=== PATIENT | female | born 1975 ===

== ENCOUNTER 2020-06-07 13:13 | Emergency (ER) | payer OTHER, SELFPAY ==
--- NOTE | ~2020-06-07 | XR_ITS ---
EXAMINATION: XR CHEST CLINICAL INFORMATION: High blood pressure COMPARISON: None TECHNIQUE: Frontal view of the chest was obtained. FINDINGS: No significant abnormality is noted involving the heart, lungs, mediastinum, bony thorax or soft tissues. XR/XR chest 1V IMPRESSION: Unremarkable chest examination.
[2020-06-07 13:16] VITALS: BP 192/94; PULSE 105; RESP 18; TEMP 36.7; O2SAT 98; BMI 33.3
--- NOTE | 2020-06-07 13:26 | ED_ITS ---
HPI - General Adult General Chief complaint: General Medical Stated complaint: HBP, chest pain Time Seen by Provider: 06/07/20 13:24 Source: patient Mode of arrival: ambulatory Limitations: no limitations History of Present Illness HPI narrative: 44-year-old female the past medical history of diabetes, HTN, depression and anxiety who is complaining of a lab while blood sugars and blood pressures with subsequent headache and dizziness x2 weeks. Patient states she takes glipizide, and metformin, Lantus and Humalog for her diabetes but has very quick changes in her blood sugar which make her feel terrible. She is often checking her blood sugars every 15 minutes. She also states her doctor has been changing her blood pressure medications, she takes losartan, HCTZ, and was just put on clonidine. She was on metoprolol but it made her feel tired so her doctor changed her meds. She states she took all of her normal diabetes and blood pressure medications this morning as usual. She denies chest pain, shor tness of breath. Patient states she was taking sertraline but only took a few times did not like how it made her feel so she stopped taking it. She states she takes no medications to manage her anxiety and does not see a therapist. Related Data Previous Rx's Medication Instructions Recorded hydroxyzine HCl 10 mg PO QID PRN #14 tab 06/07/20 Allergies Allergy/AdvReac Type Severity Reaction Status Date / Time ibuprofen [From MOTRIN] Allergy Unknown VOMIT Unverified 12/14/19 16:28 lisinopril [LISINOPRIL] Allergy Unknown SWELLING Unverified 12/14/19 16:28 OF FACE naproxen [NAPROXEN] Allergy Unknown VOMITING, Unverified 12/14/19 16:28 SWEATY MOTRIN Allergy Unknown Uncoded 05/04/13 00:00 Motrin Allergy Unknown Uncoded 05/16/19 00:00 Review of Systems Review of Systems: Yes all other systems are reviewed and are negative PMFSH Past Medical History Medical History HTN (hypertension) Social History Social History Advance Directives: No Advance Directives Information Provided: No Physical Exam 2 Vital Signs: Vital Signs: Last Vital Signs Temp 99.4 F 06/07/20 16:48 Pulse 80 06/07/20 16:48 Resp 14 06/07/20 16:48 BP 156/93 H 06/07/20 16:48 Pulse Ox 100 06/07/20 16:48 Body Mass Index 33.3 Const: General: cooperative, healthy appearing, comfortable, no acute distress, well developed and anxious Nutritional Appearance: obese Orientation/consciousness: patient oriented x3 Limitations: no limitations HENMT: Head: Yes normal to inspection Ears: hearing grossly normal bilaterally Eyes: General: appearance normal, both eyes and all related structures Visual Nur: normal visual nur by confrontation Pupils: Equal, round and reactive pupils present EOM: EOMs intact bilaterally Neck: Neck: Yes normal visual inspection and Yes full ROM Chest: Chest palpation & inspection: normal inspection of the chest Resp: Effort & Inspection: normal respiratory effort and able to speak in complete sentences Cardio: Rate: tachycardic Rhythm: regular rhythm Neuro: General: patient oriented x3 Cranial nerves: Yes CN's II-XII intact bilaterally and Yes Equal, round and reactive pupils present Course Course Course Narrative: 44-year-old female the past medical history of diabetes, HTN, depression and anxiety who is complaining of a lab while blood sugars and blood pressures with subsequent headache and dizziness x2 weeks. Patient is clearly very anxious which is probably what is contributing to her labile blood pressures. After my initial assessment, I left the room and the blood pressure recycled, the patient's BP is down to 156/86 map 102. Will get typical labs, troponin, EKG. Had an extensive discussion with patient and her daughter about patient's anxiety. Patient currently has no means to manage her anxiety. We discussed Atarax and after much discussion, the patient agreed to try 10 mg p.o.. Will reassess in a little while and monitor BP's. Reevaluation(s) Reevaluation #1: Patient states she is feeling a little more relaxed, blood pressure is down to 148/94, does not want another 10 mg of Atarax yet, will continue to monitor. Time: 15:00 Reevaluation #2: Patient states she is feeling less anxious however her blood pressure is using a little, last BP was 168/95 with a heart rate of 99. Since patient has 25 mg metoprolol at home, we will try a half a tablet here, 12.5 mg p.o. to see if that brings her blood pressure down a little bit but I think there is a large component of anxiety contributing to her labile and elevated blood pressures. Time: 15:48 Reevaluation #3: Patient states she takes oxycodone every 4 hours and she has not taken 1 since this morning and feels she might be withdrawing a little and that might be contributing to her blood pressure going up, after she had the metoprolol, the blood pressure did come down to the 150 systolic. She typically would take clonidine at this time and her oxycodone, she has both in her person will be taking both right now. She is comfortable getting discharged with adding at the 12.5 mg metoprolol daily. I did speak with our hospital pharmacist Ignacio, he said it was okay to cut the pill in half, I would not lose effectiveness, the pill cannot be crushed. Will discharge patient. Time: 17:12 Medical Decision Making Lab Data Result diagrams: 06/07/20 13:54 06/07/20 13:54 Labs: Lab Results 06/07/20 06/07/20 06/07/20 Range/Units 13:54 13:54 13:54 WBC 10.8 (4.8-10.8) X10*3/uL RBC 4.70 (4.20-5.50) X10*6/uL Hgb 10.8 L (12.0-16.0) g/dl Hct 35.3 L (37-47) % MCV 75.1 L (80-98) fL MCH 23.0 L (27.0-33.0) pg MCHC 30.6 L (31.0-35.0) g/dl RDW 17.5 H (11.0-16.0) % Plt Count 309 (160-400) X10*3/uL MPV 11.3 (9.4-12.3) fL Immature Gran % (Auto) 0.3 (0.0-0.4) % Neut % (Auto) 62.7 (45-73) % Lymph % (Auto) 26.0 (20-40) % [place] % (Auto) 8.9 (2-11) % Eos % (Auto) 1.8 (0-4) % Baso % (Auto) 0.3 (0-2) % Lymph # (Auto) 2.8 (1.2-4.9) X10*3/uL [place] # (Auto) 1.0 (0.1-1.2) X10*3/uL Eos # (Auto) 0.2 (0.0-0.4) X10*3/uL Baso # (Auto) 0.0 (0.0-0.2) X10*3/uL Abs Immat Gran (auto) 0.03 (0.00-0.03) X10*3/uL Absolute Neuts (auto) 6.8 (2.0-8.3) X10*3/uL Absolute Nucleated RBC 0.000 (0.0-0.012) X10*3/uL Nucleated RBC % (auto) 0.0 (0.0-0.2) /100WBC Hold Blue Top Cancelled POC Glucose (60-115) mg/dL Troponin I High Sens 3.5 (<3.5-17.0) ng/L B-Natriuretic Peptide 15 (<100) pg/mL 06/07/20 Range/Units 15:31 WBC (4.8-10.8) X10*3/uL RBC (4.20-5.50) X10*6/uL Hgb (12.0-16.0) g/dl Hct (37-47) % MCV (80-98) fL MCH (27.0-33.0) pg MCHC (31.0-35.0) g/dl RDW (11.0-16.0) % Plt Count (160-400) X10*3/uL MPV (9.4-12.3) fL Immature Gran % (Auto) (0.0-0.4) % Neut % (Auto) (45-73) % Lymph % (Auto) (20-40) % [place] % (Auto) (2-11) % Eos % (Auto) (0-4) % Baso % (Auto) (0-2) % Lymph # (Auto) (1.2-4.9) X10*3/uL [place] # (Auto) (0.1-1.2) X10*3/uL Eos # (Auto) (0.0-0.4) X10*3/uL Baso # (Auto) (0.0-0.2) X10*3/uL Abs Immat Gran (auto) (0.00-0.03) X10*3/uL Absolute Neuts (auto) (2.0-8.3) X10*3/uL Absolute Nucleated RBC (0.0-0.012) X10*3/uL Nucleated RBC % (auto) (0.0-0.2) /100WBC Hold Blue Top POC Glucose 150 H (60-115) mg/dL Troponin I High Sens (<3.5-17.0) ng/L B-Natriuretic Peptide (<100) pg/mL ECG Data Attestation: I personally reviewed and interpreted this ECG as follows: Prior ECG tracings: not available for review Interpretation: Sinus tach at 113BPM, no acute changes Discharge Plan Discharge Clinical Impression: Anxiety about health, Elevated blood pressure reading with diagnosis of hypertension Patient Disposition: Home, Self-Care Instructions: Anxiety (ED) Additional Instructions: As discussed, please cut your 25 mg metoprolol pill in half and start taking 1/2 pill daily, each morning. Please be sure to follow-up with your PCP regarding your anxiety. It would be worth trialing your SSRI but remember, as we discussed, you need to stay on the medication for least 6 weeks to feel the effects. In the meantime, see how the Atarax works for you, if it works well, your PCP should be willing to continue the prescription. I would also recommend some talk therapy to learn some coping mechanisms for when you are feeling anxious. Also, as we discussed, I would speak with your deputy program manager regarding a continuous glucose monitor such as the Dexcom G6. This could give you a clear picture of your current blood sugar and which direction it is heading in as well as how fast it is heading in that direction. Prescriptions: New hydroxyzine HCl 10 mg tablet 10 mg PO QID PRN (Reason: anxiety) Qty: 14 RF: 0 Referrals: Valentin Newton MD [Primary Care Provider] - 2 days (Follow-up for anxiety and medication changes, we added 12.5 mg metoprolol daily starting today.)
--- NOTE | 2020-06-07 13:27 | ECG_ITS ---
Test Reason : CP Blood Pressure : / mmHG Vent. Rate : 113 BPM Atrial Rate : 113 BPM P-R Int : 160 ms QRS Dur : 084 ms QT Int : 310 ms P-R-T Axes : 048 013 022 degrees QTc Int : 425 ms Sinus tachycardia Otherwise normal ECG When compared with ECG of 07-DEC-2013 13:52, No significant change was found Referred By: Bethany Hooper Electronically Signed By:DUTCH MANZO MD
[2020-06-07 13:58] LABS: MANUAL DIFF FLAG NO
[2020-06-07 14:02] LABS: Basophils Percent Auto 0.3 % (0-2); Eosinophils Absolute Auto 0.2 X10*3/uL (0.0-0.4); Eosinophils Percent Auto 1.8 % (0-4); Hematocrit 35.3 % (37-47); Hemoglobin 10.8 g/dl (12.0-16.0); Imm Gran Abs Auto 0.03 X10*3/uL (0.00-0.03); Imm Gran Pct Auto 0.3 % (0.0-0.4); Lymphocytes Absolute Auto 2.8 X10*3/uL (1.2-4.9); Mean Corpuscular HGB Conc 30.6 g/dl (31.0-35.0); Mean Corpuscular Volume 75.1 fL (80-98); Mean Platelet Volume 11.3 fL (9.4-12.3); Monocytes Percent Auto 8.9 % (2-11); Neutrophils Absolute Auto 6.8 X10*3/uL (2.0-8.3); Neutrophils Percent Auto 62.7 % (45-73); Platelet Count 309 X10*3/uL (160-400); Red Cell Distribution Width 17.5 % (11.0-16.0); White Blood Count 10.8 X10*3/uL (4.8-10.8)
[2020-06-07] MEDS: hydrOXYzine HCL 10 MG TABLET PO (14:21)
[2020-06-07 14:41] LABS: B Type Natriuretic Peptide 15 pg/mL (<100); Troponin-I High Sensitivity 3.5 ng/L (<3.5-17.0)
[2020-06-07 15:28] VITALS: BP 169/97; PULSE 82; RESP 22; TEMP 37.6; O2SAT 99
[2020-06-07 15:36] LABS: Glucose, Whole Blood 150 mg/dL (60-115)
[2020-06-07 16:03] VITALS: BP 171/118; PULSE 90
[2020-06-07] MEDS: Metoprolol Succinate ER 12.5 MG HALFTAB.ER.24H PO (16:03)
[2020-06-07 16:48] VITALS: BP 156/93; PULSE 80; RESP 14; TEMP 37.4; O2SAT 100
--- NOTE | 2020-06-07 17:27 | PC.NURSE ---
pt denies chest pain, denies dizziness or shortness of breath. She styates she will follow with her PCP as needed and take new meds as prescribed.
[2020-06-07 17:28] VITALS: BP 161/97; PULSE 87; RESP 16; O2SAT 98
== END 2020-06-07 17:28 | disposition home or self-care (01) ==
PROVIDERS: Physician Assistant; Emergency Provider Emergency Medicine Emergency Medical Services; PCP Internal Medicine
DX: F41.9 Anxiety disorder, unspecified (principal); I10 Essential (primary) hypertension; E11.9 Type 2 diabetes mellitus without complications; Z79.4 Long term (current) use of insulin; Z79.899 Other long term (current) drug therapy
CPT/HCPCS: 36415; 71045; 80048; 82947; 83880; 84484; 85025; 93005; 99284

== ENCOUNTER 2021-02-17 12:26 | Outpatient (REF) | payer OTHER, SELFPAY | END 2021-02-17 12:27 | disposition home or self-care (01) | LOC: HO.LAB 12:26 | PROVIDERS: PCP Internal Medicine; Visit Provider Internal Medicine | DX: Z20.822 Contact with and (suspected) exposure to COVID-19 (principal) | CPT/HCPCS: C9803; U0003; U0005 ==

== ENCOUNTER 2022-01-01 15:36 | Emergency (ER) | payer OTHER, SELFPAY ==
[2022-01-01 16:48] VITALS: BP 163/100; PULSE 103; RESP 20; TEMP 36.3; O2SAT 99; BMI 38.2
--- NOTE | 2022-01-01 16:53 | ECG_ITS ---
Test Reason : WEAKNESS Blood Pressure : / mmHG Vent. Rate : 094 BPM Atrial Rate : 094 BPM P-R Int : 174 ms QRS Dur : 086 ms QT Int : 326 ms P-R-T Axes : 026 -07 020 degrees QTc Int : 407 ms Normal sinus rhythm Moderate voltage criteria for LVH, may be normal variant ( R in aVL , Chema product ) Borderline ECG When compared with ECG of 07-JUN-2020 13:28, Heart rate has decreased Referred By: Generic ED Physician Electronically Signed By:LEROY DUEÑAS
[2022-01-01 17:29] LABS: MANUAL DIFF FLAG NO
[2022-01-01 17:33] LABS: Basophils Percent Auto 0.2 % (0-2); Eosinophils Absolute Auto 0.1 X10*3/uL (0.0-0.4); Eosinophils Percent Auto 0.6 % (0-4); Hematocrit 36.5 % (37.0-47.0); Hemoglobin 11.2 g/dl (12.0-16.0); Imm Gran Abs Auto 0.03 X10*3/uL (0.00-0.03); Imm Gran Pct Auto 0.3 % (0.0-0.4); Lymphocytes Absolute Auto 1.2 X10*3/uL (1.2-4.9); Lymphocytes Percent Auto 10.7 % (20-40); Mean Corpuscular HGB Conc 30.7 g/dl (31.0-35.0); Mean Corpuscular Hemoglobin 23.9 pg (27.0-33.0); Mean Corpuscular Volume 77.8 fL (80.0-98.0); Mean Platelet Volume 10.8 fL (9.4-12.3); Monocytes Absolute Auto 1.2 X10*3/uL (0.1-1.2); Monocytes Percent Auto 11.1 % (2-11); Neutrophils Absolute Auto 8.3 x10*3/uL (2.0-8.3); Neutrophils Percent Auto 77.1 % (45-73); Platelet Count 330 X10*3/uL (160-400); Red Blood Count 4.69 X10*6/uL (4.20-5.50); Red Cell Distribution Width 17.1 % (11.0-16.0); White Blood Count 10.8 X10*3/uL (4.8-10.8)
[2022-01-01 17:46] LABS: COVID-19 Test Negative (Negative)
[2022-01-01 17:50] LABS: Alanine Aminotransferase 13 U/L (0-31); Albumin Level 4.5 g/dL (3.5-5.0); Alkaline Phosphatase 43 U/L (39-117); Anion Gap 15 (12-20); Aspartate Amino Transferase 12 U/L (5-31); Bilirubin Direct 0.2 mg/dL (0.0-0.5); Bilirubin Total 0.5 mg/dL (0.0-1.0); Blood Urea Nitrogen 15 mg/dL (9-16); Calcium 9.8 mg/dL (8.4-10.2); Carbon Dioxide 22 mmol/L (22-29); Chloride 101 mmol/L (96-108); Creatinine Clr Calc Pharmacy 86.4; Estimated Glomerular Filt Rate > 60; Glucose Random 220 mg/dL (60-115); Lipase 5 U/L (8-78); Potassium 4.1 mmol/L (3.3-5.1); Sodium 134 mmol/L (135-145); Total Protein 7.8 g/dL (6.5-8.0)
[2022-01-01 18:04] LABS: Troponin-I High Sensitivity < 3.5 ng/L (<3.5-17.0)
== END 2022-01-01 21:02 | disposition left against medical advice (07) ==
PROVIDERS: Emergency Provider Emergency Medicine; PCP Internal Medicine
DX: R55 Syncope and collapse (principal); R11.10 Vomiting, unspecified; R19.7 Diarrhea, unspecified; I10 Essential (primary) hypertension; Z20.822 Contact with and (suspected) exposure to COVID-19
CPT/HCPCS: 36415; 80048; 80076; 83690; 84484; 85025; 87635; 93005; 99283

== ENCOUNTER 2022-09-19 18:15 | Emergency (ER) | payer OTHER, SELFPAY ==
[2022-09-19 18:23] VITALS: BP 195/97; PULSE 104; RESP 16; TEMP 36.4; O2SAT 98; BMI 38.3
[2022-09-19 18:53] LABS: Hematocrit 34.3 % (37.0-47.0); Hemoglobin 10.5 g/dl (12.0-16.0); Mean Corpuscular HGB Conc 30.6 g/dl (31.0-35.0); Mean Corpuscular Hemoglobin 23.6 pg (27.0-33.0); Mean Corpuscular Volume 77.3 fL (80.0-98.0); Mean Platelet Volume 10.7 fL (9.4-12.3); Platelet Count 299 X10*3/uL (160-400); Red Blood Count 4.44 X10*6/uL (4.20-5.50); Red Cell Distribution Width 18.6 % (11.0-16.0); White Blood Count 9.1 X10*3/uL (4.8-10.8)
[2022-09-19 18:58] LABS: Prothrombin Time 11.7 SEC (10.0-13.1)
[2022-09-19 19:05] LABS: Appearance Urine Cloudy; Color Urine PINK; Glucose Urine UA 500 mg/dL (Negative); Leukocyte Esterase Urine Negative (Negative); Nitrite Urine Negative (Negative); Specific Gravity - Urine 1.025 (1.005-1.025); UMIC TRIGGER UACC YES; Urine Blood Large (3+) (Negative); Urine Ketones Negative (Negative); Urine Protein Negative (Neg-Trace)
[2022-09-19 19:07] LABS: Alanine Aminotransferase 17 U/L (0-31); Albumin Level 4.3 g/dL (3.5-5.0); Alkaline Phosphatase 53 U/L (39-117); Anion Gap 12 (12-20); Aspartate Amino Transferase 14 U/L (5-31); Bilirubin Total 0.3 mg/dL (0.0-1.0); Blood Urea Nitrogen 13 mg/dL (9-16); Calcium 9.7 mg/dL (8.4-10.2); Carbon Dioxide 27 mmol/L (22-29); Chloride 100 mmol/L (96-108); Creatinine Clr Calc Pharmacy 97.8; Estimated Glomerular Filt Rate > 60; Glucose Random 232 mg/dL (60-115); Potassium 3.4 mmol/L (3.3-5.1); Sodium 136 mmol/L (135-145); Total Protein 7.7 g/dL (6.5-8.0)
[2022-09-19 19:07] LABS: Bacteria Urine None Seen (None Seen); Hyaline Casts Urine 0-2 /LPF (0-2); RBC Urine >20 /HPF (0-2); Squamous Epithelial Cell Urine 0-2 /HPF (0-2); WBC Urine 0-5 /HPF (0-5)
[2022-09-19 21:56] LABS: UPreg QC Valid YES
[2022-09-19 21:57] LABS: Urine Pregnancy NEGATIVE (NEGATIVE)
--- NOTE | 2022-09-19 22:39 | PM.GYNCN ---
NON DESTRUCTIVE TESTER - CN: HPI Data of Consult Consult date: 09/19/22 Primary Care Provider: Valentin Newton III, MD Consult Narrative Narrative: I was consulted Kell Looney who is a 46 year old female presented emergency room complaining of few weeks history of vaginal bleeding associated with pelvic cramping and passage of blood clots. In the emergency room urine test negative, H&H is 10.5/34.3 cc:: CC: OB [facility] Past Medical History Medical History HTN (hypertension) Social History Social History Alcohol intake: never Advance Directives: No Advance Directives Information Provided: Yes Meds Allergies Allergy/AdvReac Type Severity Reaction Status Date / Time amoxicillin Allergy Unknown Verified 09/19/22 18:29 doxycycline Allergy Unknown Verified 09/19/22 18:29 ibuprofen Allergy Unknown Verified 09/19/22 18:28 NON DESTRUCTIVE TESTER Physical Exam Vitals Vital signs: Temp Pulse Resp BP Pulse Ox O2 Del Method 97.5 F 104 H 16 195/97 H 98 Room Air 09/19/22 18:23 09/19/22 18:23 09/19/22 18:23 09/19/22 18:23 09/19/22 18:23 09/19/22 18:23 BMI result Body Mass Index 38.3 Additional Comments: Reported by Dr. Irvin in benign abdominal exam pelvic exam no evidence of active vaginal bleeding NON DESTRUCTIVE TESTER - Results Labs 09/19/22 18:44 09/19/22 18:44 Labs: Short CBC 09/19/22 Range/Units 18:44 WBC 9.1 (4.8-10.8) X10*3/uL Hgb 10.5 L (12.0-16.0) g/dl Hct 34.3 L (37.0-47.0) % Plt Count 299 (160-400) X10*3/uL BMP 09/19/22 18:44 Sodium 136 Potassium 3.4 Chloride 100 Carbon Dioxide 27 BUN 13 Creatinine 0.84 Calcium 9.7 Liver Function 09/19/22 Range/Units 18:44 Total Bilirubin 0.3 (0.0-1.0) mg/dL AST 14 (5-31) U/L ALT 17 (0-31) U/L Alkaline Phosphatase 53 (39-117) U/L Albumin 4.3 (3.5-5.0) g/dL Urine 09/19/22 09/19/22 Range/Units 18:39 18:39 Urine Color PINK Urine Appearance Cloudy Urine pH 6.0 (5.0-9.0) Ur Specific [place] 1.025 (1.005-1.025) Urine Protein Negative (Neg-Trace) mg/dL Urine Glucose (UA) 500 H (Negative) mg/dL Urine Test NEGATIVE (NEGATIVE) Assessment and Plan (1) Abnormal uterine bleeding (AUB): Status: Acute Plan Differential diagnosis of abnormal uterine bleeding includes but not limited to : thyroid disorders, prolactin disorders, uterine, ovarian pathology, endometrial pathology including endometrial hyperplasia and/or malignancy, infections, and others. The workup includes TSH, prolactin, in addition to CBC, hCG and a pelvic ultrasound with endometrial biopsy to rule out endometrial pathology. Recommended the Dr. Irvin to instructed the patient to follow-up in an outpatient electron beam welder setter office over [place] , for DUB workup and treatment. In addition, instructions to be given to patient to come back to emergency room in case of heavy vaginal bleeding. I spent a total of 20 minutes reviewing the chart, communicating to the emergency room provider and documenting in the medical record Time Spent With Patient Time: Total time managing care of this patient today ____ minutes.
--- NOTE | 2022-09-19 22:40 | ED.FEMALEGU ---
HPI - Female Genitourinary General Chief complaint: Vaginal Bleeding Stated complaint: vaginal bleeding since 09/02 Time Seen by Provider: 09/19/22 21:49 History of Present Illness HPI Narrative: Patient is a 46-year-old female presents today for having vaginal bleeding for the last month. Getting more severe in the last week. Patient claims she is soaking a pad every hour. No fever no chills no chest pain no nausea no vomiting. Slight dizziness. No rectal bleeding. Not on blood thinners. Patient is sexually active with 1 partner. Had not had any Pap smear. Has an OBGYN with [email or web address] Data Previous Rx's Medication Instructions Recorded hydroxyzine HCl 10 mg tablet 10 mg PO QID PRN anxiety #14 tabs 06/07/20 Allergies Allergy/AdvReac Type Severity Reaction Status Date / Time amoxicillin Allergy Unknown Verified 09/19/22 18:29 doxycycline Allergy Unknown Verified 09/19/22 18:29 ibuprofen Allergy Unknown Verified 09/19/22 18:28 Review of Systems Review of Systems: Positive vaginal bleeding. Positive generalized malaise Yes all other systems are reviewed and are negative [facility] Past Medical History Attestation statement: The following information was validated with the patient. Medical History HTN (hypertension) Social History Social History Alcohol intake: never Advance Directives: No Advance Directives Information Provided: Yes Physical Exam Vital Signs: Vital Signs: Last Vital Signs Temp 97.5 F 09/19/22 18:23 Pulse 104 H 09/19/22 18:23 Resp 16 09/19/22 18:23 BP 195/97 H 09/19/22 18:23 Pulse Ox 98 09/19/22 18:23 O2 Del Method Room Air 09/19/22 18:23 BMI result Body Mass Index 38.3 Appearance: Alert. Oriented X3. No acute distress. Eyes: Pupils equal, round and reactive to light. ENT: Pharynx normal. Neck: Normal inspection. Neck supple. No lymph nodes noted. No crepitus CVS: Normal heart rate and rhythm. Pulses normal. Normal S1 and S2 Respiratory: No respiratory distress. Breath sounds normal. No Wheezing. No rales Abdomen: Soft and nontender. No rigidity. No distention. good BS x4 Pelvic exam done with christina Rogers present. There is minimal blood in the vaginal vault. The cervical os is closed. There is no adnexal tenderness elicited on palpation. Skin: Skin warm and dry. Normal skin color. Normal skin turgor. Extremities: No lower extremity edema. Neurovascular intact to all extremities. No Lacerations. No Rash Neuro: Oriented X 3. No motor deficit. No sensory deficit. Moving all extermities. No slurred speech Medical Decision Making Medical Decision Making [facility] Narrative: Positive vaginal bleeding however patient's hemoglobin she is around 11 which is baseline. MCV is low suggestive of iron deficiency anemia. Patient's urine showed no signs of infection. Pelvic exam done cervical os was closed there is blood in the vault. Findings discussed with OBGYN. Will see patient on an outpatient basis. Phone number given. Patient told worsening condition return. At this time see no need for transfusion. Patient hemoglobin baseline she is well-appearing bleeding is not active. Will discharge patient home. Differential Diagnosis Differential Diagnoses: The differential diagnosis associated with the presentation includes Uterine cancer, vaginal bleed Consult Healthcare Provider Management of the patient was discussed with: Nursing Education Consultant OBGYN Lab Data [facility] Lab Attestation statement: I reviewed the patient's lab results. 09/19/22 18:44 09/19/22 18:44 Labs: Lab Results 09/19/22 09/19/22 09/19/22 Range/Units 18:39 18:39 18:44 WBC 9.1 (4.8-10.8) X10*3/uL RBC 4.44 (4.20-5.50) X10*6/uL Hgb 10.5 L (12.0-16.0) g/dl Hct 34.3 L (37.0-47.0) % MCV 77.3 L (80.0-98.0) fL MCH 23.6 L (27.0-33.0) pg MCHC 30.6 L (31.0-35.0) g/dl RDW 18.6 H (11.0-16.0) % Plt Count 299 (160-400) X10*3/uL MPV 10.7 (9.4-12.3) fL Absolute Nucleated RBC 0.000 (0.0-0.012) X10*3/uL Nucleated RBC % (auto) 0.0 (0.0-0.2) /100WBC PT (10.0-13.1) SEC INR (0.9-1.1) Sodium (135-145) mmol/L Potassium (3.3-5.1) mmol/L Chloride (96-108) mmol/L Carbon Dioxide (22-29) mmol/L Anion Gap (12-20) BUN (9-16) mg/dL Creatinine (0.5-1.4) mg/dL Estim Creat Clear Calc Estimated GFR Random Glucose (60-115) mg/dL Calcium (8.4-10.2) mg/dL Total Bilirubin (0.0-1.0) mg/dL AST (5-31) U/L ALT (0-31) U/L Alkaline Phosphatase (39-117) U/L Total Protein (6.5-8.0) g/dL Albumin (3.5-5.0) g/dL Urine Color PINK Urine Appearance Cloudy Urine pH 6.0 (5.0-9.0) Ur Specific [place] 1.025 (1.005-1.025) Urine Protein Negative (Neg-Trace) mg/dL Urine Glucose (UA) 500 H (Negative) mg/dL Urine Ketones Negative (Negative) mg/dL Urine Blood Large (3+) H (Negative) Urine Nitrite Negative (Negative) Ur Leukocyte Esterase Negative (Negative) Urine RBC >20 H (0-2) /HPF Urine WBC 0-5 (0-5) /HPF Ur Squamous Epith Cells 0-2 (0-2) /HPF Urine Bacteria None Seen (None Seen) Hyaline Casts 0-2 (0-2) /LPF Urine Test NEGATIVE (NEGATIVE) 09/19/22 09/19/22 Range/Units 18:44 18:46 WBC (4.8-10.8) X10*3/uL RBC (4.20-5.50) X10*6/uL Hgb (12.0-16.0) g/dl Hct (37.0-47.0) % MCV (80.0-98.0) fL MCH (27.0-33.0) pg MCHC (31.0-35.0) g/dl RDW (11.0-16.0) % Plt Count (160-400) X10*3/uL MPV (9.4-12.3) fL Absolute Nucleated RBC (0.0-0.012) X10*3/uL Nucleated RBC % (auto) (0.0-0.2) /100WBC PT 11.7 (10.0-13.1) SEC INR 1.0 (0.9-1.1) Sodium 136 (135-145) mmol/L Potassium 3.4 (3.3-5.1) mmol/L Chloride 100 (96-108) mmol/L Carbon Dioxide 27 (22-29) mmol/L Anion Gap 12 (12-20) BUN 13 (9-16) mg/dL Creatinine 0.84 (0.5-1.4) mg/dL Estim Creat Clear Calc 97.8 Estimated GFR > 60 Random Glucose 232 H (60-115) mg/dL Calcium 9.7 (8.4-10.2) mg/dL Total Bilirubin 0.3 (0.0-1.0) mg/dL AST 14 (5-31) U/L ALT 17 (0-31) U/L Alkaline Phosphatase 53 (39-117) U/L Total Protein 7.7 (6.5-8.0) g/dL Albumin 4.3 (3.5-5.0) g/dL Urine Color Urine Appearance Urine pH (5.0-9.0) Ur Specific [place] (1.005-1.025) Urine Protein (Neg-Trace) mg/dL Urine Glucose (UA) (Negative) mg/dL Urine Ketones (Negative) mg/dL Urine Blood (Negative) Urine Nitrite (Negative) Ur Leukocyte Esterase (Negative) Urine RBC (0-2) /HPF Urine WBC (0-5) /HPF Ur Squamous Epith Cells (0-2) /HPF Urine Bacteria (None Seen) Hyaline Casts (0-2) /LPF Urine Test (NEGATIVE) Discharge Plan Discharge Clinical Impression: Abnormal uterine bleeding (AUB) Patient Disposition: Home, Self-Care Instructions: Dysfunctional Uterine Bleeding (ED) Prescriptions: No Action hydroxyzine HCl 10 mg tablet 10 mg PO QID PRN (Reason: anxiety) Qty: 14 0RF Rx Instructions: Can take 1-3 tablets as needed for anxiety Referrals: Elia Cruz MD [Physician] - 09/21/22
== END 2022-09-19 23:37 | disposition home or self-care (01) ==
PROVIDERS: Emergency Provider Emergency Medicine Emergency Medical Services; PCP Internal Medicine
DX: N93.9 Abnormal uterine and vaginal bleeding, unspecified (principal); I10 Essential (primary) hypertension; Z79.899 Other long term (current) drug therapy
CPT/HCPCS: 36415; 80053; 81001; 81003; 81025; 85027; 85610; 99283; 99284

== ENCOUNTER 2022-09-23 13:01 | Outpatient (REF) | payer OTHER, SELFPAY ==
[2022-09-23 14:34] LABS: Hematocrit 34.6 % (37.0-47.0); Hemoglobin 10.4 g/dl (12.0-16.0); Mean Corpuscular HGB Conc 30.1 g/dl (31.0-35.0); Mean Corpuscular Hemoglobin 23.4 pg (27.0-33.0); Mean Corpuscular Volume 77.9 fL (80.0-98.0); Platelet Count 288 X10*3/uL (160-400); Red Blood Count 4.44 X10*6/uL (4.20-5.50); White Blood Count 10.2 X10*3/uL (4.8-10.8)
[2022-09-23 15:21] LABS: TSH reflex Free T4 0.86 uIU/mL (0.32-4.0)
[2022-09-23 15:23] LABS: HCG Quantitative < 2 mIU/mL
[2022-09-25 07:29] LABS: Prolactin 11.5 ng/mL
== END 2022-09-23 13:02 | disposition home or self-care (01) ==
LOC: HO.LAB 13:01
PROVIDERS: PCP Internal Medicine; Visit Provider Obstetrics & Gynecology
DX: N93.9 Abnormal uterine and vaginal bleeding, unspecified (principal)
CPT/HCPCS: 36415; 58100; 84146; 84443; 84702; 85027; 99212

== ENCOUNTER 2022-09-23 13:57 | Outpatient (REF) | payer OTHER, SELFPAY ==
[2022-09-23 16:07] LABS: CT PCR NOT DETECTED (Not Detect.); NG PCR NOT DETECTED (Not Detect.)
[2022-09-29 10:23] LABS: HPV mRNA E6/E7 rflx Not Detected (Not Detected)
== END 2022-09-23 13:58 | disposition home or self-care (01) ==
LOC: HO.LNP 13:57
PROVIDERS: Visit Provider Obstetrics & Gynecology
DX: N93.9 Abnormal uterine and vaginal bleeding, unspecified (principal); Z20.2 Contact with and (suspected) exposure to infections with a predominantly sexual mode of transmission
CPT/HCPCS: 0353U; 87624; 88142; 88305

== ENCOUNTER 2022-09-25 12:34 | Outpatient (REF) | payer OTHER, SELFPAY | END 2022-09-25 12:35 | disposition home or self-care (01) | LOC: HO.US 12:34 | PROVIDERS: PCP Internal Medicine; Visit Provider Obstetrics & Gynecology | DX: N93.9 Abnormal uterine and vaginal bleeding, unspecified (principal) | CPT/HCPCS: 76830; 76856 ==

== ENCOUNTER → 2022-09-30 12:20 | Outpatient (BNVA) | payer OTHER, SELFPAY | PROVIDERS: PCP Internal Medicine; Visit Provider Obstetrics & Gynecology | DX: N93.9 Abnormal uterine and vaginal bleeding, unspecified (principal); D25.9 Leiomyoma of uterus, unspecified | CPT/HCPCS: 99212 ==

== ENCOUNTER 2022-10-23 06:55 | Day surgery (SDC) | payer OTHER, SELFPAY ==
[2022-10-20 11:05] VITALS: BMI 36.9
--- NOTE | 2022-10-22 09:00 | P.CONAN_ITS ---
Documented by User: Liana Motta NP 10/22/22 09:02 HPI - Anesthesia Eval Consult details Narrative: 46yo F for D&C Hysteroscopy,poss myomectomy/polypectomy PMFSH Active Problems Active Problems: All Active Problems (Updated 09/30/22 @ 12:29 by Elia Cruz MD) Uterine myoma (Acute) Abnormal uterine bleeding (AUB) (Acute) Past Medical History Medical History (Updated 10/23/22 @ 08:17 by Catalina Ayala MD) Diabetes Hernia HTN (hypertension) Hyperlipidemia Family History Family History Father Diabetes Mother Diabetes Breast cancer Ovarian cancer Maternal Aunt Ovarian cancer Paternal Aunt Ovarian cancer Surgical History Surgical History (Updated 10/23/22 @ 08:20 by Catalina Ayala MD) H/O hernia repair H/O tubal ligation Hx laparoscopic cholecystectomy Social History Social History (Updated 10/23/22 @ 08:20 by Catalina Ayala MD) Household Members: None Alcohol intake: never Patient Tobacco Use Status: Current someday Tobacco user Cigarettes Per Day: 1 Years Smoked: 5 Current occupational status: disabled Sexual orientation: Straight/Heterosexual Gender identity: Female Meds Allergies Allergy/AdvReac Type Severity Reaction Status Date / Time amoxicillin Allergy Unknown Verified 09/30/22 12:27 doxycycline Allergy Unknown Verified 09/30/22 12:27 ibuprofen Allergy Unknown Verified 09/30/22 12:27 lisinopril Allergy Angioedema Verified 10/23/22 07:59 naproxen AdvReac Unknown Verified 10/23/22 07:59 Home Medications Medication Instructions Recorded Confirmed Last Taken Type ammonium lactate 12 % topical cream appl topical BID 09/23/22 Unknown History clindamycin 1.2 %-benzoyl 5 % pkg topical 09/23/22 Unknown History topical gel with emollient cream no.94 cyanocobalamin (vitamin B-12) 5,000 mcg sublingual DAILY 09/23/22 Unknown History 5,000 mcg sublingual tablet (Vitamin B-12) dulaglutide 3 mg/0.5 mL mg subcut 09/23/22 Unknown History subcutaneous pen injector (Trulicity) ferrous sulfate 325 mg (65 mg 325 mg PO DAILY 09/23/22 Unknown History iron) tablet hydrochlorothiazide 25 mg tablet 25 mg PO DAILY 09/23/22 Unknown History insulin glargine 100 unit/mL (3 86 unit subcut DAILY 09/23/22 Unknown History mL) subcutaneous pen (Lantus Solostar U-100 Insulin) losartan 100 mg tablet 100 mg PO DAILY 09/23/22 Unknown History metformin 1,000 mg tablet 1,000 mg PO BID 09/23/22 Unknown History metoprolol succinate 25 mg 12.5 mg PO DAILY 09/23/22 10/23/22 History tablet,extended release 24 hr nystatin 100,000 unit/gram topical 1 appl topical BID 09/23/22 Unknown History cream oxycodone-acetaminophen 5 mg-325 1 tab PO QID 09/23/22 Unknown History mg tablet rosuvastatin 5 mg tablet 5 mg PO DAILY 09/23/22 Unknown History zolpidem 10 mg tablet 10 mg PO BEDTIME 09/23/22 Unknown History Exam Exam Date and Time: October 22, 2022 0900 Height,Weight and Vital Signs: Height 5 ft 4 in Weight 97.522 kg Pertinent Lab Results Pertinent Lab Results: Laboratory Tests 09/19/22 09/23/22 18:44 13:59 WBC 10.2 Hgb 10.4 L Hct 34.6 L Plt Count 288 Sodium 136 Potassium 3.4 Chloride 100 Carbon Dioxide 27 BUN 13 Creatinine 0.84 Assessment and Plan Assessment Anesthesia Assessment: Chart Reviewed Documented by User: Catalina Ayala MD 10/23/22 08:26 [facility] Active Problems Active Problems: All Active Problems (Updated 10/23/22 @ 07:45 by Catalina Ayala MD) Uterine myoma (Acute) Abnormal uterine bleeding (AUB) (Acute) MICHELLE. Uses CPAP Asthma. Inhaler prn. Not recently Increased BMI 36.9 Anxiety - gets ativan for dental visits Last dose of trulicity 4 days ago 10/19/22 Past Medical History Medical History (Updated 10/23/22 @ 08:17 by Catalina Ayala MD) Diabetes Hernia HTN (hypertension) Hyperlipidemia Family History Family History Father Diabetes Mother Diabetes Breast cancer Ovarian cancer Maternal Aunt Ovarian cancer Paternal Aunt Ovarian cancer Family history of problems with anesthesia: No Surgical History Surgical History (Updated 10/23/22 @ 08:20 by Catalina Ayala MD) H/O hernia repair H/O tubal ligation Hx laparoscopic cholecystectomy History of Problems with Anesthesia: No Social History Social History (Updated 10/23/22 @ 08:20 by Catalina Ayala MD) Household Members: None Alcohol intake: never Patient Tobacco Use Status: Current someday Tobacco user Cigarettes Per Day: 1 Years Smoked: 5 Current occupational status: disabled Sexual orientation: Straight/Heterosexual Gender identity: Female Meds Allergies Allergy/AdvReac Type Severity Reaction Status Date / Time amoxicillin Allergy Unknown Verified 09/30/22 12:27 doxycycline Allergy Unknown Verified 09/30/22 12:27 ibuprofen Allergy Unknown Verified 09/30/22 12:27 lisinopril Allergy Angioedema Verified 10/23/22 07:59 naproxen AdvReac Unknown Verified 10/23/22 07:59 Home Medications Medication Instructions Recorded Confirmed Last Taken Type ammonium lactate 12 % topical cream appl topical BID 09/23/22 Unknown History clindamycin 1.2 %-benzoyl 5 % pkg topical 09/23/22 Unknown History topical gel with emollient cream no.94 cyanocobalamin (vitamin B-12) 5,000 mcg sublingual DAILY 09/23/22 Unknown History 5,000 mcg sublingual tablet (Vitamin B-12) dulaglutide 3 mg/0.5 mL mg subcut 09/23/22 Unknown History subcutaneous pen injector (Trulicity) ferrous sulfate 325 mg (65 mg 325 mg PO DAILY 09/23/22 Unknown History iron) tablet hydrochlorothiazide 25 mg tablet 25 mg PO DAILY 09/23/22 Unknown History insulin glargine 100 unit/mL (3 86 unit subcut DAILY 09/23/22 Unknown History mL) subcutaneous pen (Lantus Solostar U-100 Insulin) losartan 100 mg tablet 100 mg PO DAILY 09/23/22 Unknown History metformin 1,000 mg tablet 1,000 mg PO BID 09/23/22 Unknown History metoprolol succinate 25 mg 12.5 mg PO DAILY 09/23/22 10/23/22 History tablet,extended release 24 hr nystatin 100,000 unit/gram topical 1 appl topical BID 09/23/22 Unknown History cream oxycodone-acetaminophen 5 mg-325 1 tab PO QID 09/23/22 Unknown History mg tablet rosuvastatin 5 mg tablet 5 mg PO DAILY 09/23/22 Unknown History zolpidem 10 mg tablet 10 mg PO BEDTIME 09/23/22 Unknown History Exam Height,Weight and Vital Signs: Height 5 ft 4 in Weight 97.522 kg Vital Signs Temp Pulse Resp BP Pulse Ox O2 Del Method 10/23/22 08:00 166/84 H 10/23/22 07:51 98 F 105 H 20 189/105 H 99 Room Air Pertinent Lab Results Pertinent Lab Results: Laboratory Tests 09/19/22 09/23/22 18:44 13:59 WBC 10.2 Hgb 10.4 L Hct 34.6 L Plt Count 288 Sodium 136 Potassium 3.4 Chloride 100 Carbon Dioxide 27 BUN 13 Creatinine 0.84 Lab Results 10/23/22 Range/Units 07:10 Urine Test NEGATIVE (NEGATIVE) POC 138mg/dL Airway Mallampati Class: III TM Dist: >3cm Neck ROM: Full Loose/Missing/Broken Teeth: Yes (Missing molars. Denies broken or loose teeth) Heart: RRR Lungs: CTAB Assessment and Plan Assessment Anesthesia Assessment: Anesthesia Plan Discussed Final Anesthetic Review Family History of Problems with Anesthesia: No History of Problems with Anesthesia: No NPO: Yes ASA Class: III Final Preanesthetic Review: No Changes in Pt Med Stat, Meds/Allgs Chart Reviewed, Consent Obtained/Reviewed and Anes Risks/Benef Reviewed Patient Risk: Intermediate Procedure Risk: Low Assessment/Block/Sedation in SS: Assess/Block/Sedation-SS Anesthetic Plan Anesthetic Plan: GA Disposition: Standard PACU
[2022-10-23] VITALS (8 sets, daily range): BP systolic 132–189; BP diastolic 72–105; PULSE 95–105; RESP 16–20; TEMP 36.6–36.7; O2SAT 96–100
[2022-10-23 08:10] LABS: UPreg QC Valid YES; Urine Pregnancy NEGATIVE (NEGATIVE)
[2022-10-23] MEDS: Lactated Ringers 1,000 ML 100 ML IVCONT (08:12)
[2022-10-23] MEDS: Metoclopramide HCl 10 MG/2 ML VIAL IVPUSH (08:30)
--- NOTE | 2022-10-23 08:56 | MHC.SHP ---
Pre-Procedural Eval Section A Date of Service: 10/23/22 The patient is an INPATIENT: No Changes since office visit: No Cold of Flu in the past 2 weeks, No New Medical Problems, No Changes in Medication and No Patient answered all questions The History & Physical has been completed within 30 days and I have reviewed it.: Yes Section B Chief Complaint: Abnormal uterine and vaginal bleeding, unspecified Allergies: Allergies Allergy/AdvReac Type Severity Reaction Status Date / Time amoxicillin Allergy Unknown Verified 09/30/22 12:27 doxycycline Allergy Unknown Verified 09/30/22 12:27 ibuprofen Allergy Unknown Verified 09/30/22 12:27 lisinopril Allergy Angioedema Verified 10/23/22 07:59 naproxen AdvReac Unknown Verified 10/23/22 07:59 Plan Diagnosis/Plan: Unchanged I have reviewed the history and physical and performed a pertinent physical examination on my patient. No changes have occurred unless specified. Time Spent With Patient Time: Total time managing care of this patient today ____ minutes.
--- NOTE | 2022-10-23 09:43 | PM.OP ---
Brief Operative Note Date of Service: 10/23/22 Pre-op diagnosis: Abnormal uterine bleeding, polyp on EMB pathology Post-op diagnosis: same (Normal endometrial cavity , no evidence of pathology) Procedure: Hysteroscopy D&C Surgeon: Elia Cruz MD Anesthesia: GLMA Was an Project Management Specialist used for this Procedure?: No Estimated blood loss (mL): 0 Pathology: other (Endometrial Scrapping. ) Condition: stable Disposition: PACU
--- NOTE | 2022-10-23 09:44 | W.PM.OPN ---
Operative Note Operative Note Date of Service: 10/23/22 Narrative: Preop Diagnosis: Abnormal uterine bleeding, endometrial polyp on EMB pathology Operation: Diagnostic Hysteroscopy, Dilataion & Curettage Post Op Diagnosis: Normal endometrial and endocervical cavity, no evidence of pathology QBL: Minimal Anesthesia: GLMA Surgeon: Elia Cruz MD Director Global Strategic Publisher Sales: None Complication: None Pathology: Endometrial Scrapings Procedure: The patient was put in the dorsal lithotomy position, scrubbed, and draped in the usual manner. A sterile speculum was inserted in the patient's vagina. The anterior lip of the cervix was grasped with a single tooth tenaculum. The cervix was dilated up to 5 mm, then the scope was inserted in the patient's uterus. Inspection revealed normal endocervical & endometrial cavity with no evidence of pathology. The scope was taken out of the uterine cavity , then sharp curetting was carried on with no complications. At the end of the procedure, all instruments were taken out of the patient uterine and vaginal cavity. The single tooth tenaculum was removed and homeostasis was assured using pressure. The patient tolerated the procedure well and was transferred to the PACU in a stable condition.
[2022-10-23] MEDS: Acetaminophen 325 MG TABLET 650 MG PO (10:04)
[2022-10-23] MEDS: oxyCODONE HCl Immed Release 5 MG TABLET PO (10:04)
== END 2022-10-23 11:05 | disposition home or self-care (01) ==
PROVIDERS: PCP Internal Medicine; Visit Provider Obstetrics & Gynecology
PROC: 0UDB8ZZ Extraction of Endometrium, Via Natural or Artificial Opening Endoscopic (ICD-10-PCS; CPT 58558; principal; 2022-10-23 09:20)
DX: N93.9 Abnormal uterine and vaginal bleeding, unspecified (principal); D25.9 Leiomyoma of uterus, unspecified; Z98.51 Tubal ligation status; E11.9 Type 2 diabetes mellitus without complications; I10 Essential (primary) hypertension; Z88.1 Allergy status to other antibiotic agents; Z88.8 Allergy status to other drugs, medicaments and biological substances; F17.210 Nicotine dependence, cigarettes, uncomplicated
CPT/HCPCS: 58558; 81025; 88305; J1100; J2250; J2405; J2765

== ENCOUNTER → 2022-10-23 06:55 | Outpatient (BNV) | payer OTHER, SELFPAY | PROVIDERS: PCP Internal Medicine; Visit Provider Obstetrics & Gynecology | DX: N93.9 Abnormal uterine and vaginal bleeding, unspecified (principal) | CPT/HCPCS: 58558 ==

== ENCOUNTER 2022-11-05 13:10 | Outpatient (REF) | payer OTHER, SELFPAY | END 2022-11-05 13:11 | disposition home or self-care (01) | LOC: HO.LNP 13:10 | PROVIDERS: PCP Internal Medicine; Visit Provider Obstetrics & Gynecology | DX: N93.9 Abnormal uterine and vaginal bleeding, unspecified (principal); D25.9 Leiomyoma of uterus, unspecified; R87.615 Unsatisfactory cytologic smear of cervix | CPT/HCPCS: 88142; 99212 ==

== ENCOUNTER 2022-11-05 13:10 | Outpatient (AMB) | payer OTHER, SELFPAY ==
[2022-11-05 13:16] VITALS: BP 132/80; BMI 36.7
--- NOTE | 2022-11-05 13:16 | A.OFFVIS_ITS ---
Intake Vital Signs 11/05/22 13:16 Height 5 ft 4 in Weight 214 lb BMI 36.7 BP 132/80 Intake Visit Reasons: post op Java Swing Developer Required: No Allergies amoxicillin Allergy (Verified 11/05/22 13:17) Unknown doxycycline Allergy (Verified 11/05/22 13:17) Unknown ibuprofen Allergy (Verified 11/05/22 13:17) Unknown lisinopril Allergy (Verified 11/05/22 13:17) Angioedema naproxen Adverse Reaction (Verified 11/05/22 13:17) Unknown Is last menstrual period known: No HPI HPI Comments History of Present Illness Details The patient is presenting post hysteroscopy D&C no complaints minimal vaginal bleeding no feverishness chills or abdominal pain. The pathology showed the following: Endometrium, curettage:? Benign disordered proliferative endometrium with focal stromal collapse, ectatic stromal vessels, and focal thrombi, suggesting anovulatory cycles; no atypia or carcinoma. The following workup was done.: H&H= 10.4/34.6 TSH, prolactin, hCG, GC and chlamydia were negative. Co testing was done , Pap smear was unsatisfactory /obscured by blood , HPV negative Mammogram was BI-RADS 1. Pelvic ultrasound showed the following: Uterus: The uterus is anteverted and measures 11.9 x 5.5 x 6.9 cm.? The double wall endometrial thickness is 0.8 mm.? There are multiple fibroids. 2.9 x 3.3 x 3.1 cm partially calcified fibroid on the right impinges on the endometrial stripe and may have a submucosal component. 3.6 x 3.6 x 2.8 cm subserosal fibroid is seen on the left. A 2.3 cm fibroid is seen posteriorly Adnexa: Both ovaries are visualized. There is normal color flow to the adnexa. There is no ovarian torsion.? There is no pelvic ascites or fluid collection. Right ovary measures 1.8 x 2.0 x 2.9 cm. Volume is 8.3 mL Left ovary measures 4.5 x 3.4 x 4.5 cm. Volume is 35.9 mL. 3.5 x 2.5 x 2.4 cm cyst is most likely physiologic in origin. No imaging follow-up is recommended. [facility] Medical History (Updated 11/05/22 @ 13:41 by Elia Cruz MD) Diabetes Hernia HTN (hypertension) Hyperlipidemia Surgical History (Updated 10/23/22 @ 08:20 by Catalina Ayala MD) H/O hernia repair H/O tubal ligation Hx laparoscopic cholecystectomy Family History Father Diabetes Mother Diabetes Breast cancer Ovarian cancer Maternal Aunt Ovarian cancer Paternal Aunt Ovarian cancer Social History (Updated 10/23/22 @ 08:20 by Catalina Ayala MD) Household Members: None Alcohol intake: never Patient Tobacco Use Status: Current someday Tobacco user Cigarettes Per Day: 1 Years Smoked: 5 Current occupational status: disabled Sexual orientation: Straight/Heterosexual Gender identity: Female Female Reproductive History Menstrual control method: permanent sterilization Date of last pap smear: 09/24/22 (unsatisfactory) Review of Systems Const All systems reviewed & are unremarkable except as noted in HPI and below Reports as per HPI and Reports no additional complaints GI Reports no additional complaints Reports no additional complaints Physical Exam Vital Signs: Last Vital Signs BP 132/80 11/05/22 13:16 BMI result Body Mass Index 36.7 Assessment & Plan Assessment & Plan (1) Abnormal uterine bleeding (AUB): Code(s): N93.9 - Abnormal uterine and vaginal bleeding, unspecified Plan: Discussed with the patient the results of the work up done and options of treatment including Lysteda, control pills, Mirena IUD, endometrial ablation and hysterectomy. All pros, cons, risks and benefits if each option was discussed with the patient and the patient decided to go ahead with Mirena IUD so a more detailed discussion about it was conducted including mechanism of action, risks (uterine perforation, infection, injury to bladder, bowel, displacement, and others) benefits (hypo menorrhea, amenorrhea, ...). GC/CT were taken and the patient was instructed to The patient was instructed to schedule Mirena IUD insertion on day 1-5 of next cycle . (2) Uterine myoma: Code(s): D25.9 - Leiomyoma of uterus, unspecified Plan: Discussed with the patient the findings on pelvic ultrasound & the risk of myosarcoma; discussed with the patient the options of treatment including expectant management versus hysterectomy; the pros and cons, risks benefits of each approach were discussed with the patient including the fact that in cases of myosarcoma, surgical treatment can lead to early diagnosis and positively affects the prognosis; after further discussion, the patient decided to proceed with expectant management. Will repeat pelvic ultrasound in 6 my. Instructions given to patient to call in case any of the following occurs: pressure symptoms, abnormal uterine bleeding, pelvic pain; and to schedule a 6 my follow-up appointment regarding the follow-up ultrasound . All questions answered, the patient verbalized understanding and agreed with the plan . (3) Unsatisfactory cervical Papanicolaou smear: Code(s): R87.615 - Unsatisfactory cytologic smear of cervix Plan: Pap repeated P Orders: Orders US pelvic and transvaginal 6 Months D25.9 - Leiomyoma of uterus, unspecified Coding Level of Care Code Est Pt Level 3 (93555) Diagnoses Abnormal uterine bleeding (AUB) N93.9 Uterine myoma D25.9 Unsatisfactory cervical Papanicolaou smear R87.615
== END 2022-11-05 13:46 | disposition home or self-care (01) ==
LOC: HO.HWS 13:10
PROVIDERS: PCP Internal Medicine; Visit Provider Obstetrics & Gynecology
DX: N93.9 Abnormal uterine and vaginal bleeding, unspecified (principal); D25.9 Leiomyoma of uterus, unspecified; R87.615 Unsatisfactory cytologic smear of cervix
CPT/HCPCS: 99213

== ENCOUNTER 2023-02-15 10:00 | Outpatient (AMB) | payer OTHER, SELFPAY ==
--- NOTE | 2023-02-15 10:14 | MHC.OFFVIS ---
Intake Vital Signs 02/15/23 10:22 Height 5 ft 4 in Weight 215 lb BMI 36.9 BP 144/96 H Intake Visit Reasons: mirena insertion Automotive Exhaust Emissions Technician: Automotive Exhaust Emissions Technician Present (Yaneli) Allergies amoxicillin Allergy (Verified 02/15/23 10:15) Unknown doxycycline Allergy (Verified 02/15/23 10:15) Unknown ibuprofen Allergy (Verified 02/15/23 10:15) Unknown lisinopril Allergy (Verified 02/15/23 10:15) Angioedema naproxen Adverse Reaction (Verified 02/15/23 10:15) Unknown Is last menstrual period known: Yes Last menstrual period: 12/21/22 [facility] Medical History Diabetes Hernia HTN (hypertension) Hyperlipidemia Surgical History H/O hernia repair H/O tubal ligation Hx laparoscopic cholecystectomy Family History Father Diabetes Mother Diabetes Breast cancer Ovarian cancer Maternal Aunt Ovarian cancer Paternal Aunt Ovarian cancer Social History Household Members: None Alcohol intake: never Patient Tobacco Use Status: Current someday Tobacco user Cigarettes Per Day: 1 Years Smoked: 5 Current occupational status: disabled Sexual orientation: Straight/Heterosexual Gender identity: Female Female Reproductive History Menstrual Date of last menstrual period: 12/21/22 Physical Exam Vital Signs: Last Vital Signs BP 144/96 H 02/15/23 10:22 BMI result Body Mass Index 36.9 Office Procedures IUD Insert/Removal Details Details: The patient is presenting for Mirena IUD insertion Urine test was done in the office and was negative; All the contraindications were excluded. The following possible complications were discussed with the patient: Intrauterine , Ectopic , Sepsis, Pelvic Infection, Irregular Bleeding and Amenorrhea, Perforation, Expulsion, Ovarian Cysts, Breast Cancer, The following adverse effects were discussed with the patient: alteration of menstrual bleeding pattern, including: unscheduled uterine bleeding decreased uterine bleeding increased scheduled uterine bleeding female genital tract bleeding ,amenorrhea , genital discharge , vulvovaginitis , breast pain , benign ovarian cyst and associated complications , dysmenorrhea , Gastrointestinal disorders abdominal/pelvic pain, headache/migraine , back pain , acne , depression Alternative options were discussed with the patient including but not limited: control pills, patch, NuvaRing, Depo-medroxyprogesterone acetate, Nexplanon, copper IUD, sterilization, vasectomy, others The procedure was explained in detail to patient , at the end patient signed the informed consent obtained. A no touch technique was used throughout the procedure. A speculum was placed into vagina and cervix was cleaned with betadine). A tenaculum was placed. A plastic sound was advanced through the external and internal os until it reached the fundus of the uterus, the depth was 8 cm. The sound was then withdrawn. The IUD was loaded in a sterile manner and advanced into position. The string was visualized and cut to 3 cm. Tenaculum site hemostatic. All instruments removed from vagina. Patient tolerated the procedure well. NO complications were noted. Patient was instructed to call for fever over 100.4, significant pain unrelieved by Motrin, IUD expulsion, heavy bleeding, or abnormal discharge. In addition, the following clinical considerations were discussed with the patient to call for removal: A stroke or heart attack ,Very severe or migraine headaches ,Unexplained fever ,Yellowing of the skin or whites of the eyes, as these may be signs of serious liver problems , or suspected , Pelvic pain or pain during sex ,HIV positive seroconversion in herself or her partner , Possible exposure to sexually transmitted infections Unusual vaginal discharge or genital sores , severe vaginal bleeding or bleeding that lasts a long time, or if she misses a menstrual period, Inability to feel Mirena's threads Counseled the patient that the IUD does not protect against STI's, recommended use of condoms for the first 7 days post insertion and explained to the patient that condoms are recommended for patients at risk for sexually transmitted infections. In for the patient that Mirena IUD is FDA approved for 8 years for contraception for 5 years for the treatment of heavy menses Instructed the patient to schedule a Follow up appointment in 4 to 6 weeks following insertion. This note was generated with a voice recognition program. Some errors may have been overlooked during the review of this note. Sometimes these errors may affect the content or meaning of a given sentence. [id number]-UBU Insertion Procedure code (CPT) selection complete Office Meds Mirena 21 mcg/24 hours (8 yrs) 52 mg intrauterine device Performing Provider: Elia Cruz MD [place] [facility] Documented (not given) by: Elia Cruz MD on 02/15/23 10:33 Dose Route Admin Location Dispensed Lot Number Expiration Date NDC Piston Maker 1 device intrauterine ea Results AMB Test Urine AMB Test Urine Negative Last Edit by CIERRA Pinzon on 02/15/23 10:23 Results Reviewed Results Reviewed: Laboratory Last Values [facility] Negative 02/15/23 10:23 Assessment & Plan Assessment & Plan (1) Encounter for IUD insertion: Code(s): Z30.430 - Encounter for insertion of intrauterine contraceptive device Plan: IUD insertion done, see procedure note Orders: Orders AMB HCG Urine Test Today Z32.02 - Encounter for test, result negative AMB IUD Insertion/Removal - Practice Supplied Today Z30.430 - Encounter for insertion of intrauterine contraceptive device Medications: New Mirena (levonorgestrel) 1 device intrauterine ONCE 1 ea 0RF IUD insertion NS Z30.430 - Encounter for insertion of intrauterine contraceptive device Coding Level of Care Code Procedure Only Diagnoses Encounter for IUD insertion Z30.430 CPT Codes Details - CPT: 57734-DXS Insertion ([id number])
[2023-02-15 10:22] VITALS: BP 144/96; BMI 36.9
== END 2023-02-15 10:34 | disposition home or self-care (01) ==
LOC: HO.HWS 10:00
PROVIDERS: PCP Internal Medicine; Visit Provider Obstetrics & Gynecology
DX: Z30.430 Encounter for insertion of intrauterine contraceptive device (principal); Z32.02 Encounter for pregnancy test, result negative
CPT/HCPCS: 58300

== ENCOUNTER → 2023-02-15 10:00 | Outpatient (BNVA) | payer OTHER, SELFPAY | PROVIDERS: PCP Internal Medicine; Visit Provider Obstetrics & Gynecology | DX: Z30.430 Encounter for insertion of intrauterine contraceptive device (principal); Z32.02 Encounter for pregnancy test, result negative | CPT/HCPCS: 81025; J7298 ==

== ENCOUNTER 2023-05-10 | Outpatient (REF) | payer OTHER, SELFPAY | END 2023-05-10 00:01 | disposition home or self-care (01) | LOC: CF | PROVIDERS: PCP Internal Medicine; Visit Provider Obstetrics & Gynecology | DX: Z30.431 Encounter for routine checking of intrauterine contraceptive device (principal); Z98.51 Tubal ligation status | CPT/HCPCS: 81025; 99212 ==

== ENCOUNTER 2023-05-10 12:44 | Outpatient (AMB) | payer OTHER, SELFPAY ==
--- NOTE | 2023-05-10 12:48 | MHC.OFFVIS ---
Intake Vital Signs 05/10/23 12:49 Height 5 ft 4 in BP 134/84 Intake Visit Reasons: IUD check Allergies amoxicillin Allergy (Verified 02/15/23 10:15) Unknown doxycycline Allergy (Verified 02/15/23 10:15) Unknown ibuprofen Allergy (Verified 02/15/23 10:15) Unknown lisinopril Allergy (Verified 02/15/23 10:15) Angioedema naproxen Adverse Reaction (Verified 02/15/23 10:15) Unknown Is last menstrual period known: Yes Last menstrual period: 05/01/23 HPI HPI Comments History of Present Illness Details The patient is presenting for IUD check after 1 st period following IUD insertion. The patient has no complaints periods are not painful, and flow is normal. [facility] Medical History Diabetes Hyperlipidemia Hernia HTN (hypertension) Surgical History H/O hernia repair Hx laparoscopic cholecystectomy H/O tubal ligation Family History Father Diabetes Mother Diabetes Breast cancer Ovarian cancer Maternal Aunt Ovarian cancer Paternal Aunt Ovarian cancer Social History Household Members: None Alcohol intake: never Patient Tobacco Use Status: Current someday Tobacco user Cigarettes Per Day: 1 Years Smoked: 5 Current occupational status: disabled Sexual orientation: Straight/Heterosexual Gender identity: Female Female Reproductive History Menstrual Date of last menstrual period: 05/01/23 control method: progestin IUCD (Mirena 02/15/23) Review of Systems Const All systems reviewed & are unremarkable except as noted in HPI and below Reports as per HPI and Reports no additional complaints GI Reports no additional complaints Reports no additional complaints Physical Exam Vital Signs: Last Vital Signs BP 134/84 05/10/23 12:49 Assessment & Plan Assessment & Plan (1) IUD check up: Code(s): Z30.431 - Encounter for routine checking of intrauterine contraceptive device Plan: UPT done in the office was negative. Discussed with the patient the finding on physical exam, IUD string in place, the patient was reassured. Instructions given to patient to call in case of temperature above 100.4, severe cramping/pelvic pain, abnormal discharge or abnormal uterine bleeding or if she misses her. Otherwise follow-up at her annual exam appointment. All questions answered, the patient verbalized understanding. Coding Level of Care Code Est Pt Level 3 (98987) Diagnoses IUD check up Z30.431
[2023-05-10 12:49] VITALS: BP 134/84
== END 2023-05-10 14:17 | disposition home or self-care (01) ==
PROVIDERS: PCP Internal Medicine; Visit Provider Obstetrics & Gynecology
DX: Z30.431 Encounter for routine checking of intrauterine contraceptive device (principal); Z32.02 Encounter for pregnancy test, result negative
CPT/HCPCS: 99213

== ENCOUNTER 2023-05-21 12:53 | Outpatient (REF) | payer OTHER, SELFPAY ==
--- NOTE | ~2023-05-21 | US_ITS ---
EXAMINATION: US PELVIS CLINICAL INFORMATION: Leiomyoma of uterus. COMPARISON: Pelvic ultrasound of 09/25/2022. TECHNIQUE: Ultrasound of the pelvis is performed using both transabdominal and transvaginal transducers along with Doppler. Transvaginal imaging is performed due to inadequate visualization transabdominally. FINDINGS: The uterus measures 10.1 x 5.8 x 7.3 cm. The double wall endometrial thickness is 1.0 cm. No significant free fluid. IUD appears to be located at lower uterine segment upside down position and gynecologic consultation recommended to determine further management. Multiple uterine fibroids, largest 3.3 x 3.2 x 2.9 cm, previously 3.6 x 3.6 x 2.8 cm. A 1.3 x 1.0 x 1.2 cm and 0.8 x 0.4 x 0.8 cm fibroids were not previously imaged. A 2.0 x 1.7 x 1.8 cm fibroid, previously 2.9 x 3.3 x 3.1 cm. A 1.8 x 2.1 x 2.1 cm was measured as 2.3 cm previously. Right ovary measures 3.0 x 1.9 x 2.2 cm, volume 6.6 mL. Left ovary measures 4.0 x 2.8 x 4.0 cm, volume 23.5 mL. Left ovarian 2.6 x 2.3 x 2.0 cm cyst is likely physiologic, characteristic of a follicle. There is no indication for follow-up imaging at this time. US/US pelvic and transvaginal IMPRESSION: 1. IUD appears to be located at lower uterine segment upside down position and gynecologic consultation recommended to determine further management. 2. Multiple uterine fibroids, largest 3.3 cm. 3. Endometrial thickness is 10 mm. This study was presented today 05/24/2023 for interpretation. PSA staff will provide results to referring provider at this time.
== END 2023-05-21 12:54 | disposition home or self-care (01) ==
LOC: HO.US 12:53
PROVIDERS: PCP Internal Medicine; Visit Provider Obstetrics & Gynecology
DX: D25.9 Leiomyoma of uterus, unspecified (principal)
CPT/HCPCS: 76830; 76856

== ENCOUNTER 2023-05-25 13:09 | Outpatient (REF) | payer OTHER, SELFPAY ==
[2023-05-25 17:58] LABS: CT PCR NOT DETECTED (Not Detect.); NG PCR NOT DETECTED (Not Detect.)
== END 2023-05-25 13:10 | disposition home or self-care (01) ==
LOC: HO.LNP 13:09
PROVIDERS: PCP Internal Medicine; Visit Provider Obstetrics & Gynecology
DX: Z30.433 Encounter for removal and reinsertion of intrauterine contraceptive device (principal); T83.32XA Displacement of intrauterine contraceptive device, initial encounter; D25.9 Leiomyoma of uterus, unspecified; Z20.2 Contact with and (suspected) exposure to infections with a predominantly sexual mode of transmission
CPT/HCPCS: 0353U; 58300; 58301; 81025; 99212; J7298

== ENCOUNTER 2023-05-25 13:09 | Outpatient (AMB) | payer OTHER, SELFPAY ==
[2023-05-25 13:27] VITALS: BP 190/98; BMI 36.7
--- NOTE | 2023-05-25 13:27 | A.OFFVIS_ITS ---
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 The double wall endometrial thickness is 1.0 cm. No significant free fluid. IUD appears to be located at lower uterine segment upside down position and gynecologic consultation recommended to determine further management. Multiple uterine fibroids, largest 3.3 x 3.2 x 2.9 cm, previously 3.6 x 3.6 x 2.8 cm. A 1.3 x 1.0 x 1.2 cm and 0 .8 x 0.4 x 0.8 cm fibroids were not previously imaged. A 2.0 x 1.7 x 1.8 cm fibroid, previously 2.9 x 3.3 x 3.1 cm. A 1.8 x 2.1 x 2.1 cm was m easured as 2.3 cm previously. Right ovary measures 3.0 x 1.9 x 2.2 cm, volume 6.6 mL. Left ovary measures 4.0 x 2.8 x 4.0 cm, volume 23.5 mL. Left ovarian 2.6 x 2.3 x 2.0 cm cyst is likely physio logic, characteristic of a follicle. There is no indication for follow-up imaging at this time. [facility] Medical History Diabetes Hyperlipidemia Hernia HTN (hypertension) Surgical History H/O hernia repair Hx laparoscopic cholecystectomy H/O tubal ligation Family History Father Diabetes Mother Diabetes Breast cancer Ovarian cancer Maternal Aunt Ovarian cancer Paternal Aunt Ovarian cancer Social History Household Members: None Alcohol intake: never Patient Tobacco Use Status: Current someday Tobacco user Cigarettes Per Day: 1 Years Smoked: 5 Current occupational status: disabled Sexual orientation: Straight/Heterosexual Gender identity: Female Female Reproductive History Menstrual control method: permanent sterilization Review of Systems Const All systems reviewed & are unremarkable except as noted in HPI and below Reports as per HPI and Reports no additional complaints GI Reports no additional complaints Reports no additional complaints Physical Exam Vital Signs: Last Vital Signs BP 190/98 H 05/25/23 13:27 BMI result Body Mass Index 36.7 Office Procedures IUD Insert/Removal Details Details: The patient is presenting for IUD removal and IUD reinsertion. Her last menstrual period was within the last 5 days, Urine test was done in the office and was negative; All the contraindications were excluded. The following possible complications were discussed with the patient: Intrauterine , Ectopic , Sepsis, Pelvic Infection, Irregular Bleeding and Amenorrhea, Perforation, Expulsion, Ovarian Cysts, Breast Cancer. The following adverse effects were discussed with the patient: alteration of menstrual bleeding pattern, including: unscheduled uterine bleeding decreased uterine bleeding increased scheduled uterine bleeding female genital tract bleeding ,amenorrhea , genital discharge , vulvovaginitis , breast pain , benign ovarian cyst and associated complications , dysmenorrhea , Gastrointestinal disorders abdominal/pelvic pain, headache/migraine , back pain , acne , depression Alternative options were discussed with the patient including but not limited: control pills, patch, NuvaRing, Depo-medroxyprogesterone acetate, Nexplanon, copper IUD, sterilization, vasectomy, others The procedure was explained in detail to patient , at the end patient signed the informed consent obtained. Alternative options were discussed with the patient The patient signed the consent and agreed with the plan; all questions answered. Urine test was done in the office and was negative Preop dx: IUD in the lower uterine segment for removal and Reinsertion Op: IUD removal and Mirena insertion Post op dx: same EBL= 10 cc Procedure: The patient was put in the dorsal lithotomy position a speculum was inserted in the vagina the IUD thread identified. Using a Lissette clamp the thread was grasped and the IUD pulled out with no complications. A no touch technique was used throughout the procedure. A speculum was placed into vagina and cervix was cleaned with betadine). A tenaculum was placed. A plastic sound was advanced through the external and internal os until it reached the fundus of the uterus, the depth was 8 cm. The sound was then withdrawn. The IUD was loaded in a sterile manner and advanced into position. The string was visualized and cut to 3 cm. Tenaculum site hemostatic. All instruments removed from vagina. Patient tolerated the procedure well. NO complications were noted. Patient was instructed to call for fever over 100.4, significant pain unrelieved by Motrin, IUD expulsion, heavy bleeding, or abnormal discharge. In addition, the following clinical considerations were discussed with the patient to call for removal: A stroke or heart attack ,Very severe or migraine headaches ,Unexplained fever ,Yellowing of the skin or whites of the eyes, as these may be signs of serious liver problems , or suspected , Pelvic pain or pain during sex ,HIV positive seroconversion in herself or her partner , Possible exposure to sexually transmitted infections Unusual vaginal discharge or genital sores , severe vaginal bleeding or bleeding that lasts a long time, or if she misses a menstrual period, Inability to feel Mirena's threads Counseled the patient that the IUD does not protect against STI's, recommended use of condoms for the first 7 days post insertion and explained to the patient that condoms are recommended for patients at risk for sexually transmitted infections. Follow up appointment made for 4 weeks following insertion. Date of removal in no more than five years for DUB treatment and 8 years for contraception from today?s date was d/w patient. This note was generated with a voice recognition program. Some errors may have been overlooked during the review of this note. Sometimes these errors may affect the content or meaning of a given sentence. 15577-JTD Insertion 96748-YPM Removal Procedure code (CPT) selection complete Office Meds Mirena 21 mcg/24 hours (8 yrs) 52 mg intrauterine device Performing Provider: Elia Cruz MD Performing Location: [facility] [place] Women's Services-Main Hosp Documented (not given) by: Elia Cruz MD on 05/25/23 13:51 Dose Route Admin Location Dispensed Lot Number Expiration Date [facility] Budget Examiner 1 device intrauterine ea Results AMB Test Urine AMB Test Urine Negative Last Edit by CIERRA Casiano on 05/25/23 13:30 Results Reviewed Results Reviewed: Laboratory Last Values [facility]st Clinic Negative 05/25/23 13:29 Assessment & Plan Assessment & Plan (1) IUD migration: Code(s): T83.32XA - Displacement of intrauterine contraceptive device, initial encounter Plan: Discussed with the patient the finding on IUD in the lower uterine segment recommended IUD removal, and reinsertion. The patient agreed, see procedure note (2) Uterine myoma: Code(s): D25.9 - Leiomyoma of uterus, unspecified Plan: Discussed with the patient the findings on pelvic ultrasound & the risk of myosarcoma; discussed with the patient the options of treatment including expectant management versus hysterectomy; the pros and cons, risks benefits of each approach were discussed with the patient including the fact that in cases of myosarcoma, surgical treatment can lead to early diagnosis and positively affects the prognosis; after further discussion, the patient decided to proceed with expectant management. Will repeat pelvic ultrasound periodically. Instructions given to patient to call in case any of the following occurs: pressure symptoms, abnormal uterine bleeding, pelvic pain; and to schedule a future office follow-up appointment for reassessment and to order a repeat ultrasound . All questions answered, the patient verbalized understanding and agreed with the plan . Orders: Orders AMB HCG Urine Test Today Z32.02 - Encounter for test, result negative AMB IUD Insertion/Removal - Practice Supplied Today Z30.433 - Encounter for removal and reinsertion of intrauterine contraceptive device Medications: New Mirena (levonorgestrel) 1 device intrauterine ONCE 1 ea 0RF IUD removal and insertion NS Z30.433 - Encounter for removal and reinsertion of intrauterine contraceptive device Coding Level of Care Code Est Pt Level 3 (67217) Procedure Only Diagnoses IUD migration T83.32XA Uterine myoma D25.9 CPT Codes Details - CPT: 77403-TKC Insertion ([id number]) Details - CPT: 70117-UNG Removal ([id number])
== END 2023-05-25 14:02 | disposition home or self-care (01) ==
LOC: HO.HWS 13:10
PROVIDERS: PCP Internal Medicine; Visit Provider Obstetrics & Gynecology
DX: Z30.430 Encounter for insertion of intrauterine contraceptive device (principal); Z32.02 Encounter for pregnancy test, result negative; D25.9 Leiomyoma of uterus, unspecified
CPT/HCPCS: 58300; 58301; 99213

== ENCOUNTER 2023-08-09 14:37 | Outpatient (AMB) | payer OTHER, SELFPAY ==
--- NOTE | 2023-08-09 14:47 | A.OFFVIS_ITS ---
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 No complaints. Last Pap/HPV was negative in 11/18 Last Mammogram was BI-RADS 1 in 09/18 No previous screening colonoscopy Last pelvic ultrasound done in 05/22 showed multiple myomas PFSH Medical History Diabetes Hyperlipidemia Hernia HTN (hypertension) Surgical History H/O hernia repair Hx laparoscopic cholecystectomy H/O tubal ligation Family History Father Diabetes Mother Diabetes Breast cancer Ovarian cancer Maternal Aunt Ovarian cancer Paternal Aunt Ovarian cancer Social History Household Members: None Alcohol intake: never Patient Tobacco Use Status: Current someday Tobacco user Cigarettes Per Day: 1 Years Smoked: 5 Current occupational status: disabled Sexual orientation: Straight/Heterosexual Gender identity: Female Female Reproductive History Menstrual control method: progestin IUCD Date of last pap smear: 11/06/22 Date of Mammogram: 09/18/22 Review of Systems Const All systems reviewed & are unremarkable except as noted in HPI and below Card Reports as per HPI Resp Reports as per HPI GI Reports as per HPI and Reports no additional complaints Reports as per HPI Physical Exam Vital Signs: Last Vital Signs BP 142/96 H 08/09/23 14:48 BMI result Body Mass Index 36.9 Const General: cooperative, healthy appearing and comfortable Chest Chest palpation & inspection: normal inspection of the chest and normal palpation of entire chest wall Breast/axilla inspection: normal inspection of the breasts and normal inspection of the axillae Breast/axilla palpation: normal palpation of the breasts, normal palpation of the axillae and no axillary lymphadenopathy Resp Effort & Inspection: normal respiratory effort Auscultation: clear to auscultation bilaterally Percussion: percussion normal Cardio Palpation: normal PMI Rate: regular rate Rhythm: regular rhythm Heart sounds: no murmurs and no rubs Peripheral pulses: Peripheral pulses 2+ throughout GI Inspection: Yes normal to inspection Palpation (GI): Soft to palpation, nontender, no guarding, not rigid and No hepatosplenomegaly present Percussion: Yes normal to percussion Auscultation: normal bowel sounds Rectal Exam - Female: deferred General: Yes bladder normal to palpation External Female Exam: No lesion Speculum Exam - Vagina: normal appearance of the vagina, normal palpation, normal vaginal discharge and not erythematous Speculum Exam - Cervix: normal appearance of the cervix and normal palpation Bimanual exam- vagina & uterus: normal bimanual exam, normal palpation, bladder normal to palpation, consistency normal, normal palpation and enlarged Bimanual Exam- Adnexa, other: normal adnexae, no masses and no tenderness Assessment & Plan Assessment & Plan (1) Well woman exam: Code(s): Z01.419 - Encounter for gynecological examination (general) (routine) without abnormal findings Category: Medical Plan: Cotesting not indicated this year. Instructions given the patient to schedule next screening Mammogram in 09/19. Referred to GI for screening colonoscopy Counseled the patient about the recommended dietary allowance of 1000 mg of Calcium & 600 IU of vitamin D. The patient was instructed to perform monthly self-breast exams and to schedule an annual exam in a year; All questions answered and the patient verbalized understanding. Instructed the patient to schedule annual exam in a year (2) Uterine myoma: Code(s): D25.9 - Leiomyoma of uterus, unspecified Category: Medical Plan: Will order ultrasound to monitor the size of the myomas. Instructions given the patient to schedule a pelvic ultrasound and a follow-up appointment afterwards. Orders: Orders US pelvic and transvaginal 3 Months D25.9 - Leiomyoma of uterus, unspecified Referrals Gastroenterology Referral Z12.11 - Encounter for screening for malignant neoplasm of colon Coding Level of Care Code Est Pt Prev Care 40-64y(51845) Diagnoses Well woman exam Z01.419 Uterine myoma D25.9
[2023-08-09 14:48] VITALS: BP 142/96; BMI 36.9
== END 2023-08-09 15:03 | disposition home or self-care (01) ==
PROVIDERS: PCP Internal Medicine; Visit Provider Obstetrics & Gynecology
DX: Z01.419 Encounter for gynecological examination (general) (routine) without abnormal findings (principal); D25.9 Leiomyoma of uterus, unspecified
CPT/HCPCS: 99396

== ENCOUNTER → 2023-08-09 14:37 | Outpatient (BNVA) | payer OTHER, SELFPAY | PROVIDERS: PCP Internal Medicine; Visit Provider Obstetrics & Gynecology ==

== ENCOUNTER 2023-11-19 14:35 | Outpatient (REF) | payer OTHER, SELFPAY ==
--- NOTE | ~2023-11-19 | US_ITS ---
EXAMINATION: US PELVIS CLINICAL INFORMATION: Leiomyoma of uterus COMPARISON: Pelvic ultrasound 05/21/2023. TECHNIQUE: Ultrasound of the pelvis is performed using both transabdominal and transvaginal transducers along with Doppler. Transvaginal imaging is performed due to inadequate visualization transabdominally. FINDINGS: Uterus: Multi fibroid uterus measuring 8.4 x 5.1 x 7.0 cm, 160 mL. There are at least 5 fibroids seen measuring 1.1-2.8 cm in maximum dimension which is not significantly changed from prior. Endometrial stripe does not appear thickened. There is an IUD in place which appears low lying and upside down. Adnexa: The right ovary measures 3.1 x 2.0 x 2.4 cm, 7.8 mL. Normal follicle is seen. The left ovary measures 4.6 x 2.1 x 3.4 cm, volume 14.7 mL. There is a 2.0 cm physiologic cyst in the left ovary. US/US pelvic and transvaginal IMPRESSION: The IUD appears low lying and upside down. Stable fibroid uterus. Electronically signed by: Jesus Manuel Kyle MD 12/01/2023 03:25 PM EDT
== END 2023-11-19 14:36 | disposition home or self-care (01) ==
LOC: HO.US 14:35
PROVIDERS: PCP Internal Medicine; Visit Provider Obstetrics & Gynecology
DX: D25.9 Leiomyoma of uterus, unspecified (principal)
CPT/HCPCS: 76830; 76856

== ENCOUNTER 2023-12-02 14:09 | Outpatient (AMB) | payer OTHER, SELFPAY ==
--- NOTE | 2023-12-02 14:20 | MHC.OFFVIS ---
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 Pelvic ultrasound done recently showed the following: Uterus: Multi fibroid uterus measuring 8.4 x 5.1 x 7.0 cm, 160 mL. There are at least 5 fibroids seen measuring 1.1-2.8 cm in maximum dimension which is not significantly changed from prior. Endometrial stripe does not appear thickened. There is an IUD in place which appears low lying and upside down. Adnexa: The right ovary measures 3.1 x 2.0 x 2.4 cm, 7.8 mL. Normal follicle is seen. The left ovary measures 4.6 x 2.1 x 3.4 cm, volume 14.7 mL. There is a 2.0 cm physiologic cyst in the left ovary. Last screening mammogram was in 09/18 [facility] Medical History Diabetes Hyperlipidemia Hernia HTN (hypertension) Surgical History H/O hernia repair Hx laparoscopic cholecystectomy H/O tubal ligation Family History Father Diabetes Mother Diabetes Breast cancer Ovarian cancer Maternal Aunt Ovarian cancer Paternal Aunt Ovarian cancer Social History Household Members: None Alcohol intake: never Patient Tobacco Use Status: Current someday Tobacco user Cigarettes Per Day: 1 Years Smoked: 5 Current occupational status: disabled Sexual orientation: Straight/Heterosexual Gender identity: Female Review of Systems Const All systems reviewed & are unremarkable except as noted in HPI and below Physical Exam General: Yes no CVA tenderness External Female Exam: normal external appearance and normal appearance of the urethra Speculum Exam - Vagina: normal appearance of the vagina, normal palpation, no lesions and no masses Speculum Exam - Cervix: normal appearance of the cervix, normal palpation, no lesions, no masses, nontender and Other cervical findings present (IUD string in place) Bimanual exam- vagina & uterus: normal bimanual exam, normal palpation, uterine size normal, normal palpation, uterine shape normal, No Cervical tenderness present and non-tender Bimanual Exam- Adnexa, other: normal adnexae Back/Spine/Pelvis Back: no CVA tenderness Office Procedures IUD Insert/Removal Details Details: Counseling/Consent: After discussing with the patient the risks of the procedure including bleeding, infection, scar tissue formation, , possible injury to blood vessels or nerves, chronic arm pain, blood transfusion, and irregular unpredictable bleeding Alternative options were discussed with the patient including but not limited: Do nothing. The patient signed the consent and agreed with the plan; all questions answered. Urine test was done in the office and was negative Preop dx: Abnormal IUD position for IUD removal Op: IUD removal Post op dx: same EBL= 10 cc Procedure: The patient was put in the dorsal lithotomy position a speculum was inserted in the vagina the IUD thread identified. Using a Lissette clamp the thread was grasped and the IUD pulled out with no complications. The patient tolerated the procedure well and was advised to use a different method for contraception. Discharge instructions: Instructions were given to the pt to call if temp>100.4, abdominal pain heavy vaginal bleeding, n/v occur. The patient verbalized understanding and all questions answered. This note was generated with a voice recognition program. Some errors may have been overlooked during the review of this note. Sometimes these errors may affect the content or meaning of a given sentence. 10773-WFD Removal Procedure code (CPT) selection complete Results AMB Test Urine AMB Test Urine Negative Last Edit by CIERRA Pinzon on 12/02/23 14:22 Assessment & Plan Assessment & Plan (1) Malpositioned IUD: Code(s): T83.32XA - Displacement of intrauterine contraceptive device, initial encounter Category: Medical Plan: Discussed with the patient the results of the ultrasound showing abnormal IUD position, recommended IUD removed, IUD removal done, see procedure note (2) Abnormal uterine bleeding (AUB): Code(s): N93.9 - Abnormal uterine and vaginal bleeding, unspecified Category: Medical Plan: Screening mammogram ordered. Discussed with the patient the results of the work up done and options of treatment including but not limited to BCP's, cyclic Progesterone, Mirena IUD, endometrial ablation and hysterectomy. All pros, cons, risks and benefits of each option were discussed with the patient and the patient decided to go ahead with cyclic Provera, so a more detailed discussion re: Progesterone treatment including mechanism of action, benefits (regular menses, endometrial protection form unopposed estrogen and reduction in the risk of endometrial hyperplasia and/or cancer ...), risks (Thrombosis, mood changes, weight gain, breast soreness, ? increased breast ca, others). Instructions were given to use a back- up method for contraception since this is not a method control, take the medication 1 tablet daily starting day 15-24 and to schedule a 3 months follow-up appointment; patient verbalized understanding and agreed with the plan. Orders: Orders AMB HCG Urine Test Today Z32.02 - Encounter for test, result negative MM tomosynthesis screening BI Today Z12.31 - Encounter for screening mammogram for malignant neoplasm of breast Coding Level of Care Code Est Pt Level 3 (99545) Procedure Only Diagnoses Malpositioned IUD T83.32XA Abnormal uterine bleeding (AUB) N93.9 CPT Codes Details - CPT: 93586-QAP Removal ([id number])
== END 2023-12-02 14:34 | disposition home or self-care (01) ==
PROVIDERS: PCP Internal Medicine; Visit Provider Obstetrics & Gynecology
DX: N93.9 Abnormal uterine and vaginal bleeding, unspecified (principal); T83.32XA Displacement of intrauterine contraceptive device, initial encounter; Z32.02 Encounter for pregnancy test, result negative
CPT/HCPCS: 58301; 99213

== ENCOUNTER → 2023-12-02 14:09 | Outpatient (BNVA) | payer OTHER, SELFPAY | PROVIDERS: PCP Internal Medicine; Visit Provider Obstetrics & Gynecology | DX: T83.32XA Displacement of intrauterine contraceptive device, initial encounter (principal); N93.9 Abnormal uterine and vaginal bleeding, unspecified; X58.XXXA Exposure to other specified factors, initial encounter; Z30.432 Encounter for removal of intrauterine contraceptive device | CPT/HCPCS: 58301; 81025; 99212 ==

== ENCOUNTER 2024-03-06 13:48 | Outpatient (AMB) | payer OTHER, SELFPAY ==
[2024-03-06 13:54] VITALS: BP 118/74; BMI 36.9
--- NOTE | 2024-03-06 13:54 | MHC.OFFVIS ---
Vital Signs 03/06/24 13:54 Height 5 ft 4 in Weight 215 lb BMI 36.9 BP 118/74 Intake Visit Reasons: 3 month follow up Allergies amoxicillin Allergy (Verified 12/02/23 14:21) Unknown doxycycline Allergy (Verified 12/02/23 14:21) Unknown ibuprofen Allergy (Verified 12/02/23 14:21) Unknown lisinopril Allergy (Verified 12/02/23 14:21) Angioedema naproxen Adverse Reaction (Verified 12/02/23 14:21) Unknown HPI Comments Details: Presenting for three-month follow-up after starting Provera. The patient had Provera the 1st 2 months and her menstrual cycles were regular, last Provera was early December was taken 10 mg daily for 10 days and since then the patient did not have any menstrual cycle. No other associated symptom PFSH Medical History Diabetes Hyperlipidemia Hernia HTN (hypertension) Surgical History H/O hernia repair Hx laparoscopic cholecystectomy H/O tubal ligation Family History Father Diabetes Mother Diabetes Breast cancer Ovarian cancer Maternal Aunt Ovarian cancer Paternal Aunt Ovarian cancer Social History Household Members: None Alcohol intake: never Patient Tobacco Use Status: Current someday Tobacco user Cigarettes Per Day: 1 Years Smoked: 5 Current occupational status: disabled Sexual orientation: Straight/Heterosexual Gender identity: Female Review of Systems Const All systems reviewed & are unremarkable except as noted in HPI and below Reports as per HPI and Reports no additional complaints GI Reports no additional complaints Reports no additional complaints Assessment & Plan Assessment & Plan (1) Uterine myoma: Code(s): D25.9 - Leiomyoma of uterus, unspecified Category: Medical Plan: Last pelvic ultrasound in 11/19 showed multiple myomas stable in size compared to previous pelvic ultrasound done 3 months before, will repeat pelvic ultrasound in 08/20 to monitor the size of the myoma, order placed. Instructions given to patient to call in case of pelvic pain, pressure or abnormal vaginal bleeding. All questions answered, the patient verbalized understanding (2) Amenorrhea: Code(s): N91.2 - Amenorrhea, unspecified Category: Medical Plan: UPT was negative. Will order FSH/LH with TSH and prolactin. Instructions given the patient to schedule a 2 week follow-up appointment. All questions answered, the patient verbalized understanding Orders: Orders TSH reflex Free T4 Today N91.2 - Amenorrhea, unspecified Follicle Stimulating Hormone Today N91.2 - Amenorrhea, unspecified Prolactin Today N91.2 - Amenorrhea, unspecified US pelvic and transvaginal 5 Months D25.9 - Leiomyoma of uterus, unspecified HCG Quantitative Today N91.2 - Amenorrhea, unspecified Lutenizing Hormone Today N91.2 - Amenorrhea, unspecified Coding Level of Care Code Est Pt Level 3 (27259) Diagnoses Uterine myoma D25.9 Amenorrhea N91.2
== END 2024-03-06 14:11 | disposition home or self-care (01) ==
LOC: HO.HWS 13:48
PROVIDERS: PCP Internal Medicine; Visit Provider Obstetrics & Gynecology
DX: D25.9 Leiomyoma of uterus, unspecified (principal); N91.2 Amenorrhea, unspecified
CPT/HCPCS: 99213

== ENCOUNTER 2024-03-30 11:18 | Outpatient (AMB) | payer OTHER, SELFPAY ==
--- NOTE | 2024-03-30 11:18 | MHC.OFFVIS ---
Intake Visit Reasons: follow up Allergies amoxicillin Allergy (Verified 12/02/23 14:21) Unknown doxycycline Allergy (Verified 12/02/23 14:21) Unknown ibuprofen Allergy (Verified 12/02/23 14:21) Unknown lisinopril Allergy (Verified 12/02/23 14:21) Angioedema naproxen Adverse Reaction (Verified 12/02/23 14:21) Unknown HPI Comments Details: The patient is scheduled a telehealth visit for follow-up . The patient had her menstrual cycle today. The following workup was done: TSH, prolactin, hCG were negative FSH/LH were 6.8/9.7 Mammo at [place], the results not available yet [facility] Medical History Diabetes Hyperlipidemia Hernia HTN (hypertension) Surgical History H/O hernia repair Hx laparoscopic cholecystectomy H/O tubal ligation Family History Father Diabetes Mother Diabetes Breast cancer Ovarian cancer Maternal Aunt Ovarian cancer Paternal Aunt Ovarian cancer Social History Household Members: None Alcohol intake: never Patient Tobacco Use Status: Current someday Tobacco user Cigarettes Per Day: 1 Years Smoked: 5 Current occupational status: disabled Sexual orientation: Straight/Heterosexual Gender identity: Female Review of Systems Const All systems reviewed & are unremarkable except as noted in HPI and below Reports as per HPI and Reports no additional complaints GI Reports no additional complaints Reports no additional complaints Telehealth Telehealth Telehealth Platform: Telephone Location of provider rendering services: practice address Location of patient: address on file Patient Identification confirmed using: Name, : Yes Telehealth method: video Patient verbally consented to treatment: Yes Patient verbally consented to billing insurance company: Yes Patient informed of any privacy concerns related to visit: Yes Assessment & Plan Assessment & Plan (1) Amenorrhea: Code(s): N91.2 - Amenorrhea, unspecified Category: Medical Plan: Discussed with the patient the results of her workup including TSH, prolactin, hCG and premenopausal FSH/LH. Since the patient had spontaneous menstrual cycle with negative workup, the diagnosis anovulatory amenorrhea, recommended cyclic Provera. Will wait for the results of mammogram was confirmed it was negative will order cyclic Provera 10 mg p.o. q.d. day 15-24. Discussed with the patient the results of the work up done and options of treatment including but not limited to BCP's, cyclic Progesterone. All pros, cons, risks and benefits of each option were discussed with the patient and the patient decided to go ahead with cyclic Provera, so a more detailed discussion re: Progesterone treatment including mechanism of action, benefits (regular menses, endometrial protection form unopposed estrogen and reduction in the risk of endometrial hyperplasia and/or cancer ...), risks (Thrombosis, mood changes, weight gain, breast soreness, ? increased breast ca, others). Once mammogram results is confirmed negative, will send prescription for cycle Provera. Instructions were given to use a back- up method for contraception since this is not a method control, and to take the medication 1 tablet daily starting day 15-24 and to schedule a 3 months follow-up appointment; the patient verbalized understanding and agreed with the plan. I spent a total of 20 minutes reviewing the chart, talking to the patient via video and documenting in the medical record. Coding Level of Care Code Tele Est Pt Level 3 (84791) Diagnoses Amenorrhea N91.2
== END 2024-03-30 11:45 | disposition home or self-care (01) ==
LOC: HO.HWS 11:18
PROVIDERS: PCP Internal Medicine; Visit Provider Obstetrics & Gynecology
DX: N91.2 Amenorrhea, unspecified (principal)
CPT/HCPCS: 99213

== ENCOUNTER → 2024-03-30 11:18 | Outpatient (BNVA) | payer OTHER, SELFPAY | PROVIDERS: PCP Internal Medicine; Visit Provider Obstetrics & Gynecology ==

== ENCOUNTER 2024-07-31 14:54 | Outpatient (REF) | payer OTHER, SELFPAY ==
--- NOTE | ~2024-07-31 | US_ITS ---
EXAMINATION: US PELVIS TRANSABDOMINAL AND TRANSVAGINAL HISTORY: D25.9 - Leiomyoma of uterus, unspecified COMPARISON: Comparison is made with the prior examination dated 11/19/2023. TECHNIQUE: Transabdominal and endovaginal real-time 2D darling-scale ultrasound was performed. FINDINGS: Uterus: The uterus is normal in size, measuring 8.9 x 7.1 x 7.4 cm. Myometrium has a normal echotexture. Multiple fibroids are again noted as described below: Right uterine body fibroid measuring 2.5 x 1.8 x 2.1 cm (previously 1.6 x 1.4 x 1.4 cm). Right uterine body fibroid measuring 2.7 x 3.2 x 2.6 cm (previously 2.8 x 2.3 x 2.4 cm). Left uterine body fibroid measuring 2.3 x 2.6 x 2.0 cm (previously 2.8 x 2.2 x 2.1 cm). Left uterine body fibroid measuring 1.1 x 0.8 x 1.1 cm (previously 1.1 x 1.1 x 1.0 cm). Fundal fibroid measuring 1.9 x 0.9 x 1.3 cm (previously 1.2 x 1.0 x 0.1 cm). Endometrium: The endometrial stripe measures 6 mm in thickness. Right ovary: The right ovary measures 5.4 x 4.1 x 3.4 cm. There is a cyst measuring 3.3 x 2.6 x 2.9 cm. There may be an additional separate cyst versus an adjacent septated portion. Left ovary: The left ovary is not identified. Pelvic fluid: none. US/US pelvic and transvaginal IMPRESSION: 1. Fibroid uterus as described. 2. Right ovarian cyst as described. A follow-up examination in 6 weeks, at a different time in the patient's menstrual cycle, is recommended. Electronically signed by: Leonid Elkins MD 08/01/2024 07:06 AM EDT
--- OUTSIDE RECORDS SUMMARY | 2024-07-31 16:28 | XMS_ITS | Encounter Summary ---
Author Organization [facility] Address [address] [place] [address] Care Team Providers Care Refrigeration Technician Name Role Phone Valentin Newton MD Primary Care Provider [phone] Singh Lott MD Unavailable Encounter Details Date Type Department Care Team Description 04/17/2016 [facility] Medical Records [address] [place] [id number] Abstract, Provider Social History Tobacco Use Types Packs/Day Years Used Date Smoking Tobacco: Former Alcohol Use Standard Drinks/Week Comments No 0 (1 standard drink = 0.6 oz pur e alcohol) Sex Assigned at Date Recorded Not on file Job Start Date Occupation Industry Not on file Not on file Not on file documented as of this encounter Plan of Treatment Not on file documented as of this encounter Visit Diagnoses Not on filedocumented in this encounter Care Teams Refrigeration Technician Relationship Specialty Start Date End Date Valentin Newton MD [address] [place] [phone] PCP - General Internal Medicine 05/01/14 Singh Lott MD [address] [place] [phone] Applied Research Director Cardiovascular Disease 01/21/21 documented as of this encounter
--- OUTSIDE RECORDS SUMMARY | 2024-07-31 16:28 | XMS_ITS | Encounter Summary ---
Author Organization [facility] Address [address] [place] [address] Care Team Providers Care Marketing Lead Name Role Phone Valentin Newton MD Primary Care Provider Singh Lott MD Unavailable Encounter Details Date Type Department Care Team Description 06/17/2023 Refill Endocrinology - [address] [phone] Aidee Tamayo PA-C [address] [place] [address] [phone] Social History Tobacco Use Types Packs/Day Years Used Date Smoking Tobacco: Every Day Cigarettes 0.3 Smokeless Tobacco: Never Comments:Started @ age 29 Alcohol Use Standard Drinks/Week Comments No 0 (1 standard drink = 0.6 oz pur e alcohol) Sex Assigned at Date Recorded Not on file Job Start Date Occupation Industry Not on file Not on file Not on file documented as of this encounter Plan of Treatment Not on file documented as of this encounter Visit Diagnoses Diagnosis Type 2 diabetes mellitus without complication, with long-term current use of insulin (HCC) documented in this encounter Care Teams Marketing Lead Relationship Specialty Start Date End Date Valentin Newton MD [address] [place] [address] [phone] PCP - General Internal Medicine 05/01/14 Singh Lott MD [address] [place] [phone] Hay Stacker Operator Cardiovascular Disease 01/21/21 documented as of this encounter
--- OUTSIDE RECORDS SUMMARY | 2024-07-31 16:28 | XMS_ITS | Encounter Summary ---
Author Organization [facility] Address [address] [place] [address] Care Team Providers Care Geotechnical Operating Engineer Name Role Phone Valentin Newton MD Primary Care Provider [phone] Singh Lott MD Unavailable Encounter Details Date Type Department Care Team Description 08/27/2016 Refill Adult Medicine [address] [phone] Valentin Newton MD [address] [place] [address] [id number] Social History Tobacco Use Types Packs/Day Years Used Date Smoking Tobacco: Every Day Cigarettes 0.1 Alcohol Use Standard Drinks/Week Comments No 0 (1 standard drink = 0.6 oz pur e alcohol) Sex Assigned at Date Recorded Not on file Job Start Date Occupation Industry Not on file Not on file Not on file documented as of this encounter Miscellaneous Notes * Telephone Encounter - Carol Ann Lizarraga M.A. - 08/28/2016 9:08 AM EDT Not contracted last refill 07.29.2016 * Telephone Encounter - Carol Ann Lizarraga M.A. - 08/28/2016 9:08 AM EDTFrom: Kell Looney To: Valentin Newton MD Sent: 08/27/2016 9:39 PM EDT Subject: Medication Renewal Request Original authorizing provider: MD Kell Sanchez would like a refill of the following medications: Zolpidem Tartrate (AMBIEN) 5 MG Tab [Valentin Newton MD] Preferred pharmacy: [id number] [place] [address] Comment: documented in this encounter Plan of Treatment Not on file documented as of this encounter Visit Diagnoses Not on filedocumented in this encounter Care Teams Geotechnical Operating Engineer Relationship Specialty Start Date End Date Valentin Newton MD [address] [place] [address] [phone] PCP - General Internal Medicine 05/01/14 Singh Lott MD [address] [place] [address] [phone] Backpackers Manager Cardiovascular Disease 01/21/21 documented as of this encounter
--- OUTSIDE RECORDS SUMMARY | 2024-07-31 16:28 | XMS_ITS | Clinical Summary ---
Author Organization [facility] [address] [facility] Address [address] [place] [address] Phone Care Team Providers Care Lithopone Charger Name Role Phone Valentin Newton MD Primary Care Provider [phone] Allergies Active Allergy Reactions Criticality Noted Date Comments Amoxicillin Nausea And Vomiting 12/04/2020 Elevated blood pressure Doxycycline 05/22/2019 Skin desquamation Ibuprofen Nausea And Vomiting Medium 06/26/2014 Lisinopril Swelling 08/11/2012 Naproxen 05/31/2014 Medications blood-glucose meter (FREESTYLE LITE METER MISC) Test fasting glucose daily 021 Active flash glucose sensor (FreeStyle Sally 2 Sensor) kit 1 Each by Does not apply route every 14 days. 023 Active blood sugar diagnostic (FreeStyle Lite Strips) test strip Use to test blood sugar three times daily 024 Active pen needle, diabetic (BD Ultra-Fine Short Pen Needle) 31 gauge x 5/16 needle USE FOUR TIMES DAILY TO INJECT INSULIN. 024 Active insulin syringe-needle U-100 1 mL 30 gauge x 1/2 syringe Inject 1 Each as directed 4 times daily. 021 Active albuterol HFA (PROAIR HFA ; PROVENTIL HFA ; VENTOLIN HFA) 90 mcg/actuation inhaler Inhale 2 Puffs into the lungs 4 times daily as needed for Cough, Wheezing or Shortness of Breath. 023 Active aspirin-acetamino phen-caffeine (EXCEDRIN MIGRAINE) 250-250-65 mg per tablet 024 Active clindamycin-benzo yl peroxide (BENZACLIN) gel Apply twice daily topically during the week prior to menses Active cloNIDine (CATAPRES) 0.2 mg tablet Take 0.5 Tablets by mouth daily. Active clotrimazole (LOTRIMIN) 1 % cream Apply to skin and toenails daily for 12 weeks Active cyanocobalamin, vitamin B-12, 5,000 mcg tablet,disintegra ting PLACE 1 TABLET UNDER THE TONGUE DAILY. Active diclofenac (VOLTAREN) 1 % topical gel Apply 4 g or less of 1% gel to affected area 4 times daily, not to exceed 16g in 24 hour period Active docusate sodium (COLACE) 100 mg capsule Take 1 Capsule by mouth daily. Active escitalopram (LEXAPRO) 5 mg tablet TAKE 1 TABLET BY MOUTH EVERY MORNING FOR DEPRESSION, WORRY Active hydroCHLOROthiazi de (HYDRODIURIL) 50 mg tablet Take 1 Tablet by mouth daily for 180 days. Active medroxyPROGESTERo ne (PROVERA) 10 mg tablet START 1 TABLET DAILY X 10 DAYS FROM DAY 15-24 CYCLICALLY EVERY MONTH, DAY 1 BEING 1ST DAY OF MENSES Active metoprolol succinate (TOPROL-XL) 25 mg 24 hr tablet Take 1 Tablet by mouth daily. Active miconazole nitrate 2 % aerosol,spray Apply 1 Applicator topically daily. Active nystatin (MYCOSTATIN) cream Apply a thin layer twice a day to affected area. Active zolpidem (AMBIEN) 10 mg tablet Take 1 tablet by mouth at bedtime as needed. Active urea (CARMOL) 40 % cream Active hydrOXYzine HCL (ATARAX) 10 mg tablet 1 TABLET BY MOUTH TWICE A DAY NEEDED FOR ANXIETY (OK TO USE DAILY) Active insulin glargine (Lantus Solostar U-100 Insulin) 100 unit/mL (3 mL) injection pen INJECT 76 UNITS INTO THE SKIN DAILY 45 mL 5 Active metoprolol succinate (TOPROL-XL) 50 mg 24 hr tablet TOME 1 TABLETA POR VIA ORAL [place] 90 tablet 1 024 Active ammonium lactate (AMLACTIN) 12 % cream APPLY TO FEET DOS VECES AL HOWARD 420 g 5 024 Active Vitamin B-12 5,000 mcg tablet, sublingual PLACE 1 TABLET UNDER THE TONGUE DAILY. 90 tablet 1 025 Active losartan (COZAAR) 100 mg tablet Take 1 tablet (100 mg total) by mouth 1 (one) time each day. 90 tablet 1 025 Active rosuvastatin (CRESTOR) 5 mg tablet TAKE 1 TABLET BY MOUTH 1 TIME EACH DAY. 90 tablet 1 025 Active ferrous sulfate 325 mg (65 mg elemental iron) tablet Take 1 tablet (325 mg total) by mouth 1 (one) time each day. 90 tablet 1 025 Active semaglutide (Ozempic) 2 mg/dose (8 mg/3 mL) injection penIndications:Ty pe 2 diabetes mellitus without complication, unspecified whether intermediate insulin use ([facility] V24, [facility] V28) Inject 2 mg under the skin every 7 (seven) days. 3 mL 025 Active insulin aspart (NovoLOG Flexpen U-100 Insulin) 100 unit/mL (3 mL) injection penIndications:Ty pe 2 diabetes mellitus without complication, unspecified whether exterminator helper termite insulin use ([facility] V24, [facility] V28) FOLLOW SLIDING SCALE PER MD 3 TIMES A DAY WITH MEALS: 100-149: 16 Units 150-200:18 units 201-250: 20 units 251-300: 22 units 301-350: 24 units 350-400: 26 units >400: call me. 28 units 45 mL 5 025 Active loratadine (CLARITIN) 10 mg tablet Take 1 tablet (10 mg total) by mouth 1 (one) time each day. 90 tablet 1 025 2024 Active metFORMIN (GLUCOPHAGE) 1,000 mg tablet TOME YASMIN TABLETA 2 VECES AL HOWARD CON LAS COMIDAS 180 tablet 1 025 Active ketoconazole (NIZORAL) 2 % cream Apply topically 1 (one) time each day for 25 days. 15 g 2 025 2024 Active oxyCODONE-acetami nophen (PERCOCET) 5-325 mg per tablet Take 1 tablet by mouth 4 (four) times a day. Max Daily Amount: 4 tablets 112 tablet 025 Active metFORMIN (GLUCOPHAGE) 1,000 mg tablet KAYCEE YASMIN TABLETA DOS VECES AL HOWARD CON ALIMENTO 024 2024 Discontinued lidocaine (LIDODERM) 5 % patchIndications: Diabetic mononeuropathy simplex ([facility] V24, [facility] V28) Apply 1 patch topically 1 (one) time each day. Remove & discard patch within 12 hours or as directed by MD. 30 each 2 025 2024 oxyCODONE-acetami nophen (PERCOCET) 5-325 mg per tablet Take 1 tablet by mouth 4 (four) times a day. Max Daily Amount: 4 tablets 112 tablet 025 2024 Discontinued(R eorder) oxyCODONE-acetami nophen (PERCOCET) 5-325 mg per tablet Take 1 tablet by mouth 4 (four) times a day. 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 No active disease. Areas especially in mid trunk where panus folds are especially suspicious. Given Benzaclin to use week prior to menses twice daily and will follow up with Derm. Could take menstrual suppression if necessary in future. Sleep disturbance 10/15/2016 Overview (01/24/2024): 09/2016 Polysomnogram with MSLT - no sleep apnea or narcolepsy. Skin infection 09/06/2014 GERD (gastroesophageal reflux disease) 5 Onychomycosis 07/09/2014 Obesity 06/28/2014 Essential hypertension 06/26/2014 Lumbar disc disease 06/18/2014 Encounters Date Type Department Care Team Description 07/10/2024 3:00 PM EDT Office Visit Orthopedic Surgery - [address] [phone] Glenn Munoz, DPM Left foot soft tissue tumor (Primary Dx); Dermatophytosis of nail; Type II diabetes mellitus with peripheral circulatory disorder ([facility] V24, [facility] V28); Type 2 diabetes mellitus without complication, unspecified whether exterminator helper termite insulin use ([facility] V24, [facility] V28); Diabetic mononeuropathy simplex ([facility] V24, [facility] V28); Pain in toe of left foot; Pain in toe of right foot 07/04/2024 Telephone Adult Medicine [address] [phone] Valentin Newton MD Fitting for DME 06/23/2024 2:00 PM EDT Office Visit Adult Medicine [address] [phone] Valentin Newton MD Type 2 diabetes mellitus without complication, unspecified whether exterminator helper termite insulin use ([facility] V24, [facility] V28) (Primary Dx); High cholesterol; Encounter for long-term (current) use of medications; Lumbar disc disease; Essential hypertension; Primary insomnia 06/16/2024 2:45 PM EDT Telemedicine Endocrinology - [address] [phone] Aidee Tamayo PA Type 2 diabetes mellitus without complication, unspecified whether exterminator helper termite insulin use ([facility] V24, [facility] V28) (Primary Dx); Essential hypertension; High cholesterol from Last 3 Months Immunizations Name Administration Dates Next Due Pneumococcal polysaccharide 23 valent (Pneumovax 23) 2yo and older 02/13/2011 Td Tetanus diptheria (Tdvax) 7yo and older 11/06,08/28/2005 Tdap Tetanus diptheria acell ular pertussis (Boostrix; Adacel) 7yo and older 02/13/2011 Surgical History Surgery Date Site/Laterality Comments OTHER SURGICAL HISTORY PROCEDURE: OR DRAINAGE PERITON ABSCESS/LOCAL PERITONITIS OPEN CHOLECYSTECTOMY PROCEDURE: HISTORICAL CHOLECYSTECTOMY HERNIA REPAIR PROCEDURE: HISTORICAL HERNIA REPAIR/ING LIPOMA RESECTION Right PROCEDURE: SKIN TISSUE EXCISION(LIPOMA); COMMENT: flank OTHER SURGICAL HISTORY 01/24/14 PROCEDURE: MAMMOGRAM TUBAL LIGATION PROCEDURE: HISTORICAL TUBAL LIGATION Medical History Medical History Date Comments Type II or unspecified type diabetes mellitus without mention of complication, uncontrolled DX:Type II or unspecified t ype diabetes mellitus without mention of complication, uncontrolled High cholesterol DX:High cholest trina Thalassanemia DX:Thalassanemia Anemia DX:Anemia Anxiety DX:Anxiety Depression DX:Depression HTN (hypertension) 06/26/2014 DX:HTN (hyper tension) Obesity 06/28/2014 DX:Obesity GERD (gastroesophageal reflux disease) 07/09/2014 DX:GERD (gastroesophageal reflux disease) History of MRSA infection 07/09/2014 DX:His tory of MRSA infection; COMMENT: Seen by ID [id number] Onychomycosis 07/09/2014 DX:Onychomycosis Family History Medical History Relation Name Comments Breast cancer Aunt 1 m ? age Breast cancer Aunt 2 p ? age Diabetes Father Breast cancer Maternal Grandmother 50s Heart attack Maternal Grandmother 50s Breast cancer Mother 50 Hypertension Mother 50 Colon cancer Other uncle father's side Diabetes Paternal Grandmother Ovarian cancer Neg Hx Pancreatic cancer Neg Hx Prostate cancer Neg Hx Uterine cancer Neg Hx Relation Name Status Comments Aunt 1 m ? age Alive Aunt 2 p ? age Alive Father Maternal Grandmother 50s Mother 50 Alive Other uncle father's side Alive Paternal Grandmother Social History Tobacco Use Types Packs/Day Years Used Date Smoking Tobacco: Every Day Cigarettes Smokeless Tobacco: Never Alcohol Use Standard Drinks/Week Comments No 0 (1 standard drink = 0.6 oz pur e alcohol) Comments No Sex and Gender Information Value Date Recorded Sex Assigned at Female 03/02/2024 3:13 PM EST Legal Sex Female 1:55 PM EST Gender Identity Female 03/02/2024 3:13 PM EST Sexual Orientation Choose not to disclose 2023 3:13 PM EST Obstetrics History Para Term AB IAB SAB Ectopic Multiple Livin g Live Births 2 2 2 2 Date Outcome GA Total Labor Labor/2nd/3rd Weight Sex Type Anes PTL Irina A1 A5 Name Clin Term Term Last Filed Vital Signs Vital Sign Reading Time Taken Comments Blood Pressure 145/90 06/23/2024 3:22 PM EDT Pulse 87 03/03/2024 3:03 PM EST Temperature 36.7 ??C (98 ??F) 06/23/2024 3:22 PM EDT Respiratory Rate 16 06/23/2024 3:22 PM EDT Oxygen Saturation 99% 03/03/2024 3:03 PM EST Inhaled Oxygen Concentration - - Weight 95.3 kg (210 lb) 07/10/2024 3:15 PM EDT Height 165.1 cm (5' 5 ) 07/10/2024 3:15 PM EDT Body Mass Index 34.95 07/10/2024 3:15 PM EDT Plan of Treatment Upcoming Encounters Date Type Department Care Team (Late st Contact Info) Description 09/07/2024 2:00 PM EDT Office Visit Urogynecology [address] [phone] Aliza Rm MD [address] [place] [address] [place] [address] 09/26/2024 3:00 PM EDT Office Visit Adult Medicine [address] [phone] Kourtney Cooper PA [address] [place] [address] 10/09/2024 2:45 PM EDT Office Visit Orthopedic Surgery - [place] [address] [phone] Glenn Munoz DPM [address] [address] 10/13/2024 2:45 PM EDT Office Visit Endocrinology - [place] [address] [place] [phone] Aidee Tamayo PA [address] [place] [address] Health Maintenance Due Date Last Done Comments Diabetes: Annual Foot Exam 1986 Pneumococcal Vaccine: Pediatrics (0 to 5 Years) and At-Risk Patients (6 to 64 Years) (2 of 2 - PCV) 02/14/2012 02/13/2011 Hepatitis B Vaccines (2 of 3 - 19+ 3-dose series) 09/20/2013 08/23/2013 Cervical Cancer Screening: Pap Smear 06/04/2019 06/03/2016, 06/03/2016 Colorectal Cancer Screening: Colonoscopy 03/07/2022 HIV Screening 03/07/2022 Hepatitis C Screening 03/07/2022 Medicare Annual Wellness Visit 03/07/2022 Social Influencers of Health Screening 03/07/2022 DTaP,Tdap,and Td Vaccines (4 - Td or Tdap) 11/06/2022 11/06/2012, 02/13/2011, 08/28/2005 COVID-19 Vaccine ( season) 2023 Influenza Vaccine (Season Ended) 2024 12/18/2013, 12/18/2011, 12/18/2010, Additional history exists Diabetes: Blood Sugar Control Test (HGBA1C) 12/24/2024 06/23/2024, 03/03/2024, 11/12/2023, Additional history exists Diabetes: Annual Retina Eye Exam 02/08/2025 02/09/2024 Depression Screening 06/23/2025 06/23/2024 Diabetes: Annual Urine Albumin-Creatinine Ratio (uACR) 06/23/2025 06/23/2024, 11/12/2023 Diabetes: Annual GFR (Glomerular Filtration Rate) 06/23/2025 06/23/2024, 09/13/2023, 09/13/2023 Hypertension/CHF/CAD Annual BMP Blood Test 06/23/2025 06/23/2024, 09/13/2023, 09/13/2023 Breast Cancer Screening 03/24/2026 03/24/20 24, 09/08/2022, 09/02/2021, Additional history exists Cholesterol Screening (Lipid Panel) 06/23/2029 06/23/2024, 07/16/2023 HIB Vaccines Aged Out No longer eligi ble based on patient's age to complete this topic HPV Vaccines Aged Out No longer eligi ble based on patient's age to complete this topic Hepatitis A Vaccines Aged Out No long er eligible based on patient's age to complete this topic IPV Vaccines Aged Out No longer eligi ble based on patient's age to complete this topic MMR Vaccines Aged Out No longer eligi ble based on patient's age to complete this topic Meningococcal ACWY Vaccine Aged Out N o longer eligible based on patient's age to complete this topic Meningococcal B Vaccine Aged Out No l onger eligible based on patient's age to complete this topic RSV Immunization Patients Under 20 months Aged Out No longer eligible based on patient's age to complete this topic Varicella Vaccines Aged Out No longer eligible based on patient's age to complete this topic Procedures Procedure Name Priority Date/Time Associated Diagnosis Comments THYROID STIMULATING HORMONE WITH REFLEX TO FREE T4 AND FREE T3 Routine 06/23/2024 4:09 PM EDT Type 2 diabetes mellitus without complication, unspecified whether intermediate insulin use ([facility] V24, [facility] V28) HEMOGLOBIN A1C Routine 06/23/2024 4:09 PM EDT Type 2 diabetes mellitus without complication, unspecified whether exterminator helper termite insulin use ([facility] V24, [facility] V28) LIPID PANEL WITH REFLEX TO DIRECT LDL Routine 06/23/2024 4:09 PM EDT High cholesterol COMPREHENSIVE METABOLIC PANEL Routine 06/23/2024 4:09 PM EDT Type 2 diabetes mellitus without complication, unspecified whether exterminator helper termite insulin use ([facility] V24, [facility] V28) Encounter for long-term (current) use of medications Essential hypertension MICROALBUMIN CREATININE URINE RATIO Routine 06/23/2024 4:09 PM EDT Type 2 diabetes mellitus without complication, unspecified whether intermediate insulin use ([facility] V24, [facility] V28) MG MAMMO DIGITAL SCREENING W FLAVIO BILAT Routine 03/24/2024 3:51 PM EST Encounter for screening mammogram for breast cancer HM HPV Routine 06/03/2016 from Last 3 Months or Most Recently Relevant to Health Maintenance Results * Thyroid stimulating hormone with reflex to free t4 and free t3 (06/23/2024 4:09 PM EDT) [facility] TSH 1.10 0.40 - 4.00 mcIU/mL LAB CHEMISTRY METHOD 06/23/2024 7:[address] [facility] Blood Venous blood specimen / Unknown Venipuncture / Unknown 06/23/2024 4:09 PM EDT 06/23/2024 4:09 PM EDT us Aidee MICHAEL LAB BLOOD ORDERABLES Final Result [facility] [address] [place] [address], [place] [phone] * Lipid panel with reflex to direct LDL (06/23/2024 4:09 PM EDT) [facility] Cholesterol 136 0 - 200 mg/dL LAB CHEMISTRY METHOD 06/23/2024 6:[address] [facility] Triglycerides 79 0 - 150 mg/dL LAB CHEMISTRY METHOD 06/23/2024 6:[address] [facility] HDL 47 >=40 mg/dL LAB CHEMISTRY METHOD 06/23/2024 6:[address] [facility] LDL Calculated 73 0 - 100 mg/dL LAB CHEMISTRY METHOD 06/23/2024 6:[address] [facility] VLDL Cholesterol Sachin 15.8 mg/dL LAB CHEMISTRY METHOD 06/23/2024 6:[address] [facility] Non HDL Chol. (LDL+VLDL) 89 <145 mg/dL LAB CHEMISTRY METHOD 06/23/2024 6:[address] [facility] Chol/HDL Ratio 2.9 0.0 - 4.4 LAB CHEMISTRY METHOD 06/23/2024 6:[address] [facility] Blood Venous blood specimen / Unknown Venipuncture / Unknown 06/23/2024 4:09 PM EDT 06/23/2024 4:09 PM EDT us Valentin Newton MD LAB BLOOD ORDERABLES Final Resu lt Performing Organization Address City/[facility]/ZIP Co de Phone Number [facility] [address] [place] [address], [place] [phone] * (ABNORMAL) Microalbumin creatinine urine ratio (06/23/2024 4:09 PM EDT) Creatinine, Urine 160.0 mg/dL LAB CHEMISTRY METHOD 06/23/2024 7:[address] [facility] Microalb, Ur 32.5(H) 0.0 - 29.0 mg/L LAB CHEMISTRY METHOD 06/23/2024 7:[address] [facility] Microalb/Crea t Ratio 20 <30 mg/g creat LAB CHEMISTRY METHOD 06/23/2024 7:[address] [facility] Urine Urine specimen obtained by clean catch procedure / Unknown Non-blood Collection / Unknown 06/23/2024 4:09 PM EDT 06/23/2024 4:09 PM EDT us Valentin Newton MD LAB URINE ORDERABLES Final Resu lt [facility] [address] [place] [address], [place] [phone] * (ABNORMAL) Hemoglobin A1c (06/23/2024 4:09 PM EDT) Hemoglobin A1C 8.7(H) <6.5 % LAB CHEMISTRY METHOD 06/23/2024 8:[address] [facility] Mean Bld Glu Estim. 203 mg/dL LAB CHEMISTRY METHOD 06/23/2024 8:20 PM [facility] Blood Venous blood specimen / Unknown Venipuncture / Unknown 06/23/2024 4:09 PM EDT 06/23/2024 4:09 PM EDT us Valentin Newton MD LAB BLOOD ORDERABLES Final Resu lt [facility] [address] [place] [address], * (ABNORMAL) Comprehensive metabolic panel (06/23/2024 4:09 PM EDT) Sodium 135 133 - 145 mmol/L LAB CHEMISTRY METHOD 06/23/2024 6:32 PM [facility] Potassium 3.9 3.5 - 5.5 mmol/L LAB CHEMISTRY METHOD 06/23/2024 6:32 PM [facility] Chloride 99 96 - 110 mmol/L LAB CHEMISTRY METHOD 06/23/2024 6:32 PM [facility] CO2 30 21 - 32 mmol/L LAB CHEMISTRY METHOD 06/23/2024 6:32 PM [facility] Anion Gap 6 3 - 11 LAB CHEMISTRY METHOD 06/23/2024 6:32 PM [facility] Glucose 226(H) 70 - 100 mg/dL LAB CHEMISTRY METHOD 06/23/2024 6:32 PM [facility] BUN 11 5 - 25 mg/dL LAB CHEMISTRY METHOD 06/23/2024 6:32 PM [facility] Creatinine 0.79 0.50 - 1.10 mg/dL LAB CHEMISTRY METHOD 06/23/2024 6:32 PM [facility] eGFR 93 >=60 mL/min/1. 73m2 LAB CHEMISTRY METHOD 06/23/2024 6:[address] [facility] Comment:Calculation based on the??Chronic Kidney Disease Epidemiology Collaboration (CKD-EPI) equation refit??without adjustment for race. BUN/Creatinine Ratio 13.9 LAB CHEMISTRY METHOD 06/23/2024 6:[address] [facility] Calcium 10.0 8.5 - 10.5 mg/dL LAB CHEMISTRY METHOD 06/23/2024 6:[address] [facility] AST (SGOT) 13 10 - 42 unit/L LAB CHEMISTRY METHOD 06/23/2024 6:[address] [facility] ALT (SGPT) 26 10 - 60 unit/L LAB CHEMISTRY METHOD 06/23/2024 6:[address] [facility] Alkaline Phosphatase 58 42 - 121 unit/L LAB CHEMISTRY METHOD 06/23/2024 6:[address] [facility] Total Protein 7.9 6.0 - 8.0 g/dL LAB CHEMISTRY METHOD 06/23/2024 6:[address] [facility] Albumin 3.8 3.2 - 5.0 g/dL LAB CHEMISTRY METHOD 06/23/2024 6:[address] [facility] Total Bilirubin 0.3 0.0 - 1.4 mg/dL LAB CHEMISTRY METHOD 06/23/2024 6:[address] [facility] Blood Venous blood specimen / Unknown Venipuncture / Unknown 06/23/2024 4:09 PM EDT 06/23/2024 4:09 PM EDT us Valentin Newton MD LAB BLOOD ORDERABLES Final Resu lt [facility] [address] [place] [address], [place] [phone] * MG Mammo Digital Screening w Flavio bilat (03/24/2024 3:51 PM EST) Anatomical Region Laterality Modality Breast Bilateral Mammography 03/27/2024 6:41 PM EST Impressions 03/27/2024 6:42 PM EST No mammographic evidence of malignancy. BREAST DENSITY: B - There are scattered areas of fibroglandular density. BI-RADS CATEGORY: 1 - NEGATIVE RECOMMENDATION: Screening bilateral mammogram is recommended in 1 year. MAMMO LOCATION: [facility], [address] [place] [address], [id number], . -------- FINAL REPORT -------- Dictated By: Noa Hwang Dictated Date: 03/27/2024 18:41 ET Assigned Physician: Noa Hwang Reviewed and Electronically Signed By: Noa Hwang Signed Date: 03/27/2024 18:42 ET Workstation ID: [id number] Transcribed By: Self Edit Transcribed Date: 03/27/2024 18:41 ET Narrative 03/27/2024 6:42 PM EST EXAM: Screening Mammogram CLINICAL: 48 years old, Female, routine annual exam. COMPARISON: 09/08/2022 and 09/02/2021 TECHNIQUE: Bilateral MLO and CC views were obtained digitally with 3-D mammogram (digital breast tomosynthesis). Computer-aided detection was utilized in evaluation of this exam (CAD). ??Limitations in patient positioning due to body habitus. ??Images obtained are the best possible. FINDINGS: No new suspicious mass, architectural distortion, or suspicious calcifications. Procedure Note Noa Hwang MD - 03/27/2024 EXAM: Screening Mammogram CLINICAL: 48 years old, Female, routine annual exam. COMPARISON: 09/08/2022 and 09/02/2021 TECHNIQUE: Bilateral MLO and CC views were obtained digitally with 3-Dmammogram (digital breast tomosynthesis). Computer-aided detection wasutilized in evaluation of this exam (CAD). Limitations in patientpositioning due to body habitus. Images obtained are the best possible. FINDINGS: No new suspicious mass, architectural distortion, or suspiciouscalcifications. IMPRESSION: No mammographic evidence of malignancy. BREAST DENSITY: B - There are scattered areas of fibroglandular density. BI-RADS CATEGORY: 1 - NEGATIVE RECOMMENDATION: Screening bilateral mammogram is recommended in 1 year. MAMMO LOCATION: [facility], [address] [place] [address], [id number], . -------- FINAL REPORT -------- Dictated By: Noa Hwang Dictated Date: 03/27/2024 18:41 ET Assigned Physician: Noa Hwang Reviewed and Electronically Signed By: Noa Hwang Signed Date: 03/27/2024 18:42 ET Workstation ID: [id number] Transcribed By: Self Edit Transcribed Date: 03/27/2024 18:41 ET Valentin Newton MD IMG BI PROCEDURES Final Result * Cervical Cancer Screening: HPV (06/03/2016) Cervical Cancer Screening: HPV Negative, Abstracted Historical Provider HEALTH MAINTENANCE Final Result from Last 3 Months or Most Recently Relevant to Health Maintenance Insurance [facility] MEDICARE Member Subscriber Plan / Payer (Ef fective 2018-Present) Name:Kell Looney Relation to Subscriber:Self Name:Kell Looney Payer ID:[id number] Group ID:[id number] Type:Not on file Address: [facility] [place] [address] Care Teams Lithopone Charger Relationship Specialty Start Date End Date Valentin Newton MD [address] [place] [address] PCP - General Internal Medicine 03/02/24
--- OUTSIDE RECORDS SUMMARY | 2024-07-31 16:28 | XMS_ITS | Encounter Summary ---
Author Organization [facility] Address [address] [place] [address] Care Team Providers Care Grinder Set Up Operator Universal Name Role Phone Valentin Newton MD Primary Care Provider [phone] Singh Lott MD Unavailable Encounter Details Date Type Department Care Team Description 09/01/2016 Refill Adult Medicine [address] [phone] Valentin Newton MD [address] [place] [address] [phone] Social History Tobacco Use Types Packs/Day Years [...] Encounter - Carol Ann Lizarraga M.A. - 09/02/2016 8:48 AM EDTFrom: Kell Looney To: Valentin Newton MD Sent: 09/01/2016 9:35 PM EDT Subject: Medication Renewal Request Original authorizing provider: MD Kell Sanchez would like a refill of the following medications: insulin glargine (LANTUS) 100 UNIT/ML injection [Valentin Newton MD] Preferred pharmacy: [id number] [place], [place] - [address] [place] [address] Comment: documented in this encounter Plan of Treatment Not on file documented as of this encounter Visit Diagnoses Not on filedocumented in this encounter Care Teams Grinder Set Up Operator Universal Relationship Specialty Start Date End Date Valentin Newton MD [address] [place] [address] PCP - General Internal Medicine 05/01/14 Singh Lott MD [address] [place] [address]20 Aed Trainer Cardiovascular Disease 01/21/21 documented as of this encounter
--- OUTSIDE RECORDS SUMMARY | 2024-07-31 16:28 | XMS_ITS | Encounter Summary ---
Author Organization [facility] [facility] Address [address] [place] [address] Care Team Providers Care Electronic Imaging System Operator Name Role Phone Valentin Newton MD Primary Care Provider [phone] Singh Lott MD Unavailable Encounter Details Date Type Department Care Team Description 05/16/2019 Walk In Clinic Visit Medical Records [address] [place] [address] [facility] Walk-In [facility] [place], [place] [phone] Social History Tobacco Use Types Packs/Day Years Used Date Smoking Tobacco: Every Day Cigarettes 0.1 Smokeless Tobacco: Never Alcohol Use Standard Drinks/Week [...] on filedocumented in this encounter Care Teams Electronic Imaging System Operator Relationship Specialty Start Date End Date Valentin Newton MD [address] [place] [address] [phone] PCP - General Internal Medicine 05/01/14 Singh Lott MD [address] [place] [address] [phone] Direct Support Staff Member Cardiovascular Disease 01/21/21 documented as of this encounter
--- OUTSIDE RECORDS SUMMARY | 2024-07-31 16:28 | XMS_ITS | Encounter Summary ---
Author Organization [facility] Address [address] [place] [address] Care Team Providers Care Social Services Aide Name Role Phone Valentin Newton MD Primary Care Provider [phone] Singh Lott MD Unavailable Encounter Details Date Type Department Care Team Description 05/12/2019 Hospital Medical Records [address] [place] [address] Linda Acosta MD Social History Tobacco Use Types Packs/Day Years [...] on filedocumented in this encounter Care Teams Social Services Aide Relationship Specialty Start Date End Date Valentin Newton MD [address] [place] [address] [phone] PCP - General Internal Medicine 05/01/14 Singh Lott MD [address] [place] [address] [phone] Greens Cutter Cardiovascular Disease 01/21/21 documented as of this encounter
--- OUTSIDE RECORDS SUMMARY | 2024-07-31 16:28 | XMS_ITS | Encounter Summary ---
Author Organization [facility] Address [address] [place] [address] Care Team Providers Care Cylinder Worker Name Role Phone Valentin Newton MD Primary Care Provider [phone] Singh Lott MD Unavailable Encounter Details Date Type Department Care Team Description 06/25/2016 Release of Information Medical Records [address] [place] [address] Abstract, Provider Social History Tobacco Use Types Packs/Day Years Used Date Smoking Tobacco: Smoker, Current Status Unknown Cigarettes 0.1 Alcohol Use Standard Drinks/Week Comments [...] on filedocumented in this encounter Care Teams Cylinder Worker Relationship Specialty Start Date End Date Valentin Newton MD [address] [place] [address] PCP - General Internal Medicine 05/01/14 Singh Lott MD [address] [place] [address] 0[address]20 Behavioral Analyst Cardiovascular Disease 01/21/21 documented as of this encounter
--- OUTSIDE RECORDS SUMMARY | 2024-07-31 16:28 | XMS_ITS | Encounter Summary ---
Author Organization [facility] Address [address] [place] [address] Care Team Providers Care Dry Cleaning Attendant Name Role Phone Valentin Newton MD Primary Care Provider [phone] Singh Lott MD Unavailable Reason for Visit * Reason Comments E-prescribe Rx Request Encounter Details Date Type Department Care Team Description 01/08/2024 Refill Adult Medicine [address] [phone] Kourtney Cooper PA-C [address] [place] [address] [phone] E-prescribe Rx Request Social History Tobacco Use Types Packs/Day Years [...] encounter Miscellaneous Notes * Telephone Encounter - Prisca Enamorado M.A. - 01/11/2024 9:10 AM EDT Lab Results Component Value Date NA 137 09/13/2023 K 3.9 09/13/2023 CO2 28 09/13/2023 CL 103 09/13/2023 BUN 17 09/13/2023 CREAT 0.82 09/13/2023 GLU 159 09/13/2023 CA 9.5 09/13/2023 GFR 89 09/13/2023 Pending appt 03/17/24 Last appt 12/17/23 * Telephone Encounter - Allison Thacker - 01/10/2024 3:10 PM EDT Patient would like script to be: E-PRESCRIBED/FAXED TO PHARMACY WHEN WAS THE PATIENT'S LAST APPOINTMENT IN ADULT MEDICINE? 12/17/2023 WHEN WAS THE LAST TIME THE PATIENT SAW THEIR PCP? 09/13/2023 Does patient have an upcoming appointment? Yes 03/17/2024 (THE MEDICATION REQUESTED IS ON THE MED LIST ABOVE) All of the medications requested were on the CURRENT MEDS list Did you check the Pharmacy information above?: YES Patient wants: 90 -day supply Is this a mail order prescription request ? NO If the refill is from a FAXED refill request what is the RX # listed on the fax? N/A Patients current insurance carrier is: Payor: [employer] M[employer] / Plan: [facility] [employer] / Product Type: HMO [id number] documented in this encounter Plan of Treatment Not on file documented as of this encounter Visit Diagnoses Not on filedocumented in this encounter Care Teams Dry Cleaning Attendant Relationship Specialty Start Date End Date Valentin Newton MD [address] [place] [address] PCP - General Internal Medicine 05/01/14 Singh Lott MD [address] [place] [address] 39679 Cupola Hoist Operator Cardiovascular Disease 01/21/21 documented as of this encounter
--- OUTSIDE RECORDS SUMMARY | 2024-07-31 16:28 | XMS_ITS | Encounter Summary ---
Author Organization [facility] Address [address] [place] [address] Care Team Providers Care Energy Conservation Engineer Name Role Phone Valentin Newton MD Primary Care Provider Singh Lott MD Unavailable Encounter Details Date Type Department Care Team Description 01/22/2021 SCAN Medical Records [address] [place] [address] [facility] Social History Tobacco Use Types Packs/Day Years [...] on filedocumented in this encounter Care Teams Energy Conservation Engineer Relationship Specialty Start Date End Date Valentin Newton MD [address] [place] [address] [phone] PCP - General Internal Medicine 05/01/14 Singh Lott MD [address] [place] [address] [phone] Chips Screen Tender Cardiovascular Disease 01/21/21 documented as of this encounter
--- OUTSIDE RECORDS SUMMARY | 2024-07-31 16:28 | XMS_ITS | Encounter Summary ---
Author Organization [facility] Address [address] [place] [address] Care Team Providers Care Water Treatment Plant Operator Name Role Phone Valentin Newton MD Primary Care Provider [phone] Singh Lott MD Unavailable Encounter Details Date Type Department Care Team Description 05/24/2023 Orders Only Medical Records [address] [place] [address] Elia Cruz Social History Tobacco Use Types Packs/Day Years [...] on file documented as of this encounter Procedures Procedure Name Priority Date/Time Associated Diagnosis Comments OUTSIDE ULTRASOUND Routine 05/21/2023 documented in this encounter Results * OUTSIDE ULTRASOUND (05/21/2023) Elia Cruz RADIOLOGY documented in this encounter Visit Diagnoses Not on filedocumented in this encounter Care Teams Water Treatment Plant Operator Relationship Specialty Start Date End Date Valentin Newton MD [address] [place] [address] 347[address] PCP - General Internal Medicine 2/3/15 Singh Lott MD [address] [place] [address] Car Jockey Cardiovascular Disease 01/21/21 documented as of this encounter
--- OUTSIDE RECORDS SUMMARY | 2024-07-31 16:28 | XMS_ITS | Encounter Summary ---
Author Organization [facility] Address [address] [place] [address] Care Team Providers Care Film Reader Name Role Phone Valentin Newton MD Primary Care Provider [phone] Singh Lott MD Unavailable Encounter Details Date Type Department Care Team Description 07/16/2023 Refill Endocrinology - [address] [phone] Boyd Sanchez MD [address] [place] [address] Social History Tobacco Use Types Packs/Day Years [...] (HCC) documented in this encounter Care Teams Film Reader Relationship Specialty Start Date End Date Valentin Newton MD [address] [place] [address] [phone] PCP - General Internal Medicine 05/01/14 Singh Lott MD [address] [place] [address] 79[address] Telephone Operators Supervisor Cardiovascular Disease 01/21/21 documented as of this encounter
--- OUTSIDE RECORDS SUMMARY | 2024-07-31 16:28 | XMS_ITS | Encounter Summary ---
Author Organization [facility] Address [address] [place] [address] Care Team Providers Care Flood Control Engineer Name Role Phone Valentin Newton MD Primary Care Provider [phone] Singh Lott MD Unavailable Encounter Details Date Type Department Care Team Description 05/28/2023 [facility] Medical Records [address] [place] [address]841 Abstract, Provider Social History Tobacco Use Types [...] on filedocumented in this encounter Care Teams Flood Control Engineer Relationship Specialty Start Date End Date Valentin Newton MD [address] [place] [address] [phone] PCP - General Internal Medicine 05/01/14 Singh Lott MD [address] [place] [address] [phone] Parking Lot Manager Cardiovascular Disease 01/21/21 documented as of this encounter
--- OUTSIDE RECORDS SUMMARY | 2024-07-31 16:28 | XMS_ITS | Encounter Summary ---
Author Organization [facility] Address [address] [place] [address] Care Team Providers Care Hyperbaric Technologist Name Role Phone Valentin Newton MD Primary Care Provider [phone] Singh Lott MD Unavailable Encounter Details Date Type Department Care Team Description 05/10/2023 Branch Maker Report Medical Records [address] [place] [address] Elia Cruz Social History Tobacco Use Types [...] on filedocumented in this encounter Care Teams Hyperbaric Technologist Relationship Specialty Start Date End Date Valentin Newton MD [address] [place] [address] [phone] PCP - General Internal Medicine 05/01/14 Singh Lott MD [address] [place] [address] [phone] Stringing Machine Tender Cardiovascular Disease 01/21/21 documented as of this encounter
--- OUTSIDE RECORDS SUMMARY | 2024-07-31 16:28 | XMS_ITS | Encounter Summary ---
Author Organization [facility] Address [address] [place] [address] Care Team Providers Care Bingo Manager Name Role Phone Valentin Newton MD Primary Care Provider [phone] Singh Lott MD Unavailable Encounter Details Date Type Department Care Team Description 03/05/2021 [facility] Report Medical Records [address] [place] [address]42 Abstract, Provider Social History Tobacco Use Types [...] on filedocumented in this encounter Care Teams Bingo Manager Relationship Specialty Start Date End Date Valentin Newton MD [address] [place] [address] [phone] PCP - General Internal Medicine 05/01/14 Singh Lott MD [address] [place] [address] [phone] Client Care Representative Cardiovascular Disease 01/21/21 documented as of this encounter
--- OUTSIDE RECORDS SUMMARY | 2024-07-31 16:28 | XMS_ITS | Encounter Summary ---
Author Organization [facility] Address [address] [place] [address] Care Team Providers Care Shook Splicer Name Role Phone Valentin Newton MD Primary Care Provider [phone] Singh Lott MD Unavailable Encounter Details Date Type Department Care Team Description 08/26/2021 [facility] Report Medical Records [address] [place] [address]99[address] Abstract, Provider Social History Tobacco Use Types Packs/Day Years Used Date Smoking Tobacco: Every Day Cigarettes 0.3 Smokeless Tobacco: Never Comments:Started @ age 29 Alcohol Use Standard Drinks/Week Comments No 0 (1 standard drink = 0.6 oz pur e alcohol) Sex Assigned at Date Recorded Not on file Job Start Date Occupation Industry Not on file Not on file Not on file COVID-19 Exposure Response Date Recorded In the last 10 days, have dick u been in contact with someone who was confirmed or suspected to have Coronavirus/COVID-19? No / Unsure 08/21/2021 2:06 PM EDT documented as of this encounter Plan of Treatment Not on file documented as of this encounter Visit Diagnoses Not on filedocumented in this encounter Care Teams Shook Splicer Relationship Specialty Start Date End Date Valentin Newton MD [address] [place] [address] 01020 PCP - General Internal Medicine 05/01/14 Singh Lott MD [address] [place] [address] 03559 Computer Systems Analyst Cardiovascular Disease 01/21/21 documented as of this encounter
--- OUTSIDE RECORDS SUMMARY | 2024-07-31 16:28 | XMS_ITS | Encounter Summary ---
Author Organization [facility] Address [address] [place] [address] Care Team Providers Care Research Staff Member Name Role Phone Valentin Newton MD Primary Care Provider [phone] Singh Lott MD Unavailable Encounter Details Date Type Department Care Team Description 06/27/2023 Refill Endocrinology - [address] [phone] Aidee Tamayo PA-C [address] [place] [address] [phone] Social History Tobacco Use Types Packs/Day Years [...] (HCC) documented in this encounter Care Teams Research Staff Member Relationship Specialty Start Date End Date Valentin Newton MD [address] [place] [address] [phone] PCP - General Internal Medicine 05/01/14 Singh Lott MD [address] [place] [address] 40737 Industrial Specialist Cardiovascular Disease 01/21/21 documented as of this encounter
--- OUTSIDE RECORDS SUMMARY | 2024-07-31 16:28 | XMS_ITS | Encounter Summary ---
Author Organization [facility] Address [address] [place] [address] Care Team Providers Care Data Support Analyst Name Role Phone Valentin Newton MD Primary Care Provider [phone] Singh Lott MD Unavailable Encounter Details Date Type Department Care Team Description 03/19/2017 [facility] Medical Records [address] [place] [address] 9[address] Abstract, Provider Social History Tobacco Use Types [...] on filedocumented in this encounter Care Teams Data Support Analyst Relationship Specialty Start Date End Date Valentin Newton MD [address] [place] [address] 01020 PCP - General Internal Medicine 05/01/14 Singh Lott MD [address] [place] [address] 01020 Fire Control Technician B Cardiovascular Disease 01/21/21 documented as of this encounter
--- OUTSIDE RECORDS SUMMARY | 2024-07-31 16:28 | XMS_ITS | Encounter Summary ---
Author Organization [facility] Address [address] [place] [address] Care Team Providers Care Maths Tutor Name Role Phone Valentin Newton MD Primary Care Provider [phone] Singh Lott MD Unavailable Encounter Details Date Type Department Care Team Description 12/02/2023 Delinquent Account Clerk Report Medical Records [address] [place] [address] Elia Cruz Social History Tobacco Use Types [...] on filedocumented in this encounter Care Teams Maths Tutor Relationship Specialty Start Date End Date Valentin Newton MD [address] [place] [address] [phone] PCP - General Internal Medicine 05/01/14 Singh Lott MD [address] [place] [address] [phone] Package Delivery Room Service Runner Cardiovascular Disease 01/21/21 documented as of this encounter
--- OUTSIDE RECORDS SUMMARY | 2024-07-31 16:28 | XMS_ITS | Encounter Summary ---
Author Organization [facility] Address [address] [place] [address] Care Team Providers Care Merchant Miller Name Role Phone Valentin Newton MD Primary Care Provider [phone] Singh Lott MD Unavailable Encounter Details Date Type Department Care Team Description 12/26/2018 [facility] Medical Records [address] [place] [address] 18595 Abstract, Provider Social History Tobacco Use Types [...] on filedocumented in this encounter Care Teams Merchant Miller Relationship Specialty Start Date End Date Valentin Newton MD [address] [place] [address] [phone] PCP - General Internal Medicine 05/01/14 Singh Lott MD [address] [place] [address] [phone] Polisher Hand Cardiovascular Disease 01/21/21 documented as of this encounter
--- OUTSIDE RECORDS SUMMARY | 2024-07-31 16:28 | XMS_ITS | Encounter Summary ---
Author Organization [facility] Address [address] [place] [address] Care Team Providers Care Storage Center Manager Name Role Phone Valentin Newton MD Primary Care Provider Singh Lott MD Unavailable Reason for Referral * Non ANALILIA (Routine) - Authorized/Booked Specialty Diagnoses / Procedures Referred By Fabricio ann Referred To Contact Podiatry Procedures REFERRAL TO PODIATRY (IN NETWORK) Valentin Newton MD [address] [place] [address] [address] [address] Referral ID Status Reason Start Date Expiration Date V isits Requested Visits Authorized [id number] Authorized/B ooked 11/11/2018 11/11/2019 1 1 Encounter Details Date Type Department Care Team Description 11/11/2018 Orders Only Adult Medicine [address] [address] Valentin Newton MD [address] [place] [address] 79088 Calcaneal spur of left foot (Primary Dx) Social History Tobacco Use Types Packs/Day Years [...] as of this encounter Visit Diagnoses Diagnosis Calcaneal spur of left foot- Primary Calcaneal spur documented in this encounter Care Teams Storage Center Manager Relationship Specialty Start Date End Date Valentin Newton MD [address] [place] [address] 8[address]43 PCP - General Internal Medicine 05/01/14 Singh Lott MD [address] [place] [address] 01020 Ore Dryer Cardiovascular Disease 01/21/21 documented as of this encounter
--- OUTSIDE RECORDS SUMMARY | 2024-07-31 16:28 | XMS_ITS | Encounter Summary ---
Author Organization [facility] Address [address] [place] [address] Care Team Providers Care Lavender Farm Worker Name Role Phone Valentin Newton MD Primary Care Provider Singh Lott MD Unavailable Encounter Details Date Type Department Care Team Description 09/01/2023 Refill Endocrinology - [address] [phone] Aidee Tamayo PA-C [address] [place] [address] [phone] Social History Tobacco Use Types Packs/Day Years [...] (HCC) documented in this encounter Care Teams Lavender Farm Worker Relationship Specialty Start Date End Date Valentin Newton MD [address] [place] [address] [phone] PCP - General Internal Medicine 05/01/14 Singh Lott MD [address] [place] [address] 95599 Theater Teacher Cardiovascular Disease 01/21/21 documented as of this encounter
--- OUTSIDE RECORDS SUMMARY | 2024-07-31 16:28 | XMS_ITS | Encounter Summary ---
Author Organization [facility] Address [address] [place] [address] Care Team Providers Care Dry Cleaning Machine Operator Name Role Phone Valentin Newton MD Primary Care Provider Singh Lott MD Unavailable Encounter Details Date Type Department Care Team Description 10/15/2016 Orders Only Medical Records [address] [place] [address] Carmella Barney FNP [address] [place], [place] [phone] Social History Tobacco Use Types Packs/Day Years [...] Name Priority Date/Time Associated Diagnosis Comments OUTSIDE SLEEP STUDY Routine 10/09/2016 documented in this encounter Results * OUTSIDE SLEEP STUDY (10/09/2016) Carmella ESCALERA PULMONOLOGY documented in this encounter Visit Diagnoses Not on filedocumented in this encounter Care Teams Dry Cleaning Machine Operator Relationship Specialty Start Date End Date Valentin Newton MD [address] [place] [address] [phone] PCP - General Internal Medicine 05/01/14 Singh Lott MD [address] [place] [address] [phone] Food Products Tester Cardiovascular Disease 01/21/21 documented as of this encounter
--- OUTSIDE RECORDS SUMMARY | 2024-07-31 16:28 | XMS_ITS | Encounter Summary ---
Author Organization [facility] Address [address] [place] [address] Care Team Providers Care Centrifugal Drier Operator Name Role Phone Valentin Newton MD Primary Care Provider Singh Lott MD Unavailable Encounter Details Date Type Department Care Team Description 06/09/2023 Refill Adult Medicine [address] [phone] Valentin Newton MD [address] [place] [address] [phone] Social History Tobacco Use Types Packs/Day Years [...] encounter Miscellaneous Notes * Telephone Encounter - Tamanna Lima M.A. - 06/09/2023 11:52 AM EDT ZEHRA 03/10/2023 F/U appt 06/11/2023 Lab Results Component Value Date URBENZO NONE DETECTED 11/25/2022 UROPIATES POSITIVE 11/25/2022 UROXYCODONE POSITIVE 11/25/2022 URBARBITUATE NONE DETECTED 11/25/2022 PAINAMPHETAM NONE DETECTED 11/25/2022 PAINCOCAINE NONE DETECTED 11/25/2022 PAINCANNABIN NONE DETECTED 11/25/2022 Pt due for refill [facility] below 06/03/2023 02/25/2023 1 ZOLPIDEM TARTRATE 10 MG TABLET 30 30 Mo Par [id number] [facility] 2/5 0.50 [facility] [place] 05/12/2023 05/12/2023 2 OXYCODONE-ACETAMINOPHEN 5-325 112 28 An Cru [id number] [facility] ([facility] 0/0 30.00 MME Medicare [place] 05/04/2023 02/25/2023 1 ZOLPIDEM TARTRATE 10 MG TABLET 30 30 Mo Par [id number] [facility] 1/5 0.50 [facility] [place] 05/04/2023 02/25/2023 1 LORAZEPAM 0.5 MG TABLET 15 30 Mo Par [id number] [facility] ([facility]) 1/5 0.25 LME [place] 04/14/2023 04/14/2023 2 OXYCODONE-ACETAMINOPHEN 5-325 112 28 An Cru [id number] [facility] ([facility]) 0/0 30.00 M[place] 03/31/2023 02/25/2023 1 ZOLPIDEM TARTRATE 10 MG TABLET 30 30 Mo Par [id number] [facility] ([facility] 0/5 0.50 [facility] [place] 03/30/2023 02/25/2023 1 LORAZEPAM 0.5 MG TABLET 15 30 Mo Par [id number] [facility] (3[facility]) 0/5 0.25 LME [place] 03/17/2023 03/17/2023 2 OXYCODONE-ACETAMINOPHEN 5-325 112 28 An Cru [id number] [facility] (3323) 0/0 30.00 [place] 03/01/2023 12/31/2022 1 LORAZEPAM 0.5 MG TABLET 15 30 Mo Par [id number] [facility] (3323) 0/0 0.25 LME Medicare M documented in this encounter Plan of Treatment Not on file documented as of this encounter Visit Diagnoses Not on filedocumented in this encounter Care Teams Centrifugal Drier Operator Relationship Specialty Start Date End Date Valentin Nweton MD [address] [place] [address] [phone] PCP - General Internal Medicine 05/01/14 Singh Lott MD [address] [place] [address] [phone] Lead Portfolio Manager Cardiovascular Disease 01/21/21 documented as of this encounter
--- OUTSIDE RECORDS SUMMARY | 2024-07-31 16:28 | XMS_ITS | Encounter Summary ---
Author Organization [facility] Address [address] [place] [address] Care Team Providers Care Tax Economist Name Role Phone Valentin Newton MD Primary Care Provider [phone] Singh Lott MD Unavailable Encounter Details Date Type Department Care Team Description 03/24/2021 [facility] Report Medical Records [address] [place] [address] Abstract, Provider Social History Tobacco Use Types [...] Exposure Response Date Recorded In the last month, have you been in contact with someone who was confirmed or suspected to have Coronavirus / COVID-19? No / Unsure 03/18/2021 11:15 AM EST documented as of this encounter Plan of Treatment Not on file documented as of this encounter Visit Diagnoses Not on filedocumented in this encounter Care Teams Tax Economist Relationship Specialty Start Date End Date Valentin Newton MD [address] [place] [address] PCP - General Internal Medicine 05/01/14 Singh Lott MD [address] [place] [address] 70445 Bit Bender Cardiovascular Disease 01/21/21 documented as of this encounter
--- OUTSIDE RECORDS SUMMARY | 2024-07-31 16:28 | XMS_ITS | Encounter Summary ---
Author Organization [facility] Address [address] [place] [address] Care Team Providers Care Cream Beater Name Role Phone Valentin Newton MD Primary Care Provider [phone] Singh Lott MD Unavailable Encounter Details Date Type Department Care Team Description 12/09/2016 Business Doc Medical Records [address] [place] [address] 70199 Abstract, Provider Social History Tobacco Use Types [...] on filedocumented in this encounter Care Teams Cream Beater Relationship Specialty Start Date End Date Valentin Newton MD [address] [place] [address] PCP - General Internal Medicine 05/01/14 Singh Lott MD [address] [place] [address] Stewardesses Teacher Cardiovascular Disease 01/21/21 documented as of this encounter
--- OUTSIDE RECORDS SUMMARY | 2024-07-31 16:28 | XMS_ITS | Encounter Summary ---
Author Organization [facility] Address [address] [place] [address] Care Team Providers Care Dairy Nutrition Specialist Name Role Phone Valentin Newton MD Primary Care Provider [phone] Singh Lott MD Unavailable Encounter Details Date Type Department Care Team Description 10/12/2016 [facility] Controlled Substance Contract Medical Records [address] [place] [address] 46[address] Abstract, Provider Social History Tobacco Use Types [...] on filedocumented in this encounter Care Teams Dairy Nutrition Specialist Relationship Specialty Start Date End Date Valentin Newton MD [address] [place] [address] PCP - General Internal Medicine 05/01/14 Singh Lott MD [address] [place] [address]20 Assembly Repairer Cardiovascular Disease 01/21/21 documented as of this encounter
--- OUTSIDE RECORDS SUMMARY | 2024-07-31 16:28 | XMS_ITS | Encounter Summary ---
Author Organization [facility] Address [address] [place] [address] Care Team Providers Care Funnel Setter Name Role Phone Valentin Newton MD Primary Care Provider Singh Lott MD Unavailable Reason for Visit * Reason Onset Date Comments APPOINTMENT 06/11/2021 Encounter Details Date Type Department Care Team Description 06/11/2021 Telephone Nephrology - [address] [phone] Tru Pak MD [address] [place] [address] [phone] APPOINTMENT Social History Tobacco Use Types Packs/Day Years [...] have Coronavirus / COVID-19? No / Unsure 05/22/2021 2:04 PM EST documented as of this encounter Miscellaneous Notes * Telephone Encounter - Mireya Black - 06/16/2021 10:08 AM EDT Please book pt * Telephone Encounter - Veena Rian Fernándezs - 06/11/2021 11:59 AM EDT Called patient to reschedule her appointment on 07/30 provider will be out of the office. Patient is upset she has already been r/s multiple times. The [place] office is too far for her and she hastransportation issues. Can this patient please be accommodated on 's schedule. Thank you documented in this encounter Plan of Treatment Not on file documented as of this encounter Visit Diagnoses Not on filedocumented in this encounter Care Teams Funnel Setter Relationship Specialty Start Date End Date Valentin Newton MD [address] [place] [address] 279[address] PCP - General Internal Medicine 05/01/14 Singh Lott MD [address] [place] [address] [phone] Floral Design Teacher Cardiovascular Disease 01/21/21 documented as of this encounter
--- OUTSIDE RECORDS SUMMARY | 2024-07-31 16:28 | XMS_ITS | Encounter Summary ---
Author Organization [facility] Address [address] [place] [address] Care Team Providers Care Reaming Machine Tender Name Role Phone Valentin Newton MD Primary Care Provider [phone] Singh Lott MD Unavailable Encounter Details Date Type Department Care Team Description 02/09/2017 Release of Information Medical Records [address] [place] [address] Abstract, Provider Social History Tobacco Use Types [...] on filedocumented in this encounter Care Teams Reaming Machine Tender Relationship Specialty Start Date End Date Valentin Newton MD [address] [place] [address] PCP - General Internal Medicine 05/01/14 Singh Lott MD [address] [place] [address] Dental Receptionist Cardiovascular Disease 01/21/21 documented as of this encounter
--- OUTSIDE RECORDS SUMMARY | 2024-07-31 16:29 | XMS_ITS | Encounter Summary ---
Author Organization [facility] Address [address] [place] [address] Care Team Providers Care Dispensing And Measuring Optician Name Role Phone Valentin Newton MD Primary Care Provider [phone] Singh Lott MD Unavailable Encounter Details Date Type Department Care Team Description 08/19/2020 Telephone Adult Medicine [address] [address] Natalie Chung PA-C Social History Tobacco Use Types Packs/Day Years [...] have Coronavirus / COVID-19? No / Unsure 08/19/2020 3:27 PM EDT documented as of this encounter Plan of Treatment Not on file documented as of this encounter Visit Diagnoses Not on filedocumented in this encounter Care Teams Dispensing And Measuring Optician Relationship Specialty Start Date End Date Valentin Newton MD [address] [place] [address] PCP - General Internal Medicine 05/01/14 Singh Lott MD [address] [place] [address] Guest Experience Manager Cardiovascular Disease 01/21/21 documented as of this encounter
--- OUTSIDE RECORDS SUMMARY | 2024-07-31 16:29 | XMS_ITS | Encounter Summary ---
Author Organization [facility] Address [address] [place] [address] Care Team Providers Care Research Laboratory Specialist Name Role Phone Valentin Newton MD Primary Care Provider [phone] Singh Lott MD Unavailable Encounter Details Date Type Department Care Team Description 02/23/2018 [facility] Medical Records [address] [place] [address] Abstract, Provider Social History Tobacco Use Types [...] on filedocumented in this encounter Care Teams Research Laboratory Specialist Relationship Specialty Start Date End Date Valentin Newton MD [address] [place] [address] [phone] PCP - General Internal Medicine 05/01/14 Singh Lott MD [address] [place] [address] [phone] Needle Polisher Cardiovascular Disease 01/21/21 documented as of this encounter
--- OUTSIDE RECORDS SUMMARY | 2024-07-31 16:29 | XMS_ITS | Encounter Summary ---
Author Organization [facility] Address [address] [place] [address] Care Team Providers Care Veterinarian Epidemiologist Name Role Phone Valentin Newton MD Primary Care Provider [phone] Singh Lott MD Unavailable Encounter Details Date Type Department Care Team Description 09/24/2017 Release of Information Medical Records [address] [place] [address] Abstract, Provider Social History Tobacco Use Types [...] on filedocumented in this encounter Care Teams Veterinarian Epidemiologist Relationship Specialty Start Date End Date Valentin Newton MD [address] [place] [address] [phone] PCP - General Internal Medicine 05/01/14 Singh Lott MD [address] [place] [address] Kiln Placer Cardiovascular Disease 01/21/21 documented as of this encounter
--- OUTSIDE RECORDS SUMMARY | 2024-07-31 16:29 | XMS_ITS | Encounter Summary ---
Author Organization [facility] Address [address] [place] [address] Care Team Providers Care Outsole Scheduler Name Role Phone Valentin Newton MD Primary Care Provider [phone] Singh Lott MD Unavailable Encounter Details Date Type Department Care Team Description 01/12/2024 [facility] Medical Records [address] [place] [address] Abstract, Provider Social History Tobacco Use Types [...] on filedocumented in this encounter Care Teams Outsole Scheduler Relationship Specialty Start Date End Date Valentin Newton MD [address] [place] [address] [phone] PCP - General Internal Medicine 05/01/14 Singh Lott MD [address] [place] [address] [phone] Horticulture Professor Cardiovascular Disease 01/21/21 documented as of this encounter
--- OUTSIDE RECORDS SUMMARY | 2024-07-31 16:29 | XMS_ITS | Encounter Summary ---
Author Organization [facility] Address [address] [place] [address] Care Team Providers Care Commissions Specialist Name Role Phone Valentin Newton MD Primary Care Provider [phone] Singh Lott MD Unavailable Encounter Details Date Type Department Care Team Description 01/23/2020 [facility] Medical Records [address] [place] [address] Abstract, Provider Social History Tobacco Use Types [...] have Coronavirus / COVID-19? No / Unsure 01/25/2020 8:39 AM EDT documented as of this encounter Plan of Treatment Not on file documented as of this encounter Visit Diagnoses Not on filedocumented in this encounter Care Teams Commissions Specialist Relationship Specialty Start Date End Date Valentin Newton MD [address] [place] [address] PCP - General Internal Medicine 05/01/14 Singh Lott MD [address] [place] [address] Ladle Handler Cardiovascular Disease 01/21/21 documented as of this encounter
--- OUTSIDE RECORDS SUMMARY | 2024-07-31 16:29 | XMS_ITS | Encounter Summary ---
Author Organization [facility] Address [address] [place] [address] Care Team Providers Care Geography Faculty Member Name Role Phone Valentin Newton MD Primary Care Provider [phone] Singh Lott MD Unavailable Encounter Details Date Type Department Care Team Description 06/09/2017 Business Doc Medical Records [address] [place] [address] Abstract, Provider Social History Tobacco Use Types [...] on filedocumented in this encounter Care Teams Geography Faculty Member Relationship Specialty Start Date End Date Valentin Newton MD [address] [place] [address] PCP - General Internal Medicine 05/01/14 Singh Lott MD [address] [place] [address] [phone] Tin Roller Hot Mill Cardiovascular Disease 01/21/21 documented as of this encounter
--- OUTSIDE RECORDS SUMMARY | 2024-07-31 16:29 | XMS_ITS | Encounter Summary ---
Author Organization [facility] Address [address] [place] [address] Care Team Providers Care Spreading Machine Operator Name Role Phone Valentin Newton MD Primary Care Provider [phone] Singh Lott MD Unavailable Reason for Visit * Reason Comments E-prescribe Rx Request Encounter Details Date Type Department Care Team Description 10/27/2023 Refill Endocrinology - [address] [place] [address] Aidee Tamayo PA-C [address] [place], [place] [phone] E-prescribe Rx Request Social History Tobacco Use [...] encounter Miscellaneous Notes * Telephone Encounter - Addie Spencer - 10/27/2023 4:53 PM EDT Lab Results Component Value Date HGBA1C 8.1 07/16/2023 MALBUR 22.2 07/02/2022 MALBCR 12.8 07/02/2022 CHOL 122 07/16/2023 LDL 57 07/16/2023 HDL 44 07/16/2023 TRIG 105 07/16/2023 GLU 159 09/13/2023 CREAT 0.82 09/13/2023 documented in this encounter Plan of Treatment Not on file documented as of this encounter Visit Diagnoses Not on filedocumented in this encounter Care Teams Spreading Machine Operator Relationship Specialty Start Date End Date Valentin Newton MD [address] [place] [address] PCP - General Internal Medicine 05/01/14 Singh Lott MD [address] [place] [address] [phone] Wellness Director Cardiovascular Disease 01/21/21 documented as of this encounter
--- OUTSIDE RECORDS SUMMARY | 2024-07-31 16:29 | XMS_ITS | Encounter Summary ---
Author Organization [facility] Address [address] [place] [address] Care Team Providers Care Log Deckman Name Role Phone Valentin Newton MD Primary Care Provider [phone] Singh Lott MD Unavailable Reason for Visit * Reason Onset Date Comments refill request 2015 Encounter Details Date Type Department Care Team Description 2015 Refill Adult Medicine [address] [phone] Valentin Newton MD [address] [place] [address] [phone] refill request Social History Tobacco Use Types Packs/Day Years Used Date Smoking Tobacco: Former Alcohol Use Standard Drinks/Week Comments No 0 (1 standard drink = 0.6 oz pur e alcohol) Sex Assigned at Date Recorded Not on file Job Start Date Occupation Industry Not on file Not on file Not on file documented as of this encounter Miscellaneous Notes * Telephone Encounter - Radha Steiner - 11/26/2015 9:59 AM EDT Error * Telephone Encounter - Roxane Denise M.A. - 2015 10:29 AM EDT Date of last office visit was 11/14/15. Component Value Date HGBA1C 9.0 11/11/2015 MALBUR 33.2 11/14/2015 MALBCR 15.3 11/14/2015 CHOL 188 06/25/2015 LDL 117 06/25/2015 HDL 45 06/25/2015 TRIG 130 06/25/2015 GLU 327 07/24/2014 CREAT 0.7 05/31/2014 * Telephone Encounter - Juanita Diaz - 2015 10:26 AM EDT No more left. If possible can she get refill today. Patient would like script to be: E-PRESCRIBED/FAXED TO PHARMACY WHEN WAS THE PATIENT'S LAST APPOINTMENT IN ADULT MEDICINE? 11/14/15 WHEN WAS THE LAST TIME THE PATIENT SAW THEIR PCP? Same as above Does patient have an upcoming appointment? Yes 03/17/16 (THE MEDICATION REQUESTED IS ON THE MED LIST ABOVE) All of the medications requested were on the CURRENT MEDS list Did you check the Pharmacy information above?: YES Patient wants: 90 -day supply Is this a mail order prescription request ? NO Patients current insurance carrier is: [place] / [place] / Product Type: MEDICARE [id number] documented in this encounter Plan of Treatment Not on file documented as of this encounter Visit Diagnoses Not on filedocumented in this encounter Care Teams Log Deckman Relationship Specialty Start Date End Date Valentin Newton MD [address] [place] [address] PCP - General Internal Medicine 05/01/14 Singh Lott MD [address] [place] [address] [phone] Guide Escort Cardiovascular Disease 01/21/21 documented as of this encounter
--- OUTSIDE RECORDS SUMMARY | 2024-07-31 16:29 | XMS_ITS | Encounter Summary ---
Author Organization [facility] Address [address] [place] [address] Care Team Providers Care Conductor/Brakeman Name Role Phone Valentin Newton MD Primary Care Provider [phone] Singh Lott MD Unavailable Encounter Details Date Type Department Care Team Description 10/23/2022 Hospital Medical Records [address] [place] [address] Elia Cruz Social History Tobacco Use Types [...] suspected to have Coronavirus/COVID-19? No / Unsure 10/19/2022 1:20 PM EDT documented as of this encounter Plan of Treatment Not on file documented as of this encounter Visit Diagnoses Not on filedocumented in this encounter Care Teams Conductor/Brakeman Relationship Specialty Start Date End Date Valentin Newton MD [address] [place] [address] PCP - General Internal Medicine 05/01/14 Singh Lott MD [address] [place] [address] Family Practice Physician Cardiovascular Disease 01/21/21 documented as of this encounter
--- OUTSIDE RECORDS SUMMARY | 2024-07-31 16:29 | XMS_ITS | Encounter Summary ---
Author Organization [facility] Address [address] [place] [address] Care Team Providers Care Cabin Equipment Supervisor Name Role Phone Valentin Newton MD Primary Care Provider Singh Lott MD Unavailable Reason for Visit * Reason Comments E-prescribe Rx Request Encounter Details Date Type Department Care Team Description 07/20/2015 Refill Adult Medicine [address] [phone] Valentin Newton MD [address] [place] [address] [phone] E-prescribe Rx Request Social History Tobacco Use [...] encounter Miscellaneous Notes * Telephone Encounter - Cele Peters L.P.N. - 07/22/2015 12:40 PM EDT Component Value Date HGBA1C 8.3 06/25/2015 MALBUR 10.8 06/25/2015 MALBCR 6.8 06/25/2015 CHOL 188 06/25/2015 LDL 117 06/25/2015 HDL 45 06/25/2015 TRIG 130 06/25/2015 GLU 327 07/24/2014 CREAT 0.7 05/31/2014 * Telephone Encounter - Chasity Ludwig - 07/22/2015 12:02 PM EDT Patient would like script to be: E-PRESCRIBED/FAXED TO PHARMACY WHEN WAS THE PATIENT'S LAST APPOINTMENT IN ADULT MEDICINE? 06/25/15 WHEN WAS THE LAST TIME THE PATIENT SAW THEIR PCP? Same as above Does patient have an upcoming appointment? Yes 11/14/15 (THE MEDICATION REQUESTED IS ON THE MED LIST ABOVE) All of the medications requested were on the CURRENT MEDS list Did you check the Pharmacy information above?: YES Patient wants: 30 -day supply Is this a mail order prescription request ? NO Patients current insurance carrier is: [place] / [place] / Product Type: MEDICARE [id number] documented in this encounter Plan of Treatment Not on file documented as of this encounter Visit Diagnoses Not on filedocumented in this encounter Care Teams Cabin Equipment Supervisor Relationship Specialty Start Date End Date Valentin Newton MD [address] [place] [address] PCP - General Internal Medicine 05/01/14 Singh Lott MD [address] [place] [address] Crew Manager Cardiovascular Disease 01/21/21 documented as of this encounter
--- OUTSIDE RECORDS SUMMARY | 2024-07-31 16:29 | XMS_ITS | Encounter Summary ---
Author Organization [facility] Address [address] [place] [address] Care Team Providers Care Movement Therapist Name Role Phone Valentin Newton MD Primary Care Provider [phone] Singh Lott MD Unavailable Encounter Details Date Type Department Care Team Description 03/14/2018 Refill Adult Medicine [address] [phone] Valentin Newton MD [address] [place] [address] [phone] Social History Tobacco Use Types Packs/Day Years [...] on filedocumented in this encounter Care Teams Movement Therapist Relationship Specialty Start Date End Date Valentin Newton MD [address] [place] [address] [phone] PCP - General Internal Medicine 05/01/14 Singh Lott MD [address] [place] [address] [phone] Grey Roll Worker Cardiovascular Disease 01/21/21 documented as of this encounter
--- OUTSIDE RECORDS SUMMARY | 2024-07-31 16:29 | XMS_ITS | Encounter Summary ---
Author Organization [facility] Address [address] [place] [address] Care Team Providers Care Metal Loader Name Role Phone Valentin Newton MD Primary Care Provider [phone] Singh Lott MD Unavailable Encounter Details Date Type Department Care Team Description 08/27/2020 Telephone Adult Medicine [address] [address] Natalie Chung PA-C Social History [...] on filedocumented in this encounter Care Teams Metal Loader Relationship Specialty Start Date End Date Valentin Newton MD [address] [place] [address] PCP - General Internal Medicine 05/01/14 Singh Lott MD [address] [place] [address] Source Water Protection Specialist Cardiovascular Disease 01/21/21 documented as of this encounter
--- OUTSIDE RECORDS SUMMARY | 2024-07-31 16:29 | XMS_ITS | Encounter Summary ---
Author Organization [facility] Address [address] [place] [address] Care Team Providers Care Dye House Helper Name Role Phone Valentin Newton MD Primary Care Provider [phone] Singh Lott MD Unavailable Encounter Details Date Type Department Care Team Description 09/23/2022 Stopper Grinder Report Medical Records [address] [place] [address] Elia Cruz Social History Tobacco Use Types [...] suspected to have Coronavirus/COVID-19? No / Unsure 09/08/2022 1:01 PM EDT documented as of this encounter Plan of Treatment Not on file documented as of this encounter Visit Diagnoses Not on filedocumented in this encounter Care Teams Dye House Helper Relationship Specialty Start Date End Date Valentin Newton MD [address] [place] [address] PCP - General Internal Medicine 05/01/14 Singh Lott MD [address] [place] [address] Service Engineer Cardiovascular Disease 01/21/21 documented as of this encounter
--- OUTSIDE RECORDS SUMMARY | 2024-07-31 16:29 | XMS_ITS | Encounter Summary ---
Author Organization [facility] Address [address] [place] [address] Care Team Providers Care Fish And Game Warden Name Role Phone Valentin Newton MD Primary Care Provider [phone] Singh Lott MD Unavailable Encounter Details Date Type Department Care Team Description 06/17/2015 CREDIT REPORTER/[place] Report Medical Records [address] [place] [address]2847 Abstract, Provider Social History Tobacco Use Types [...] on filedocumented in this encounter Care Teams Fish And Game Warden Relationship Specialty Start Date End Date Valentin Newton MD [address] [place] [address] PCP - General Internal Medicine 05/01/14 Singh Lott MD [address] [place] [address]20 Card Fixer Cardiovascular Disease 01/21/21 documented as of this encounter
--- OUTSIDE RECORDS SUMMARY | 2024-07-31 16:29 | XMS_ITS | Encounter Summary ---
Author Organization [facility] Address [address] [place] [address] Care Team Providers Care Black Puller Name Role Phone Valentin Newton MD Primary Care Provider Singh Lott MD Unavailable Reason for Visit * Reason Onset Date Comments Mychart Rx Refill 10/23/2021 Encounter Details Date Type Department Care Team Description 10/23/2021 Refill Adult Medicine [address] [phone] Valentin Newton MD [address] [place] [address] [phone] Mychart Rx Refill Social History Tobacco Use Types Packs/Day Years [...] Recorded In the last 10 days, have yo u been in contact with someone who was confirmed or suspected to have Coronavirus/COVID-19? No / Unsure 10/22/2021 4:18 PM EDT documented as of this encounter Miscellaneous Notes * Telephone Encounter - Jessica Trevino M.A. - 10/23/2021 8:47 AM EDT Pt's CSC is contracted for [employer] , not [employer] Silverio Weber. Lab Results Component Value Date URBENZO NONE DETECTED 10/22/2021 UROPIATES POSITIVE 10/22/2021 UROXYCODONE POSITIVE 10/22/2021 URBARBITUATE NONE DETECTED 10/22/2021 PAINAMPHETAM NONE DETECTED 10/22/2021 PAINCOCAINE NONE DETECTED 10/22/2021 PAINCANNABIN NONE DETECTED 10/22/2021 ZEHRA was telemed w/Natalie Oviedoinski 10/17/2021 ZEHRA w/PCP was telemed 09/2020 Next OV 02/04/2022 w/PCP 10/09/2021 10/09/2021 1 Lorazepam 0.5 Mg Tablet 15 30 Mo Par [id number] [facility] 0/0 0.25 LME [place] 10/09/2021 10/09/2021 1 Zolpidem Tartrate 10 Mg Tablet 3 3 Mo Par [id number] [facility] ([facility] 0/0 0.50 LME Private Pay [place] 10/09/2021 10/09/2021 1 Zolpidem Tartrate 10 Mg Tablet 27 27 Mo Par [id number] [facility] ([facility] 0/0 0.50 [place] 09/25/2021 09/25/2021 1 Oxycodone-Acetaminophen 5-325 112 28 An Cru [id number] [facility] ([facility] 0/0 30.00 [place] 09/11/2021 09/11/2021 1 Zolpidem Tartrate 10 Mg Tablet 30 30 Mo Par [id number] [facility] ([facility] 0/0 0.50 [place] 09/11/2021 09/11/2021 1 Lorazepam 0.5 Mg Tablet 15 30 Mo Par [id number] [facility] ([facility] 0/0 0.25 [place] 08/28/2021 08/28/2021 1 Oxycodone-Acetaminophen 5-325 112 28 An Cru [id number] [facility] ([facility] 0/0 30.00 [place] 08/03/2021 07/17/2021 1 Zolpidem Tartrate 10 Mg Tablet 30 30 Mo Par [id number] [facility] ([facility] 0/0 0.50 [place] 07/31/2021 07/31/2021 1 Oxycodone-Acetaminophen 5-325 112 28 An Cru [id number] [facility] ([facility] 0/0 30.00 [place] 07/17/2021 07/17/2021 1 Lorazepam 0.5 Mg Tablet 15 30 Mo Par [id number] [facility] ([facility] 0/0 0.25 [place] 07/06/2021 05/22/2021 1 Zolpidem Tartrate 10 Mg Tablet 30 30 Mo Par [id number] [facility] ([facility] 1/1 0.50 [place] 07/03/2021 07/03/2021 1 Oxycodone-Acetaminophen 5-325 112 28 As Kos [id number] [facility] ([facility] 0/0 30.00 [place] 06/18/2021 05/22/2021 1 Lorazepam 0.5 Mg Tablet 15 30 Mo Par [id number] [facility] ([facility] 0/1 0.25 [place] 06/05/2021 06/05/2021 1 Oxycodone-Acetaminophen 5-325 112 28 An Cru [id number] [facility] ([facility] 0/0 30.00 [place] 06/03/2021 05/22/2021 1 Zolpidem Tartrate 10 Mg Tablet 30 30 Mo Par [id number] [facility] ([facility] 0/1 0.50 LME [place] documented in this encounter Plan of Treatment Not on file documented as of this encounter Visit Diagnoses Not on filedocumented in this encounter Care Teams Black Puller Relationship Specialty Start Date End Date Valentin Newton MD [address] [place] [address] 35801 PCP - General Internal Medicine 05/01/14 Singh Lott MD [address] [place] [address] 89645 Handbook Writer Cardiovascular Disease 01/21/21 documented as of this encounter
--- OUTSIDE RECORDS SUMMARY | 2024-07-31 16:29 | XMS_ITS | Encounter Summary ---
Author Organization [facility] Address [address] [place] [address] Care Team Providers Care Associate Program Manager Name Role Phone Valentin Newton MD Primary Care Provider Singh Lott MD Unavailable Reason for Visit * Reason Comments E-prescribe Rx Request Encounter Details Date Type Department Care Team Description 11/26/2015 Refill Adult Medicine [address] [phone] Valentin Newton MD [address] [place] [address] [phone] E-prescribe Rx Request Social History Tobacco Use [...] Telephone Encounter - Cele Peters L.P.N. - 11/26/2015 12:44 PM EDT Component Value Date HGBA1C 9.0 11/11/2015 MALBUR 33.2 11/14/2015 MALBCR 15.3 11/14/2015 CHOL 188 06/25/2015 LDL 117 06/25/2015 HDL 45 06/25/2015 TRIG 130 06/25/2015 GLU 327 07/24/2014 CREAT 0.7 05/31/2014 * Telephone Encounter - Sarina Monge - 11/26/2015 11:19 AM EDT Patient would like script to be: E-PRESCRIBED/FAXED TO PHARMACY WHEN WAS THE PATIENT'S LAST APPOINTMENT IN ADULT MEDICINE? [id number] WHEN WAS THE LAST TIME THE PATIENT SAW THEIR PCP? Same as above Does patient have an upcoming appointment? Yes [id number] (THE MEDICATION REQUESTED IS ON THE MED LIST ABOVE) All of the medications requested were on the CURRENT MEDS list Did you check the Pharmacy information above?: YES Patient wants: 30 -day supply Is this a mail order prescription request ? NO Patients current insurance carrier is: [place] / [place] / Product Type: MEDICARE [id number] documented in this encounter Plan of Treatment Not on file documented as of this encounter Visit Diagnoses Not on filedocumented in this encounter Care Teams Associate Program Manager Relationship Specialty Start Date End Date Valentin Newton MD [address] [place] [address] 01020 PCP - General Internal Medicine 05/01/14 Singh Lott MD [address] [place] [address] 01020 County Home Demonstrator Cardiovascular Disease 01/21/21 documented as of this encounter
--- OUTSIDE RECORDS SUMMARY | 2024-07-31 16:29 | XMS_ITS | Encounter Summary ---
Author Organization [facility] [employer] [facility] Address [address] [place] [address] Care Team Providers Care Cancer Program Coordinator Name Role Phone Unavailable Primary Care Provider Unavailabl e Encounter Details Date Type Department Care Team (Latest Contact Info) Description 01/29/2021 Abstract [facility] CONVERSIONS Dental, Provider, DDS Social History Tobacco Use Types Packs/Day Years Used Date Smoking Tobacco: Never Assessed Comments Unknown Sex and Gender Information Value Date Recorded Sex Assigned at Female 01/26/2022 10:16 AM EDT Legal Sex Female 10:16 AM EDT Gender Identity Female 01/26/2022 10:16 AM EDT Sexual Orientation Choose not to disclose 2021 10:16 AM EDT documented as of this encounter Plan of Treatment Not on file documented as of this encounter Visit Diagnoses Not on filedocumented in this encounter
--- OUTSIDE RECORDS SUMMARY | 2024-07-31 16:29 | XMS_ITS | Clinical Summary ---
Author Organization [facility] Address [address] [place] [address] Care Team Providers Care Caving Guide Name Role Phone Unavailable Primary Care Provider Unavailabl e Social History Tobacco Use Types Packs/Day Years Used Date Smoking Tobacco: Never Assessed Comments Unknown Sex and Gender Information Value Date Recorded Sex Assigned at Female 01/26/2022 10:16 AM EDT Legal Sex Female 10:16 AM EDT Gender Identity Female 01/26/2022 10:16 AM EDT Sexual Orientation Choose not to disclose 2021 10:16 AM EDT Plan of Treatment Health Maintenance Due Date Last Done Comments CT Colonography 1976 Colonoscopy 1976 Colorectal Cancer Screening 1976 Depression Screening 1976 FIT DNA/Cologuard 1976 FIT 1976 FOBT 1976 Sigmoidoscopy 1976 Alcohol/Substance Use Screening 1988 Tobacco Screening 1988 Family Planning (PISQ) 11/24/1991 Pap Smear 1997 Cervical Cancer Screening 2006 HPV/Cotest 2006 Hepatitis B Vaccines (2 of 3 - 19+ 3-dose series) 09/20/2013 08/23/2013 Mammogram 2016 DTaP/Tdap/Td Vaccines (2 - Td or Tdap) 02/13/2021 02/13/2011, 08/28/2005 COVID-19 Vaccine ( - 2023- season) 2023 Influenza Vaccine (#1) 2023 4, 12/18/2011, 12/18/2010, Additional history exists Zoster Vaccines (1 of 2) 2026 RSV Patients and Patients Aged 60 years or older (1 - 1-dose 75+ series) 11/24/2051 Pneumococcal Vaccine: Pediatrics (0 to 5 Years) and At-Risk Patients (6 to 49) Years) Aged Out 02/13/2011 No longer eligible based on patient's age to complete this topic HIB Vaccines Aged Out No longer eligi [...] patient's age to complete this topic Meningococcal Vaccine Aged Out No ayanna caroline eligible based on patient's age to complete this topic RSV under 20 months Aged Out No longe r eligible based on patient's age to complete this topic Rotavirus Vaccines Aged Out No longer eligible based on patient's age to complete this topic
--- OUTSIDE RECORDS SUMMARY | 2024-07-31 16:29 | XMS_ITS | Encounter Summary ---
Author Organization [facility] Address [address] [place] [address] Care Team Providers Care Box Loader Name Role Phone Valentin Newton MD Primary Care Provider [phone] Singh Lott MD Unavailable Encounter Details Date Type Department Care Team Description 08/01/2020 Refill Adult Medicine [address] [phone] Valentin Newton MD [address] [place] [address] [phone] Social History Tobacco Use Types Packs/Day Years [...] have Coronavirus / COVID-19? No / Unsure 07/23/2020 10:02 AM EDT documented as of this encounter Plan of Treatment Not on file documented as of this encounter Visit Diagnoses Not on filedocumented in this encounter Care Teams Box Loader Relationship Specialty Start Date End Date Valentin Newton MD [address] [place] [address] 84749 PCP - General Internal Medicine 05/01/14 Singh Lott MD [address] [place] [address] [phone] Kennel Manager Cardiovascular Disease 01/21/21 documented as of this encounter
--- OUTSIDE RECORDS SUMMARY | 2024-07-31 16:29 | XMS_ITS | Encounter Summary ---
Author Organization [facility] Address [address] [place] [address] Care Team Providers Care Headlight Assembler Name Role Phone Valentin Newton MD Primary Care Provider Singh Lott MD Unavailable Encounter Details Date Type Department Care Team Description 06/10/2020 [facility] Medical Records [address] [place] [address] 26663 Abstract, Provider Social History Tobacco Use Types [...] have Coronavirus / COVID-19? No / Unsure 06/12/2020 9:59 AM EDT documented as of this encounter Plan of Treatment Not on file documented as of this encounter Visit Diagnoses Not on filedocumented in this encounter Care Teams Headlight Assembler Relationship Specialty Start Date End Date Valentin Newton MD [address] [place] [address]20 PCP - General Internal Medicine 05/01/14 Singh Lott MD [address] [place] [address] 92866 Cell Builder Cardiovascular Disease 01/21/21 documented as of this encounter
--- OUTSIDE RECORDS SUMMARY | 2024-07-31 16:29 | XMS_ITS | Encounter Summary ---
Author Organization [facility] Address [address] [place] [address] Care Team Providers Care Edi Programmer Analyst Name Role Phone Valentin Newton MD Primary Care Provider Singh Lott MD Unavailable Encounter Details Date Type Department Care Team Description 12/04/2019 Refill OBGYN - [place] [address] [place] [address] Nadege Swain MD [address] [place] [address] [phone] Social History Tobacco Use Types Packs/Day Years [...] have Coronavirus / COVID-19? No / Unsure 12/05/2019 1:57 PM EDT documented as of this encounter Plan of Treatment Not on file documented as of this encounter Visit Diagnoses Not on filedocumented in this encounter Care Teams Edi Programmer Analyst Relationship Specialty Start Date End Date Valentin Newton MD [address] [place] [address] 41864 PCP - General Internal Medicine 05/01/14 Singh Lott MD [address] [place] [address] [phone] Key Cutter Cardiovascular Disease 01/21/21 documented as of this encounter
--- OUTSIDE RECORDS SUMMARY | 2024-07-31 16:29 | XMS_ITS | Encounter Summary ---
Author Organization [facility] Address [address] [place] [address] Care Team Providers Care Compliance Monitor Name Role Phone Valentin Newton MD Primary Care Provider [phone] Singh Lott MD Unavailable Reason for Visit * Reason Comments E-prescribe Rx Request Encounter Details Date Type Department Care Team Description 02/04/2020 Refill OBGYN - [place] [address] [place] [address] Nadege Swain MD [address] [place] [address] [phone] E-prescribe Rx Request Social History Tobacco Use [...] AM EDT documented as of this encounter Miscellaneous Notes * Telephone Encounter - Valencia Hopkins - 02/05/2020 3:51 PM EST Pt states does not need right now. Please close. Thank you documented in this encounter Plan of Treatment Not on file documented as of this encounter Visit Diagnoses Not on filedocumented in this encounter Care Teams Compliance Monitor Relationship Specialty Start Date End Date Valentin Newton MD [address] [place] [address] 23217 PCP - General Internal Medicine 05/01/14 Singh Lott MD [address] [place] [address] 82855 Deputy Sheriff Bailiff Cardiovascular Disease 01/21/21 documented as of this encounter
--- OUTSIDE RECORDS SUMMARY | 2024-07-31 16:29 | XMS_ITS | Encounter Summary ---
Author Organization [facility] Address [address] [place] [address] Care Team Providers Care Informatics Physician Name Role Phone Alnea Choudhary Primary Care Provider Valentin Lewis MD Primary Care Provider [phone] Singh Lott MD Unavailable Encounter Details Date Type Department Care Team Description 07/14/2012 Heavy Coil Winder Report Medical Records [address] [place] [address] Alena Choudhary Social History Tobacco Use Types Packs/Day Years Used Date Smoking Tobacco: Never Assessed Sex Assigned at Date Recorded Not on file Job Start Date Occupation Industry Not on file Not on file Not on file documented as of this encounter Plan of Treatment Not on file documented as of this encounter Visit Diagnoses Not on filedocumented in this encounter Care Teams Informatics Physician Relationship Specialty Start Date End Date Alena Choudhary PCP - General Family Practice 07/22/12 04/30/14 Valentin Newton MD [address] [place] [address] 01020 PCP - General Internal Medicine 05/01/14 Singh Lott MD [address] [place] [address] 01020 Aws Software Development Engineer Cardiovascular Disease 01/21/21 documented as of this encounter
--- OUTSIDE RECORDS SUMMARY | 2024-07-31 16:29 | XMS_ITS | Encounter Summary ---
Author Organization [facility] Address [address] [place] [address] Care Team Providers Care Applied Researcher Name Role Phone Valentin Newton MD Primary Care Provider [phone] Singh Lott MD Unavailable Encounter Details Date Type Department Care Team Description 01/17/2024 Refill Endocrinology - [address] [phone] Aidee Tamayo PA-C [address] [place] [address] 13986 Social History Tobacco Use Types Packs/Day Years [...] on filedocumented in this encounter Care Teams Applied Researcher Relationship Specialty Start Date End Date Valentin Newton MD [address] [place] [address] [phone] PCP - General Internal Medicine 05/01/14 Singh Lott MD [address] [place] [address] 80446 Photoflash Powder Mixer Cardiovascular Disease 01/21/21 documented as of this encounter
--- OUTSIDE RECORDS SUMMARY | 2024-07-31 16:29 | XMS_ITS | Encounter Summary ---
Author Organization [facility] Address [address] [place] [address] Care Team Providers Care Bathing Suit Maker Name Role Phone Valentin Newton MD Primary Care Provider [phone] Singh Lott MD Unavailable Encounter Details Date Type Department Care Team Description 03/26/2015 Director Of Critical Care Report Medical Records [address] [place] [address] 02207 Albin Wu MD Social History Tobacco Use Types Packs/Day [...] on filedocumented in this encounter Care Teams Bathing Suit Maker Relationship Specialty Start Date End Date Valentin Newton MD [address] [place] [address]20 PCP - General Internal Medicine 05/01/14 Singh Lott MD [address] [place] [address] 01020 Floor Worker Transfer Bay Cardiovascular Disease 01/21/21 documented as of this encounter
--- OUTSIDE RECORDS SUMMARY | 2024-07-31 16:30 | XMS_ITS | Encounter Summary ---
Author Organization [facility] Address [address] [place] [address] Care Team Providers Care Reforestation Worker Name Role Phone Valentin Newton MD Primary Care Provider [phone] Singh Lott MD Unavailable Encounter Details Date Type Department Care Team Description 11/04/2022 [facility] Medical Records [address] [place] [address] 00241 Abstract, Provider Social History Tobacco Use Types [...] on filedocumented in this encounter Care Teams Reforestation Worker Relationship Specialty Start Date End Date Valentin Newton MD [address] [place] [address] 01020 PCP - General Internal Medicine 05/01/14 Singh Lott MD [address] [place] [address] 24341 Taxation Accountant Cardiovascular Disease 01/21/21 documented as of this encounter
--- OUTSIDE RECORDS SUMMARY | 2024-07-31 16:30 | XMS_ITS | Encounter Summary ---
Author Organization [facility] Address [address] [place] [address] Care Team Providers Care Technical Writer Name Role Phone Valentin Newton MD Primary Care Provider [phone] Singh Lott MD Unavailable Encounter Details Date Type Department Care Team Description 10/15/2020 Telephone Adult Medicine [facility] [address] [place] [address] [phone] Valentin Newton MD [address] [place] [address] [phone] Social History Tobacco Use Types Packs/Day Years [...] have Coronavirus / COVID-19? No / Unsure 09/19/2020 1:30 PM EDT documented as of this encounter Plan of Treatment Not on file documented as of this encounter Visit Diagnoses Not on filedocumented in this encounter Care Teams Technical Writer Relationship Specialty Start Date End Date Valentin Newton MD [address] [place] [address] 81456 PCP - General Internal Medicine 05/01/14 Singh Lott MD [address] [place] [address] [phone] Adjunct Professor Of Voice Cardiovascular Disease 01/21/21 documented as of this encounter
--- OUTSIDE RECORDS SUMMARY | 2024-07-31 16:30 | XMS_ITS | Encounter Summary ---
Author Organization [facility] Address [address] [place] [address] Care Team Providers Care Restaurant Crew Person Name Role Phone Valentin Newton MD Primary Care Provider Singh Lott MD Unavailable Encounter Details Date Type Department Care Team Description 12/30/2022 Refill Endocrinology - [place] [address] [place] [address] Aidee Tamayo PA-C [address] [place], [place] [phone] Social History Tobacco Use Types Packs/Day Years [...] suspected to have Coronavirus/COVID-19? No / Unsure 12/02/2022 2:41 PM EDT documented as of this encounter Miscellaneous Notes * Telephone Encounter - Cabrera Ramirez - 12/30/2022 1:31 PM EDT Freya 12/02/22 Ov 01/15/23 Lab Results Component Value Date HGBA1C 8.4 11/25/2022 MALBUR 22.2 07/02/2022 MALBCR 12.8 07/02/2022 CHOL 151 07/01/2022 LDL 88 07/01/2022 HDL 42 07/01/2022 TRIG 108 07/01/2022 GLU 269 12/02/2022 CREAT 0.93 12/02/2022 documented in this encounter Plan of Treatment Not on file documented as of this encounter Visit Diagnoses Not on filedocumented in this encounter Care Teams Restaurant Crew Person Relationship Specialty Start Date End Date Valentin Newton MD [address] [place] [address] 41033 PCP - General Internal Medicine 05/01/14 Singh Lott MD [address] [place] [address] 79836 Roller Gold Leaf Cardiovascular Disease 01/21/21 documented as of this encounter
--- OUTSIDE RECORDS SUMMARY | 2024-07-31 16:30 | XMS_ITS | Encounter Summary ---
Author Organization [facility] Address [address] [place] [address] Care Team Providers Care Network Support Administrator Name Role Phone Valentin Newton MD Primary Care Provider [phone] Singh Lott MD Unavailable Encounter Details Date Type Department Care Team Description 11/05/2022 Blanket Weaver Report Medical Records [address] [place] [address]2732 Elia Cruz Social History Tobacco Use Types [...] on filedocumented in this encounter Care Teams Network Support Administrator Relationship Specialty Start Date End Date Valentin Newton MD [address] [place] [address] 01020 PCP - General Internal Medicine 05/01/14 Singh Lott MD [address] [place] [address] 33172 Pull Up Hand Cardiovascular Disease 01/21/21 documented as of this encounter
--- OUTSIDE RECORDS SUMMARY | 2024-07-31 16:30 | XMS_ITS | Encounter Summary ---
Author Organization [facility] Address [address] [place] [address] Care Team Providers Care Sand Technologist Name Role Phone Valentin Newton MD Primary Care Provider [phone] Singh Lott MD Unavailable Reason for Visit * Reason Onset Date Comments Mychart Rx Refill 02/01/2023 Encounter Details Date Type Department Care Team Description 02/01/2023 Refill Adult Medicine [address] [phone] Elisa Arias, KARLA [address] [place] [address] [phone] Mychart Rx Refill Social History Tobacco Use [...] was confirmed or suspected to have Coronavirus/COVID-19? Unable to assess 01/15/2023 8:17 AM EDT documented as of this encounter Miscellaneous Notes * Telephone Encounter - Jessica Trevino M.A. - 02/02/2023 9:50 AM EST Lab Results Component Value Date NA 135 12/02/2022 K 3.6 12/02/2022 CO2 30 12/02/2022 CL 99 12/02/2022 BUN 14 12/02/2022 CREAT 0.93 12/02/2022 GLU 269 12/02/2022 CA 9.2 12/02/2022 GFR 77 12/02/2022 ZEHRA w/Eleanora Nemchinskaya 11/25/2022 ZEHRA w/PCP 07/01/2022 Next OV w/Eleanora Nemchinskaya 03/10/2023 Next OV w/PCP 04/22/2023 documented in this encounter Plan of Treatment Not on file documented as of this encounter Visit Diagnoses Not on filedocumented in this encounter Care Teams Sand Technologist Relationship Specialty Start Date End Date Valentin Newton MD [address] [place] [address] 85761 PCP - General Internal Medicine 05/01/14 Singh Lott MD [address] [place] [address] 88075 Cocoa Powder Mixer Operator Cardiovascular Disease 01/21/21 documented as of this encounter
--- OUTSIDE RECORDS SUMMARY | 2024-07-31 16:30 | XMS_ITS | Encounter Summary ---
Author Organization [facility] Address [address] [place] [address] Care Team Providers Care Slitting Machine Feeder Name Role Phone Valentin Newton MD Primary Care Provider Singh Lott MD Unavailable Encounter Details Date Type Department Care Team Description 11/19/2022 [facility] Report Medical Records [address] [place] [address] 97293 Abstract, Provider Social History Tobacco Use Types [...] on filedocumented in this encounter Care Teams Slitting Machine Feeder Relationship Specialty Start Date End Date Valentin Newton MD [address] [place] [address] [phone] PCP - General Internal Medicine 05/01/14 Singh Lott MD [address] [place] [address] [phone] Basketball Commentator Cardiovascular Disease 01/21/21 documented as of this encounter
== END 2024-07-31 14:55 | disposition home or self-care (01) ==
LOC: HO.US 14:54
PROVIDERS: PCP Internal Medicine; Visit Provider Obstetrics & Gynecology
DX: D25.9 Leiomyoma of uterus, unspecified (principal)
CPT/HCPCS: 76830; 76856

== ENCOUNTER → 2024-07-31 14:56 | Outpatient (BNV) | payer OTHER, SELFPAY | PROVIDERS: PCP Internal Medicine; Visit Provider Radiology Diagnostic Radiology | DX: D25.9 Leiomyoma of uterus, unspecified (principal); N83.291 Other ovarian cyst, right side | CPT/HCPCS: 76830; 76856 ==

== ENCOUNTER 2024-11-01 11:21 | Outpatient (AMB) | payer OTHER, SELFPAY ==
--- NOTE | 2024-11-01 11:21 | A.OFFVIS_ITS ---
Intake Visit Reasons: u/s follow up Allergies amoxicillin Allergy (Verified 12/02/23 14:21) Unknown doxycycline Allergy (Verified 12/02/23 14:21) Unknown ibuprofen Allergy (Verified 12/02/23 14:21) Unknown lisinopril Allergy (Verified 12/02/23 14:21) Angioedema naproxen Adverse Reaction (Verified 12/02/23 14:21) Unknown HPI Comments Details: The patient is schedule telehealth visit for follow-up regarding myomas. Ultrasound done in 08/20 showed the following: Uterus: The uterus is normal in size, measuring 8.9 x 7.1 x 7.4 cm. Myometrium has a normal echotexture. Multiple fibroids are again noted as described below: Right uterine body fibroid measuring 2.5 x 1.8 x 2.1 cm (previously 1.6 x 1.4 x 1.4 cm). Right uterine body fibroid measuring 2.7 x 3.2 x 2.6 cm (previously 2.8 x 2.3 x 2.4 cm). Left uterine body fibroid measuring 2.3 x 2.6 x 2.0 cm (previously 2.8 x 2.2 x 2.1 cm). Left uterine body fibroid measuring 1.1 x 0.8 x 1.1 cm (previously 1.1 x 1.1 x 1.0 cm). Fundal fibroid measuring 1.9 x 0.9 x 1.3 cm (previously 1.2 x 1.0 x 0.1 cm). Endometrium: The endometrial stripe measures 6 mm in thickness. Right ovary: The right ovary measures 5.4 x 4.1 x 3.4 cm. There is a cyst measuring 3.3 x 2.6 x 2.9 cm. There may be an additional separate cyst versus an adjacent septated portion. Left ovary: The left ovary is not identified. Pelvic fluid: none. [facility] Medical History Diabetes Hyperlipidemia Hernia HTN (hypertension) Surgical History H/O hernia repair Hx laparoscopic cholecystectomy H/O tubal ligation Family History Father Diabetes Mother Diabetes Breast cancer Ovarian cancer Maternal Aunt Ovarian cancer Paternal Aunt Ovarian cancer Social History Household Members: None Alcohol intake: never Patient Tobacco Use Status: Current someday Tobacco user Cigarettes Per Day: 1 Years Smoked: 5 Current occupational status: disabled Sexual orientation: Straight/Heterosexual Gender identity: Female Review of Systems Const All systems reviewed & are unremarkable except as noted in HPI and below Reports as per HPI and Reports no additional complaints GI Reports no additional complaints Reports no additional complaints Telehealth Telehealth Telehealth Platform: Telephone Location of provider rendering services: practice address Location of patient: address on file Patient Identification confirmed using: Name, : Yes Telehealth method: voice only Patient verbally consented to treatment: Yes Patient verbally consented to billing insurance company: Yes Patient informed of any privacy concerns related to visit: Yes Minutes spent on Phone/Video with Pt.: 7 Assessment & Plan Assessment & Plan (1) Uterine myoma: Code(s): D25.9 - Leiomyoma of uterus, unspecified Category: Medical Plan: Discussed with the patient the findings on pelvic ultrasound & the risk of myosarcoma; in addition reviewed with the patient that malignancy and pre malignancy cannot be ruled out without hysterectomy for pathological evaluation ; furthermore, explained to the patient the limitation of pelvic ultrasound and endometrial biopsy in the setting. Discussed with the patient the options of treatment including expectant management versus hysterectomy; the pros and cons, risks benefits of each approach were discussed with the patient including the fact that in cases of myosarcoma, surgical treatment can lead to early diagnosis and positively affects the prognosis; after further discussion, the patient decided to proceed with expectant management. Will repeat pelvic ultrasound periodically. Instructions given to patient to call in case any of the following occurs: pressure symptoms, abnormal uterine bleeding, pelvic pain; and to schedule a 12 months pelvic ultrasound (order placed) and a follow-up appointment . All questions answered, the patient verbalized understanding and agreed with the plan . (2) Complex ovarian cyst: Code(s): N83.299 - Other ovarian cyst, unspecified side Category: Medical Plan: Discussed with the patient the complex ovarian cyst by ultrasound. Discussed with the patient the Ultrasound findings, the main limitation of transvaginal ultrasonography alone as a diagnostic tool to distinguish benign from malignant masses relates to its lack of specificity and low positive predictive value for cancer. The differential diagnosis discussed with the patient includes the following but not limited to: benign and malignant gynecological and non-gynecological causes. Will repeat pelvic ultrasound within 1-2 weeks. Instructions given the patient to schedule ultrasound follow-up appointment within 2 weeks. All questions answered, the patient verbalized understanding. I spent a total of 20 minutes reviewing the chart, talking to the patient via phone and documenting in the medical record. Orders: Orders US pelvic and transvaginal Today N83.299 - Other ovarian cyst, unspecified side US pelvic and transvaginal 12 Months D25.9 - Leiomyoma of uterus, unspecified Coding Level of Care Code Tele Est Pt Level 3 (86784) Diagnoses Uterine myoma D25.9 Complex ovarian cyst N83.299
--- OUTSIDE RECORDS SUMMARY | 2024-11-01 12:07 | XMS_ITS | Encounter Summary ---
Author Organization [facility] Address [address] [place] [address] Care Team Providers Care Sap Pi Architect Name Role Phone Valentin Newton MD Primary Care Provider [phone] Singh Lott MD Unavailable Encounter Details Date Type Department Care Team Description 01/30/2021 SCAN Medical Records [address] [place] [id number] Franklin Santo MD Social History Tobacco Use Types Packs/Day [...] Name Priority Date/Time Associated Diagnosis Comments OUTSIDE LAB Routine 01/30/2021 OUTSIDE LAB Routine 01/30/2021 documented in this encounter Results * OUTSIDE LAB (01/30/2021) Provider Abstract LAB * OUTSIDE LAB (01/30/2021) Provider Abstract LAB documented in this encounter Visit Diagnoses Not on filedocumented in this encounter Care Teams Sap Pi Architect Relationship Specialty Start Date End Date Valentin Newton MD [address] [place] [address] [id number] PCP - General Internal Medicine 05/01/14 Singh Lott MD [address] [place] [address] [phone] Education Sales Consultant Cardiovascular Disease 01/21/21 documented as of this encounter
--- OUTSIDE RECORDS SUMMARY | 2024-11-01 12:08 | XMS_ITS | Clinical Summary ---
Author Organization [address] Address [address] [place] [phone] Phone Care Team Providers Care Bull Driver Name Role Phone Valentin Newton MD Primary Care Provider [phone] Allergies Active Allergy Reactions Criticality Noted Date Comments Amoxicillin Nausea And Vomiting 12/04/2020 Elevated blood pressure Doxycycline 05/22/2019 Skin desquamation Ibuprofen Nausea And Vomiting Medium 06/26/2014 Lisinopril Swelling 08/11/2012 Naproxen 05/31/2014 Medications blood-glucose meter (FREESTYLE LITE METER MISC) Test fasting glucose daily 06/13/19 21 Active flash glucose sensor (FreeStyle Sally 2 Sensor) kit 1 Each by Does not apply route every 14 days. 03/17/20 23 Active pen needle, diabetic (BD Ultra-Fine Short Pen Needle) 31 gauge x 5/16 needle USE FOUR TIMES DAILY TO INJECT INSULIN. 08/24/19 24 Active insulin syringe-needle U-100 1 mL 30 gauge x 1/2 syringe Inject 1 Each as directed 4 times daily. 05/14/19 21 Active albuterol HFA (PROAIR HFA ; PROVENTIL HFA ; VENTOLIN HFA) 90 mcg/actuation inhaler Inhale 2 Puffs into the lungs 4 times daily as needed for Cough, Wheezing or Shortness of Breath. 11/26/19 23 Active clindamycin-lisa oyl peroxide (BENZACLIN) gel Apply twice daily topically during the week prior to menses 11/23/19 24 Active clotrimazole (LOTRIMIN) 1 % cream Apply to skin and toenails daily for 12 weeks 10/14/19 23 Active cyanocobalamin, vitamin B-12, 5,000 mcg tablet,disintegr ating PLACE 1 TABLET UNDER THE TONGUE DAILY. 10/29/19 24 Active diclofenac (VOLTAREN) 1 % topical gel Apply 4 g or less of 1% gel to affected area 4 times daily, not to exceed 16g in 24 hour period 06/24/19 22 Active docusate sodium (COLACE) 100 mg capsule Take 1 Capsule by mouth daily. 12/21/19 24 Active escitalopram (LEXAPRO) 5 mg tablet TAKE 1 TABLET BY MOUTH EVERY MORNING FOR DEPRESSION, WORRY 11/11/19 24 Active medroxyPROGESTER one (PROVERA) 10 mg tablet START 1 TABLET DAILY X 10 DAYS FROM DAY 15-24 CYCLICALLY EVERY MONTH, DAY 1 BEING 1ST DAY OF MENSES 12/09/19 24 Active nystatin (MYCOSTATIN) cream Apply a thin layer twice a day to affected area. 08/22/19 23 Active zolpidem (AMBIEN) 10 mg tablet Take 1 tablet by mouth at bedtime as needed. 09/09/19 21 Active urea (CARMOL) 40 % cream 03/03/20 22 Active hydrOXYzine HCL (ATARAX) 10 mg tablet 1 TABLET BY MOUTH TWICE A DAY NEEDED FOR ANXIETY (OK TO USE DAILY) 09/09/19 24 Active ammonium lactate (AMLACTIN) 12 % cream APPLY TO FEET DOS VECES AL HOWARD 420 g 5 03/16/20 24 Active Vitamin B-12 5,000 mcg tablet, sublingual PLACE 1 TABLET UNDER THE TONGUE DAILY. 90 tablet 1 05/04/19 25 Active losartan (COZAAR) 100 mg tablet Take 1 tablet (100 mg total) by mouth 1 (one) time each day. 90 tablet 1 06/03/19 25 Active rosuvastatin (CRESTOR) 5 mg tablet TAKE 1 TABLET BY MOUTH 1 TIME EACH DAY. 90 tablet 1 06/03/19 25 Active ferrous sulfate 325 mg (65 mg elemental iron) tablet Take 1 tablet (325 mg total) by mouth 1 (one) time each day. 90 tablet 1 06/07/19 25 Active semaglutide (Ozempic) 2 mg/dose (8 mg/3 mL) injection penIndications:T ype 2 diabetes mellitus without complication, unspecified whether terminal operations supervisor insulin use ([facility] V24, [facility] V28) Inject 2 mg under the skin every 7 (seven) days. 3 mL 11 06/17/19 25 Active loratadine (CLARITIN) 10 mg tablet Take 1 tablet (10 mg total) by mouth 1 (one) time each day. 90 tablet 1 06/24/19 25 025 Active metoprolol succinate (TOPROL-XL) 50 mg 24 hr tablet Take 1 tablet (50 mg total) by mouth 1 (one) time each day. 90 tablet 1 08/31/19 25 Active hydroCHLOROthiaz stefani (HYDRODIURIL) 50 mg tabletIndication s:Essential hypertension Take 1 tablet (50 mg total) by mouth 1 (one) time each day. 90 each 1 10/11/19 25 026 Active blood sugar diagnostic (FreeStyle Lite Strips) test strip Use to test blood sugar three times daily 300 each 3 10/14/19 25 Active insulin glargine (Lantus Solostar U-100 Insulin) 100 unit/mL (3 mL) injection pen INJECT 78 UNITS INTO THE SKIN DAILY 45 mL 5 10/14/19 25 Active metFORMIN (GLUCOPHAGE) 1,000 mg tablet TOME YASMIN TABLETA 2 VECES AL HOWARD CON LAS COMIDAS 180 tablet 1 10/14/19 25 Active insulin aspart (NovoLOG Flexpen U-100 Insulin) 100 unit/mL (3 mL) injection penIndications:T ype 2 diabetes mellitus without complication, unspecified whether terminal operations supervisor insulin use ([facility] V24, [facility] V28) FOLLOW SLIDING SCALE PER MD 3 TIMES A DAY WITH MEALS: 100-149: 16 Units 150-200:18 units 201-250: 20 units 251-300: 22 units 301-350: 24 units 350-400: 26 units >400: call me. 28 units, plus 2 extra units at dinner. Max daily dose 90 units 45 mL 5 10/19/19 25 Active oxyCODONE-acetam inophen (PERCOCET) 5-325 mg per tabletIndication s:Lumbar disc disease Take 1 tablet by mouth 4 (four) times a day. Max Daily Amount: 4 tablets 112 tablet 10/25/19 25 Active blood sugar diagnostic (FreeStyle Lite Strips) test strip Use to test blood sugar three times daily 12/07/19 24 Discontinu ed(Reorder ) aspirin-acetamin ophen-caffeine (EXCEDRIN MIGRAINE) 250-250-65 mg per tablet 12/17/19 24 Discontinu ed(Formula ry change) cloNIDine (CATAPRES) 0.2 mg tablet Take 0.5 Tablets by mouth daily. Discontinu ed(Discont inued by another clinician) hydroCHLOROthiaz stefani (HYDRODIURIL) 50 mg tablet Take 1 Tablet by mouth daily for 180 days. 08/20/19 24 Discontinu ed(Reorder ) metoprolol succinate (TOPROL-XL) 25 mg 24 hr tablet Take 1 Tablet by mouth daily. 02/03/20 Discontinu ed(Discont inued by another clinician) miconazole nitrate 2 % aerosol,spray Apply 1 Applicator topically daily. 06/03/19 Discontinu ed(Entered in Error) insulin glargine (Lantus Solostar U-100 Insulin) 100 unit/mL (3 mL) injection pen INJECT 76 UNITS INTO THE SKIN DAILY 45 mL 5 03/03/20 24 Discontinu ed(Reorder ) insulin aspart (NovoLOG Flexpen U-100 Insulin) 100 unit/mL (3 mL) injection penIndications:T ype 2 diabetes mellitus without complication, unspecified whether halfway insulin use ([facility] V24, [facility] V28) FOLLOW SLIDING SCALE PER MD 3 TIMES A DAY WITH MEALS: 100-149: 16 Units 150-200:18 units 201-250: 20 units 251-300: 22 units 301-350: 24 units 350-400: 26 units >400: call me. 28 units 45 mL 5 06/17/19 25 Discontinu ed(Reorder ) metFORMIN (GLUCOPHAGE) 1,000 mg tablet TOME YASMIN TABLETA 2 VECES AL HOWARD CON LAS COMIDAS 180 tablet 1 07/04/19 25 Discontinu ed(Reorder ) dulaglutide (Trulicity) 0.75 mg/0.5 mL pen injector injection Inject 0.5 mL (0.75 mg total) under the skin every 7 (seven) days. 07/18/2 025 Discontinu ed(Alterna te therapy) oxyCODONE-acetam inophen (PERCOCET) 5-325 mg per tablet Take 1 tablet by mouth 4 (four) times a day. Max Daily Amount: 4 tablets 112 tablet 09/26/19 25 025 Discontinu ed(Reorder ) insulin aspart (NovoLOG Flexpen U-100 Insulin) 100 unit/mL (3 mL) injection penIndications:T ype 2 diabetes mellitus without complication, unspecified whether halfway insulin use ([facility] V24, [facility] V28) FOLLOW SLIDING SCALE PER MD 3 TIMES A DAY WITH MEALS: 100-149: 16 Units 150-200:18 units 201-250: 20 units 251-300: 22 units 301-350: 24 units 350-400: 26 units >400: call me. 28 units, plus 2 extra units at dinner 45 mL 5 10/14/19 25 025 Discontinu ed(Reorder ) oxyCODONE-acetam inophen (PERCOCET) 5-325 mg per tablet Take 1 tablet by mouth 4 (four) times a day. Max Daily Amount: 4 tablets 112 tablet 10/24/19 25 025 Discontinu ed(Reorder ) Active Problems Problem Noted Date Diagnosed Date Microalbuminuria 10/13/2024 Obstructive sleep apnea 08/29/2024 Nocturnal hypoxia 08/29/2024 Anemia 01/24/2024 Anxiety 01/24/2024 Depression 01/24/2024 Diabetes mellitus type 2, un complicated ([facility] V24, [facility] V28) 01/24/2024 High cholesterol 01/24/2024 Thalassanemia 01/24/2024 [...] Encounters Date Type Department Care Team Description 10/18/[address] [phone] Aidee Tamayo PA Medication Problem 10/17/[address] [phone] Aidee Tamayo PA 10/13/2024 2:45 PM EDT Office Visit [address] [phone] Aidee Tamayo PA Type 2 diabetes mellitus without complication, unspecified whether terminal operations supervisor insulin use ([facility] V24, [facility] V28) (Primary Dx); High cholesterol; Essential hypertension; Microalbuminuria; Hair loss 10/10/2024 5:00 PM EDT Office Visit Adult Medicine [address] [phone] Elisa Arias, [employer] Type 2 diabetes mellitus without complication, unspecified whether terminal operations supervisor insulin use ([facility] V24, [facility] V28) (Primary Dx); Essential hypertension; High cholesterol; Lumbar disc disease; Mass of right breast, unspecified quadrant 10/09/2024 2:45 PM EDT Office Visit Orthopedic Surgery [address] [phone] Glenn Munoz DPM Left foot soft tissue tumor (Primary Dx); Dermatophytosis of nail; Type 2 diabetes mellitus without complication, unspecified whether terminal operations supervisor insulin use ([facility] V24, [facility] V28); Diabetic mononeuropathy simplex ([facility] V24, [facility] V28); Type II diabetes mellitus with peripheral circulatory disorder ([facility] V24, [facility] V28); Pain in toe of right foot; Pain in toe of left foot; Acquired hammer toe of right foot; Hammer toe of left foot; Metatarsalgia of both feet; Corns and callosities 09/25/2024 Telephone [facility] [address] [phone] Stefan Miller MD 08/29/2024 2:45 PM EDT Office Visit [facility] [address] [phone] Stefan Miller MD Obstructive sleep apnea (Primary Dx); Nocturnal hypoxia; Chronic fatigue; Obesity (BMI 30-39.9) from Last 3 Months Immunizations Name Administration Dates Next Due Pneumococcal polysaccharide 23 valent (Pneumovax 23) 2yo and older 02/13/2011 Td Tetanus diptheria (Tdvax) 7yo and older 11/06,08/28/2005 Tdap Tetanus diptheria acell ular pertussis (Boostrix; Adacel) 7yo and older 02/13/2011 Surgical History Surgery Date Site/Laterality Comments OTHER SURGICAL HISTORY PROCEDURE: NM DRAINAGE PERITON ABSCESS/LOCAL PERITONITIS OPEN CHOLECYSTECTOMY PROCEDURE: [...] tory of MRSA infection; COMMENT: Seen by SIMON 2014 Onychomycosis 07/09/2014 DX:Onychomycosis Family History Medical [...] Tobacco: Every Day Cigarettes Smokeless Tobacco: Never Tobacco Cessation:Ready to Q uit: Not Asked; Counseling Given: Not Answered Alcohol Use Standard Drinks/Week Comments No 0 (1 standard drink = 0.6 oz pur e alcohol) Dependent Care Answer Date Recorded Do you need help finding or paying for care for your loved ones. For example, child psychiatrist or elderly care for an older adult? No 10/03/2024 Employment and Income Answer Date Recor ded During the last four weeks, have you been actively looking for work? No 10/03/2024 Living Situation Answer Date Recorded What is your living situation? 0 10/03/2024 Comments No Sex and Gender Information Value [...] Sign Reading Time Taken Comments Blood Pressure 128/86 10/13/2024 2:55 PM EDT C Pulse 88 10/13/2024 2:55 PM EDT Temperature 35.8 C (96.4 F) 10/13/2024 2:55 PM EDT Respiratory Rate 16 10/10/2024 12:57 PM EDT Oxygen Saturation 99% 08/29/2024 2:30 PM EDT Inhaled Oxygen Concentration - - Weight 90.8 kg (200 lb 3.2 oz) 10/13/2024 2:55 P M EDT Height 162.6 cm (5' 4 ) 10/13/2024 2:55 PM EDT Body Mass Index 34.36 10/13/2024 2:55 PM EDT Plan of Treatment Upcoming Encounters Date Type Department Care Team (Late st Contact Info) Description 11/02/2024 3:00 PM EDT Appointment Radiology Department - [address] [phone] 11/02/2024 3:20 PM EDT Appointment Radiology Department - [address] [phone] 11/08/2024 5:00 PM EDT Office Visit Adult Medicine [address] [phone] Elisa Arias NP [address] [place], [place] 11/16/2024 1:45 PM EDT Office Visit Pulmonolgy - [place] [address] [phone] Stefan Miller MD [address] [phone] 01/09/2025 3:00 PM EDT Office Visit Orthopedic Surgery - [place] [address] [phone] Glenn Munoz DPM [address] [phone] 01/16/2025 3:45 PM EDT Office Visit Endocrinology - [address] [phone] Aidee Tamayo PA [address] [place] [address] Health Maintenance Due Date Last Done Comments Diabetes: Annual Foot Exam 1986 Pneumococcal Vaccine: Pediatrics (0 to 5 Years) and At-Risk Patients (6 to 49 Years) (2 of 2 - PCV) 02/14/2012 02/13/2011 Hepatitis B Vaccines (2 of 3 - 19+ 3-dose series) 09/20/2013 08/23/2013 Cervical Cancer Screening: Pap Smear 06/04/2019 06/03/2016, 06/03/2016 Colorectal Cancer Screening: Colonoscopy 03/07/2022 HIV Screening 03/07/2022 Hepatitis C Screening 03/07/2022 Medicare Annual Wellness Visit 03/07/2022 DTaP,Tdap,and Td Vaccines (4 - Td or Tdap) 11/06/2022 11/06/2012, 02/13/2011, 08/28/2005 COVID-19 Vaccine ( season) 2023 Influenza Vaccine (#1) 2024 4, 12/18/2011, 12/18/2010, Additional history exists Diabetes: Annual Retina Eye Exam 02/08/2025 02/09/2024 Diabetes: Blood Sugar Control Test (HGBA1C) 04/12/2025 10/10/2024, 06/23/2024, 03/03/2024, Additional history exists Diabetes: Annual Urine Albumin-Creatinine Ratio (uACR) 06/23/2025 06/23/2024, 11/12/2023 Diabetes: Annual GFR (Glomerular Filtration Rate) 06/23/2025 06/23/2024, 09/13/2023, 09/13/2023 Hypertension/CHF/CAD Annual BMP Blood Test 06/23/2025 06/23/2024, 09/13/2023, 09/13/2023 Social Influencers of Health Screening 10/03/2025 10/03/2024 Breast Cancer Screening 03/24/2026 03/24/20 24, 09/08/2022, 09/02/2021, Additional history exists Cholesterol Screening (Lipid Panel) 06/23/2029 06/23/2024, 07/16/2023 Depression Screening Completed 06/23/2024 HIB Vaccines Aged Out No longer eligi [...] Procedure Name Priority Date/Time Associated Diagnosis Comments HEMOGLOBIN A1C Routine 10/10/2024 1:49 PM EDT Type 2 diabetes mellitus without complication, unspecified whether halfway insulin use ([facility] V24, [facility] V28) DRUG ABUSE SCREEN 8A PANEL, URINE Routine 10/10/2024 1:49 PM EDT Lumbar disc disease MICROALBUMIN CREATININE URINE RATIO Routine 06/23/2024 4:09 PM EDT Type 2 diabetes mellitus without complication, unspecified whether halfway insulin use ([facility] V24, [facility] V28) COMPREHENSIVE METABOLIC PANEL Routine 06/23/2024 4:09 PM EDT Type 2 diabetes mellitus without complication, unspecified whether terminal operations supervisor insulin use ([facility] V24, [facility] V28) Encounter for long-term (current) use of medications Essential hypertension LIPID PANEL WITH REFLEX TO DIRECT LDL Routine 06/23/2024 4:09 PM EDT High cholesterol MG MAMMO DIGITAL SCREENING W FLAVIO BILAT Routine 03/24/2024 3:51 PM EST Encounter for screening mammogram for breast cancer HM HPV Routine 06/03/2016 from Last 3 Months or Most Recently Relevant to Health Maintenance Results * (ABNORMAL) Drug abuse screen 8a panel, urine (10/10/2024 1:49 PM EDT) Amphetamine Screen, Ur Negative Negative LAB CHEMISTRY METHOD 07/15/202 5 6:35 PM EDT [facility] Comment:Certain OTC medicati ons containing ephedrine, phenylephrine, pseudoephedrine and phenylpropanolamine can cause false positive results. Barbiturate Screen, Ur Negative Negative LAB CHEMISTRY METHOD 5 6:35 PM EDT [facility] Benzodiazepine Screen, Ur Negative Negative LAB CHEMISTRY METHOD 5 6:35 PM EDT [facility] Cocaine Screen, Ur Negative Negative LAB CHEMISTRY METHOD 5 6:35 PM EDT [facility] Opiate Screen, Ur Positive(A ) Negative LAB CHEMISTRY METHOD 5 6:35 PM [facility] Cannabinoid (THC) Screen, Ur Negative Negative LAB CHEMISTRY METHOD 5 6:35 PM T [facility] Comment:Specimens from patie nts taking pantoprazole sodium (Protonix) have been shown to produce false positive results. Oxycodone Screen, Ur Positive(A ) Negative LAB CHEMISTRY METHOD 5 6:35 PM [facility] Fentanyl, Ur Negative Negative LAB CHEMISTRY METHOD 5 6:35 PM [facility] Urine Urine specimen obtained by clean catch procedure / Unknown Non-blood Collection / Unknown 10/10/2024 1:49 PM EDT 10/10/2024 1:49 PM EDT Narrative [facility] - 10/10/2024 6:35 PM EDT Assay cutoffs: Amphetamines 1000 ng/mL Barbiturates 200 ng/mL Benzodiazepines 200 ng/mL Cocaine 300 ng/mL Fentanyl 1 ng/mL Opiates 300 ng/mL Oxycodone 100 ng/mL THC 50 ng/mL Semi-quantitative assay for screening purposes only. Unconfirmed screening result should not be used for non-medical purposes. *ALTERNATE METHOD CONFIRMATION DONE UPON REQUEST ONLY* us Elisa Arias [employer] LAB URINE ORDERABLES Final Re sult [facility] [address] [place] [address], [place] [phone] * (ABNORMAL) Hemoglobin A1c (10/10/2024 1:49 PM EDT) Pathologist [facility] Hemoglobin A1C 8.6(H) <6.5 % LAB CHEMISTRY METHOD 10/10/2024 10:17 PM EDT [facility] Mean Bld Glu Estim. 200 mg/dL LAB CHEMISTRY METHOD 10/10/2024 10:17 PM EDT [facility] Blood Venous blood specimen / Unknown Venipuncture / Unknown 10/10/2024 1:49 PM EDT 10/10/2024 1:49 PM EDT Elisa Arias [employer] LAB BLOOD ORDERABLES Final Re sult Performing Organization Address [facility]/ZIP Co de Phone Number [facility] [address] [place] [address], [place] [phone] * Lipid panel with reflex to direct LDL (06/23/2024 4:09 PM EDT) [facility] Cholesterol 136 0 - 200 mg/dL LAB CHEMISTRY METHOD 06/23/2024 6:32 PM EDT [facility] Triglycerides 79 0 - 150 mg/dL LAB CHEMISTRY METHOD 06/23/2024 6:32 PM EDT [facility] HDL 47 >=40 mg/dL LAB CHEMISTRY METHOD 06/23/2024 6:32 PM EDT [facility] LDL Calculated 73 0 - 100 mg/dL LAB CHEMISTRY METHOD 06/23/2024 6:32 PM EDT [facility] VLDL Cholesterol Sachin 15.8 mg/dL LAB CHEMISTRY METHOD 06/23/2024 6:32 PM EDT [facility] Non HDL Chol. (LDL+VLDL) 89 <145 mg/dL LAB CHEMISTRY METHOD 06/23/2024 6:32 PM EDT [facility] Chol/HDL Ratio 2.9 0.0 - 4.4 LAB CHEMISTRY METHOD 06/23/2024 6:32 PM EDT [facility] Blood Venous blood specimen / Unknown Venipuncture / Unknown 06/23/2024 4:09 PM EDT 06/23/2024 4:09 PM EDT us Valentin Newton MD LAB BLOOD ORDERABLES Final Resu lt Performing Organization Address City/[facility]/ZIP Co de Phone Number [facility] [address] [place] [address], [place] [phone] * (ABNORMAL) Microalbumin creatinine urine ratio (06/23/2024 4:09 PM EDT) Creatinine, Urine 160.0 mg/dL LAB CHEMISTRY METHOD 06/23/2024 7:07 PM EDT [facility] Microalb, Ur 32.5(H) 0.0 - 29.0 mg/L LAB CHEMISTRY METHOD 06/23/2024 7:07 PM EDT [facility] Microalb/Crea t Ratio 20 <30 mg/g creat LAB CHEMISTRY METHOD 06/23/2024 7:07 PM EDT [facility] Urine Urine specimen obtained by clean catch procedure / Unknown Non-blood Collection / Unknown 06/23/2024 4:09 PM EDT 06/23/2024 4:09 PM EDT us Valentin Newton MD LAB URINE ORDERABLES Final Resu lt [facility] [address] [place] [address], [place] [phone] * (ABNORMAL) Comprehensive metabolic panel (06/23/2024 4:09 PM EDT) Sodium 135 133 - 145 mmol/L LAB CHEMISTRY METHOD 06/23/2024 6:32 PM [facility] Potassium 3.9 3.5 - 5.5 mmol/L LAB CHEMISTRY METHOD 06/23/2024 6:32 PM [facility] Chloride 99 96 - 110 mmol/L LAB CHEMISTRY METHOD 06/23/2024 6:32 PM [facility] CO2 30 21 - 32 mmol/L LAB CHEMISTRY METHOD 06/23/2024 6:32 PM [facility] Anion Gap 6 3 - 11 LAB CHEMISTRY METHOD 06/23/2024 6:32 PM [facility] Glucose 226(H) 70 - 100 mg/dL LAB CHEMISTRY METHOD 06/23/2024 6:32 PM [facility] BUN 11 5 - 25 mg/dL LAB CHEMISTRY METHOD 06/23/2024 6:32 PM [facility] Creatinine 0.79 0.50 - 1.10 mg/dL LAB CHEMISTRY METHOD 06/23/2024 6:32 PM [facility] eGFR 93 >=60 mL/min/1. 73m2 LAB CHEMISTRY METHOD 06/23/2024 6:32 PM [facility] Comment:Calculation based on the Chronic Kidney Disease Epidemiology Collaboration (CKD-EPI) equation refit without adjustment for race. BUN/Creatinine Ratio 13.9 LAB CHEMISTRY METHOD 06/23/2024 6:32 PM [facility] Calcium 10.0 8.5 - 10.5 mg/dL LAB CHEMISTRY METHOD 06/23/2024 6:32 PM [facility] AST (SGOT) 13 10 - 42 unit/L LAB CHEMISTRY METHOD 06/23/2024 6:32 PM [facility] ALT (SGPT) 26 10 - 60 unit/L LAB CHEMISTRY METHOD 06/23/2024 6:32 PM [facility] Alkaline Phosphatase 58 42 - 121 unit/L LAB CHEMISTRY METHOD 06/23/2024 6:32 PM EDT [facility] Total Protein 7.9 6.0 - 8.0 g/dL LAB CHEMISTRY METHOD 06/23/2024 6:32 PM EDT [facility] Albumin 3.8 3.2 - 5.0 g/dL LAB CHEMISTRY METHOD 06/23/2024 6:32 PM EDT [facility] Total Bilirubin 0.3 0.0 - 1.4 mg/dL LAB CHEMISTRY METHOD 06/23/2024 6:32 PM EDT [facility] Blood Venous blood specimen / Unknown Venipuncture / Unknown 06/23/2024 4:09 PM EDT 06/23/2024 4:09 PM EDT us Valentin Newton MD LAB BLOOD ORDERABLES Final Resu lt [facility] [address] [place] [address], * MG Mammo Digital Screening w Flavio bilat (03/24/2024 3:51 PM EST) Anatomical Region Laterality Modality Breast Bilateral Mammography 03/27/2024 6:41 PM EST Impressions 03/27/2024 6:42 PM EST No mammographic evidence of malignancy. BREAST DENSITY: B - There are scattered areas of fibroglandular density. BI-RADS CATEGORY: 1 - NEGATIVE RECOMMENDATION: Screening bilateral mammogram is recommended in 1 year. MAMMO LOCATION: [facility], [address] [place] [address], [id number], . -------- FINAL REPORT -------- Dictated By: Noa Hwang Dictated Date: 03/27/2024 18:41 ET Assigned Physician: Noa Hwang Reviewed and Electronically Signed By: Noa Hwang Signed Date: 03/27/2024 18:42 ET Workstation ID: [id number] Transcribed By: Self Edit Transcribed Date: 03/27/2024 18:41 ET Narrative 03/27/2024 6:42 PM EST EXAM: Screening Mammogram CLINICAL: 48 years old, Female, routine annual exam. COMPARISON: 09/08/2022 and 09/02/2021 TECHNIQUE: Bilateral MLO and CC views were obtained digitally with 3-D mammogram (digital breast tomosynthesis). Computer-aided detection was utilized in evaluation of this exam (CAD). Limitations in patient positioning due to body habitus. Images obtained are [...] is recommended in 1 year. MAMMO LOCATION: [facility], [address] [place] [address], [id number], . -------- FINAL REPORT -------- Dictated By: Noa Hwang Dictated Date: 03/27/2024 18:41 ET Assigned Physician: Noa Hwang Reviewed and Electronically Signed By: Noa Hwang Signed Date: 03/27/2024 18:42 ET Workstation ID: [id number] Transcribed By: Self Edit Transcribed Date: 03/27/2024 18:41 ET Valentin Newton MD IM BI PROCEDURES Final Result * Cervical Cancer Screening: HPV (06/03/2016) Cervical Cancer Screening: HPV Negative, Abstracted Historical Provider HEALTH MAINTENANCE Final Result from Last 3 Months or Most Recently Relevant to Health Maintenance Insurance [employer] Member Subscriber Plan / Payer (Ef fective 2018-Present) Name:LASHELL MCMANUS Relation to Subscriber:Self Name:Lashell Mcmanus Payer ID:[id number] Group ID:[id number] Type:Not on file Address: [place] [address] [address] [id number] Care Teams Bull Driver Relationship Specialty Start Date End Date Valentin Newton MD [address] [place] [id number] PCP - General Internal Medicine 03/02/24
--- OUTSIDE RECORDS SUMMARY | 2024-11-01 12:08 | XMS_ITS | Patient Health Record ---
Author Organization [facility] Address [address] [place] [id number] Care Team Providers Care Nurse Ob Name Role Phone Sam Mendoza Jr Reason For Referral No Information Plan Of Treatment No Information
--- OUTSIDE RECORDS SUMMARY | 2024-11-01 12:08 | XMS_ITS | Clinical Summary ---
Author Organization [facility] Address [address] [place] [address] Care Team Providers Care Immigration Investigator Name Role Phone Valentin Newton MD Primary Care Provider [phone] Allergies No known active allergies Medications Medication Sig Dispensed Refills Start Date End Date Status losartan (COZAAR) 100 MG tablet Take 100 mg by mouth daily. 0 Active hydroCHLOROthiazide (HYDRODIURIL) tablet 25 mg Take 25 mg by mouth daily. 0 Active cloNIDine (CATAPRES) 0.2 MG tablet Take 0.2 mg by mouth 2 (two) times a day. 0 Active metoprolol tartrate (LOPRESSOR) 25 MG tablet Take 25 mg by mouth 2 (two) times a day. 0 Active glipiZIDE (GLUCOTROL XL) ER 24 hr tablet 10 mg Take 10 mg by mouth daily. 0 Active metFORMIN (GLUCOPHAGE) tablet 1000 mg Take 1,000 mg by mouth 2 (two) times a day with meals. 0 Active rosuvastatin (CRESTOR) tablet 5 mg Take 5 mg by mouth daily. 0 Active insulin lispro (HumaLOG) injection 100 units/mL Inject under the skin 3 (three) times a day before meals. 0 Active insulin glargine (LANTUS) injection 100 units/mL Inject under the skin every night at bedtime. 0 Active oxyCODONE-acetaminophe n (PERCOCET) 5-325 MG per tablet Take 1 tablet by mouth every 4 (four) hours as needed for pain. 0 Active Active Problems No known active problems Social History Tobacco Use Types Packs/Day Years Used Date Smoking Tobacco: Never Assessed Sex and Gender Information Value Date Recorded Sex Assigned at Not on file Gender Identity Not on file Sexual Orientation Not on file Last Filed Vital Signs Vital Sign Reading Time Taken Comments Blood Pressure 186/98 01/30/2021 2:18 PM EDT Pulse 104 01/30/2021 2:18 PM EDT Temperature 36.9 C (98.4 F) 01/30/2021 2:18 PM EDT Respiratory Rate - - Oxygen Saturation 100% 01/30/2021 2:18 PM EDT Inhaled Oxygen Concentration - - Weight 104.3 kg (230 lb) 01/30/2021 2:18 PM EDT Height 166.6 cm (5' 5.6 ) 01/30/2021 2:18 PM EDT Body Mass Index 37.58 01/30/2021 2:18 PM EDT Plan of Treatment Health Maintenance Due Date Last Done Comments Hepatitis B Vaccines (1 of 3 - 3-dose series) 1976 Hepatitis C Screening 1976 COVID-19 Vaccine (#1) 05/26/1977 Depression Screening 1988 Preventative Health Evaluation 1994 DTap / Tdap / Td (1 - Tdap) 11/24/1995 Cervical Cancer Screening (P ap Smear) 1997 Colon Cancer Screening (Colonoscopy) 2021 Influenza Vaccine (#1) 2024 Pneumococcal Vaccine Aged Out No long er eligible based on patient's age to complete this topic RSV Ped < 20 months Aged Out No longe r eligible based on patient's age to complete this topic Care Teams Immigration Investigator Relationship Specialty Start Date End Date Valentin Newton MD PCP - General Internal Medicine 12/31/20
--- OUTSIDE RECORDS SUMMARY | 2024-11-01 12:08 | XMS_ITS | Clinical Summary ---
Author Organization [employer] [facility] Address [address] [place] [address] [address] [place] [address] Care Team Providers Care Political Science Faculty Member Name Role Phone Unavailable Primary Care Provider [...] 1976 FIT 1976 FOBT 1976 Sigmoidoscopy 1976 Disability Screening 1976 Alcohol/Substance Use Screening 1988 Tobacco Screening 1988 Family Planning (PISQ) 11/24/1991 Pap Smear 1997 Cervical Cancer Screening 2006 HPV/Cotest 2006 Hepatitis B Vaccines (2 of 3 - 19+ 3-dose series) 09/20/2013 08/23/2013 Mammogram 2016 DTaP/Tdap/Td Vaccines (2 - Td or Tdap) 02/13/2021 02/13/2011, 08/28/2005 COVID-19 Vaccine ( - season) 2023 Influenza Vaccine (#1) 2024 4, 12/18/2011, 12/18/2010, Additional history exists Zoster Vaccines (1 of 2) 2026 RSV Patients and Patients Aged 60 years or older (1 - 1-dose 75+ series) 11/24/2051 Pneumococcal Vaccine: Pediatrics (0 to 5 Years) and At-Risk Patients (6 to 49) Years Aged Out 02/13/2011 No longer eligible based [...]
== END 2024-11-01 12:05 | disposition home or self-care (01) ==
LOC: HO.HWS 11:21
PROVIDERS: PCP Internal Medicine; Visit Provider Obstetrics & Gynecology
DX: D25.9 Leiomyoma of uterus, unspecified (principal); N83.299 Other ovarian cyst, unspecified side
CPT/HCPCS: 99213

== ENCOUNTER 2025-02-02 14:45 | Outpatient (REF) | payer OTHER, SELFPAY ==
--- NOTE | ~2025-02-02 | US_ITS ---
EXAMINATION: US PELVIS CLINICAL INFORMATION: N83.299 - Other ovarian cyst, unspecified side. Follow up uterine leiomyoma COMPARISON: July 31, 2024 TECHNIQUE: Ultrasound of the pelvis is performed using both transabdominal and transvaginal transducers along with Doppler. Transvaginal imaging is performed due to inadequate visualization transabdominally. FINDINGS: Uterus: The uterus is anteverted and measures 8.3 x 6.0 x 6.9 cm. The double wall endometrial thickness is 7 mm. The uterus is heterogeneous with multiple leiomyomas. Right lower uterine body: 2.6 x 1.5 x 2.0 previously 2.5 x 1.8 x 2.1. Right uterine body: 2.9 x 1.7 x 2.4 previously 2.7 x 3.2 x 2.6. Upper left uterine body: 2.5 x 2.0 x 2.3 previously 2.3 x 2.6 x 2.0. Lower left uterine body 2.7 x 1.3 x 2.3 previously 1.1 x 0.8 x 1.1. Fundus: 2.5 x 2.4 x 2.2 previously 1.9 x 0.9 x 1.3. Adnexa: Both ovaries are visualized. There is normal color flow to the adnexa. There is no ovarian torsion. There is no pelvic ascites or fluid collection. Right ovary measures 4.2 x 1.8 x 2.7 cm. Left ovary measures 4.6 x 2.1 x 3.1 cm. US/US pelvic and transvaginal IMPRESSION: Multiple uterine leiomyomas with evidence of enlargement of fibroids in the lower left uterine body and fundus. Electronically signed by: Urbano Mi MD 02/02/2025 03:56 PM EST
--- OUTSIDE RECORDS SUMMARY | 2025-02-02 16:12 | XMS_ITS | Clinical Summary ---
Author Organization [employer] [facility] Address [address] [place] [address] [address] [place] [address] Care Team Providers Care Middle Card Tender Name Role Phone Unavailable Primary Care Provider [...] or Tdap) 02/13/2021 02/13/2011, 08/28/2005 COVID-19 Vaccine (1 - season) 2024 Influenza Vaccine (#1) 2024 4, 12/18/2011, 12/18/2010, [...]
--- OUTSIDE RECORDS SUMMARY | 2025-02-02 16:12 | XMS_ITS | Clinical Summary ---
Author Organization [facility] Address [address] [place] [address] Care Team Providers Care Cane Furniture Maker Name Role Phone Valentin Newton MD Primary Care Provider [phone] Allergies No known active allergies Medications Medication [...] age to complete this topic Care Teams Cane Furniture Maker Relationship Specialty Start Date End Date Valentin Newton MD PCP - General Internal Medicine 12/31/20
--- OUTSIDE RECORDS SUMMARY | 2025-02-02 16:12 | XMS_ITS | Encounter Summary ---
Author Organization [email or web address] [facility] Address [address] [place] [address] Care Team Providers Care Computer Repair Instructor Name Role Phone Unavailable Primary Care Provider Unavailabl e Encounter Details Date Type Department Care Team (Latest Contact Info) Description 01/29/2021 Abstract [facility] CONVERSIONS Dental, Provider, DDS Social History [...]
== END 2025-02-02 14:46 | disposition home or self-care (01) ==
LOC: HO.US 14:45
PROVIDERS: PCP Internal Medicine; Visit Provider Obstetrics & Gynecology
DX: N83.299 Other ovarian cyst, unspecified side (principal)
CPT/HCPCS: 76830; 76856

== ENCOUNTER → 2025-02-02 14:47 | Outpatient (BNV) | payer OTHER, SELFPAY | PROVIDERS: PCP Internal Medicine; Visit Provider Radiology Diagnostic Radiology | DX: D25.9 Leiomyoma of uterus, unspecified (principal) | CPT/HCPCS: 76830; 76856 ==

== ENCOUNTER 2025-02-07 14:50 | Outpatient (AMB) | payer OTHER, SELFPAY ==
[2025-02-07 15:09] VITALS: BP 142/100; BMI 32.6
--- NOTE | 2025-02-07 15:09 | A.OFFVIS_ITS ---
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 Complaining of intermenstrual spotting on cyclic Provera last 2 months Last Pap/HPV was negative in 11/18 Last Mammogram was BI-RADS 1 in 09/18, the patient had recently in mammogram at [place] according to her the results was negative, no records available No previous screening colonoscopy Last pelvic ultrasound was done 02/02/25 which showed the following: Uterus: The uterus is anteverted and measures 8.3 x 6.0 x 6.9 cm. The double wall endometrial thickness is 7 mm. The uterus is heterogeneous with multiple leiomyomas. Right lower uterine body: 2.6 x 1.5 x 2.0 previously 2.5 x 1.8 x 2.1. Right uterine body: 2.9 x 1.7 x 2.4 previously 2.7 x 3.2 x 2.6. Upper left uterine body: 2.5 x 2.0 x 2.3 previously 2.3 x 2.6 x 2.0. Lower left uterine body 2.7 x 1.3 x 2.3 previously 1.1 x 0.8 x 1.1. Fundus: 2.5 x 2.4 x 2.2 previously 1.9 x 0.9 x 1.3. Adnexa: Both ovaries are visualized. There is normal color flow to the adnexa. There is no ovarian torsion. There is no pelvic ascites or fluid collection. Right ovary measures 4.2 x 1.8 x 2.7 cm. Left ovary measures 4.6 x 2.1 x 3.1 cm. [facility] Medical History Diabetes Hyperlipidemia Hernia HTN (hypertension) Surgical History H/O hernia repair Hx laparoscopic cholecystectomy H/O tubal ligation Family History Father Diabetes Mother Diabetes Breast cancer Ovarian cancer Maternal Aunt Ovarian cancer Paternal Aunt Ovarian cancer Social History Household Members: None Alcohol intake: never Patient Tobacco Use Status: Current someday Tobacco user Cigarettes Per Day: 1 Years Smoked: 5 Current occupational status: disabled Sexual orientation: Straight/Heterosexual Gender identity: Female Female Reproductive History Menstrual Date of last pap smear: 11/06/22 Review of Systems Const All systems reviewed & are unremarkable except as noted in HPI and below Card Reports as per HPI Resp Reports as per HPI GI Reports as per HPI and Reports no additional complaints Reports as per HPI Physical Exam Vital Signs: Last Vital Signs BP 152/92 H 02/07/25 15:39 BMI result Body Mass Index 32.6 Const General: cooperative, healthy appearing and comfortable Chest Chest palpation & inspection: normal inspection of the chest and normal palpation of entire chest wall Breast/axilla inspection: normal inspection of the breasts and normal inspection of the axillae Breast/axilla palpation: normal palpation of the breasts, normal palpation of the axillae and no axillary lymphadenopathy Resp Effort & Inspection: normal respiratory effort Auscultation: clear to auscultation bilaterally Percussion: percussion normal Cardio Palpation: normal PMI Rate: regular rate Rhythm: regular rhythm Heart sounds: no murmurs and no rubs Peripheral pulses: Peripheral pulses 2+ throughout GI Inspection: Yes normal to inspection Palpation (GI): Soft to palpation, nontender, no guarding, not rigid and No hepatosplenomegaly present Percussion: Yes normal to percussion Auscultation: normal bowel sounds Rectal Exam - Female: deferred General: Yes bladder normal to palpation External Female Exam: No lesion Speculum Exam - Vagina: normal appearance of the vagina, normal palpation, normal vaginal discharge and not erythematous Speculum Exam - Cervix: normal appearance of the cervix and normal palpation Bimanual exam- vagina & uterus: normal bimanual exam, normal palpation, uterine size normal, bladder normal to palpation, consistency normal and normal palpation Bimanual Exam- Adnexa, other: normal adnexae, no masses and no tenderness Assessment & Plan Assessment & Plan (1) Well woman exam: Code(s): Z01.419 - Encounter for gynecological examination (general) (routine) without abnormal findings Category: Medical Plan: Cotesting not indicated this year. Counseled the patient about the recommended dietary allowance of 1000 mg of Calcium & 600 IU of vitamin D. Referral to GI for Screening colonoscopy placed The patient was instructed to perform monthly self-breast exams and to schedule an annual exam in a year; All questions answered and the patient verbalized understanding. Instructed the patient to schedule annual exam in a year (2) Complex ovarian cyst: Comment: Resolved Code(s): N83.299 - Other ovarian cyst, unspecified side Category: Medical Plan: Discussed with the patient ultrasound findings showing the previously identified complex cyst has resolved. The patient was instructed to call if symptoms recur. All questions were answered the patient verbalized understanding. (3) Uterine myoma: Code(s): D25.9 - Leiomyoma of uterus, unspecified Category: Medical Plan: Discussed with the patient the findings on pelvic ultrasound & the risk of myosarcoma; in addition reviewed with the patient that malignancy and pre malignancy cannot be ruled out without hysterectomy for pathological evaluation ; furthermore, explained to the patient the limitation of pelvic ultrasound and endometrial biopsy in the setting. Discussed with the patient the options of treatment including expectant manag ement versus hysterectomy; the pros and cons, risks benefits of each approach were discussed with the patient including the fact that in cases of myosarcoma, surgical treatment can lead to early diagnosis and positively affects the prognosis; after further discussion, the patient decided to proceed with expectant management. Will repeat pelvic ultrasound periodically. Instructions given to patient to call in case any of the following occurs: pressure symptoms, abnormal uterine bleeding, pelvic pain; and to schedule a 12-months pelvic ultrasound (order placed) and a follow-up appointment . All questions answered, the patient verbalized understanding and agreed with the plan . (4) Abnormal uterine bleeding (AUB): Comment: On cyclic Provera Code(s): N93.9 - Abnormal uterine and vaginal bleeding, unspecified Category: Medical Plan: GC and chlamydia taken CBC, TSH, HCG, FSH/LH and pelvic ultrasound recently done. Discussed with the patient the different causes of abnormal bleeding including thyroid disorders, uterine and ovarian pathology, endometrial hyperplasia, carcinoma and other potential causes. Discussed with the patient the work up including CBC (to r/o anemia), TSH, FSH/LH pelvic Ultrasound, endometrial biopsy to r/o endometrial pathology. All questions answered and the patient verbalized understanding. Instructed the patient to schedule an appointment for an endometrial biopsy in 2 weeks. Orders: Orders TSH reflex Free T4 Today N93.9 - Abnormal uterine and vaginal bleeding, unspecified HCG Quantitative Today N93.9 - Abnormal uterine and vaginal bleeding, unspecified Lutenizing Hormone Today N93.9 - Abnormal uterine and vaginal bleeding, unspecified Follicle Stimulating Hormone Today N93.9 - Abnormal uterine and vaginal bleeding, unspecified Complete Blood Count no Diff Today N93.9 - Abnormal uterine and vaginal bleeding, unspecified CT NG by PCR Vag/Cerv Today N93.9 - Abnormal uterine and vaginal bleeding, unspecified Referrals Gastroenterology Referral Z12.11 - Encounter for screening for malignant neoplasm of colon Coding Level of Care Code Est Pt Level 3 (60430) Est Pt Prev Care 40-64y(59499) Diagnoses Well woman exam Z01.419 Complex ovarian cyst N83.299 Uterine myoma D25.9 Abnormal uterine bleeding (AUB) N93.9
[2025-02-07 15:39] VITALS: BP 152/92
--- OUTSIDE RECORDS SUMMARY | 2025-02-07 18:14 | XMS_ITS | Patient Health Record ---
Author Organization [facility] Address [address] [place] [id number] Care Team Providers Care Tank Truck Driver Name Role Phone Sam Mendoza Jr [phone] Reason For Referral No Information Plan Of Treatment No Information
--- OUTSIDE RECORDS SUMMARY | 2025-02-07 18:14 | XMS_ITS | Clinical Summary ---
Author Organization [facility] Address [address] [place] [address] Care Team Providers Care Rn Social Services Name Role Phone Valentin Newton MD Primary Care Provider [phone] Allergies No known active allergies Medications Medication [...] age to complete this topic Care Teams Rn Social Services Relationship Specialty Start Date End Date Valentin Newton MD PCP - General Internal Medicine 12/31/20
--- OUTSIDE RECORDS SUMMARY | 2025-02-07 18:14 | XMS_ITS | Clinical Summary ---
Author Organization [employer] [facility] Address [address] [place] [address] [address] [place] [address] Care Team Providers Care Airbrush Painter Name Role Phone Unavailable Primary Care Provider [...]
--- OUTSIDE RECORDS SUMMARY | 2025-02-07 18:14 | XMS_ITS | Encounter Summary ---
Author Organization [employer] [facility] Address [address] 7 [place] [address] Care Team Providers Care Windrower Operator Name Role Phone Unavailable Primary Care Provider Unavailabl e Encounter Details Date Type Department Care Team (Latest Contact Info) Description 01/29/[address] [facility] CONVERSIONS Dental, Provider, DDS Social History [...]
== END 2025-02-07 16:05 | disposition home or self-care (01) ==
LOC: HO.HWS 14:51
PROVIDERS: PCP Internal Medicine; Visit Provider Obstetrics & Gynecology
DX: Z01.419 Encounter for gynecological examination (general) (routine) without abnormal findings (principal); N83.299 Other ovarian cyst, unspecified side; D25.9 Leiomyoma of uterus, unspecified; N93.9 Abnormal uterine and vaginal bleeding, unspecified
CPT/HCPCS: 99213; 99396; 99459

== ENCOUNTER 2025-02-07 14:50 | Outpatient (REF) | payer OTHER, SELFPAY ==
--- OUTSIDE RECORDS SUMMARY | 2025-02-07 18:49 | XMS_ITS | Clinical Summary ---
Author Organization [address] Address [address] [place] [phone] Phone Care Team Providers Care Port Drier Name Role Phone Valentin Newton MD Primary Care Provider [phone] Allergies Active Allergy Reactions Criticality Noted Date [...] route every 14 days. 03/17/20 23 Active insulin syringe-needle U-100 1 mL 30 gauge x 1/2 syringe Inject 1 Each as directed 4 times daily. 05/14/19 21 Active albuterol HFA (PROAIR HFA ; PROVENTIL HFA ; VENTOLIN HFA) 90 mcg/actuation inhaler Inhale 2 Puffs into the lungs 4 times daily as needed for Cough, Wheezing or Shortness of Breath. 11/26/19 23 Active clindamycin-gerard zoyl peroxide (BENZACLIN) gel Apply twice daily topically during the week prior to menses 11/23/19 24 Active clotrimazole (LOTRIMIN) 1 % cream Apply to skin and toenails daily for 12 weeks 10/14/19 23 Active cyanocobalamin, vitamin B-12, 5,000 mcg tablet,disinteg rating PLACE 1 TABLET UNDER THE TONGUE DAILY. [...] MORNING FOR DEPRESSION, WORRY 11/11/19 24 Active medroxyPROGESTE Jeremy (PROVERA) 10 mg tablet START 1 TABLET [...] DAILY. 90 tablet 1 05/04/19 25 Active semaglutide (Ozempic) 2 mg/dose (8 mg/3 mL) injection penIndications: Type 2 diabetes mellitus without complication, unspecified whether handkerchief cutter insulin use Inject 2 mg under the skin every 7 (seven) days. 3 mL 11 06/17/19 25 Active metoprolol succinate (TOPROL-XL) 50 mg 24 hr tablet Take 1 tablet (50 mg total) by mouth 1 (one) time each day. 90 tablet 1 08/31/19 25 Active hydroCHLOROthia zide (HYDRODIURIL) 50 mg tabletIndicatio ns:Essential hypertension Take 1 tablet (50 mg total) by mouth 1 (one) time each day. 90 each 1 10/11/19 25 2025 Active blood sugar diagnostic (FreeStyle Lite Strips) test strip Use to test blood sugar three times daily 300 each 3 10/14/19 25 Active metFORMIN (GLUCOPHAGE) 1,000 mg tablet TOME YASMIN TABLETA 2 VECES AL HOWARD CON LAS COMIDAS 180 tablet 1 10/14/19 25 Active ketoconazole (NIZORAL) 2 % cream Apply 1 Application topically 1 (one) time each day. 10/31/19 25 Active losartan (COZAAR) 100 mg tablet TAKE 1 TABLET BY MOUTH 1 TIME EACH DAY. 90 tablet 11/24/19 25 Active rosuvastatin (CRESTOR) 5 mg tablet TAKE 1 TABLET BY MOUTH 1 TIME EACH DAY. 90 tablet 1 11/30/19 25 Active ferrous sulfate 325 mg (65 mg elemental iron) tablet TAKE 1 TABLET BY MOUTH 1 TIME EACH DAY. 90 tablet 1 11/30/19 25 Active loratadine (CLARITIN) 10 mg tablet TAKE 1 TABLET BY MOUTH 1 TIME EACH DAY. 90 tablet 1 12/14/19 25 Active BD Ultra-Fine Short Pen Needle 31 gauge x 5/16 needleIndicatio ns:Type 2 diabetes mellitus without complication, with long-term current use of insulin ([facility] V24, [facility] V28) USE FOUR TIMES DAILY TO INJECT INSULIN. 400 each 3 01/17/20 25 Active oxyCODONE-aceta minophen (PERCOCET) 5-325 mg per tabletIndicatio ns:Lumbar disc disease Take 1 tablet by mouth 4 (four) times a day. Max Daily Amount: 4 tablets 112 tablet 01/16/20 25 Active insulin glargine (Lantus Solostar U-100 Insulin) 100 unit/mL (3 mL) injection pen INJECT 84 UNITS INTO THE SKIN DAILY 45 mL 5 01/17/20 25 Active insulin aspart (NovoLOG Flexpen U-100 Insulin) 100 unit/mL (3 mL) injection pen Inject 3 TIMES A DAY WITH MEALS: 100-149: 20 Units 150-200: 22 units 201-250: 24 units 251-300: 26 units 301-350: 28 units 350-400: 30 units >400: call mes, plus 2 extra units at dinner. Max daily dose 90 units 45 mL 5 01/17/20 25 Active pen needle, diabetic (BD Ultra-Fine Short Pen Needle) 31 gauge x 5/16 needle USE FOUR TIMES DAILY TO INJECT INSULIN. 08/24/19 24 2024 Discontinued insulin glargine (Lantus Solostar U-100 Insulin) 100 unit/mL (3 mL) injection pen INJECT 78 UNITS INTO THE SKIN DAILY 45 mL 5 10/14/19 25 2024 Discontinued(R eorder) insulin aspart (NovoLOG Flexpen U-100 Insulin) 100 unit/mL (3 mL) injection penIndications: Type 2 diabetes mellitus without complication, unspecified whether mcc insulin use FOLLOW SLIDING SCALE PER MD 3 TIMES A DAY WITH MEALS: 100-149: 16 Units 150-200:18 units 201-250: 20 units 251-300: 22 units 301-350: 24 units 350-400: 26 units >400: call me. 28 units, plus 2 extra units at dinner. Max daily dose 90 units 45 mL 5 10/19/19 25 2024 Discontinued(R eorder) oxyCODONE-aceta minophen (PERCOCET) 5-325 mg per tabletIndicatio ns:Lumbar disc disease Take 1 tablet by mouth 4 (four) times a day. Max Daily Amount: 4 tablets 112 tablet 12/19/19 25 2024 Discontinued(R eorder) Active Problems Problem Noted Date Diagnosed Date Microalbuminuria 10/13/2024 Obstructive sleep apnea 08/29/2024 Nocturnal hypoxia 08/29/2024 Anemia 01/24/2024 Anxiety 01/24/2024 Depression 01/24/2024 Diabetes mellitus type 2, un complicated (CMS/HCC V24, CMS/HCC V28) 01/24/2024 High cholesterol 01/24/2024 Thalassanemia 01/24/2024 Overview (12/27/2024): 12/27/24 Regulatory IMO Update COVID-19 12/10/2021 Vitamin B12 deficiency 07/18/2021 Palpitations [...] Encounters Date Type Department Care Team Description 01/23/2025 Telephone Pulmonology [facility] [address] [phone] Ramonita Hale MA 01/23/2025 Results Follow-Up [address] [phone] Aidee Tamayo PA 01/18/2025 Telephone Pulmonology [facility] [address] [phone] Stefan Miller MD 01/16/2025 3:45 PM EDT Office Visit [address] [phone] Aidee Tamayo, PA Diabetic nephropathy associated with type 2 diabetes mellitus ([facility] V24, [facility] V28) (Primary Dx); Microalbuminuria; Essential hypertension 01/09/2025 3:00 PM EDT Office Visit Orthopedic Surgery [facility] [address] [facility] [address] [place] [phone] Glenn Munoz, DPM Left foot soft tissue tumor (Primary Dx); Dermatophytosis of nail; Diabetic mononeuropathy simplex (CMS/HCC V24, CMS/HCC V28); Acquired hammer toe of right foot; Type II diabetes mellitus with peripheral circulatory disorder (CMS/HCC V24, CMS/HCC V28); Hammer toe of left foot; Metatarsalgia of both feet; Pain in toe of left foot; Pain in toe of right foot; Corns and callosities 12/05/2024 3:00 PM EDT Office Visit Adult Medicine [address] [phone] Elisa Arias NP Essential hypertension (Primary Dx); MICHELLE on CPAP 11/17/2024 Telephone Pulmonology [facility] [address] [facility] 200 [place] [phone] Ramonita Hale MS 11/16/2024 1:45 PM EDT [facility] [address] [place] [phone] Stefan Miller MD Obstructive sleep apnea (Primary Dx); Obesity (BMI 30-39.9); Essential hypertension 11/08/2024 1:30 PM EDT Office Visit Adult [address] [phone] Elisa Arias NP Essential hypertension (Primary Dx) from Last 3 Months Immunizations Immunization Administration Dates Next Due Pneumococcal polysaccharide 23 valent (Pneumovax 23) 2yo and older 02/13/2011 Td Tetanus diptheria (Tdvax) 7yo and older 11/06,08/28/2005 Tdap Tetanus diptheria acell ular pertussis (Boostrix; Adacel) 7yo and older 02/13/2011 Surgical History Surgery Date Site/Laterality Comments OTHER SURGICAL HISTORY PROCEDURE: TX DRAINAGE PERITON ABSCESS/LOCAL PERITONITIS OPEN CHOLECYSTECTOMY PROCEDURE: [...] care for your loved ones. For example, children's lunchroom supervisor or elderly care for an older adult? No 10/03/2024 Employment and Income Answer Date Recor ded During the last four weeks, have you been actively looking for work? No 10/03/2024 Living Situation Answer Date Recorded What is your living situation? Unrecognized valu e 10/03/2024 Comments No Sex and Gender Information [...] Sign Reading Time Taken Comments Blood Pressure 138/90 01/16/2025 3:53 PM EDT Pulse 86 01/16/2025 3:53 PM EDT Temperature 36.2 C (97.1 F) 01/16/2025 3:42 PM EDT Respiratory Rate 16 12/05/2024 2:44 PM EDT Oxygen Saturation 98% 12/05/2024 2:44 PM EDT Inhaled Oxygen Concentration - - Weight 88.1 kg (194 lb 3.2 oz) 01/16/2025 3:42 P M EDT Height 165.1 cm (5' 5 ) 01/16/2025 3:42 PM EDT Body Mass Index 32.32 01/16/2025 3:42 PM EDT Plan of Treatment Upcoming Encounters Date Type Department Care Team (Late st Contact Info) Description 02/27/2025 4:00 PM EST Office Visit Endocrinology [address] [phone] Aidee Tamayo PA [address] [place] [address] 04/09/2025 3:00 PM EST Office Visit Adult Medicine [place] [address] [phone] Elisa Arias BAKERY DECORATOR [address] [place], [place] 04/11/2025 3:30 PM EST Office Visit Orthopedic Surgery [facility] [address] [phone] Glenn Munoz, DPM [address] [phone] Health Maintenance Due Date Last Done Comments Colorectal Cancer Screening: Colonoscopy 1976 Diabetes: Annual Foot Exam 1986 Pneumococcal Vaccine: Pediatrics (0 to 5 Years) and At-Risk Patients (6 to 49 Years) (2 of 2 - PCV) 02/14/2012 02/13/2011 Hepatitis B Vaccines (2 of 3 - 19+ 3-dose series) 09/20/2013 08/23/2013 Cervical Cancer Screening: Pap Smear 06/04/2019 06/03/2016, 06/03/2016 HIV Screening 03/07/2022 Hepatitis C Screening 03/07/2022 Medicare Annual Wellness Visit 03/07/2022 DTaP,Tdap,and Td Vaccines (4 - Td or Tdap) 11/06/2022 11/06/2012, 02/13/2011, 08/28/2005 COVID-19 Vaccine ( season) 2024 Influenza Vaccine (#1) 2024 4, 12/18/2011, 12/18/2010, Additional history exists Diabetes: Annual Retina Eye Exam 02/08/2025 02/09/2024 Diabetes: Annual Urine Albumin-Creatinine Ratio (uACR) 06/23/2025 06/23/2024, 11/12/2023 Diabetes: Annual GFR (Glomerular Filtration Rate) 06/23/2025 06/23/2024, 09/13/2023, 09/13/2023 Hypertension/CHF/CAD Annual BMP Blood Test 06/23/2025 06/23/2024, 09/13/2023, 09/13/2023 Diabetes: Blood Sugar Control Test (HGBA1C) 07/20/2025 01/19/2025, 10/10/2024, 06/23/2024, Additional history exists Social Influencers of Health Screening 10/03/2025 10/03/2024 Breast Cancer Screening 11/02/2026 11/03/19, 03/24/2024, 09/08/2022, Additional history exists Cholesterol Screening (Lipid Panel) 06/23/2029 06/23/2024, 07/16/2023 RSV Immunization Adult Patients (1 - 1-dose 75+ series) 11/24/2051 Depression Screening Completed 06/23/2024 HIB Vaccines Aged [...] Date/Time Associated Diagnosis Comments HEMOGLOBIN A1C Routine 01/19/2025 3:50 PM EDT Diabetic nephropathy associated with type 2 diabetes mellitus ([facility] V24, [facility] V28) MG MAMMO DIGITAL DIAGNOSTIC W FLAVIO RIGHT Routine 11/02/2024 2:52 PM EDT Mass of right breast, unspecified quadrant MICROALBUMIN CREATININE URINE RATIO Routine 06/23/2024 4:09 PM EDT Type 2 diabetes mellitus without complication, unspecified whether handkerchief cutter insulin use ([facility] V24, [facility] V28) COMPREHENSIVE METABOLIC PANEL Routine 06/23/2024 4:09 PM EDT Type 2 diabetes mellitus without complication, unspecified whether handkerchief cutter insulin use ([facility] V24, [facility] V28) Encounter for long-term (current) use of medications Essential hypertension LIPID PANEL WITH REFLEX TO DIRECT LDL Routine 06/23/2024 4:09 PM EDT High cholesterol HM HPV Routine 06/03/2016 from Last 3 Months or Most Recently Relevant to Health Maintenance Results * (ABNORMAL) Hemoglobin A1c (01/19/2025 3:50 PM EDT) Hemoglobin A1C 9.3(H) <6.5 % LAB CHEMISTRY METHOD 01/19/2025 9:02 PM EDT [facility] Mean Bld Glu Estim. 220 mg/dL LAB CHEMISTRY METHOD 01/19/2025 9:02 PM EDT [facility] Blood Venous blood specimen / Unknown Venipuncture / Unknown 01/19/2025 3:50 PM EDT 01/19/2025 3:50 PM EDT us Aidee MICHAEL LAB BLOOD ORDERABLES Final Result [facility] [address] [place] [address], [place] [phone] * MG Mammo Digital Diagnostic w Flavio Right (11/02/2024 2:52 PM EDT) Anatomical Region Laterality Modality Breast Right Mammography 11/02/2024 4:05 PM EDT Impressions 11/02/2024 4:10 PM EDT No mammographic evidence of malignancy. No mammographic or sonographic correlate for right breast pain. Further management of symptoms should be clinically based. BREAST DENSITY: B - There are scattered areas of fibroglandular density. BI-RADS CATEGORY: 2 - BENIGN RECOMMENDATION: Clinical management of right breast is recommended. MAMMO LOCATION: [facility], [address] [place] [address], [phone], . -------- FINAL REPORT -------- Dictated By: Noa Hwang Dictated Date: 11/02/2024 16:05 ET Assigned Physician: Noa Hwang Reviewed and Electronically Signed By: Noa Hwang Signed Date: 11/02/2024 16:10 ET Workstation ID: [id number] Transcribed By: Self Edit Transcribed Date: 11/02/2024 16:05 ET Narrative 11/02/2024 4:10 PM EDT EXAM: MG MAMMO DIGITAL DIAGNOSTIC W FLAVIO RIGHT, US BREAST LIMITED RIGHT HISTORY: Intermittent right breast pain. Previous palpable right breast lump which the patient can no longer feel. COMPARISON: Mammography as recent as 03/24/2024 and as far back as 12/07/2016 TECHNIQUE: Unilateral right mediolateral oblique and craniocaudal views were obtained digitally with 3-D mammogram (digital breast tomosynthesis). Computer-aided detection was utilized in evaluation of this exam (CAD). FINDINGS: No suspicious mass, architectural distortion, or suspicious calcifications. Patient delineated the area of pain and previous palpable lump in the lower outer quadrant. Targeted sonography performed in the area of concern shows a 1.0 x 0.6 x 0.4 cm cyst at the 8 o'clock position, 9 cm from the nipple, which is probably incidental. No suspicious lesion identified. Procedure Note Noa Hwang MD - 08/07/2025 EXAM: MG MAMMO DIGITAL DIAGNOSTIC W FLAVIO RIGHT, US BREAST LIMITED RIGHT HISTORY: Intermittent right breast pain. Previous palpable right breastlump which the patient can no longer feel. COMPARISON: Mammography as recent as 03/24/2024 and as far back as12/07/2016 TECHNIQUE: Unilateral right mediolateral oblique and craniocaudal viewswere obtained digitally with 3-D mammogram (digital breast tomosynthesis).Computer-aided detection was utilized in evaluation of this exam (CAD). FINDINGS: No suspicious mass, architectural distortion, or suspiciouscalcifications. Patient delineated the area of pain and previous palpable lump in thelower outer quadrant. Targeted sonography performed in the area ofconcern shows a 1.0 x 0.6 x 0.4 cm cyst at the 8 o'clock position, 9 cmfrom the nipple, which is probably incidental. No suspicious lesionidentified. IMPRESSION: No mammographic evidence of malignancy. No mammographic or sonographiccorrelate for right breast pain. Further management of symptoms should beclinically based. BREAST DENSITY: B - There are scattered areas of fibroglandular density. BI-RADS CATEGORY: 2 - BENIGN RECOMMENDATION: Clinical management of right breast is recommended. MAMMO LOCATION: [facility], [address] [place] [address], [phone], . -------- FINAL REPORT -------- Dictated By: Noa Hwang Dictated Date: 11/02/2024 16:05 ET Assigned Physician: Noa Hwang Reviewed and Electronically Signed By: Noa Hwang Signed Date: 11/02/2024 16:10 ET Workstation ID: [id number] Transcribed By: Self Edit Transcribed Date: 11/02/2024 16:05 ET us Elisa Arias BAKERY DECORATOR IMG BI PROCEDURES Final Resul t * Lipid panel with reflex to direct LDL (06/23/2024 4:09 PM EDT) Cholesterol 136 0 - 200 mg/dL LAB CHEMISTRY METHOD 06/23/2024 6:32 PM EDT [facility] Triglycerides 79 0 - 150 mg/dL LAB CHEMISTRY METHOD 06/23/2024 6:32 PM EDT [facility] HDL 47 >=40 mg/dL LAB CHEMISTRY METHOD 06/23/2024 6:32 PM EDT [facility] LDL Calculated 73 0 - 100 mg/dL LAB CHEMISTRY METHOD 06/23/2024 6:32 PM EDT [facility] VLDL Cholesterol Sachin 15.8 mg/dL LAB CHEMISTRY METHOD 06/23/2024 6:32 PM EDT [facility] Non HDL Chol. (LDL+VLDL) 89 <145 mg/dL LAB CHEMISTRY METHOD 06/23/2024 6:32 PM EDT [facility] Chol/HDL Ratio 2.9 0.0 - 4.4 LAB CHEMISTRY METHOD 06/23/2024 6:32 PM EDT [facility] Blood Venous blood specimen / Unknown Venipuncture / Unknown 06/23/2024 4:09 PM EDT 06/23/2024 4:09 PM EDT us Valentin Newton MD LAB BLOOD ORDERABLES Final Resu lt [facility] [address] [place] [address], [place] [phone] * (ABNORMAL) Microalbumin creatinine urine ratio (06/23/2024 4:09 PM EDT) Creatinine, Urine 160.0 mg/dL LAB CHEMISTRY METHOD 06/23/2024 7:07 PM EDT [facility] Microalb, Ur 32.5(H) 0.0 - 29.0 mg/L LAB CHEMISTRY METHOD 06/23/2024 7:07 PM EDT [facility] Microalb/Crea t Ratio 20 <30 mg/g creat LAB CHEMISTRY METHOD 06/23/2024 7:07 PM EDT [facility] Urine Urine specimen obtained by clean catch procedure / Unknown Non-blood Collection / Unknown 06/23/2024 4:09 PM EDT 06/23/2024 4:09 PM EDT us Valentin Newton MD LAB URINE ORDERABLES Final Resu lt [facility] [address] [place] [address], [place] [phone] * (ABNORMAL) Comprehensive metabolic panel (06/23/2024 4:09 PM EDT) Sodium 135 133 - 145 mmol/L LAB CHEMISTRY METHOD 06/23/2024 6:32 PM [facility] Potassium 3.9 3.5 - 5.5 mmol/L LAB CHEMISTRY METHOD 06/23/2024 6:32 PM [facility] Chloride 99 96 - 110 mmol/L LAB CHEMISTRY METHOD 06/23/2024 6:32 PM [facility] CO2 30 21 - 32 mmol/L LAB CHEMISTRY METHOD 06/23/2024 6:32 PM [facility] Anion Gap 6 3 - 11 LAB CHEMISTRY METHOD 06/23/2024 6:32 PM [facility] Glucose 226(H) 70 - 100 mg/dL LAB CHEMISTRY METHOD 06/23/2024 6:32 PM [facility] BUN 11 5 - 25 mg/dL LAB CHEMISTRY METHOD 06/23/2024 6:32 PM T [facility] Creatinine 0.79 0.50 - 1.10 mg/dL LAB CHEMISTRY METHOD 06/23/2024 6:32 PM [facility] eGFR 93 >=60 mL/min/1. 73m2 LAB CHEMISTRY METHOD 06/23/2024 6:32 PM [facility] Comment:Calculation based on the Chronic Kidney Disease Epidemiology Collaboration (CKD-EPI) equation refit without adjustment for race. BUN/Creatinine Ratio 13.9 LAB CHEMISTRY METHOD 06/23/2024 6:32 PM EDT [facility] Calcium 10.0 8.5 - 10.5 mg/dL LAB CHEMISTRY METHOD 06/23/2024 6:32 PM EDT [facility] AST (SGOT) 13 10 - 42 unit/L LAB CHEMISTRY METHOD 06/23/2024 6:32 PM EDT [facility] ALT (SGPT) 26 10 - 60 unit/L LAB CHEMISTRY METHOD 06/23/2024 6:32 PM EDT [facility] Alkaline Phosphatase 58 42 - 121 unit/L LAB CHEMISTRY METHOD 06/23/2024 6:32 PM EDT [facility] Total Protein 7.9 6.0 - 8.0 g/dL LAB CHEMISTRY METHOD 06/23/2024 6:32 PM EDT [facility] Albumin 3.8 3.2 - 5.0 g/dL LAB CHEMISTRY METHOD 06/23/2024 6:32 PM EDT [facility] Total Bilirubin 0.3 0.0 - 1.4 mg/dL LAB CHEMISTRY METHOD 06/23/2024 6:32 PM T [facility] Blood Venous blood specimen / Unknown Venipuncture / Unknown 06/23/2024 4:09 PM EDT 06/23/2024 4:09 PM EDT Valentin Newton MD LAB BLOOD ORDERABLES Final Resu lt [facility] [address] [place] [address], [place] [phone] * Cervical Cancer Screening: HPV (06/03/2016) Pathologist [facility] Cervical Cancer Screening: HPV Negative, Abstracted Historical Provider HEALTH MAINTENANCE Final Result from Last 3 Months or Most Recently Relevant to Health Maintenance Insurance [facility] MEDICARE Member Subscriber Plan / Payer (Ef fective 2018-Present) Name:LASHELL MCMANUS Relation to Subscriber:Self Name:Lashell Mcmanus Payer ID:[id number] Group ID:[id number] Type:Not on file Address: [place] [address] [address] [address] Care Teams [place] Relationship Specialty Start Date End Date Valentin Newton MD [address] [place] [phone] PCP - General Internal Medicine 03/02/24
--- OUTSIDE RECORDS SUMMARY | 2025-02-07 18:49 | XMS_ITS | Encounter Summary ---
Author Organization [facility] Address [address] [place] [address] Care Team Providers Care Dye And Chemical Coordinator Name Role Phone Valentin Newton MD Primary Care Provider [phone] Encounter Details Date Type Department Care Team (Late Contact Info) Description 01/23/2025 Results Follow-Up Endocrinology - [address] [phone] Aidee Tamayo PA [address] [place] [address] Social History Tobacco Use Types Packs/Day Years Used Date Smoking Tobacco: Every Day Cigarettes Smokeless Tobacco: Never Alcohol Use Standard Drinks/Week Comments No 0 (1 standard drink = 0.6 oz pur e alcohol) Dependent Care Answer Date Recorded Do you need help finding or paying for care for your loved ones. For example, child health associate or elderly care for an older adult? [...] not to disclose 2023 3:13 PM EST documented as of this encounter Plan of Treatment Upcoming Encounters Date Type Department Care Team (Late st Contact Info) Description 02/27/2025 4:00 PM EST Office Visit Endocrinology [address] [phone] Aidee Tamayo PA [address] [place] [address] 04/09/2025 3:00 PM EST Office Visit Adult Medicine [address] [phone] Elisa Arias NP [address] [place], [place] 04/11/2025 3:30 PM EST Office Visit Orthopedic Surgery [facility] [address] [phone] Glenn Munoz, DPM [address] [phone] documented as of this encounter Visit Diagnoses Not on filedocumented in this encounter Additional Health Concerns Assessment Noted Time PHQ-9 Depression Total Score: 8 06/24/19 25 7:29 AM EDT documented as of this encounter Care Teams Dye And Chemical Coordinator Relationship Specialty Start Date End Date Valentin Newton MD [address] [place] [address] PCP - General Internal Medicine 03/02/24 documented as of this encounter
== END 2025-02-07 14:51 | disposition home or self-care (01) ==
LOC: HO.LAB 14:50
PROVIDERS: PCP Internal Medicine; Visit Provider Obstetrics & Gynecology
DX: Z01.419 Encounter for gynecological examination (general) (routine) without abnormal findings (principal); N83.299 Other ovarian cyst, unspecified side; D25.9 Leiomyoma of uterus, unspecified; N93.9 Abnormal uterine and vaginal bleeding, unspecified; Z98.51 Tubal ligation status; Z13.29 Encounter for screening for other suspected endocrine disorder
CPT/HCPCS: 83001; 83002; 84443; 84702; 85027; 99212; 99396

== ENCOUNTER 2025-02-07 15:50 | Outpatient (REF) | payer OTHER, SELFPAY ==
[2025-02-07 16:36] LABS: Hematocrit 40.6 % (37.0-47.0); Hemoglobin 12.5 g/dl (12.0-16.0); Mean Corpuscular HGB Conc 30.8 g/dl (31.0-35.0); Mean Corpuscular Hemoglobin 26.0 pg (27.0-33.0); Mean Corpuscular Volume 84.4 fL (80.0-98.0); NRBC Abs Auto 0.000 X10*3/uL (0.0-0.012); NRBC Pct Auto 0.0 /100WBC (0.0-0.2); Platelet Count 332 X10*3/uL (160-400); Red Blood Count 4.81 X10*6/uL (4.20-5.50); White Blood Count 7.1 X10*3/uL (4.8-10.8)
[2025-02-08 04:38] LABS: Follicle Stimulating Hormone 45.1 mIU/mL
== END 2025-02-07 15:51 | disposition home or self-care (01) ==
LOC: HO.LNP 15:50
PROVIDERS: Visit Provider Obstetrics & Gynecology
DX: Z13.89 Encounter for screening for other disorder (principal)
CPT/HCPCS: 83001; 83002; 84443; 84702; 85027

== ENCOUNTER 2025-02-08 12:53 | Outpatient (REF) | payer OTHER, SELFPAY ==
[2025-02-08 15:42] LABS: CT PCR NOT DETECTED (Not Detect.); NG PCR NOT DETECTED (Not Detect.)
--- OUTSIDE RECORDS SUMMARY | 2025-02-08 16:01 | XMS_ITS | Clinical Summary ---
Author Organization [employer] [facility] Address [address] [place] [address] [address] [place] [address] Care Team Providers Care Rabies Inspector Name Role Phone Unavailable Primary Care Provider [...]
--- OUTSIDE RECORDS SUMMARY | 2025-02-08 16:01 | XMS_ITS | Clinical Summary ---
Author Organization [facility] Address [address] [place] [address] Care Team Providers Care Adjunct Instructor Of Women'S Studies Name Role Phone Valentin Newton MD Primary Care Provider [phone] Allergies No known active allergies Medications Medication [...] age to complete this topic Care Teams Adjunct Instructor Of Women'S Studies Relationship Specialty Start Date End Date Valentin Newton MD PCP - General Internal Medicine 12/31/20
--- OUTSIDE RECORDS SUMMARY | 2025-02-08 16:01 | XMS_ITS | Clinical Summary ---
Author Organization [address] Address [address] [place] [phone] Phone Care Team Providers Care Compensation Programs Manager Name Role Phone Valentin Newton MD Primary Care Provider [phone] Allergies Active Allergy Reactions Criticality Noted Date [...] 2 diabetes mellitus without complication, unspecified whether termite inspector insulin use Inject 2 mg under the [...] complication, with long-term current use of insulin ([facility] V24, [facility] V28) USE FOUR TIMES DAILY TO INJECT [...] 2 diabetes mellitus without complication, unspecified whether skilled nursing insulin use FOLLOW SLIDING SCALE PER MD [...] Department Care Team Description 01/23/2025 Telephone Pulmonology [facility] [address] [phone] Ramonita Hale [place] 01/23/2025 Results Follow-Up [address] [phone] Aidee Tamayo PA 01/18/2025 Telephone Pulmonology [facility] [address] [phone] Stefan Miller MD 01/16/2025 3:45 PM EDT Office Visit [address] [phone] Aidee Tamayo, PA Diabetic nephropathy associated with type 2 diabetes mellitus ([facility] V24, [facility] V28) (Primary Dx); Microalbuminuria; Essential hypertension 01/09/2025 3:00 PM EDT Office Visit Orthopedic Surgery [facility] 250 175 [facility] 250 [place] [phone] Glenn Munoz, DPM Left foot soft tissue [...] 3:00 PM EDT Office Visit Adult Medicine [address] [phone] Elisa Arias NP Essential hypertension (Primary Dx); MICHELLE on CPAP 11/17/2024 Telephone Pulmonology [facility] 175 [facility] 200 [place] [phone] Ramonita Hale [place] 11/16/2024 1:45 PM EDT [facility] 175 [facility] 200 [place] [phone] Stefan Miller MD Obstructive sleep apnea (Primary Dx); Obesity (BMI 30-39.9); Essential hypertension 11/08/2024 1:30 PM EDT Office Visit Adult [address] [phone] Elisa Arias NP Essential hypertension (Primary Dx) from Last 3 Months Immunizations Immunization Administration Dates Next Due Pneumococcal polysaccharide 23 valent (Pneumovax 23) 2yo and older 02/13/2011 Td Tetanus diptheria (Tdvax) 7yo and older 11/06,08/28/2005 Tdap Tetanus diptheria acell ular pertussis (Boostrix; Adacel) 7yo and older 02/13/2011 Surgical History Surgery Date Site/Laterality Comments OTHER SURGICAL HISTORY PROCEDURE: [place] DRAINAGE PERITON ABSCESS/LOCAL PERITONITIS OPEN CHOLECYSTECTOMY PROCEDURE: [...] for your loved ones. For example, child care specialist or elderly care for an older adult? [...] 02/27/2025 4:00 PM EST Office Visit Endocrinology [address] [phone] Aidee Tamayo PA [address] [place] [address] 04/09/2025 3:00 PM EST Office Visit [facility] [place] [address] [phone] Elisa Arias ACOUSTICAL ENGINEER [address] [place], [place] 04/11/2025 3:30 PM EST Office Visit Orthopedic Surgery [facility] [address] [phone] Glenn Munoz, DPM [address] [phone] Health Maintenance Due Date Last Done Comments [...] nephropathy associated with type 2 diabetes mellitus ([facility] V24, [facility] V28) MG MAMMO DIGITAL DIAGNOSTIC W FLAVIO RIGHT Routine 11/02/2024 2:52 PM EDT Mass of right breast, unspecified quadrant MICROALBUMIN CREATININE URINE RATIO Routine 06/23/2024 4:09 PM EDT Type 2 diabetes mellitus without complication, unspecified whether termite inspector insulin use ([facility] V24, [facility] V28) COMPREHENSIVE METABOLIC PANEL Routine 06/23/2024 4:09 PM EDT Type 2 diabetes mellitus without complication, unspecified whether termite inspector insulin use ([facility] V24, [facility] V28) Encounter for long-term (current) use of medications Essential hypertension LIPID PANEL WITH REFLEX TO DIRECT LDL Routine 06/23/2024 4:09 PM EDT High cholesterol HM HPV Routine 06/03/2016 from Last 3 Months or Most Recently Relevant to Health Maintenance Results * (ABNORMAL) Hemoglobin A1c (01/19/2025 3:50 PM EDT) Hemoglobin A1C 9.3(H) <6.5 % LAB CHEMISTRY METHOD 01/19/2025 9:02 PM EDT [facility] Mean Bld Glu Estim. 220 mg/dL LAB CHEMISTRY METHOD 01/19/2025 9:02 PM EDT [facility] Blood Venous blood specimen / Unknown Venipuncture / Unknown 01/19/2025 3:50 PM EDT 01/19/2025 3:50 PM EDT us Aidee MICHAEL LAB BLOOD ORDERABLES Final Result [facility] [address] [place] [address], [place] [phone] * MG Mammo Digital Diagnostic w Flavio [...] of right breast is recommended. MAMMO LOCATION: [facility], [address] [place] [address], [phone], . -------- FINAL REPORT -------- Dictated By: Noa Hwang Dictated Date: 11/02/2024 16:05 ET Assigned Physician: Noa Hwang Reviewed and Electronically Signed By: Noa Hwang Signed Date: 11/02/2024 16:10 ET Workstation ID: [id number] Transcribed By: Self Edit Transcribed Date: 11/02/2024 [...] of right breast is recommended. MAMMO LOCATION: [facility], [address] [place] [address], [phone], . -------- FINAL REPORT -------- Dictated By: Noa Hwang Dictated Date: 11/02/2024 16:05 ET Assigned Physician: Noa Hwang Reviewed and Electronically Signed By: Noa Hwang Signed Date: 11/02/2024 16:10 ET Workstation ID: [id number] Transcribed By: Self Edit Transcribed Date: 11/02/2024 16:05 ET us Elisa Arias ACOUSTICAL ENGINEER IMG BI PROCEDURES Final Resul t * Lipid panel with reflex to direct LDL (06/23/2024 4:09 PM EDT) Cholesterol 136 0 - 200 mg/dL LAB CHEMISTRY METHOD 06/23/2024 6:32 PM EDT [facility] Triglycerides 79 0 - 150 mg/dL LAB CHEMISTRY METHOD 06/23/2024 6:32 PM EDT [facility] HDL 47 >=40 mg/dL LAB CHEMISTRY METHOD 06/23/2024 6:32 PM EDT [facility] LDL Calculated 73 0 - 100 mg/dL LAB CHEMISTRY METHOD 06/23/2024 6:32 PM EDT [facility] VLDL Cholesterol Sachin 15.8 mg/dL LAB CHEMISTRY METHOD 06/23/2024 6:32 PM EDT [facility] Non HDL Chol. (LDL+VLDL) 89 <145 mg/dL LAB CHEMISTRY METHOD 06/23/2024 6:32 PM EDT [facility] Chol/HDL Ratio 2.9 0.0 - 4.4 LAB CHEMISTRY METHOD 06/23/2024 6:32 PM EDT [facility] Blood Venous blood specimen / Unknown Venipuncture / Unknown 06/23/2024 4:09 PM EDT 06/23/2024 4:09 PM EDT us Valentin Newton MD LAB BLOOD ORDERABLES Final Resu lt [facility] [address] [place] [address], [place] [phone] * (ABNORMAL) Microalbumin creatinine urine ratio (06/23/2024 4:09 PM EDT) Creatinine, Urine 160.0 mg/dL LAB CHEMISTRY METHOD 06/23/2024 7:07 PM EDT [facility] Microalb, Ur 32.5(H) 0.0 - 29.0 mg/L LAB CHEMISTRY METHOD 06/23/2024 7:07 PM EDT [facility] Microalb/Crea t Ratio 20 <30 mg/g creat LAB CHEMISTRY METHOD 06/23/2024 7:07 PM EDT [facility] Urine Urine specimen obtained by clean catch procedure / Unknown Non-blood Collection / Unknown 06/23/2024 4:09 PM EDT 06/23/2024 4:09 PM EDT us Valentin Newton MD LAB URINE ORDERABLES Final Resu lt [facility] [address] [place] [address], [place] [phone] * (ABNORMAL) Comprehensive metabolic panel (06/23/2024 4:09 [...] LAB CHEMISTRY METHOD 06/23/2024 6:32 PM T [facility] Creatinine 0.79 0.50 - 1.10 mg/dL LAB CHEMISTRY METHOD 06/23/2024 6:32 PM [facility] eGFR 93 >=60 mL/min/1. 73m2 LAB CHEMISTRY METHOD 06/23/2024 6:32 PM [facility] Comment:Calculation based on the Chronic Kidney Disease Epidemiology Collaboration (CKD-EPI) equation refit without adjustment for race. BUN/Creatinine Ratio 13.9 LAB CHEMISTRY METHOD 06/23/2024 6:32 PM EDT [facility] Calcium 10.0 8.5 - 10.5 mg/dL LAB CHEMISTRY METHOD 06/23/2024 6:32 PM EDT [facility] AST (SGOT) 13 10 - 42 unit/L LAB CHEMISTRY METHOD 06/23/2024 6:32 PM EDT [facility] ALT (SGPT) 26 10 - 60 unit/L LAB CHEMISTRY METHOD 06/23/2024 6:32 PM EDT [facility] Alkaline Phosphatase 58 42 - 121 unit/L LAB CHEMISTRY METHOD 06/23/2024 6:32 PM EDT [facility] Total Protein 7.9 6.0 - 8.0 g/dL LAB CHEMISTRY METHOD 06/23/2024 6:32 PM EDT [facility] Albumin 3.8 3.2 - 5.0 g/dL LAB CHEMISTRY METHOD 06/23/2024 6:32 PM EDT [facility] Total Bilirubin 0.3 0.0 - 1.4 mg/dL LAB CHEMISTRY METHOD 06/23/2024 6:32 PM T [facility] Blood Venous blood specimen / Unknown Venipuncture / Unknown 06/23/2024 4:09 PM EDT 06/23/2024 4:09 PM EDT Valentin Newton MD LAB BLOOD ORDERABLES Final Resu lt [facility] [address] [place] [address], [place] [phone] * Cervical Cancer Screening: HPV (06/03/2016) Pathologist [facility] Cervical Cancer Screening: HPV Negative, Abstracted Historical Provider HEALTH MAINTENANCE Final Result from Last 3 Months or Most Recently Relevant to Health Maintenance Insurance [facility] MEDICARE Member Subscriber Plan / Payer (Ef fective 2018-Present) Name:LASHELL MCMANUS Relation to Subscriber:Self Name:Lashell Mcmanus Payer ID:[id number] Group ID:[id number] Type:Not on file Address: [place] [address] [address] [address] Care Teams Compensation Programs Manager Relationship Specialty Start Date End Date Valentin Newton MD [address] [place] [phone] PCP - General Internal Medicine 03/02/24
--- OUTSIDE RECORDS SUMMARY | 2025-02-08 16:01 | XMS_ITS | Encounter Summary ---
Author Organization [employer] [facility] Address [address] 7 [place] [address] Care Team Providers Care Air Bag Buffer Name Role Phone Unavailable Primary Care Provider Unavailabl e Encounter Details Date Type Department Care Team (Latest Contact Info) Description 01/29/2021 Abstract [facility] CONVERSIONS Dental, Provider, DDS Social History Tobacco [...]
--- OUTSIDE RECORDS SUMMARY | 2025-02-08 16:01 | XMS_ITS | Encounter Summary ---
Author Organization [facility] Address [address] [place] [address] Care Team Providers Care Color Corrector Name Role Phone Valentin Newton MD Primary Care Provider [phone] Encounter Details Date Type Department Care Team (Late Contact Info) Description 01/23/2025 Results Follow-Up Endocrinology - [address] [phone] Aidee Tamayo PA [address] [place] [address] Social History Tobacco Use Types Packs/Day Years Used Date Smoking Tobacco: Every Day Cigarettes Smokeless Tobacco: Never Alcohol Use Standard Drinks/Week Comments No 0 (1 standard drink = 0.6 oz pur e alcohol) Dependent Care Answer Date Recorded Do you need help finding or paying for care for your loved ones. For example, childrens club attendant or elderly care for an older adult? [...] 02/27/2025 4:00 PM EST Office Visit Endocrinology [address] [phone] Aidee Tamayo PA [address] [place] [address] 04/09/2025 3:00 PM EST Office Visit Adult Medicine [address] [phone] Elisa Arias NP [address] [place], [place] 04/11/2025 3:30 PM EST Office Visit Orthopedic Surgery [facility] [address] [phone] Glenn Munoz, DPM [address] [phone] documented as of this encounter Visit Diagnoses Not on filedocumented in this encounter Additional Health Concerns Assessment Noted Time PHQ-9 Depression Total Score: 8 06/24/19 25 7:29 AM EDT documented as of this encounter Care Teams Color Corrector Relationship Specialty Start Date End Date Valentin Newton MD [address] [place] [address] PCP - General Internal Medicine 03/02/24 documented as of this encounter
--- OUTSIDE RECORDS SUMMARY | 2025-02-08 16:01 | XMS_ITS | Patient Health Record ---
Author Organization [facility] Address [address] [place] [phone] Care Team Providers Care Poacher Operator Name Role Phone Sam Mendoza Jr Reason For Referral No Information Plan Of Treatment No Information
== END 2025-02-08 12:54 | disposition home or self-care (01) ==
LOC: HO.LNP 12:53
PROVIDERS: Visit Provider Obstetrics & Gynecology
DX: Z20.2 Contact with and (suspected) exposure to infections with a predominantly sexual mode of transmission (principal); N93.9 Abnormal uterine and vaginal bleeding, unspecified
CPT/HCPCS: 87491; 87591

== ENCOUNTER 2025-03-01 13:59 | Outpatient (REF) | payer OTHER, SELFPAY ==
--- OUTSIDE RECORDS SUMMARY | 2025-03-01 20:12 | XMS_ITS | Encounter Summary ---
Author Organization [facility] Prior to 01/28/2024 Address [address] [place] [address] Care Team Providers Care Wildlife Rehabilitator Name Role Phone Valentin Newton MD Primary Care Provider Singh Lott MD Unavailable Encounter Details Date Type Department Care Team Description 06/27/2023 Refill Endocrinology - [address] [phone] Aidee Tamayo PA-C [address] [place] [address] Social History Tobacco Use Types Packs/Day [...] (HCC) documented in this encounter Care Teams Wildlife Rehabilitator Relationship Specialty Start Date End Date Valentin Newton MD [address] [place] [phone] PCP - General Internal Medicine 05/01/14 Singh Lott MD [address] [place] [phone] Creative Technologist Cardiovascular Disease 01/21/21 documented as of this encounter
--- OUTSIDE RECORDS SUMMARY | 2025-03-01 20:12 | XMS_ITS | Encounter Summary ---
Author Organization [employer] [facility] Prior to 01/28/2024 Address [address] [place] [address] Care Team Providers Care Digital Measurement Advisor Name Role Phone Valentin Newton MD Primary Care Provider [phone] Singh Lott MD Unavailable Encounter Details Date Type Department Care Team Description 01/30/2021 SCAN Medical Records [address] [place] [phone] Franklin Santo MD Social History Tobacco Use [...] on filedocumented in this encounter Care Teams Digital Measurement Advisor Relationship Specialty Start Date End Date Valentin Newton MD [address] [place] [address] [phone] PCP - General Internal Medicine 05/01/14 Singh Lott MD [address] [place] [address] [phone] Paper Twister Cardiovascular Disease 01/21/21 documented as of this encounter
--- OUTSIDE RECORDS SUMMARY | 2025-03-01 20:13 | XMS_ITS | Encounter Summary ---
Author Organization [facility] Prior to 01/28/2024 Address [address] [place] [address] Care Team Providers Care Automobile Mechanic Name Role Phone Valenitn Newton MD Primary Care Provider [phone] Singh Lott MD Unavailable Reason for Visit * Reason Onset Date Comments medication problems 07/26/2023 Encounter Details Date Type Department Care Team Description 07/26/2023 Telephone Endocrinology - [address] [phone] Aidee Tamayo PA-C [address] [place] [phone] medication problems Social History Tobacco Use Types Packs/Day [...] encounter Miscellaneous Notes * Telephone Encounter - Aidee Tamayo PA-C - 07/26/2023 11:10 AM EDT Switch to Ozempic * Telephone Encounter - Prisca Chou M.A. - 07/26/2023 11:07 AM EDT I called the pharmacy. They have none in store and there are six people ahead of her to received their supply. * Telephone Encounter - Aidee Tamayo PA-C - 07/26/2023 10:49 AM EDT Please have patient check with the pharmacy and see which doses they are able to be obtained. We probably need to lower the dose * Telephone Encounter - Veena Campos - 07/26/2023 10:23 AM EDT Who is calling? The patient Name of the medication Trulicity What is the specific problem or interaction? Patient unable to find medication would like to know if alternative can be prescribed or what she should do. If the patient is having a problem with taking the med - how long has the problem been going on? N/A documented in this encounter Plan of Treatment Not on file documented as of this encounter Visit Diagnoses Not on filedocumented in this encounter Care Teams Automobile Mechanic Relationship Specialty Start Date End Date Valentin Newton MD [address] [place] [address] PCP - General Internal Medicine 05/01/14 Singh oLtt MD [address] [place] [address] Telehealth Nurse Educator Cardiovascular Disease 01/21/21 documented as of this encounter
--- OUTSIDE RECORDS SUMMARY | 2025-03-01 20:13 | XMS_ITS | Encounter Summary ---
Author Organization [facility] Prior to 01/28/2024 Address [address] [place] [address] Care Team Providers Care Machine Filler Servicer Name Role Phone Valentin Newton MD Primary Care Provider [phone] Singh Lott MD Unavailable Encounter Details Date Type Department Care Team Description 02/03/2021 Refill Adult Medicine [address] [phone] Valentin Newton MD [address] [place] [address] [phone] Social History Tobacco Use Types Packs/Day Years [...] on filedocumented in this encounter Care Teams Machine Filler Servicer Relationship Specialty Start Date End Date Valentin Newton MD [address] [place] [address] [phone] PCP - General Internal Medicine 05/01/14 Singh Lott MD [address] [place] [phone] Billet Shearer Cardiovascular Disease 01/21/21 documented as of this encounter
--- OUTSIDE RECORDS SUMMARY | 2025-03-01 20:14 | XMS_ITS | Clinical Summary ---
Author Organization [address] Address [address] [place] [phone] Phone Care Team Providers Care Warp Clamper Name Role Phone Valentin Newton MD Primary Care Provider [phone] Allergies Active Allergy Reactions Criticality Noted Date [...] 2 diabetes mellitus without complication, unspecified whether joint terminal attack controller insulin use Inject 2 mg under the skin every 7 (seven) days. 3 mL 11 06/17/19 25 Active hydroCHLOROthia zide (HYDRODIURIL) 50 mg [...] COMIDAS 180 tablet 1 10/14/19 25 Active rosuvastatin (CRESTOR) 5 mg tablet TAKE 1 TABLET BY MOUTH 1 TIME EACH DAY. 90 tablet 1 11/30/19 25 Active ferrous sulfate 325 mg (65 mg elemental iron) tablet TAKE 1 TABLET BY MOUTH 1 TIME EACH DAY. 90 tablet 1 11/30/19 25 Active Additional Information Patient not taking.Reported on 02/15/2025 loratadine (CLARITIN) 10 mg tablet TAKE 1 TABLET BY MOUTH 1 TIME EACH DAY. 90 tablet 1 12/14/19 25 Active BD Ultra-Fine Short Pen Needle 31 gauge x 08/11 needleIndicatio ns:Type 2 diabetes mellitus without complication, with long-term current use of insulin ([facility] V24, [facility] V28) USE FOUR TIMES DAILY TO INJECT INSULIN. 400 each 3 01/17/20 25 Active insulin glargine (Lantus Solostar U-100 [...] units 45 mL 5 01/17/20 25 Active oxyCODONE-aceta minophen (PERCOCET) 5-325 mg per tabletIndicatio ns:Lumbar disc disease Take 1 tablet by mouth 4 (four) times a day. Max Daily Amount: 4 tablets 112 tablet 02/13/20 25 Active ketoconazole (NIZORAL) 2 % cream Apply 1 Application topically 1 (one) time each day. 15 g 1 02/16/20 25 Active metoprolol succinate (Toprol XL) 100 mg 24 hr tablet Take 1 tablet (100 mg total) by mouth 1 (one) time each day. Do not crush or chew. 90 tablet 1 02/16/20 25 2025 Active losartan (COZAAR) 100 mg tablet TOME 1 TABLETA POR VIA ORAL [place] 90 tablet 1 02/28/20 25 Active metoprolol succinate (TOPROL-XL) 50 mg 24 hr tablet Take 1 tablet (50 mg total) by mouth 1 (one) time each day. 90 tablet 1 08/31/19 25 2024 Discontinued ketoconazole (NIZORAL) 2 % cream Apply 1 Application topically 1 (one) time each day. 10/31/19 25 2024 Discontinued(R eorder) losartan (COZAAR) 100 mg tablet TAKE 1 TABLET BY MOUTH 1 TIME EACH DAY. 90 tablet 11/24/19 25 2024 Discontinued oxyCODONE-aceta minophen (PERCOCET) 5-325 mg per tabletIndicatio ns:Lumbar disc disease Take 1 tablet by mouth 4 (four) times a day. Max Daily Amount: 4 tablets 112 tablet 01/16/202024 Discontinued(R eorder) Active Problems Problem Noted Date [...] Encounters Date Type Department Care Team Description 02/15/2025 3:45 PM EST Office Visit Adult Medicine [address] [phone] Valentin Newton MD Intractable headache, unspecified chronicity pattern, unspecified headache type (Primary Dx); Chest pain, unspecified type; Primary hypertension; High cholesterol; Type 2 diabetes mellitus without complications, unspecified whether chcf insulin use ([facility] V24, [facility] V28) 01/23/2025 Telephone Pulmonology [facility] [address] [phone] Ramonita Hale DE 01/23/2025 Results Follow-Up [address] [phone] Aidee Tamayo PA 01/18/[address] [phone] Stefan Miller MD 01/16/2025 3:45 PM EDT Office Visit [address] [phone] Aidee Tamayo PA Diabetic nephropathy associated with type 2 diabetes mellitus ([facility] V24, [facility] V28) (Primary Dx); Microalbuminuria; Essential hypertension 01/09/2025 3:00 PM EDT Office Visit Orthopedic Surgery [facility] [address] [phone] Glenn Munoz DPM Left foot soft tissue tumor (Primary Dx); Dermatophytosis of nail; Diabetic mononeuropathy simplex ([facility] V24, [facility] V28); Acquired hammer toe of right foot; Type II diabetes mellitus with peripheral circulatory disorder ([facility] V24, [facility] V28); Hammer toe of left foot; Metatarsalgia of both feet; Pain in toe of left foot; Pain in toe of right foot; Corns and callosities 12/05/2024 3:00 PM EDT Office Visit Adult Medicine [address] [phone] Elisa rAias, ORGANIZATIONAL EFFECTIVENESS DIRECTOR Essential hypertension (Primary Dx); MICHELLE on CPAP from Last 3 Months Immunizations Immunization Administration Dates Next Due Pneumococcal polysaccharide 23 valent (Pneumovax 23) 2yo and older 02/13/2011 Td Tetanus diptheria (Tdvax) 7yo and older 11/06,08/28/2005 Tdap Tetanus diptheria acell ular pertussis (Boostrix; Adacel) 7yo and older 02/13/2011 Surgical History Surgery Date Site/Laterality Comments OTHER SURGICAL HISTORY PROCEDURE: [place] DRAINAGE PERITON ABSCESS/LOCAL PERITONITIS OPEN CHOLECYSTECTOMY PROCEDURE: [...] your loved ones. For example, child care development specialist or elderly care for an older [...] Sign Reading Time Taken Comments Blood Pressure 158/100 02/15/2025 3:58 PM EST provider to recheck bp Pulse 84 02/15/2025 3:58 PM EST Temperature 36.5 C (97.7 F) 02/15/2025 3:58 PM EST Respiratory Rate 14 02/15/2025 3:58 PM EST Oxygen Saturation 98% 02/15/2025 3:5 8 PM EST Inhaled Oxygen Concentration - - Weight 88 kg (194 lb) 02/15/2025 3:58 PM EST Height 165.1 cm (5' 5 ) 02/15/2025 3:58 PM EST Body Mass Index 32.28 02/15/2025 3:58 PM EST Plan of Treatment Upcoming Encounters Date Type Department Care Team (Late st Contact Info) Description 03/16/2025 1:00 PM EST Ancillary Procedure [facility] [address] [place] [phone] 03/19/2025 3:00 PM EST Office Visit Adult Medicine [address] [phone] Elisa Arias, ORGANIZATIONAL EFFECTIVENESS DIRECTOR [address] [place] [address] 03/30/2025 2:30 PM EST Office Visit [address] [phone] Aidee Tamayo PA [address] [place] [address] 04/09/2025 3:00 PM EST Office Visit Adult Medicine [address] [phone] Elisa Arias, ORGANIZATIONAL EFFECTIVENESS DIRECTOR [address] [place], [place] 04/11/2025 3:30 PM EST Office Visit Orthopedic Surgery [facility] [address] [phone] Glenn Munoz, DPM [address] [phone] Health Maintenance Due Date Last Done Comments Colorectal Cancer Screening: Colonoscopy 1976 Diabetes: Annual Foot Exam 1986 Pneumococcal Vaccine: Pediatrics (0 to 5 Years) and At-Risk Patients (6 to 49 Years) (2 of 2 - PCV) 02/14/2012 02/13/2011 Hepatitis B Vaccines (2 of 3 - 19+ 3-dose series) 09/20/2013 08/23/2013 Cervical Cancer Screening: Pap Smear 06/04/2019 06/03/2016 HIV Screening 03/07/2022 Hepatitis C Screening [...] Screening 10/03/2025 10/03/2024 Breast Cancer Screening 11/02/2026 11/03/19 25, 03/24/2024, 09/08/2022, Additional history exists Cholesterol Screening [...] nephropathy associated with type 2 diabetes mellitus ([facility] V24, [facility] V28) MG MAMMO DIGITAL DIAGNOSTIC W FLAVIO RIGHT Routine 11/02/2024 2:52 PM EDT Mass of right breast, unspecified quadrant MICROALBUMIN CREATININE URINE RATIO Routine 06/23/2024 4:09 PM EDT Type 2 diabetes mellitus without complication, unspecified whether joint terminal attack controller insulin use ([facility] V24, [facility] V28) COMPREHENSIVE METABOLIC PANEL Routine 06/23/2024 4:09 PM EDT Type 2 diabetes mellitus without complication, unspecified whether joint terminal attack controller insulin use ([facility] V24, [facility] V28) Encounter for long-term (current) use of medications Essential hypertension LIPID PANEL WITH REFLEX TO DIRECT LDL Routine 06/23/2024 4:09 PM EDT High cholesterol HM PAP SMEAR Routine 06/03/2016 from Last 3 Months or Most Recently Relevant to Health Maintenance Results * (ABNORMAL) Hemoglobin A1c (01/19/2025 3:50 PM EDT) Hemoglobin A1C 9.3(H) <6.5 % LAB CHEMISTRY METHOD 01/19/2025 9:[address] [facility] Mean Bld Glu Estim. 220 mg/dL LAB CHEMISTRY METHOD 01/19/2025 9:[address] [facility] Blood Venous blood specimen / Unknown Venipuncture / Unknown 01/19/2025 3:50 PM EDT 01/19/2025 3:50 PM EDT us Aidee MICHAEL LAB BLOOD ORDERABLES Final Result [facility] [address] [place] [address], [place] [phone] * MG Mammo Digital Diagnostic w Flavio [...] of right breast is recommended. MAMMO LOCATION: [facility], [address] [place] [address], [phone], . -------- FINAL REPORT -------- Dictated By: Noa Hwang Dictated Date: 11/02/2024 16:05 ET Assigned Physician: Noa Hwang Reviewed and Electronically Signed By: Noa Hwang Signed Date: 11/02/2024 16:10 ET Workstation ID: [id number] Transcribed By: Self Edit Transcribed Date: 11/02/2024 [...] identified. Procedure Note Noa Hwang MD - 11/02/2024 EXAM: MG MAMMO DIGITAL DIAGNOSTIC W FLAVIO [...] of right breast is recommended. MAMMO LOCATION: [facility], [address] [place] [address], [phone], . -------- FINAL REPORT -------- Dictated By: Noa Hwang Dictated Date: 11/02/2024 16:05 ET Assigned Physician: Noa Hwang Reviewed and Electronically Signed By: Noa Hwang Signed Date: 11/02/2024 16:10 ET Workstation ID: [id number] Transcribed By: Self Edit Transcribed Date: 11/02/2024 16:05 ET us Elisa Arias ORGANIZATIONAL EFFECTIVENESS DIRECTOR IMG BI PROCEDURES Final Resul t * Lipid panel with reflex to direct LDL (06/23/2024 4:09 PM EDT) Cholesterol 136 0 - 200 mg/dL LAB CHEMISTRY METHOD 06/23/2024 6:[address] [facility] Triglycerides 79 0 - 150 mg/dL LAB CHEMISTRY METHOD 06/23/2024 6:[address] [facility] HDL 47 >=40 mg/dL LAB CHEMISTRY METHOD 06/23/2024 6:[address] [facility] LDL Calculated 73 0 - 100 mg/dL LAB CHEMISTRY METHOD 06/23/2024 6:[address] [facility] VLDL Cholesterol Sachin 15.8 mg/dL LAB CHEMISTRY METHOD 06/23/2024 6:[address] [facility] Non HDL Chol. (LDL+VLDL) 89 <145 mg/dL LAB CHEMISTRY METHOD 06/23/2024 6:[address] [facility] Chol/HDL Ratio 2.9 0.0 - 4.4 LAB CHEMISTRY METHOD 06/23/2024 6:[address] [facility] Blood Venous blood specimen / Unknown Venipuncture / Unknown 06/23/2024 4:09 PM EDT 06/23/2024 4:09 PM EDT us Valentin Newton MD LAB BLOOD ORDERABLES Final Resu lt [facility] [address] [place] [address], * (ABNORMAL) Microalbumin creatinine urine ratio (06/23/2024 4:09 PM EDT) Creatinine, Urine 160.0 mg/dL LAB CHEMISTRY METHOD 06/23/2024 7:[address] [facility] Microalb, Ur 32.5(H) 0.0 - 29.0 mg/L LAB CHEMISTRY METHOD 06/23/2024 7:[address] [facility] Microalb/Crea t Ratio 20 <30 mg/g creat LAB CHEMISTRY METHOD 06/23/2024 7:[address] [facility] Urine Urine specimen obtained by clean catch procedure / Unknown Non-blood Collection / Unknown 06/23/2024 4:09 PM EDT 06/23/2024 4:09 PM EDT us Valentin Newton MD LAB URINE ORDERABLES Final Resu lt [facility] [address] [place] [address], * (ABNORMAL) Comprehensive metabolic panel (06/23/2024 4:09 PM EDT) Sodium 135 133 - 145 mmol/L LAB CHEMISTRY METHOD 06/23/2024 6:[address] [facility] Potassium 3.9 3.5 - 5.5 mmol/L LAB CHEMISTRY METHOD 06/23/2024 6:32 PM [facility] Chloride 99 96 - 110 mmol/L LAB CHEMISTRY METHOD 06/23/2024 6:32 PM [facility] CO2 30 21 - 32 mmol/L LAB CHEMISTRY METHOD 06/23/2024 6:32 PM [facility] Anion Gap 6 3 - 11 LAB CHEMISTRY METHOD 06/23/2024 6:32 PM [facility] Glucose 226(H) 70 - 100 mg/dL LAB CHEMISTRY METHOD 06/23/2024 6:32 PM [facility] BUN 11 5 - 25 mg/dL LAB CHEMISTRY METHOD 06/23/2024 6:32 PM [facility] Creatinine 0.79 0.50 - 1.10 mg/dL LAB CHEMISTRY METHOD 06/23/2024 6:32 PM [facility] eGFR 93 >=60 mL/min/1. 73m2 LAB CHEMISTRY METHOD 06/23/2024 6:32 PM [facility] Comment:Calculation based on the Chronic Kidney Disease Epidemiology Collaboration (CKD-EPI) equation refit without adjustment for race. BUN/Creatinine Ratio 13.9 LAB CHEMISTRY METHOD 06/23/2024 6:32 PM [facility] Calcium 10.0 8.5 - 10.5 mg/dL LAB CHEMISTRY METHOD 06/23/2024 6:[address] [facility] AST (SGOT) 13 10 - 42 unit/L LAB CHEMISTRY METHOD 06/23/2024 6:[address] [facility] ALT (SGPT) 26 10 - 60 unit/L LAB CHEMISTRY METHOD 06/23/2024 6:[address] [facility] Alkaline Phosphatase 58 42 - 121 unit/L LAB CHEMISTRY METHOD 06/23/2024 6:[address] [facility] Total Protein 7.9 6.0 - 8.0 g/dL LAB CHEMISTRY METHOD 06/23/2024 6:[address] [facility] Albumin 3.8 3.2 - 5.0 g/dL LAB CHEMISTRY METHOD 06/23/2024 6:[address] [facility] Total Bilirubin 0.3 0.0 - 1.4 mg/dL LAB CHEMISTRY METHOD 06/23/2024 6:[address] [facility] Blood Venous blood specimen / Unknown Venipuncture / Unknown 06/23/2024 4:09 PM EDT 06/23/2024 4:09 PM EDT us Valentin Newton MD LAB BLOOD ORDERABLES Final Resu lt [facility] [address] [place] [address], * Pap Smear (06/03/2016) Pap smear Negative, Abstracted Historical Provider HEALTH MAINTENANCE Final Result from Last 3 Months or Most Recently Relevant to Health Maintenance Insurance [facility] MEDICARE Member Subscriber Plan / Payer (Ef fective 2018-Present) Name:LASHELL MCMANUS Relation to Subscriber:Self Name:Lashell Mcmanus Payer ID:[id number] Group ID:[id number] Type:Not on file Address: [place] [address] [address] [phone] Care Teams Warp Clamper Relationship Specialty Start Date End Date Valentin Newton MD [address] [place] [phone] PCP - General Internal Medicine 03/02/24
--- OUTSIDE RECORDS SUMMARY | 2025-03-01 20:14 | XMS_ITS | Encounter Summary ---
Author Organization [facility] Prior to 01/28/2024 Address [address] [place] [address] Care Team Providers Care Salesforce Developer Name Role Phone Valentin Newton MD Primary Care Provider [phone] Singh Lott MD Unavailable Encounter Details Date Type Department Care Team Description 06/09/2023 Refill Adult Medicine [address] [phone] Valentin Newton MD [address] [place] [address] [phone] Social History Tobacco Use Types Packs/Day Years [...] 10 MG TABLET 30 30 Mo Par [id number] [facility] 2/5 0.50 [facility] [place] 05/12/2023 05/12/2023 2 OXYCODONE-ACETAMINOPHEN 5-325 112 28 An Cru [id number] [facility] ([facility] 0/0 30.00 MME Medicare [place] 05/04/2023 02/25/2023 1 ZOLPIDEM TARTRATE 10 MG TABLET 30 30 Mo Par [id number] [facility] 1/5 0.50 [facility] [place] 05/04/2023 02/25/2023 1 LORAZEPAM 0.5 MG TABLET 15 30 Mo Par [id number] [facility] ([facility] 1/5 0.25 LME [place] 04/14/2023 04/14/2023 2 OXYCODONE-ACETAMINOPHEN 5-325 112 28 An Cru [id number] [facility] ([facility]) 0/0 30.00 MME [place] 03/31/2023 02/25/2023 1 ZOLPIDEM TARTRATE 10 MG TABLET 30 30 Mo Par [id number] [facility] ([facility] 0/5 0.50 [facility] [place] 03/30/2023 02/25/2023 1 LORAZEPAM 0.5 MG TABLET 15 30 Mo Par [id number] [facility] ([facility]) 0/5 0.25 LME [place] 03/17/2023 03/17/2023 2 OXYCODONE-ACETAMINOPHEN 5-325 112 28 An Cru [id number] [facility] ([facility]) 0/0 30.00 MME [place] 03/01/2023 12/31/2022 1 LORAZEPAM 0.5 MG TABLET 15 30 Mo Par [id number] [facility] ([facility]) 0/0 0.25 LME Medicare documented in this encounter Plan of Treatment Not on file documented as of this encounter Visit Diagnoses Not on filedocumented in this encounter Care Teams Salesforce Developer Relationship Specialty Start Date End Date Valentin Newton MD [address] [place] [address] PCP - General Internal Medicine 05/01/14 Singh Lott MD [address] [place] [address] Getterer Cardiovascular Disease 01/21/21 documented as of this encounter
--- OUTSIDE RECORDS SUMMARY | 2025-03-01 20:14 | XMS_ITS | Encounter Summary ---
Author Organization [employer] [facility] Prior to 01/28/2024 Address [address] [place] [address] Care Team Providers Care Mule Rider Name Role Phone Valentin Newton MD Primary Care Provider [phone] Singh Lott MD Unavailable Encounter Details Date Type Department Care Team Description 05/28/2023 [facility] Medical Records [address] [place] [address] Abstract, Provider Social History Tobacco Use Types [...] on filedocumented in this encounter Care Teams Mule Rider Relationship Specialty Start Date End Date Valentin Newton MD [address] [place] [address] PCP - General Internal Medicine 05/01/14 Singh Lott MD [address] [place] [address] Child Care Provider Cardiovascular Disease 01/21/21 documented as of this encounter
--- OUTSIDE RECORDS SUMMARY | 2025-03-01 20:15 | XMS_ITS | Encounter Summary ---
Author Organization [facility] Address [address] [place] [address] Care Team Providers Care Telephone Interviewer Name Role Phone Valentin Newton MD Primary Care Provider [phone] Encounter Details Date Type Department Care Team (Late Contact Info) Description 01/23/2025 Results Follow-Up Endocrinology - [address] [phone] Aidee Tamayo PA [address] [place] [address] Social History Tobacco Use Types Packs/Day Years Used Date Smoking Tobacco: Every Day Cigarettes Smokeless Tobacco: Never Alcohol Use Standard Drinks/Week Comments No 0 (1 standard drink = 0.6 oz pur e alcohol) Dependent Care Answer Date Recorded Do you need help finding or paying for care for your loved ones. For example, children's court magistrate or elderly care for an older adult? [...] Description 03/16/2025 1:00 PM EST Ancillary Procedure [facility] [address] [facility] [address] [place] [phone] 03/19/2025 3:00 PM EST Office Visit Adult [address] [phone] Elisa Arias, GRAVEL INSPECTOR [address] [place], [place] 03/30/2025 2:30 PM EST Office Visit Endocrinology [address] [phone] Aidee Tamayo PA [facility] [place] [address] 04/09/2025 3:00 PM EST Office Visit Adult [address] [phone] Elisa Arias GRAVEL INSPECTOR [address] [place], [place] 04/11/2025 3:30 PM EST Office Visit Orthopedic Surgery - [place] [address] [phone] Glenn Munoz, DPM [address] [phone] documented as of this encounter Visit Diagnoses Not on filedocumented in this encounter Additional Health Concerns Assessment Noted Time PHQ-9 Depression Total Score: 8 06/24/19 25 7:29 AM EDT documented as of this encounter Care Teams Telephone Interviewer Relationship Specialty Start Date End Date Valentin Newton MD [address] [place] [address] PCP - General Internal Medicine 03/02/24 documented as of this encounter
--- OUTSIDE RECORDS SUMMARY | 2025-03-01 20:16 | XMS_ITS | Encounter Summary ---
Author Organization [facility] Prior to 01/28/2024 Address [address] [place] [address] Care Team Providers Care Broom Builder Name Role Phone Valentin Newton MD Primary Care Provider [phone] Singh Lott MD Unavailable Encounter Details Date Type Department Care Team Description 08/31/2023 Refill Endocrinology - [address] [phone] Flora Knox PA-C [address] [place] [address] [phone] Social History Tobacco Use Types Packs/Day Years [...] encounter Miscellaneous Notes * Telephone Encounter - Jennifer Art C.M.A. - 09/01/2023 9:24 AM EDT LV 08/20/23 Appt 11/26/23 Please send to [facility] [address] documented in this encounter Plan of Treatment Not on file documented as of this encounter Visit Diagnoses Diagnosis Type 2 diabetes mellitus without complication, with long-term current use of insulin (HCC) documented in this encounter Care Teams Broom Builder Relationship Specialty Start Date End Date Valentin Newton MD [address] [place] [address] PCP - General Internal Medicine 05/01/14 Singh Lott MD [address] [place] [address] Blueprint Reader Cardiovascular Disease 01/21/21 documented as of this encounter
--- OUTSIDE RECORDS SUMMARY | 2025-03-01 20:16 | XMS_ITS | Encounter Summary ---
Author Organization [employer] [facility] Prior to 01/28/2024 Address [address] [place] [address] Care Team Providers Care Broomcorn Scraper Name Role Phone Valentin Newton MD Primary Care Provider [phone] Singh Lott MD Unavailable Encounter Details Date Type Department Care Team Description 03/11/2021 [facility] Medical Records [address] [place] [address] [address] [facility] Social History Tobacco Use Types Packs/Day Years [...] on filedocumented in this encounter Care Teams Broomcorn Scraper Relationship Specialty Start Date End Date Valentin Newton MD [address] [place] [address] [phone] PCP - General Internal Medicine 05/01/14 Singh Lott MD [address] [place] [address] [phone] Asphalt Screed Operator Cardiovascular Disease 01/21/21 documented as of this encounter
--- OUTSIDE RECORDS SUMMARY | 2025-03-01 20:16 | XMS_ITS | Encounter Summary ---
Author Organization [facility] Prior to 01/28/2024 Address [address] [place] [address] Care Team Providers Care Head Operator Sulfide Name Role Phone Valentin Newton MD Primary Care Provider [phone] Singh Lott MD Unavailable Encounter Details Date Type Department Care Team Description 04/22/2021 [facility] Medical Records [address] [place] [address] Abstract, Provider Social History Tobacco Use Types [...] or suspected to have Coronavirus / COVID-19? Unable to assess 04/04/2021 12:31 PM EST documented as of this encounter Plan of Treatment Not on file documented as of this encounter Visit Diagnoses Not on filedocumented in this encounter Care Teams Head Operator Sulfide Relationship Specialty Start Date End Date Valentin Newton MD [address] [place] [address] PCP - General Internal Medicine 2/3/15 Singh Lott MD [address] [place] [address] Warehouse Selector Cardiovascular Disease 01/21/21 documented as of this encounter
--- OUTSIDE RECORDS SUMMARY | 2025-03-01 20:16 | XMS_ITS | Encounter Summary ---
Author Organization [facility] Prior to 01/28/2024 Address [address] [place] [address] Care Team Providers Care Roustabout Head Name Role Phone Valentin Newton MD Primary Care Provider [phone] Singh Lott MD Unavailable Encounter Details Date Type Department Care Team Description 03/05/2021 [facility] Report Medical Records [address] [place] [address] Abstract, Provider Social History Tobacco Use Types [...] on filedocumented in this encounter Care Teams Roustabout Head Relationship Specialty Start Date End Date Valentin Newton MD [address] [place] [address] PCP - General Internal Medicine 05/01/14 Singh Lott MD [address] [place] [address] Data Visualization Developer Cardiovascular Disease 01/21/21 documented as of this encounter
--- OUTSIDE RECORDS SUMMARY | 2025-03-01 20:17 | XMS_ITS | Encounter Summary ---
Author Organization [facility] Prior to 01/28/2024 Address [address] [place] [address] Care Team Providers Care Medical Economics Consultant Name Role Phone Valentin Newton MD Primary Care Provider Singh Lott MD Unavailable Reason for Visit * Reason Onset Date Comments refill request 06/12/2019 Encounter Details Date Type Department Care Team Description 06/12/2019 Telephone Adult Medicine [address] [phone] Valentin Newton MD [address] [place] [address] [phone] refill request Social History Tobacco Use Types [...] encounter Miscellaneous Notes * Telephone Encounter - Valentin Newton MD - 06/12/2019 3:10 PM EDT Will rx an albuterol inhaler * Telephone Encounter - Montserrat Jarquin M.A. - 06/12/2019 1:39 PM EDT Albuterol has not been prescribed by our office please advise if you will fill? * Telephone Encounter - Dina Swift - 06/12/2019 1:27 PM EDT Pt has asthma but not having symptoms now. She states was prescribed by her previous doctor 2 yearsago- requesting to have this med on hand. Patient would like script to be: E-PRESCRIBED/FAXED TO PHARMACY When was the patients last office visit in Adult Medicine?: 05/29/2019 When was the last time the patient saw their PCP? Same as above Does patient have an upcoming appointment? Yes 08/28/2019 (THE MEDICATION IS NOT ON THE MED LIST AND IS IDENTIFIED BELOW): {MED LIST:[id number]) Med name: Albuterol Sulfate Inhaler Dosage: # of tablets: Local pharmacy with request for 30 -day supply Instructions: As needed Did you check the pharmacy information above?: YES Patients current insurance carrier: Payor: [facility] / Plan: [facility] / Product Type: HMO [id number]-Jpprhud documented in this encounter Plan of Treatment Not on file documented as of this encounter Visit Diagnoses Not on filedocumented in this encounter Care Teams Medical Economics Consultant Relationship Specialty Start Date End Date Valentin Newton MD [address] [place] [address] PCP - General Internal Medicine 05/01/14 Singh Lott MD [address] [place] [address] 01020 Continuous Improvement Engineer Cardiovascular Disease 01/21/21 documented as of this encounter
--- OUTSIDE RECORDS SUMMARY | 2025-03-01 20:17 | XMS_ITS | Encounter Summary ---
Author Organization [facility] Prior to 01/28/2024 Address [address] [place] [address] Care Team Providers Care Insurance Office Manager Name Role Phone Valentin Newton MD Primary Care Provider [phone] Singh Lott MD Unavailable Encounter Details Date Type Department Care Team Description 08/08/2021 [facility] Report Medical Records [address] [place] [address] 67409 Abstract, Provider Social History Tobacco Use Types [...] suspected to have Coronavirus/COVID-19? No / Unsure 07/17/2021 1:01 PM EDT documented as of this encounter Plan of Treatment Not on file documented as of this encounter Visit Diagnoses Not on filedocumented in this encounter Care Teams Insurance Office Manager Relationship Specialty Start Date End Date Valentin Newton MD [address] [place] [address] PCP - General Internal Medicine 05/01/14 Singh Lott MD [address] [place] [address] 40390 Metal Model Maker Cardiovascular Disease 01/21/21 documented as of this encounter
--- OUTSIDE RECORDS SUMMARY | 2025-03-01 20:17 | XMS_ITS | Encounter Summary ---
Author Organization [facility] Prior to 01/28/2024 Address [address] [place] [address] Care Team Providers Care Alteration Worker Name Role Phone Valentin Newton MD Primary Care Provider [phone] Singh Lott MD Unavailable Encounter Details Date Type Department Care Team Description 03/24/2021 [facility] Report Medical Records [address] [place] [address] 9[address] Abstract, Provider Social History Tobacco Use Types [...] on filedocumented in this encounter Care Teams Alteration Worker Relationship Specialty Start Date End Date Valentin Newton MD [address] [place] [address]20 PCP - General Internal Medicine 05/01/14 Singh Lott MD [address] [place] [address] 78624 Ornament Setter Cardiovascular Disease 01/21/21 documented as of this encounter
--- OUTSIDE RECORDS SUMMARY | 2025-03-01 20:17 | XMS_ITS | Encounter Summary ---
Author Organization [facility] Prior to 01/28/2024 Address [address] [place] [address] Care Team Providers Care Mid Wife Name Role Phone Valentin Newton MD Primary Care Provider [phone] Singh Lott MD Unavailable Encounter Details Date Type Department Care Team Description 06/25/2016 Release of Information Medical Records [address] [place] [address] 18319 Abstract, Provider Social History Tobacco Use Types [...] on filedocumented in this encounter Care Teams Mid Wife Relationship Specialty Start Date End Date Valentin Newton MD [address] [place] [address]20 PCP - General Internal Medicine 05/01/14 Singh Lott MD [address] [place] [address] 01020 Blood Bank Credit Clerk Cardiovascular Disease 01/21/21 documented as of this encounter
--- OUTSIDE RECORDS SUMMARY | 2025-03-01 20:17 | XMS_ITS | Encounter Summary ---
Author Organization [facility] Prior to 01/28/2024 Address [address] [place] [address] Care Team Providers Care Internal Corrosion Specialist Name Role Phone Valentin Newton MD Primary Care Provider [phone] Singh Lott MD Unavailable Encounter Details Date Type Department Care Team Description 03/19/2016 Business Doc Medical Records [address] [place] [address] 57177 Abstract, Provider Social History Tobacco Use Types [...] on filedocumented in this encounter Care Teams Internal Corrosion Specialist Relationship Specialty Start Date End Date Valentin Newton MD [address] [place] [address]20 PCP - General Internal Medicine 05/01/14 Singh Lott MD [address] [place] [address] 01020 Coremaker Floor Cardiovascular Disease 01/21/21 documented as of this encounter
--- OUTSIDE RECORDS SUMMARY | 2025-03-01 20:17 | XMS_ITS | Encounter Summary ---
Author Organization [facility] Prior to 01/28/2024 Address [address] [place] [address] Care Team Providers Care Rubber And Plastics Worker Name Role Phone Valentin Newton MD Primary Care Provider [phone] Singh Lott MD Unavailable Encounter Details Date Type Department Care Team Description 05/11/2019 Hospital Medical Records [address] [place], [place] [phone] [facility] Social History Tobacco Use Types [...] on filedocumented in this encounter Care Teams Rubber And Plastics Worker Relationship Specialty Start Date End Date Valentin Newton MD [address] [place] [address]20 PCP - General Internal Medicine 05/01/14 Singh Lott MD [address] [place] [address]20 Packing House Laborer Cardiovascular Disease 01/21/21 documented as of this encounter
--- OUTSIDE RECORDS SUMMARY | 2025-03-01 20:18 | XMS_ITS | Encounter Summary ---
Author Organization [facility] Prior to 01/28/2024 Address [address] [place] [address] Care Team Providers Care Sharepoint Application Developer Name Role Phone Valentin Newton MD Primary Care Provider [phone] Singh Lott MD Unavailable Encounter Details Date Type Department Care Team Description 05/16/2019 Walk In Clinic Visit Medical Records [address] [place] [address] [facility] Walk-In [facility] [place], [place] [phone] Social History Tobacco Use Types Packs/Day Years [...] on filedocumented in this encounter Care Teams Sharepoint Application Developer Relationship Specialty Start Date End Date Valentin Newton MD [address] [place] [address] [phone] PCP - General Internal Medicine 05/01/14 Singh Lott MD [address] [place] [address] Arboriculture Teacher Cardiovascular Disease 01/21/21 documented as of this encounter
--- OUTSIDE RECORDS SUMMARY | 2025-03-01 20:18 | XMS_ITS | Encounter Summary ---
Author Organization [facility] Prior to 01/28/2024 Address [address] [place] [address] Care Team Providers Care Food Dehydrator Operator Name Role Phone Valentin Newton MD Primary Care Provider [phone] Singh Lott MD Unavailable Encounter Details Date Type Department Care Team Description 05/13/2019 Hospital Medical Records [address] [place] [address] 24916 hKris Aguilar MD Social History Tobacco Use Types Packs/Day [...] on filedocumented in this encounter Care Teams Food Dehydrator Operator Relationship Specialty Start Date End Date Valentin Newton MD [address] [place] [address] PCP - General Internal Medicine 05/01/14 Singh Lott MD [address] [place] [address]20 Machine Welder Cardiovascular Disease 01/21/21 documented as of this encounter
--- OUTSIDE RECORDS SUMMARY | 2025-03-01 20:18 | XMS_ITS | Encounter Summary ---
Author Organization [facility] Prior to 01/28/2024 Address [address] [place] [address] Care Team Providers Care Photographic Equipment Assembler Name Role Phone Valentin Newton MD Primary Care Provider [phone] Singh Lott MD Unavailable Encounter Details Date Type Department Care Team Description 05/17/2019 Release of Information Medical Records [address] [place] [address] 523[address] Abstract, Provider Social History Tobacco Use Types [...] on filedocumented in this encounter Care Teams Photographic Equipment Assembler Relationship Specialty Start Date End Date Valentin Newton MD [address] [place] [address] PCP - General Internal Medicine 05/01/14 Singh Lott MD [address] [place] [address] [phone] Microbiology Technician Cardiovascular Disease 01/21/21 documented as of this encounter
--- OUTSIDE RECORDS SUMMARY | 2025-03-01 20:18 | XMS_ITS | Encounter Summary ---
Author Organization [facility] Prior to 01/28/2024 Address [address] [place] [address] Care Team Providers Care Director Of Agronomy Name Role Phone Valentin Newton MD Primary Care Provider [phone] Singh Lott MD Unavailable Reason for Visit * Reason Comments E-prescribe Rx Request Encounter Details Date Type Department Care Team Description 05/26/2019 Refill Pod[address] [phone] Dina Murphy DPM E-prescribe Rx Request Social History Tobacco Use [...] encounter Miscellaneous Notes * Telephone Encounter - Dina Murphy DPM - 05/26/2019 12:46 PM EST Patient completed course of medication documented in this encounter Plan of Treatment Not on file documented as of this encounter Visit Diagnoses Diagnosis Onychomycosis Dermatophytosis of nail documented in this encounter Care Teams Director Of Agronomy Relationship Specialty Start Date End Date Valentin Newton MD [address] [place] [address] [phone] PCP - General Internal Medicine 05/01/14 Singh Lott MD [address] [place] [address] [phone] Riverboat Master Cardiovascular Disease 01/21/21 documented as of this encounter
--- OUTSIDE RECORDS SUMMARY | 2025-03-01 20:19 | XMS_ITS | Encounter Summary ---
Author Organization [facility] Prior to 01/28/2024 Address [address] [place] [address] Care Team Providers Care Bench Scientist Name Role Phone Valentin Newton MD Primary Care Provider [phone] Singh Lott MD Unavailable Encounter Details Date Type Department Care Team Description 12/09/2016 Business Doc Medical Records [address] [place] [address] 27692 Abstract, Provider Social History Tobacco Use Types [...] on filedocumented in this encounter Care Teams Bench Scientist Relationship Specialty Start Date End Date Valentin Newton MD [address] [place] [address] PCP - General Internal Medicine 05/01/14 Singh Lott MD [address] [place] [address] [phone] Res Habilitation Assistant Cardiovascular Disease 01/21/21 documented as of this encounter
--- OUTSIDE RECORDS SUMMARY | 2025-03-01 20:19 | XMS_ITS | Encounter Summary ---
Author Organization [facility] Prior to 01/28/2024 Address [address] [place] [address] Care Team Providers Care Club Waiter/Waitress Name Role Phone Valentin Newton MD Primary Care Provider [phone] Singh Lott MD Unavailable Encounter Details Date Type Department Care Team Description 02/09/2017 Release of Information Medical Records [address] [place] [address] 99904 Abstract, Provider Social History Tobacco Use Types [...] on filedocumented in this encounter Care Teams Club Waiter/Waitress Relationship Specialty Start Date End Date Valentin Newton MD [address] [place] [address] PCP - General Internal Medicine 05/01/14 Singh Lott MD [address] [place] [address] 01020 Wax Engraver Cardiovascular Disease 01/21/21 documented as of this encounter
--- OUTSIDE RECORDS SUMMARY | 2025-03-01 20:20 | XMS_ITS | Encounter Summary ---
Author Organization [facility] Prior to 01/28/2024 Address [address] [place] [address] Care Team Providers Care Order Checker Name Role Phone Valentin Newton MD Primary Care Provider [phone] Singh Lott MD Unavailable Encounter Details Date Type Department Care Team Description 09/01/2016 Refill Adult Medicine [address] [phone] Valentin Newton MD [address] [place] [address] [phone] Social History Tobacco Use Types Packs/Day Years [...] UNIT/ML injection [Valentin Newton MD] Preferred pharmacy: [id number] - [place] - [address] [place] [address] Comment: documented in this encounter Plan of Treatment Not on file documented as of this encounter Visit Diagnoses Not on filedocumented in this encounter Care Teams Order Checker Relationship Specialty Start Date End Date Valentin Newton MD [address] [place] [address] 13243 PCP - General Internal Medicine 05/01/14 Singh Lott MD [address] [place] [address] [phone] Irradiated Fuel Handler Cardiovascular Disease 01/21/21 documented as of this encounter
--- OUTSIDE RECORDS SUMMARY | 2025-03-01 20:22 | XMS_ITS | Encounter Summary ---
Author Organization [facility] [employer] [facility] Prior to 01/28/2024 Address [address] [place] [address] Care Team Providers Care Box Icer Name Role Phone Valentin Newton MD Primary Care Provider [phone] Singh Lott MD Unavailable Encounter Details Date Type Department Care Team Description 10/12/2016 [facility] Controlled Substance Contract Medical Records [address] [place] [address] 58993 Abstract, Provider Social History Tobacco Use Types [...] filedocumented in this encounter Care Teams Box Icer Relationship Specialty Start Date End Date Valentin Newton MD [address] [place] [address]20 PCP - General Internal Medicine 05/01/14 Singh Lott MD [address] [place] [address] 0[address]20 Community Liaison Cardiovascular Disease 01/21/21 documented as of this encounter
--- OUTSIDE RECORDS SUMMARY | 2025-03-01 20:22 | XMS_ITS | Encounter Summary ---
Author Organization [facility] Prior to 01/28/[address] [place] [address] Care Team Providers Care Molder Sweep Name Role Phone Valentin Newton MD Primary Care Provider Singh Lott MD Unavailable Reason for Visit * Reason Comments E-prescribe Rx Request Encounter Details Date Type Department Care Team Description 01/08/2024 Refill Adult Medicine [address] [phone] Kourtney Cooper PA-C [address] [place] [address] [phone] E-prescribe Rx Request Social History Tobacco Use [...] N/A Patients current insurance carrier is: Payor: [facility] MCR / Plan: [facility] / Product Type: HMO [id number] documented in this encounter Plan of Treatment Not on file documented as of this encounter Visit Diagnoses Not on filedocumented in this encounter Care Teams Molder Sweep Relationship Specialty Start Date End Date Valentin Newton MD [address] [place] [address] 6[address] PCP - General Internal Medicine 05/01/14 Singh Lott MD [address] [place] [address] [phone] Body Builder Apprentice Cardiovascular Disease 01/21/21 documented as of this encounter
--- OUTSIDE RECORDS SUMMARY | 2025-03-01 20:22 | XMS_ITS | Clinical Summary ---
Author Organization [facility] Prior to 08/26/24 Address [address] [place] [address] Care Team Providers Care Admission Liaison Name Role Phone Valentin Newton MD Primary Care Provider [phone] Allergies No known active allergies Medications Medication [...] age to complete this topic Care Teams Admission Liaison Relationship Specialty Start Date End Date Valentin Newton MD PCP - General Internal Medicine 12/31/20
--- OUTSIDE RECORDS SUMMARY | 2025-03-01 20:22 | XMS_ITS | Encounter Summary ---
Author Organization [facility] Prior to 01/28/2024 Address [address] [place] [address] Care Team Providers Care Cloth Washer Name Role Phone Valentin Newton MD Primary Care Provider [phone] Singh Lott MD Unavailable Encounter Details Date Type Department Care Team Description 12/01/2023 Orders Only Medical Records [address] [place] [address] [facility] Social History Tobacco Use Types Packs/Day [...] Date/Time Associated Diagnosis Comments OUTSIDE ULTRASOUND Routine 11/19/2023 documented in this encounter Results * OUTSIDE ULTRASOUND (11/19/2023) [facility] RADIOLOGY documented in this encounter Visit Diagnoses Not on filedocumented in this encounter Care Teams Cloth Washer Relationship Specialty Start Date End Date Valentin Newton MD [address] [place] [address]757 PCP - General Internal Medicine 05/01/14 Singh Lott MD [address] [place], [place] [phone] Concrete Technician Cardiovascular Disease 01/21/21 documented as of this encounter
--- OUTSIDE RECORDS SUMMARY | 2025-03-01 20:22 | XMS_ITS | Encounter Summary ---
Author Organization [facility] Prior to 01/28/2024 Address [address] [place] [address] Care Team Providers Care Internal Specialist Name Role Phone Valentin Newton MD Primary Care Provider [phone] Singh Lott MD Unavailable Encounter Details Date Type Department Care Team Description 01/11/2024 Refill Endocrinology - [address] [phone] Aidee Tamayo PA-C [address] [place] [address]607 Social History Tobacco Use Types Packs/Day Years [...] filedocumented in this encounter Care Teams Internal Specialist Relationship Specialty Start Date End Date Valentin Newton MD [address] [place] [address]1020 PCP - General Internal Medicine 05/01/14 Singh Lott MD [address] [place] [address] 82578 Promotions Associate Cardiovascular Disease 01/21/21 documented as of this encounter
--- OUTSIDE RECORDS SUMMARY | 2025-03-01 20:22 | XMS_ITS | Encounter Summary ---
Author Organization [employer] [facility] Prior to 01/28/2024 Address [address] [place] [address] Care Team Providers Care Paper Goods Machine Set Up Operator Name Role Phone Valentin Newton MD Primary Care Provider [phone] Singh Lott MD Unavailable Encounter Details Date Type Department Care Team Description 12/02/2023 Plastics And Composites Inspector Report Medical Records [address] [place] [address] Elia Cruz Social History Tobacco Use Types [...] on filedocumented in this encounter Care Teams Paper Goods Machine Set Up Operator Relationship Specialty Start Date End Date Valentin Newton MD [address] [place] [address] [phone] PCP - General Internal Medicine 05/01/14 Singh Lott MD [address] [place] [address] [phone] Spectrograph Operator Cardiovascular Disease 01/21/21 documented as of this encounter
--- OUTSIDE RECORDS SUMMARY | 2025-03-01 20:23 | XMS_ITS | Encounter Summary ---
Author Organization [facility] Prior to 01/28/2024 Address [address] [place] [address] Care Team Providers Care Spiral Machine Operator Name Role Phone Valentin Newton MD Primary Care Provider [phone] Singh Lott MD Unavailable Encounter Details Date Type Department Care Team Description 10/04/2021 Refill Endocrinology - [address] [phone] Aidee Tamayo PA-C [address] [place] [address]65 Social History Tobacco Use Types Packs/Day Years [...] on filedocumented in this encounter Care Teams Spiral Machine Operator Relationship Specialty Start Date End Date Valentin Newton MD [address] [place] [address]20 PCP - General Internal Medicine 05/01/14 Singh Lott MD [address] [place] [address] 36898 Gettering Filament Machine Operator Cardiovascular Disease 01/21/21 documented as of this encounter
--- OUTSIDE RECORDS SUMMARY | 2025-03-01 20:23 | XMS_ITS | Encounter Summary ---
Author Organization [facility] Prior to 01/28/2024 Address [address] [place] [address] Care Team Providers Care Global Engineering Manager Name Role Phone Valentin Newton MD Primary Care Provider [phone] Singh Lott MD Unavailable Encounter Details Date Type Department Care Team Description 06/09/2017 Business Doc Medical Records [address] [place] [address] 52492 Abstract, Provider Social History Tobacco Use Types [...] on filedocumented in this encounter Care Teams Global Engineering Manager Relationship Specialty Start Date End Date Valentin Newton MD [address] [place] [address] [phone] PCP - General Internal Medicine 05/01/14 Singh Lott MD [address] [place] [address] [phone] Industrial Renderer Cardiovascular Disease 01/21/21 documented as of this encounter
--- OUTSIDE RECORDS SUMMARY | 2025-03-01 20:23 | XMS_ITS | Encounter Summary ---
Author Organization [facility] Prior to 01/28/2024 Address [address] [place] [address] Care Team Providers Care Public Safety Director Name Role Phone Valentin Newton MD Primary Care Provider [phone] Singh Lott MD Unavailable Encounter Details Date Type Department Care Team Description 05/13/2020 [facility] Medical Records [address] [place] [address] 20703 Abstract, Provider Social History Tobacco Use Types [...] have Coronavirus / COVID-19? No / Unsure 04/19/2020 2:28 PM EST documented as of this encounter Plan of Treatment Not on file documented as of this encounter Visit Diagnoses Not on filedocumented in this encounter Care Teams Public Safety Director Relationship Specialty Start Date End Date Valentin Newton MD [address] [place] [address]1020 PCP - General Internal Medicine 05/01/14 Singh Lott MD [address] [place] [address] 34767 Dental Billing Specialist Cardiovascular Disease 01/21/21 documented as of this encounter
--- OUTSIDE RECORDS SUMMARY | 2025-03-01 20:23 | XMS_ITS | Encounter Summary ---
Author Organization [facility] Prior to 01/28/2024 Address [address] [place] [address] Care Team Providers Care Coin Machine Collector Name Role Phone Valentin Newton MD Primary Care Provider [phone] Singh Lott MD Unavailable Reason for Visit * Reason Comments E-prescribe Rx Request Encounter Details Date Type Department Care Team Description 12/31/2024 Refill [facility] [address] [phone] Glenn Munoz DPM [address] [phone] E-prescribe Rx Request Social History Tobacco Use [...] on filedocumented in this encounter Care Teams Coin Machine Collector Relationship Specialty Start Date End Date Valentin Newton MD [address] [place] [address] 17189 PCP - General Internal Medicine 05/01/14 Singh Lott MD [address] [place] [address] 38228 Operator Engineer Cardiovascular Disease 01/21/21 documented as of this encounter
--- OUTSIDE RECORDS SUMMARY | 2025-03-01 20:23 | XMS_ITS | Encounter Summary ---
Author Organization [facility] Prior to 01/28/2024 Address [address] [place] [address] Care Team Providers Care Rn Baby Name Role Phone Valentin [place] MD Primary Care Provider [phone] Singh Lott MD Unavailable Reason for Visit * Reason Onset Date Comments REFERRAL 07/02/2014 Encounter Details Date Type Department Care Team Description 07/02/2014 Telephone Adult Medicine [address] [phone] Valentin [place] MD [address] [place] [address] [phone] REFERRAL Social History Tobacco Use Types Packs/Day Years Used Date Smoking Tobacco: Former Alcohol Use Standard Drinks/Week Comments No 0 (1 standard drink = 0.6 oz pur e alcohol) Sex Assigned at Date Recorded Not on file Job Start Date Occupation Industry Not on file Not on file Not on file documented as of this encounter Miscellaneous Notes * Telephone Encounter - Dina Patel - 07/02/2014 1:46 PM EDT Pt was put on the Podiatry referrals report for: Problem visit for mass like lesion 2nd digit left foot Priority: Next Available; Payor: Not third-republican related; pt was called and a letter was sent; pt has not responded; documented in this encounter Plan of Treatment Not on file documented as of this encounter Visit Diagnoses Not on filedocumented in this encounter Care Teams Rn Baby Relationship Specialty Start Date End Date Valentin [place] MD [address] [place] [address] 66142 PCP - General Internal Medicine 05/01/14 Singh Lott MD [address] [place] [address] 31064 Car Repairer Helper Cardiovascular Disease 01/21/21 documented as of this encounter
--- OUTSIDE RECORDS SUMMARY | 2025-03-01 20:23 | XMS_ITS | Encounter Summary ---
Author Organization [facility] Prior to 01/28/2024 Address [address] [place] [address] Care Team Providers Care Quilter Fixer Name Role Phone Valentin [place] MD Primary Care Provider [phone] Singh Lott MD Unavailable Reason for Visit * Reason Onset Date Comments TEST RESULTS 10/28/2021 Encounter Details Date Type Department Care Team Description 10/28/2021 Pt. Non Urgent Medical Question [address] [phone] Natalie Townsend PA Vitamin B12 deficiency (Primary Dx); Low mean corpuscular volume (MCV) Social History Tobacco Use Types Packs/Day Years [...] Telephone Encounter - Prisca Enamorado M.A. - 10/28/2021 3:08 PM EDTFrom: Iris Colon To: Naga Chinchilla Sent: 10/28/2021 3:03 PM EDT Subject: Question regarding VITAMIN B ASSAY Do I continue drinking vitamin B12 documented in this encounter Plan of Treatment Not on file documented as of this encounter Results * FERRITIN ASSAY (02/04/2022 10:13 AM EST) FERRITIN 8 8 - 252 ng/mL 02/04/2022 1:11 PM EST [facility] 02/04/2022 10:1 3 AM EST 02/04/2022 10:13 AM EST Narrative [facility] - 02/04/2022 1:11 PM EST Release to patient->Immediate Valentin [place] MD LAB [employer] * (ABNORMAL) IRON/TIBC (02/04/2022 10:13 AM EST) TOTAL IRON BINDING CAPACITY 434 250 - 450 ug/dL 02/04/2022 1:05 PM EST [facility] IRON (FE) 40 40 - 150 ug/dL 02/04/2022 1:05 PM EST [facility] % FE SATURATION 9(L) 15 - 50 % 1:05 PM EST [facility] 02/04/2022 10:1 3 AM EST 02/04/2022 10:13 AM EST Narrative [facility] - 02/04/2022 1:05 PM EST Release to patient->Immediate Valentin [place] MD LAB [employer] * HOMOCYSTEINE, TOTAL, SERUM (02/04/2022 10:13 AM EST) HOMOCYSTEINE 5.9 3.2 - 10.7 umol/L 02/04/2022 1:05 PM EST [facility] 02/04/2022 10:1 3 AM EST 02/04/2022 10:13 AM EST Narrative [employer] - 02/04/2022 1:05 PM EST Release to patient->Immediate Valentin [place] MD LAB Performing Organization Address [facility] Co de Phone Number [facility] * METHYLMALONIC ACID (MMA) SERUM (02/04/2022 10:13 AM EST) METHYLMALONIC ACID <0.10 <0.40 umol/L 02/06/2022 4:55 AM EST [facility] Comment: If applicable, any drug confirmation testing reported here was developed and the performance characteristics determined by [facility]. This confirmation testing has not been cleared or approved by the FDA. The laboratory is regulated under CLIA as qualified to perform high-complexity testing. This test is used for patient testing purposes. It should not be regarded as investigational or for research. Test performed at [facility], [facility] [place] [address] [place] [address] Alisha Hermosillo MD, PhD - Visual Communications Instructor 02/04/2022 10:1 3 AM EST 02/04/2022 10:13 AM EST Narrative [facility] [employer] - 02/06/2022 4:55 AM EST Release to patient->Immediate Valentin [place] MD LAB Performing Organization Address [facility] Co de Phone Number [facility] documented in this encounter Visit Diagnoses Diagnosis Vitamin B12 deficiency- Primary Other B-complex deficiencies Low mean corpuscular volume (MCV) Type 2 diabetes mellitus without complication, with long-term current use of insulin (HCC) Vitamin B12 deficiency Other B-complex deficiencies Low mean corpuscular volume (MCV) High cholesterol Pure hypercholesterolemia Essential hypertension Unspecified essential hypertension Encounter for long-term current use of medication History of iron deficiency anemia Personal history of diseases of blood and blood-forming organs documented in this encounter Care Teams Quilter Fixer Relationship Specialty Start Date End Date Valentin [place] MD [address] [place] [address] PCP - General Internal Medicine 05/01/14 Singh Lott MD [address] [place] [address] 42739 Drop Hammer Operator Helper Cardiovascular Disease 01/21/21 documented as of this encounter
--- OUTSIDE RECORDS SUMMARY | 2025-03-01 20:23 | XMS_ITS | Encounter Summary ---
[facility] to 01/28[facility]24 Address [address] [place] [address] Care Team Providers Care Ship Ceiler Name Role Phone Valentin [place] MD Primary Care Provider [phone] Singh Lott MD Unavailable Reason for Visit * Reason Onset Date Comments Mychart Rx Refill 10/23/2021 Encounter Details Date Type Department Care Team Description 10/23/2021 Refill Adult Medicine [address] [phone] Valentin [place] MD [address] [place] [address] [phone] Mychart Rx Refill Social History Tobacco Use [...] encounter Miscellaneous Notes * Telephone Encounter - Naseemdandyrick Trevino M.A. - 10/23/2021 8:47 AM EDT Pt's [facility]SC is contracted for [employer] , not [address] Lab Results Component Value Date URBENZO NONE DETECTED 10/22/2021 UROPIATES POSITIVE 10/22/2021 UROXYCODONE POSITIVE 10/22/2021 URBARBITUATE NONE DETECTED 10/22/2021 PAINAMPHETAM NONE DETECTED 10/22/2021 PAINCOCAINE NONE DETECTED 10/22/2021 PAINCANNABIN NONE DETECTED 10/22/2021 ZEHRA was telemed w/Natalie Chinchilla 10/17/2021 ZEHRA w/PCP was telemed 09/2020 Next OV 02/04/2022 w/PCP 10/09/2021 10/09/2021 1 Lorazepam 0.5 Mg Tablet 15 30 Mo Par [id number] [facility] 0/0 0.25 LME [place] 10/09/2021 10/09/2021 1 Zolpidem Tartrate 10 Mg Tablet 3 3 Mo Par [id number] [facility] ([facility]) 0/0 0.50 LME Private [place] 10/09/2021 10/09/2021 1 Zolpidem Tartrate 10 Mg Tablet 27 27 Mo Par [id number] [facility] ([facility]) 0/0 0.50 L[place] 09/25/2021 09/25/2021 1 Oxycodone-Acetaminophen 5-325 112 28 An Cru [id number] [facility] (3[facility]) 0/0 30.00 M[place] 09/11/2021 09/11/2021 1 Zolpidem Tartrate 10 Mg Tablet 30 30 Mo Par [id number] [facility] ([facility]) 0/0 0.50 [place] 09/11/2021 09/11/2021 1 Lorazepam 0.5 Mg Tablet 15 30 Mo Par [id number] [facility] ([facility]) 0/0 0.25 [place] 08/28/2021 08/28/2021 1 Oxycodone-Acetaminophen 5-325 112 28 An Cru [id number] [facility] ([facility]) 0/0 30.00 [place] 08/03/2021 07/17/2021 1 Zolpidem Tartrate 10 Mg Tablet 30 30 Mo Par [id number] [facility] ([facility]) 0/0 0.50 [place] 07/31/2021 07/31/2021 1 Oxycodone-Acetaminophen 5-325 112 28 An Cru [id number] [facility] (3[facility]) 0/0 30.00 [place] 07/17/2021 07/17/2021 1 Lorazepam 0.5 Mg Tablet 15 30 Mo Par [id number] [facility] (3[facility]) 0/0 0.25 [place] 07/06/2021 05/22/2021 1 Zolpidem Tartrate 10 Mg Tablet 30 30 Mo Par [id number] [facility] (3[facility]) 1/1 0.50 [place] 07/03/2021 07/03/2021 1 Oxycodone-Acetaminophen 5-325 112 28 As Kos [id number] [facility] (3[facility]) 0/0 30.00 [place] 06/18/2021 05/22/2021 1 Lorazepam 0.5 Mg Tablet 15 30 Mo Par [id number] [facility] (3[facility]) 0/1 0.25 [place] 06/05/2021 06/05/2021 1 Oxycodone-Acetaminophen 5-325 112 28 An Cru [id number] [facility] (3323) 0/0 30.00 [place] 06/03/2021 05/22/2021 1 Zolpidem Tartrate 10 Mg Tablet 30 30 Mo Par [id number] [facility] (3323) 0/1 0.50 LME [place] documented in this encounter Plan of Treatment Not on file documented as of this encounter Visit Diagnoses Not on filedocumented in this encounter Care Teams Ship Ceiler Relationship Specialty Start Date End Date Valentin [place] MD [address] [place] [address] 15630 PCP - General Internal Medicine 05/01/14 Singh Lott MD [address] [place] [address] 61515 Customer Sales Consultant Cardiovascular Disease 01/21/21 documented as of this encounter
--- OUTSIDE RECORDS SUMMARY | 2025-03-01 20:23 | XMS_ITS | Encounter Summary ---
Author Organization [facility] Prior to 01/28/2024 Address [address] [place] [address] Care Team Providers Care Motor Vehicle Examiner Name Role Phone Valentin [place] MD Primary Care Provider [phone] Singh Lott MD Unavailable Reason for Visit * Reason Onset Date Comments Testing 05/07/2022 EXTRACRANIAL ART ERIES STUDY, COMPL Encounter Details Date Type Department Care Team Description 05/07/2022 Telephone Adult Medicine [address] [phone] Valentin [place] MD [address] [place] [address] [phone] Testing (/EXTRACRANIAL ARTERIES STUDY, COMPL ) Social History Tobacco Use Types Packs/Day Years [...] encounter Miscellaneous Notes * Telephone Encounter - Mitch Bailey M.A. - 05/12/2022 9:09 AM EST Ordered cancel. * Telephone Encounter - Valentin [place] MD - 05/07/2022 3:17 PM EST Lets cancel this test and thank you * Telephone Encounter - Mitch Bailey M.A. - 05/07/2022 1:40 PM EST EXTRACRANIAL ARTERIES STUDY, COMPL 02/04/22, do you want to continue or cancel? documented in this encounter Plan of Treatment Not on file documented as of this encounter Visit Diagnoses Not on filedocumented in this encounter Care Teams Motor Vehicle Examiner Relationship Specialty Start Date End Date Valentin [place] MD [address] [place] [address] 65188 PCP - General Internal Medicine 05/01/14 Singh Lott MD [address] [place] [address] 39265 Laborer/Key Man Cardiovascular Disease 01/21/21 documented as of this encounter
--- OUTSIDE RECORDS SUMMARY | 2025-03-01 20:23 | XMS_ITS | Encounter Summary ---
Author Organization [facility] Prior to 01/28/2024 Address [address] [place] [address] Care Team Providers Care Narrative Writer Name Role Phone Valentin [place] MD Primary Care Provider Singh Lott MD Unavailable Reason for Visit * Reason Comments E-prescribe Rx Request Encounter Details Date Type Department Care Team Description 12/21/2023 Refill Adult Medicine [address] [phone] Kourtney Cooper PA-C [address] [place] [address] [phone] E-prescribe Rx Request Social History Tobacco Use [...] encounter Miscellaneous Notes * Telephone Encounter - Chana Tamayo - 12/24/2023 1:53 PM EDT Faxed to pharmacy * Telephone Encounter - Prisca Enamorado M.A. - 12/21/2023 3:17 PM EDT Lab Results Component Value Date NA 137 09/13/2023 K 3.9 09/13/2023 CO2 28 09/13/2023 CL 103 09/13/2023 BUN 17 09/13/2023 CREAT 0.82 09/13/2023 GLU 159 09/13/2023 CA 9.5 09/13/2023 GFR 89 09/13/2023 Pending appt 03/17/24 Last appt 12/17/23 * Telephone Encounter - Shilpa Hong - 12/21/2023 11:48 AM EDT Patient would like script to be: E-PRESCRIBED/FAXED TO PHARMACY WHEN WAS THE PATIENT'S LAST APPOINTMENT IN ADULT MEDICINE? 12/17/23 WHEN WAS THE LAST TIME THE PATIENT SAW THEIR PCP? 09/13/23 Does patient have an upcoming appointment? Yes 03/17/24 (THE MEDICATION REQUESTED IS ON THE MED [...] N/A Patients current insurance carrier is: Payor: Copyright AgentNethub [facility] MCR / Plan: [facility] / Product Type: HMO [id number] documented in this encounter Plan of Treatment Not on file documented as of this encounter Visit Diagnoses Not on filedocumented in this encounter Care Teams Narrative Writer Relationship Specialty Start Date End Date Valentin Newton MD [address] [place] [address] [phone] PCP - General Internal Medicine 05/01/14 Singh Lott MD [address] [place] [address] [phone] Public Relations Studies Director Cardiovascular Disease 01/21/21 documented as of this encounter
--- OUTSIDE RECORDS SUMMARY | 2025-03-01 20:23 | XMS_ITS | Encounter Summary ---
Author Organization [facility] Prior to 01/28/2024 Address [address] [place] [address] Care Team Providers Care Services Rep Name Role Phone Valentin [place] MD Primary Care Provider Singh Lott MD Unavailable Reason for Visit * Reason Comments E-prescribe Rx Request Encounter Details Date Type Department Care Team Description 03/31/2022 Refill Endocrinology - [place] [address] [place] [address] Aidee Tamayo PA-C [address] [place] [address] E-prescribe Rx Request Social History Tobacco Use [...] suspected to have Coronavirus/COVID-19? No / Unsure 03/03/2022 2:03 PM EST documented as of this encounter Plan of Treatment Not on file documented as of this encounter Visit Diagnoses Diagnosis Type 2 diabetes mellitus without complication, with long-term current use of insulin (HCC)- Primary documented in this encounter Care Teams Services Rep Relationship Specialty Start Date End Date Valentin [place] MD [address] [place] [address] [phone] PCP - General Internal Medicine 05/01/14 Singh Lott MD [address] [place] [address] [phone] Cryogenic Transport Driver Cardiovascular Disease 01/21/21 documented as of this encounter
--- OUTSIDE RECORDS SUMMARY | 2025-03-01 20:23 | XMS_ITS | Encounter Summary ---
Author Organization [facility] Prior to 01/28/[facility]24 Address [address] [place] [address] Care Team Providers Care Spray Pilot Name Role Phone Valentin [place] MD Primary Care Provider [phone] Singh Lott MD Unavailable Encounter Details Date Type Department Care Team Description 06/10/2020 [facility] Medical Records [address] [place] [address] 19513 Abstract, Provider Social History Tobacco Use Types [...] on filedocumented in this encounter Care Teams Spray Pilot Relationship Specialty Start Date End Date Valentin [place] MD [address] [place] [address] 29108 PCP - General Internal Medicine 2/3/15 Sinhg Lott MD [address] [place] [address] Grocery Cashier Cardiovascular Disease 01/21/21 documented as of this encounter
--- OUTSIDE RECORDS SUMMARY | 2025-03-01 20:23 | XMS_ITS | Encounter Summary ---
Author Organization [facility] Prior to 01/28/2024 Address [address] [place] [address] Care Team Providers Care Physical Fitness Teacher Name Role Phone Valentin [place] MD Primary Care Provider [phone] Singh Lott MD Unavailable Encounter Details Date Type Department Care Team Description 02/04/2022 Telephone Adult Medicine [address] [phone] Valentin Newton MD [address] [place] [address] [phone] Social History Tobacco Use Types Packs/Day Years [...] suspected to have Coronavirus/COVID-19? No / Unsure 02/04/2022 9:12 AM EST documented as of this encounter Miscellaneous Notes * Telephone Encounter - Tamanna Lima M.A. - 02/04/2022 12:23 PM EST Appt scheduled * Telephone Encounter - Valentin Newton MD - 02/04/2022 11:15 AM EST Please schedule pt with me 05/05/2022 at 10:30 for 30 minutes To f/u diabetes documented in this encounter Plan of Treatment Not on file documented as of this encounter Visit Diagnoses Not on filedocumented in this encounter Care Teams Physical Fitness Teacher Relationship Specialty Start Date End Date Valentin [place] MD [address] [place] [address] 11286 PCP - General Internal Medicine 05/01/14 Singh Lott MD [address] [place] [address] 78243 Punch Operator Cardiovascular Disease 01/21/21 documented as of this encounter
--- OUTSIDE RECORDS SUMMARY | 2025-03-01 20:23 | XMS_ITS | Encounter Summary ---
Author Organization [facility] Prior to 01/28/2024 Address [address] [place] [address] Care Team Providers Care Program Checker Name Role Phone Valentin [place] MD Primary Care Provider Singh Lott MD Unavailable Encounter Details Date Type Department Care Team Description 06/13/2020 Orders Only Adult Medicine [address] [phone] Natalie Chung PA-C Social History Tobacco Use [...] on filedocumented in this encounter Care Teams Program Checker Relationship Specialty Start Date End Date Valentin [place] MD [address] [place] [address] 40473 PCP - General Internal Medicine 05/01/14 Singh Lott MD [address] [place] [address] Pharmacy District Manager Cardiovascular Disease 01/21/21 documented as of this encounter
--- OUTSIDE RECORDS SUMMARY | 2025-03-01 20:23 | XMS_ITS | Encounter Summary ---
Author Organization [facility] Prior to 01/28/2024 Address [address] [place] [address] Care Team Providers Care Olive Knocker Name Role Phone Valentin [place] MD Primary Care Provider [phone] Singh Lott MD Unavailable Encounter Details Date Type Department Care Team Description 06/28/2014 DIGITAL MARKETING EXECUTIVE/[facility] Report Medical Records [address] [place] [address] 20939 Abstract, Provider Social History Tobacco Use Types [...] on filedocumented in this encounter Care Teams Olive Knocker Relationship Specialty Start Date End Date Valentin [place] MD [address] [place] [address] 01020 PCP - General Internal Medicine 05/01/14 Singh Lott MD [address] [place] [address] 01020 Swing Ride Operator Cardiovascular Disease 01/21/21 documented as of this encounter
--- OUTSIDE RECORDS SUMMARY | 2025-03-01 20:23 | XMS_ITS | Encounter Summary ---
Author Organization [facility] Prior to 01/28/[facility]24 Address [address] [place] [address] Care Team Providers Care Water Resources Business Segment Leader Name Role Phone Valentin [place] MD Primary Care Provider [phone] Singh Lott MD Unavailable Encounter Details Date Type Department Care Team Description 09/30/2022 Gasket Winder Report Medical Records [address] [place] [address] 76767 Elia Cruz Social History Tobacco Use Types [...] filedocumented in this encounter Care Teams Water Resources Business Segment Leader Relationship Specialty Start Date End Date Valentin [place] MD [address] [place] [address] 01020 PCP - General Internal Medicine 05/01/14 Singh Lott MD [address] [place] [address] 99574 Screen Printer Cardiovascular Disease 01/21/21 documented as of this encounter
--- OUTSIDE RECORDS SUMMARY | 2025-03-01 20:23 | XMS_ITS | Encounter Summary ---
Author Organization [facility] Prior to 01/28/2024 Address [address] [place] [address] Care Team Providers Care Rrt Name Role Phone Valentin [place] MD Primary Care Provider [phone] Singh Lott MD Unavailable Encounter Details Date Type Department Care Team Description 07/02/2022 Telephone Endocrinology - [address] [address] Aidee Tamayo PA-C [address] [place] [address] Social History Tobacco Use Types Packs/Day Years [...] suspected to have Coronavirus/COVID-19? No / Unsure 07/01/2022 10:38 AM EDT documented as of this encounter Miscellaneous Notes * Telephone Encounter - Aidee Tamayo PA-C - 07/02/2022 4:15 PM EDT Per patient ALFONSO has not sent her sensors because they are missing information from us documented in this encounter Plan of Treatment Not on file documented as of this encounter Visit Diagnoses Not on filedocumented in this encounter Care Teams Rrt Relationship Specialty Start Date End Date Valentin [place] MD [address] [place] [address] 64639 PCP - General Internal Medicine 05/01/14 Singh Lott MD [address] [place] [address] 65483 Merchandising Specialist Cardiovascular Disease 01/21/21 documented as of this encounter
--- OUTSIDE RECORDS SUMMARY | 2025-03-01 20:23 | XMS_ITS | Encounter Summary ---
Author Organization [facility] Prior to 01/28/2024 Address [address] [place] [address] Care Team Providers Care Limousine Driver Name Role Phone Valentin [place] MD Primary Care Provider [phone] Singh Lott MD Unavailable Encounter Details Date Type Department Care Team Description 01/17/2024 Refill Endocrinology - [address] [phone] Aidee Tamayo PA-C [address] [place] [address] 17359 Social History Tobacco Use Types Packs/Day Years [...] on filedocumented in this encounter Care Teams Limousine Driver Relationship Specialty Start Date End Date Valentin [place] MD [address] [place] [address]20 PCP - General Internal Medicine 05/01/14 Singh Lott MD [address] [place] [address] 45480 Air Quality Manager Cardiovascular Disease 01/21/21 documented as of this encounter
--- OUTSIDE RECORDS SUMMARY | 2025-03-01 20:24 | XMS_ITS | Encounter Summary ---
Author Organization [facility] Prior to 01/28/2024 Address [address] [place] [address] Care Team Providers Care Air Pollution Control Engineer Name Role Phone Valentin [place] MD Primary Care Provider [phone] Singh Lott MD Unavailable Encounter Details Date Type Department Care Team Description 08/01/2020 Refill Adult Medicine [address] [phone] Valentin [place] MD [address] [place] [address] [phone] Social History Tobacco Use Types Packs/Day Years [...] on filedocumented in this encounter Care Teams Air Pollution Control Engineer Relationship Specialty Start Date End Date Valentin [place] MD [address] [place] [address] [phone] PCP - General Internal Medicine 05/01/14 Singh Lott MD [address] [place] [address] [phone] Quarry Boss Cardiovascular Disease 01/21/21 documented as of this encounter
--- OUTSIDE RECORDS SUMMARY | 2025-03-01 20:24 | XMS_ITS | Patient Health Record ---
Author Organization [facility] Address [address] [place] [phone] Care Team Providers Care Product/Industry Consultant Name Role Phone Sam Mendoza Jr [phone] Reason For Referral No Information Plan Of Treatment No Information
--- OUTSIDE RECORDS SUMMARY | 2025-03-01 20:24 | XMS_ITS | Encounter Summary ---
Author Organization [facility] Prior to 01/28/2024 Address [address] [place] [address] Care Team Providers Care Travel Information Center Supervisor Name Role Phone Valentin [place] MD Primary Care Provider [phone] Singh Lott MD Unavailable Encounter Details Date Type Department Care Team Description 12/30/2022 Refill Endocrinology - [place] [address] [place] [address] Aidee Tamayo PA-C [address] [place], [place] [phone] Social History Tobacco Use Types Packs/Day Years [...] on filedocumented in this encounter Care Teams Travel Information Center Supervisor Relationship Specialty Start Date End Date Valentin [place] MD [address] [place] [address] 73791 PCP - General Internal Medicine 05/01/14 Singh Lott MD [address] [place] [address] 99156 Banking Services Officer Cardiovascular Disease 01/21/21 documented as of this encounter
--- OUTSIDE RECORDS SUMMARY | 2025-03-01 20:24 | XMS_ITS | Encounter Summary ---
Author Organization [facility] Prior to 01[facility]28/[facility]24 Address [address] [place] [address] Care Team Providers Care Contract Management Specialist Name Role Phone Valentin Newton MD Primary Care Provider [phone] Singh Lott MD Unavailable Encounter Details Date Type Department Care Team Description 01/03/2018 Refill Adult Medicine [address] [phone] Valentin Newton MD [address] [place] [address] [phone] Social History Tobacco Use Types Packs/Day Years [...] on filedocumented in this encounter Care Teams Contract Management Specialist Relationship Specialty Start Date End Date Valentin Newton MD [address] [place] [address] [phone] PCP - General Internal Medicine 05/01/14 Singh Lott MD [address] [place] [address] Laser Beam Machine Operator Cardiovascular Disease 01/21/21 documented as of this encounter
--- OUTSIDE RECORDS SUMMARY | 2025-03-01 20:24 | XMS_ITS | Encounter Summary ---
Author Organization [employer] [facility] Prior to 01/28/2024 Address [address] [place] [address] Care Team Providers Care Waste Cotton Cleaner Name Role Phone Valentin Newton MD Primary Care Provider [phone] Singh Lott MD Unavailable Encounter Details Date Type Department Care Team Description 12/27/2015 [facility] Medical Records [address] [place] [address] Abstract, Provider Social History Tobacco Use Types [...] on filedocumented in this encounter Care Teams Waste Cotton Cleaner Relationship Specialty Start Date End Date Valentin Newton MD [address] [place] [address] PCP - General Internal Medicine 05/01/14 Singh Lott MD [address] [place] [address] Theoretical Physics Teacher Cardiovascular Disease 01/21/21 documented as of this encounter
--- OUTSIDE RECORDS SUMMARY | 2025-03-01 20:24 | XMS_ITS | Encounter Summary ---
Author Organization [employer] [facility] Prior to 01/28/2024 Address [address] [place] [address] Care Team Providers Care Liquor Bridge Operator Name Role Phone Valentin Newton MD Primary Care Provider [phone] Singh Lott MD Unavailable Encounter Details Date Type Department Care Team Description 03/26/2015 Gore Cutter Report Medical Records [address] [place] [address] Albin Wu MD Social History Tobacco Use [...] on filedocumented in this encounter Care Teams Liquor Bridge Operator Relationship Specialty Start Date End Date Valentin Newton MD [address] [place] [address] PCP - General Internal Medicine 05/01/14 Singh Lott MD [address] [place] [address] Reinstatement Clerk Cardiovascular Disease 01/21/21 documented as of this encounter
--- OUTSIDE RECORDS SUMMARY | 2025-03-01 20:24 | XMS_ITS | Encounter Summary ---
Author Organization [employer] [facility] Prior to 01/28/2024 Address [address] [place] [address] Care Team Providers Care Tool Repair Technician Name Role Phone Valentin Newton MD Primary Care Provider [phone] Singh Lott MD Unavailable Encounter Details Date Type Department Care Team Description 01/22/2018 Release of Information Medical Records [address] [place] [address] Abstract, Provider Social History Tobacco Use Types [...] on filedocumented in this encounter Care Teams Tool Repair Technician Relationship Specialty Start Date End Date Valentin Newton MD [address] [place] [address] [phone] PCP - General Internal Medicine 05/01/14 Singh Lott MD [address] [place] [address] [phone] Line Prep Cook Cardiovascular Disease 01/21/21 documented as of this encounter
--- OUTSIDE RECORDS SUMMARY | 2025-03-01 20:24 | XMS_ITS | Clinical Summary ---
Author Organization [employer] [facility] Address [address] [place] [address] 7t [place] [address] Care Team Providers Care Slotter Operator Helper Name Role Phone Unavailable Primary Care Provider [...]
--- OUTSIDE RECORDS SUMMARY | 2025-03-01 20:24 | XMS_ITS | Encounter Summary ---
Author Organization [facility] Prior to 01/28/2024 Address [address] [place] [address] Care Team Providers Care Supervisor Abattoir Name Role Phone Valentin Newton MD Primary Care Provider [phone] Singh Lott MD Unavailable Encounter Details Date Type Department Care Team Description 11/05/2022 Power Superintendent Report Medical Records [address] [place] [address] Elia Cruz Social History Tobacco Use Types [...] on filedocumented in this encounter Care Teams Supervisor Abattoir Relationship Specialty Start Date End Date Valentin Newton MD [address] [place] [address] PCP - General Internal Medicine 05/01/14 Singh Lott MD [address] [place] [address] Gm Cardiovascular Disease 01/21/21 documented as of this encounter
--- OUTSIDE RECORDS SUMMARY | 2025-03-01 20:24 | XMS_ITS | Encounter Summary ---
Author Organization [facility] Prior to 01/28/2024 Address [address] [place] [address] Care Team Providers Care Site Project Manager Name Role Phone Valentin Newton MD Primary Care Provider [phone] Singh Lott MD Unavailable Reason for Visit * Reason Onset Date Comments Orders Call 06/05/2015 Encounter Details Date Type Department Care Team Description 06/05/2015 Telephone Adult Medicine [address] [phone] Valentin Newton MD [address] [place] [address] [phone] Orders Call Social History Tobacco Use Types Packs/Day Years Used Date Smoking Tobacco: Former Alcohol Use Standard Drinks/Week Comments No 0 (1 standard drink = 0.6 oz pur e alcohol) Sex Assigned at Date Recorded Not on file Job Start Date Occupation Industry Not on file Not on file Not on file documented as of this encounter Miscellaneous Notes * Telephone Encounter - Delilah Krishna M.A. - 06/05/2015 11:20 AM EST I do not see a [facility] in pt chart. Returned call to Li. He states that an rx was faxed over for this yesterday 06/04/15. This would be a DME i believe. He states this is regarding a pain cream. * Telephone Encounter - Li Sandhu - 06/05/2015 10:57 AM EST Caller requesting call back from provider:Valentin Newton Is the caller the patient? NO If caller is not the patient, what is the callers name? li Callers relationship to patient? Pharmacist If person calling is not the patient themselves, is there a verbal release in FYI or permanent comments for this person: NO Reason for call back: Would like to discuss an order on medication Caller offered to speak with the nurse for assistance: YES Response: Patient offered to speak with nurse for assistance and patient agreed. Message forwarded to nurse. documented in this encounter Plan of Treatment Not on file documented as of this encounter Visit Diagnoses Not on filedocumented in this encounter Care Teams Site Project Manager Relationship Specialty Start Date End Date Valentin Newton MD [address] [place] [address] PCP - General Internal Medicine 05/01/14 Singh Lott MD [address] [place] [address] Motorcycle Repairer Cardiovascular Disease 01/21/21 documented as of this encounter
--- OUTSIDE RECORDS SUMMARY | 2025-03-01 20:24 | XMS_ITS | Encounter Summary ---
Author Organization [employer] [facility] Prior to 01/28/2024 Address [address] [place] [address] Care Team Providers Care Third Rigger Name Role Phone Valentin Newton MD Primary Care Provider [phone] Singh Lott MD Unavailable Encounter Details Date Type Department Care Team Description 12/10/2017 Business Doc Medical Records [address] [place] [address] Abstract, Provider Social History Tobacco Use Types [...] on filedocumented in this encounter Care Teams Third Rigger Relationship Specialty Start Date End Date Valentin Newton MD [address] [place] [address] [phone] PCP - General Internal Medicine 05/01/14 Singh Lott MD [address] [place] [address] [phone] Packaging Machine Supplies Distributor Cardiovascular Disease 01/21/21 documented as of this encounter
--- OUTSIDE RECORDS SUMMARY | 2025-03-01 20:24 | XMS_ITS | Encounter Summary ---
Author [facility] to 01/28/[facility]24 Address [address] [place] [address] Care Team Providers Care Helicopter Crew Chief Name Role Phone Valentin Newton MD Primary Care Provider [phone] Singh Lott MD Unavailable Encounter Details Date Type Department Care Team Description 12/20/2017 Refill Adult Medicine [address] [phone] Natalie Townsend PA Social History Tobacco Use Types Packs/Day Years [...] on filedocumented in this encounter Care Teams Helicopter Crew Chief Relationship Specialty Start Date End Date Valentin Newton MD [address] [place] [address] [phone] PCP - General Internal Medicine 05/01/14 Singh Lott MD [address] [place] [address] [phone] Airframe Technician Cardiovascular Disease 01/21/21 documented as of this encounter
--- OUTSIDE RECORDS SUMMARY | 2025-03-01 20:24 | XMS_ITS | Encounter Summary ---
Author Organization [employer] [facility] Prior to 01/28/2024 Address [address] [place] [address] Care Team Providers Care Public Policy Professor Name Role Phone Valentin Newton MD Primary Care Provider [phone] Singh Lott MD Unavailable Encounter Details Date Type Department Care Team Description 02/25/2023 Certified Medical Coding Specialist Report Medical Records [address] [place] [address] Services, [facility] [place] [address] Social History Tobacco Use Types Packs/Day Years [...] filedocumented in this encounter Care Teams Public Policy Professor Relationship Specialty Start Date End Date Valentin Newton MD [address] [place] [address] PCP - General Internal Medicine 05/01/14 Singh Lott MD [address] [place] [address] [phone] Loan Underwriter Cardiovascular Disease 01/21/21 documented as of this encounter
--- OUTSIDE RECORDS SUMMARY | 2025-03-01 20:24 | XMS_ITS | Encounter Summary ---
Author Organization [facility] Prior to 01/28/2024 Address [address] [place] [address] Care Team Providers Care Lay Out Worker Name Role Phone Valentin Newton MD Primary Care Provider [phone] Singh Lott MD Unavailable Encounter Details Date Type Department Care Team Description 10/15/2020 Telephone Adult Medicine [facility] [address] [place] [address] [phone] Valentin Newton MD [address] [place] [address] [phone] Social History Tobacco Use Types Packs/Day Years [...] on filedocumented in this encounter Care Teams Lay Out Worker Relationship Specialty Start Date End Date Valentin Newton MD [address] [place] [phone] PCP - General Internal Medicine 05/01/14 Singh Lott MD [address] [place] [address] [phone] Nurse Instructor Cardiovascular Disease 01/21/21 documented as of this encounter
--- OUTSIDE RECORDS SUMMARY | 2025-03-01 20:24 | XMS_ITS | Encounter Summary ---
Author Organization [facility] [facility] Address [address] [facility] 7 [place] [address] Care Team Providers Care Enterostomal Nurse Name Role Phone Unavailable Primary Care Provider Unavailabl e Encounter Details Date Type Department Care Team (Latest Contact Info) Description 01/29/2021 Abstract [facility] CONVERSIONS Dental, Provider, DDS Social History Tobacco [...]
--- OUTSIDE RECORDS SUMMARY | 2025-03-01 20:24 | XMS_ITS | Encounter Summary ---
Author Organization [employer] [facility] Prior to 01/28/2024 Address [address] [place] [address] Care Team Providers Care Head Stock Transfer Clerk Name Role Phone Valentin Newton MD Primary Care Provider [phone] Singh Lott MD Unavailable Encounter Details Date Type Department Care Team Description 02/23/2018 [facility] Medical Records [address] [place] [address] Abstract, Provider Social History Tobacco Use Types [...] filedocumented in this encounter Care Teams Head Stock Transfer Clerk Relationship Specialty Start Date End Date Valentin Newton MD [address] [place] [address] [phone] PCP - General Internal Medicine 05/01/14 Singh Lott MD [address] [place] [address] [phone] Lead Material Handler Cardiovascular Disease 01/21/21 documented as of this encounter
--- OUTSIDE RECORDS SUMMARY | 2025-03-01 20:24 | XMS_ITS | Encounter Summary ---
Author Organization [facility] Prior to 01/28/2024 Address [address] [place] [address] Care Team Providers Care Story Reader Name Role Phone Valentin Newton MD Primary Care Provider [phone] Singh Lott MD Unavailable Encounter Details Date Type Department Care Team Description 08/27/2020 Telephone Adult Medicine [address] [phone] Natalie Chung PA-C Social History Tobacco Use [...] on filedocumented in this encounter Care Teams Story Reader Relationship Specialty Start Date End Date Valentin Newton MD [address] [place] [address] 07[address] PCP - General Internal Medicine 05/01/14 Singh Lott MD [address] [place], [place] [phone] World Travel Counselor Cardiovascular Disease 01/21/21 documented as of this encounter
--- OUTSIDE RECORDS SUMMARY | 2025-03-01 20:24 | XMS_ITS | Encounter Summary ---
Author Organization [facility] Prior to 01/28/2024 Address [address] [place] [address] Care Team Providers Care Hide And Skin Processing Worker Name Role Phone Valentin Newton MD Primary Care Provider Singh Lott MD Unavailable Reason for Visit * Reason Comments E-prescribe Rx Request Encounter Details Date Type Department Care Team Description 07/20/2015 Refill Adult Medicine [address] [phone] Valentin Newton MD [address] [place] [address] [phone] E-prescribe Rx Request Social History Tobacco Use [...] / Plan: [place]ARE-[place] / Product Type: MEDICARE [id number] documented in this encounter Plan of Treatment Not on file documented as of this encounter Visit Diagnoses Not on filedocumented in this encounter Care Teams Hide And Skin Processing Worker Relationship Specialty Start Date End Date Valentin Newton MD [address] [place] [address]20 PCP - General Internal Medicine 05/01/14 Signh Lott MD [address] [place] [address]20 Grounds Crew Supervisor Cardiovascular Disease 01/21/21 documented as of this encounter
--- OUTSIDE RECORDS SUMMARY | 2025-03-01 20:24 | XMS_ITS | Encounter Summary ---
Author Organization [facility] Prior to 01/28/2024 Address [address] [place] [address] Care Team Providers Care Trade Manager Name Role Phone Valentin Newton MD Primary Care Provider [phone] Singh Lott MD Unavailable Reason for Visit * Reason Onset Date Comments refill request 2015 Encounter Details Date Type Department Care Team Description 2015 Refill Adult Medicine [address] [phone] Valentin Newton MD [address] [place] [address] [phone] refill request Social History Tobacco Use Types [...] / Plan: [place]ARE-[place] / Product Type: MEDICARE [id number] documented in this encounter Plan of Treatment Not on file documented as of this encounter Visit Diagnoses Not on filedocumented in this encounter Care Teams Trade Manager Relationship Specialty Start Date End Date Valentin Newton MD [address] [place] [address] PCP - General Internal Medicine 05/01/14 Singh Lott MD [address] [place] [address] Custom Car Builder Cardiovascular Disease 01/21/21 documented as of this encounter
== END 2025-03-01 14:00 | disposition home or self-care (01) ==
LOC: HO.LNP 13:59
PROVIDERS: PCP Internal Medicine; Visit Provider Obstetrics & Gynecology
DX: N93.9 Abnormal uterine and vaginal bleeding, unspecified (principal); Z32.02 Encounter for pregnancy test, result negative
CPT/HCPCS: 58100; 81025; 88305

== ENCOUNTER 2025-03-01 13:59 | Outpatient (AMB) | payer OTHER, SELFPAY ==
--- NOTE | 2025-03-01 14:07 | MHC.OFFVIS ---
Vital Signs 03/01/25 14:10 Height 5 ft 4 in Weight 190 lb BMI 32.6 BP 138/78 Intake Visit Reasons: EMB Noodle Catalyst Maker Required: No Information Interpreted: non-clinical & clinical Aerodynamic Consultant: Aerodynamic Consultant Present (Yaneli NORTON) Accompanied by: Self / Same As Patient Allergies amoxicillin Allergy (Verified 03/01/25 14:11) Unknown doxycycline Allergy (Verified 03/01/25 14:11) Unknown ibuprofen Allergy (Verified 03/01/25 14:11) Unknown lisinopril Allergy (Verified 03/01/25 14:11) Angioedema naproxen Adverse Reaction (Verified 03/01/25 14:11) Unknown HPI Comments Details: Presenting for EMB [facility] Medical History Diabetes Hyperlipidemia Hernia HTN (hypertension) Surgical History H/O hernia repair Hx laparoscopic cholecystectomy H/O tubal ligation Family History Father Diabetes Mother Diabetes Breast cancer Ovarian cancer Maternal Aunt Ovarian cancer Paternal Aunt Ovarian cancer Social History Household Members: None Alcohol intake: never Patient Tobacco Use Status: Current someday Tobacco user Cigarettes Per Day: 1 Years Smoked: 5 Current occupational status: disabled Sexual orientation: Straight/Heterosexual Gender identity: Female Review of Systems Const All systems reviewed & are unremarkable except as noted in HPI and below Reports as per HPI and Reports no additional complaints GI Reports no additional complaints Reports no additional complaints Physical Exam Vital Signs: Last Vital Signs BP 138/78 03/01/25 14:10 BMI result Body Mass Index 32.6 Office Procedures Endometrial Biopsy Details: The patient was counseled regarding the indication and benefits of endometrial sampling to rule out endometrial pathology including not limited to endometrial hyperplasia or endometrial cancer and others; The alternatives (Either do nothing vs. hysteroscopy D&C) & the risks were discussed with the patient including but not limited: pain, uterine perforation, bleeding, infection, possible injury to bladder, bowel, ureter, possible need for blood transfusion with all its possible risks. The patient verbalized understanding all questions answered and signed consent. Urine test done in the office was negative The patient was placed into the dorsal lithotomy position; a speculum was inserted in the vagina. Using aseptic technique for the procedure, the cervix was cleansed with Betadine. The anterior lip of the cervix was grasped with a single tooth tenaculum. The uterus was sounded to 7 cm with a 4 mm Pipelle was used. Tissues samples were obtained and placed in formalin, in a patient labeled container and sent to the pathology department. At the end of the procedure, there was minimal bleeding noted The patient tolerated the procedure well and was discharged in good condition with the following instructions: Nothing in the vagina until the bleeding stops. No sex until the bleeding stops, to call if any of the following occurs: fever (>100.4), flu-like symptoms, abdominal pain, heavy bleeding, four smelling vaginal discharge. The patient was instructed to schedule a Follow up appointment in 2 weeks to discuss pathology results of the biopsy and treatment options. This note was generated with a voice recognition program. Some errors may have been overlooked during the review of this note. Sometimes these errors may affect the content or meaning of a given sentence. [id number] Biopsy Results AMB Test Urine AMB Test Urine Negative Last Edit by Yaneli Zee CMA on 03/01/25 14:12 Results Reviewed Results Reviewed: Laboratory Last Values [facility]st Clinic Negative 03/01/25 14:12 Assessment & Plan Assessment & Plan (1) Abnormal uterine bleeding (AUB): Comment: On cyclic Provera Code(s): N93.9 - Abnormal uterine and vaginal bleeding, unspecified Category: Medical Plan: EMB done, see procedure note Orders: Orders AMB HCG Urine Test Today Z32.02 - Encounter for test, result negative AMB Endometrial Biopsy Today N93.9 - Abnormal uterine and vaginal bleeding, unspecified Coding Level of Care Code Procedure Only Diagnoses Abnormal uterine bleeding (AUB) N93.9 CPT Codes Endometrial Biopsy - CPT: 36746-[id number] Biopsy ([id number])
[2025-03-01 14:10] VITALS: BP 138/78; BMI 32.6
== END 2025-03-01 14:29 | disposition home or self-care (01) ==
LOC: HO.HWS 13:59
PROVIDERS: PCP Internal Medicine; Visit Provider Obstetrics & Gynecology
DX: N93.9 Abnormal uterine and vaginal bleeding, unspecified (principal); Z32.02 Encounter for pregnancy test, result negative
CPT/HCPCS: 58100

== ENCOUNTER 2025-03-27 12:16 | Outpatient (AMB) | payer OTHER, SELFPAY ==
--- NOTE | 2025-03-27 12:17 | A.OFFVIS_ITS ---
Intake Visit Reasons: Post EMB Allergies amoxicillin Allergy (Verified 03/01/25 14:11) Unknown doxycycline Allergy (Verified 03/01/25 14:11) Unknown ibuprofen Allergy (Verified 03/01/25 14:11) Unknown lisinopril Allergy (Verified 03/01/25 14:11) Angioedema naproxen Adverse Reaction (Verified 03/01/25 14:11) Unknown HPI Comments Details: The patient is presenting for follow-up to discuss the results of her abnormal uterine bleeding workup and options of treatment. The following workup was done.: H&H= 12.5/40.6 TSH, hCG, GC and chlamydia were negative. FSH/LH 45.1/26.9 Endometrial biopsy pathology showed the following: Endometrium, biopsy: Superficial fragments of inactive endometrium; no atypia or hyperplasia identified Co testing was done in 11/18 was negative. Mammogram was inat [facility] was wnl acc to the pt Pelvic ultrasound showed the following: Uterus: The uterus is anteverted and measures 8.3 x 6.0 x 6.9 cm. The double wall endometrial thickness is 7 mm. The uterus is heterogeneous with multiple leiomyomas. Right lower uterine body: 2.6 x 1.5 x 2.0 previously 2.5 x 1.8 x 2.1. Right uterine body: 2.9 x 1.7 x 2.4 previously 2.7 x 3.2 x 2.6. Upper left uterine body: 2.5 x 2.0 x 2.3 previously 2.3 x 2.6 x 2.0. Lower left uterine body 2.7 x 1.3 x 2.3 previously 1.1 x 0.8 x 1.1. Fundus: 2.5 x 2.4 x 2.2 previously 1.9 x 0.9 x 1.3. Adnexa: Both ovaries are visualized. There is normal color flow to the adnexa. There is no ovarian torsion. There is no pelvic ascites or fluid collection. Right ovary measures 4.2 x 1.8 x 2.7 cm. Left ovary measures 4.6 x 2.1 x 3.1 cm. US/US pelvic and transvaginal IMPRESSION: Multiple uterine leiomyomas with evidence of enlargement of fibroids in the lower left uterine body and fundus. [facility] Medical History Diabetes Hyperlipidemia Hernia HTN (hypertension) Surgical History H/O hernia repair Hx laparoscopic cholecystectomy H/O tubal ligation Family History Father Diabetes Mother Diabetes Breast cancer Ovarian cancer Maternal Aunt Ovarian cancer Paternal Aunt Ovarian cancer Social History Household Members: None Alcohol intake: never Patient Tobacco Use Status: Current someday Tobacco user Cigarettes Per Day: 1 Years Smoked: 5 Current occupational status: disabled Sexual orientation: Straight/Heterosexual Gender identity: Female Review of Systems Const All systems reviewed & are unremarkable except as noted in HPI and below Reports as per HPI and Reports no additional complaints GI Reports no additional complaints Reports no additional complaints Telehealth Telehealth [facility] Location of provider rendering services: practice address Location of patient: address on file Patient Identification confirmed using: Name, : Yes Telehealth method: video Patient verbally consented to treatment: Yes Patient verbally consented to billing insurance company: Yes Patient informed of any privacy concerns related to visit: Yes Minutes spent on Phone/Video with Pt.: 4 Assessment & Plan Assessment & Plan (1) Abnormal uterine bleeding (AUB): Comment: On cyclic Provera Elevated FSH/LH Code(s): N93.9 - Abnormal uterine and vaginal bleeding, unspecified Category: Medical Plan: Discussed with the patient the results of the work up done and options of treatment including expectant management, Lysteda, BCP's, Mirena IUD, endometrial ablation and hysterectomy. All pros, cons, risks and benefits if each option was discussed with the patient and the patient decided to think about it and get back to us. All questions answered the patient verbalized understanding. I spent a total of 20 minutes reviewing the chart, talking to the patient via [employer] and documenting in the medical record. Coding Level of Care Code Tele Est Pt Level 3 (50105) Diagnoses Abnormal uterine bleeding (AUB) N93.9
--- OUTSIDE RECORDS SUMMARY | 2025-03-27 16:15 | XMS_ITS | Encounter Summary ---
Author Organization [employer] [facility] Address [address] [facility] 7 [place] [address] Care Team Providers Care Campaign Specialist Name Role Phone Unavailable Primary Care Provider Unavailabl e Encounter Details Date Type Department Care Team (Latest Contact Info) Description 01/29/[address] [facility] CONVERSIONS Dental, Provider, DDS Social History [...]
--- OUTSIDE RECORDS SUMMARY | 2025-03-27 16:15 | XMS_ITS | Clinical Summary ---
Author Organization [employer] [facility] Address [address] [place] [address] 7[address] [place] [address] Care Team Providers Care Director Of Oncology Name Role Phone Unavailable Primary Care Provider [...]
--- OUTSIDE RECORDS SUMMARY | 2025-03-27 16:15 | XMS_ITS | Clinical Summary ---
Author Organization [employer] [facility] Prior to 08/26/24 Address [address] [place] [address] Care Team Providers Care Fourdrinier Tender Name Role Phone Valentin Newton MD Primary Care Provider [phone] Allergies No known active allergies Medications Medication [...] age to complete this topic Care Teams Fourdrinier Tender Relationship Specialty Start Date End Date Valentin Newton MD PCP - General Internal Medicine 12/31/20
--- OUTSIDE RECORDS SUMMARY | 2025-03-27 16:16 | XMS_ITS | Clinical Summary ---
Author Organization [facility] [address] [place] [address] [place] [phone] Phone Care Team Providers Care Tobacco Shaker Name Role Phone Valentin Newton MD Primary Care Provider [phone] Allergies Active Allergy Reactions Criticality Noted Date [...] DAILY. 90 tablet 1 05/04/19 25 Active hydroCHLOROthia zide (HYDRODIURIL) 50 mg tabletIndicatio ns:Essential hypertension Take 1 tablet (50 mg total) by mouth 1 (one) time each day. 90 each 1 10/11/19 25 2025 Active blood sugar diagnostic (FreeStyle Lite Strips) test strip Use to test blood sugar three times daily 300 each 3 10/14/19 25 Active rosuvastatin (CRESTOR) 5 mg [...] Ultra-Fine Short Pen Needle 31 gauge x /16 needleIndicatio ns:Type 2 diabetes mellitus without complication, with long-term current use of insulin ([facility] V24, [facility] V28) USE FOUR TIMES DAILY TO INJECT INSULIN. 400 each 3 01/17/20 25 Active ketoconazole (NIZORAL) 2 % cream [...] HARRISON 90 tablet 1 02/28/20 25 Active oxyCODONE-aceta minophen (PERCOCET) 5-325 mg per tabletIndicatio ns:Lumbar disc disease Take 1 tablet by mouth 4 (four) times a day. Max Daily Amount: 4 tablets 112 tablet 03/12/20 25 Active semaglutide (Ozempic) 2 mg/dose (8 mg/3 mL) injection penIndications: Type 2 diabetes mellitus without complications, unspecified whether emt intermediate insulin use ([facility] V24, [facility] V28) Inject 2 mg under the skin every 7 (seven) days. 3 mL 11 03/20/20 25 Active metFORMIN (GLUCOPHAGE) 1,000 mg tablet TOME YASMIN TABLETA 2 VECES AL HOWARD CON LAS COMIDAS 180 tablet 1 03/20/20 25 Active insulin glargine (Lantus Solostar U-100 Insulin) 100 unit/mL (3 mL) injection pen INJECT 88 UNITS INTO THE SKIN DAILY 45 mL 5 03/20/20 25 Active insulin aspart (NovoLOG Flexpen U-100 Insulin) 100 unit/mL (3 mL) injection pen Inject 3 TIMES A DAY WITH MEALS: 100-149: 22 Units 150-200: 24 units 201-250: 26 units 251-300: 28 units 301-350: 30 units 350-400: 32 units >400: call mes, plus 2 extra units at dinner. Max daily dose 90 units 45 mL 5 03/20/20 Active semaglutide (Ozempic) 2 mg/dose (8 mg/3 mL) injection penIndications: Type 2 diabetes mellitus without complication, unspecified whether halfway insulin use Inject 2 mg under the skin every 7 (seven) days. 3 mL 11 06/17/19 25 2024 Discontinued(R eorder) metFORMIN (GLUCOPHAGE) 1,000 mg tablet TOME YASMIN TABLETA 2 VECES AL HOWARD CON LAS COMIDAS 180 tablet 1 10/14/19 25 2024 Discontinued(R eorder) losartan (COZAAR) 100 mg tablet TAKE 1 TABLET BY MOUTH 1 TIME EACH DAY. 90 tablet 11/24/19 25 2024 Discontinued insulin glargine (Lantus Solostar U-100 Insulin) 100 unit/mL (3 mL) injection pen INJECT 84 UNITS INTO THE SKIN DAILY 45 mL 5 01/17/20 25 2024 Discontinued(R eorder) insulin aspart (NovoLOG Flexpen U-100 Insulin) 100 unit/mL (3 mL) injection pen Inject 3 TIMES A DAY WITH MEALS: 100-149: 20 Units 150-200: 22 units 201-250: 24 units 251-300: 26 units 301-350: 28 units 350-400: 30 units >400: call mes, plus 2 extra units at dinner. Max daily dose 90 units 45 mL 5 01/17/20 25 2024 Discontinued(R eorder) oxyCODONE-aceta minophen (PERCOCET) 5-325 mg per tabletIndicatio ns:Lumbar disc disease Take 1 tablet by mouth 4 (four) times a day. Max Daily Amount: 4 tablets 112 tablet 02/13/202024 Discontinued(R eorder) Active Problems Problem Noted Date Diagnosed Date Microalbuminuria 10/13/2024 Obstructive sleep apnea 08/29/2024 Nocturnal hypoxia 08/29/2024 Anemia 01/24/2024 Anxiety 01/24/2024 Depression 01/24/2024 Diabetes mellitus type 2, uncomplicated 01/24/20 High cholesterol 01/24/2024 Thalassanemia 01/24/2024 Overview (12/27/2024): [...] Encounters Date Type Department Care Team Description 03/20/2025 1:15 PM EST Telemedicine Endocrinology [address] [phone] Aidee Tamayo PA Type 2 diabetes mellitus without complications, unspecified whether emt intermediate insulin use ([facility] V24, [facility] V28) (Primary Dx); Essential hypertension; Microalbuminuria 03/07/2025 Telephone [address] [phone] Ramonita Hale MA 03/07/2025 [address]phone [address] [phone] Stefan Miller MD 02/15/2025 3:45 PM EST Office Visit Adult Medicine [address] [phone] Valentin Newton MD Intractable headache, unspecified chronicity pattern, unspecified headache type (Primary Dx); Chest pain, unspecified type; Primary hypertension; High cholesterol; Type 2 diabetes mellitus without complications, unspecified whether emt intermediate insulin use (CMS/HCC V24, CMS/HCC V28) 01/23/2025 Telephone Pulmonology [facility] [address] [facility] [address] [place] [phone] Ramonita Hale [place] 01/23/2025 Results Follow-Up [address] [phone] Aidee Tamayo PA 01/18/2025 Telephone Pulmonology [facility] [address] [facility] [address] [place] [phone] Stefan Miller MD 01/16/2025 3:45 PM EDT Office Visit [address] [phone] Aidee Tamayo PA Diabetic nephropathy associated with type 2 diabetes mellitus ([facility] V24, [facility] V28) (Primary Dx); Microalbuminuria; Essential hypertension 01/09/2025 3:00 PM EDT Office Visit Orthopedic Surgery [facility] [address] [facility] [address] [place] [phone] Glenn Munoz DPM Left foot soft tissue tumor (Primary Dx); Dermatophytosis of nail; Diabetic mononeuropathy simplex ([facility] V24, [facility] V28); Acquired hammer toe of right foot; Type II diabetes mellitus with peripheral circulatory disorder ([facility] V24, [facility] V28); Hammer toe of left foot; Metatarsalgia of both feet; Pain in toe of left foot; Pain in toe of right foot; Corns and callosities from Last 3 Months Immunizations Immunization Administration Dates Next Due Pneumococcal polysaccharide 23 valent (Pneumovax 23) 2yo and older 02/13/2011 Td Tetanus diptheria (Tdvax) 7yo and older 11/06,08/28/2005 Tdap Tetanus diptheria acell ular pertussis (Boostrix; Adacel) 7yo and older 02/13/2011 Surgical History Surgery Date Site/Laterality Comments OTHER SURGICAL HISTORY PROCEDURE: VA DRAINAGE PERITON ABSCESS/LOCAL PERITONITIS OPEN CHOLECYSTECTOMY PROCEDURE: [...] care for your loved ones. For example, salesperson children's shoes or elderly care for an older adult? [...] Care Team (Late st Contact Info) Description 04/09/2025 3:00 PM EST Office Visit Adult Medicine [facility] [address] [place] [phone] Elisa Arias, UNISHEAR OPERATOR [address] [place] [address] 04/11/2025 3:30 PM EST Office Visit Orthopedic Surgery - [place] [address] [phone] Glenn Munoz, DPM [address] [phone] Health Maintenance Due Date Last Done Comments Colorectal Cancer Screening: Colonoscopy 1976 Naloxone Order 1976 Non-Opioid Controlled Substance Agreement 1976 Opioid Substance Agreement 1976 Pain Assessment 1976 Diabetes: Annual Foot Exam 1986 Pneumococcal [...] Social Influencers of Health Screening 10/03/2025 10/03/2024 Drug Screen 10/10/2025 10/10/2024 Breast Cancer Screening 11/02/2026 11/03/19 25, 03/24/2024, [...] associated with type 2 diabetes mellitus ([facility] V24, [facility] V28) MG MAMMO DIGITAL DIAGNOSTIC W FLAVIO RIGHT Routine 11/02/2024 2:52 PM EDT Mass of right breast, unspecified quadrant DRUG ABUSE SCREEN 8A PANEL, URINE Routine 10/10/2024 1:49 PM EDT Lumbar disc disease MICROALBUMIN CREATININE URINE RATIO Routine 06/23/2024 4:09 PM EDT Type 2 diabetes mellitus without complication, unspecified whether halfway insulin use ([facility] V24, [facility] V28) COMPREHENSIVE METABOLIC PANEL Routine 06/23/2024 4:09 PM EDT Type 2 diabetes mellitus without complication, unspecified whether emt intermediate insulin use ([facility] V24, [facility] V28) Encounter for long-term (current) [...] Final Result [facility] [address] [place] [address], [place] [phone] * MG Mammo Digital Diagnostic w Flavio [...] of right breast is recommended. MAMMO LOCATION: [facility], [address] [place] [address], [address], . -------- FINAL REPORT -------- Dictated By: Noa Hwang Dictated Date: 11/02/2024 16:05 ET Assigned Physician: Noa Hwang Reviewed and Electronically Signed By: Noa Hwang Signed Date: 11/02/2024 16:10 ET Workstation ID: [id number] Transcribed By: Self Edit Transcribed Date: 11/02/2024 [...] of right breast is recommended. MAMMO LOCATION: [facility], [address] [place] [address], [phone], . -------- FINAL REPORT -------- Dictated By: Noa Hwang Dictated Date: 11/02/2024 16:05 ET Assigned Physician: Noa Hwang Reviewed and Electronically Signed By: Noa Hwang Signed Date: 11/02/2024 16:10 ET Workstation ID: [id number] Transcribed By: Self Edit Transcribed Date: 11/02/2024 16:05 ET us Elisa Arias UNISHEAR OPERATOR IMG BI PROCEDURES Final Resul t * (ABNORMAL) Drug abuse screen 8a panel, urine (10/10/2024 1:49 PM EDT) Amphetamine Screen, Ur Negative Negative LAB CHEMISTRY METHOD 5 6:[address] [facility] Comment:Certain OTC medicati ons containing ephedrine, phenylephrine, pseudoephedrine and phenylpropanolamine can cause false positive results. Barbiturate Screen, Ur Negative Negative LAB CHEMISTRY METHOD 5 6:[address] [facility] Benzodiazepine Screen, Ur Negative Negative LAB CHEMISTRY METHOD 5 6:[address] [facility] Cocaine Screen, Ur Negative Negative LAB CHEMISTRY METHOD 5 6:[address] [facility] Opiate Screen, Ur Positive(A ) Negative LAB CHEMISTRY METHOD 5 6:[address] [facility] Cannabinoid (THC) Screen, Ur Negative Negative LAB CHEMISTRY METHOD 5 6:[address] [facility] Comment:Specimens from patie nts taking pantoprazole sodium (Protonix) have been shown to produce false positive results. Oxycodone Screen, Ur Positive(A ) Negative LAB CHEMISTRY METHOD 5 6:[address] [facility] Fentanyl, Ur Negative Negative LAB CHEMISTRY METHOD 5 6:35 PM [facility] Urine Urine specimen obtained by clean catch procedure / Unknown Non-blood Collection / Unknown 10/10/2024 1:49 PM EDT 10/10/2024 1:[address] [facility] - 10/10/2024 6:35 PM EDT Assay cutoffs: Amphetamines 1000 ng/mL Barbiturates 200 ng/mL Benzodiazepines 200 ng/mL Cocaine 300 ng/mL Fentanyl 1 ng/mL Opiates 300 ng/mL Oxycodone 100 ng/mL THC 50 ng/mL Semi-quantitative assay for screening purposes only. Unconfirmed screening result should not be used for non-medical purposes. *ALTERNATE METHOD CONFIRMATION DONE UPON REQUEST ONLY* us Elisa Arias UNISHEAR OPERATOR LAB URINE ORDERABLES Final Re sult [facility] [address] [place] [address], [place] [phone] * Lipid panel with reflex to direct [...] ORDERABLES Final Resu lt Performing Organization Address [facility]/ZIP Co de Phone Number [facility] [address] [place] [address], [place] [phone] * (ABNORMAL) Microalbumin creatinine urine ratio (06/23/2024 [...] MD LAB URINE ORDERABLES Final Resu lt Performing Organization Address [facility]/ZIP Co de Phone Number [facility] [address] [place] [address], [place] [phone] * (ABNORMAL) Comprehensive metabolic panel (06/23/2024 4:09 PM EDT) Sodium 135 133 - 145 mmol/L LAB CHEMISTRY METHOD 06/23/2024 6:[address] [facility] Potassium 3.9 3.5 - 5.5 mmol/L LAB CHEMISTRY METHOD 06/23/2024 6:[address] [facility] Chloride 99 96 - 110 mmol/L LAB CHEMISTRY METHOD 06/23/2024 6:[address] [facility] CO2 30 21 - 32 [...] 6:32 PM [facility] Total Protein 7.9 6.0 - 8.0 g/dL LAB CHEMISTRY METHOD 06/23/2024 6:32 PM [facility] Albumin 3.8 3.2 - 5.0 g/dL LAB CHEMISTRY METHOD 06/23/2024 6:32 PM [facility] Total Bilirubin 0.3 0.0 - 1.4 mg/dL LAB CHEMISTRY METHOD 06/23/2024 6:[address] [facility] Blood Venous blood specimen / Unknown Venipuncture / Unknown 06/23/2024 4:09 PM EDT 06/23/2024 4:09 PM EDT Valentin Newton MD LAB BLOOD ORDERABLES Final Resu lt [facility] [address] [place] [address], * Pap Smear (06/03/2016) Pap smear Negative, Abstracted Historical Provider HEALTH MAINTENANCE Final Result from Last 3 Months or Most Recently Relevant to Health Maintenance Insurance [facility] MEDICARE Member Subscriber Plan / Payer (Ef fective 2018-Present) Name:LASHELL MCMANUS Relation to Subscriber:Self Name:Lashell Mcmanus Payer ID:[id number] Group ID:[id number] Type:Not on file Address: [place] [address] [address] [phone] Care Teams Tobacco Shaker Relationship Specialty Start Date End Date Valentin Newton MD [address] [place] [phone] PCP - General Internal Medicine 03/02/24
--- OUTSIDE RECORDS SUMMARY | 2025-03-27 16:16 | XMS_ITS | Encounter Summary ---
Author Organization [facility] Address [address] [place] [address] Care Team Providers Care Composing Machine Operator/Tender Name Role Phone Valentin Newton MD Primary Care Provider [phone] Encounter Details Date Type Department Care Team (Late Contact Info) Description 01/23/2025 Results Follow-Up Endocrinology - [address] [phone] Aidee Tamayo PA [address] [place] [address] Social History Tobacco Use Types Packs/Day Years Used Date Smoking Tobacco: Every Day Cigarettes Smokeless Tobacco: Never Alcohol Use Standard Drinks/Week Comments No 0 (1 standard drink = 0.6 oz pur e alcohol) Dependent Care Answer Date Recorded Do you need help finding or paying for care for your loved ones. For example, early childhood education worker or elderly care for an older adult? [...] Encounters Date Type Department Care Team (Late Contact Info) Description 04/09/2025 3:00 PM EST Office Visit Adult Medicine [facility] [address] [place], [place] [phone] Elisa Arias, EXPORT SALES MANAGER [address] [place] [address] 04/11/2025 3:30 PM EST Office Visit Orthopedic Surgery - [place] [phone] [phone] Glenn Munoz, DPM [address] [phone] documented as of this encounter Visit Diagnoses Not on filedocumented in this encounter Additional Health Concerns Assessment Noted Time PHQ-9 Depression Total Score: 8 06/24/19 25 7:29 AM EDT documented as of this encounter Care Teams Composing Machine Operator/Tender Relationship Specialty Start Date End Date Valentin Newton MD [address] [place] [phone] PCP - General Internal Medicine 03/02/24 documented as of this encounter
--- OUTSIDE RECORDS SUMMARY | 2025-03-27 16:16 | XMS_ITS | Patient Health Record ---
Author Organization [facility] Address [address] [place] [phone] Care Team Providers Care Malt Liquors Sales Representative Name Role Phone Sam Mendoza Jr Reason For Referral No Information Plan Of Treatment No Information
== END 2025-03-27 13:05 | disposition home or self-care (01) ==
LOC: HO.HWS 12:16
PROVIDERS: PCP Internal Medicine; Visit Provider Obstetrics & Gynecology
DX: N93.9 Abnormal uterine and vaginal bleeding, unspecified (principal)
CPT/HCPCS: 99213